=== PATIENT | female | born 1950 | race African-American/Black ===

== ENCOUNTER 2017-04-13 19:37 | Inpatient (IN) | payer MEDICARE, OTHER ==
--- NOTE | 2017-04-13 21:29 | ED Physician Chart ---
ED Chief Complaint/HPI - Patient Information Date Seen:: 03/13/18 Time Seen:: 21:30 Chief Complaint:: INCREASED AGITATION History of Present Illness:: PATIENT SENT FROM CARE FACILITY FOR INCREASED AGITATION. Historian:: EMS (PRIOR PSYCH HISTORY), Medical Records Review:: EMS run form Reviewed ED Review of Systems - Review of Systems General/Constitutional: No fever (unreliable) Skin: No skin lesions, No rash, No bruising Head: No headache, No light-headedness Eyes: No loss of vision, No pain, No diplopia ENT: No earache, No nasal drainage, No sore throat, No tinnitus Neck: No neck pain, No swelling, No thyromegaly, No stiffness, No mass noted Cardio Vascular: No chest pain, No palpitations, No PND, No orthopnea, No edema Pulmonary: No SOB, No cough, No sputum, No wheezing GI: No nausea G/U: No dysuria Musculoskeletal: No bone or joint pain Endocrine: No polyuria Psychiatric: Prior psych history, Depression, Anxiety (Agitation, aggressive behavior, unreliable historian.) Allergic/Immuno: No urticaria Neurological: No syncope Other: UNRELIABLE HISTORIAN ED Past Medical History - Past Medical History Obtainable: No (Unreliable historian, unwilling to cooperate) Psychiatricy History: Depression Family Medical History - Family Member Mother History Unknown: Yes ED Physical Exam - Physical Examination Head: Atraumatic Eyes: Lids, conjuctiva normal Skin: Nl inspection ENMT: External ears, nose nl Neck: Nontender Respiratory: Nl effort/Exclusion Cardio Vascular: RRR GI: No tenderness/rebounding/guarding : No CVA tenderness Extremities: No tenderness or effusion Neuro/Psych: No focal deficits Misc: Normal back ED Assessment - Assessment General Assessment: psychotic break vs other ED Septic Shock - . Is Septic Shock (SBP<90, OR Lactate>4 mmol\L) present?: No ED Discharge Plan - Patient Disposition Admit/Discharge/Transfer: Acute Care w/in this hosp Condition at Disposition: Critical
[2017-04-14 00:12] VITALS: BP 119/89
[2017-04-14] MEDS ORDERED: Non-Formulary Item 1 EA (Albuterol Sulfate [Ventolin Hfa] 2 PUFF) IH PRN (01:25)
[2017-04-14] MEDS ORDERED: Maalox 30 mL Cup PO PRN (01:34)
[2017-04-14] MEDS ORDERED: Magnesium Hydroxide (MOM) 30 mL UDC PO PRN (01:34)
[2017-04-14] MEDS: Multivitamin Tab PO SCH ×2 (08:12→08:34)
[2017-04-14] MEDS: Pantoprazole 40 mg EC Tab PO SCH ×2 (08:13→08:34)
[2017-04-14] MEDS: NIFEdipine 30 mg ER Tab PO SCH (08:34)
[2017-04-14] MEDS ORDERED: METFORMIN HCL 500 MG PO SCH (09:00)
[2017-04-14] MEDS ORDERED: NIFEDIPINE 90 MG PO SCH (09:00)
[2017-04-14] MEDS ORDERED: IRBESARTAN 75 MG PO SCH (09:00)
--- NOTE | 2017-04-14 09:55 | Diagnostic Imaging Report ---
CHEST X-RAY: AP view INDICATION: +PPD COMPARISON: None FINDINGS: Exam is limited due to positioning and body habitus. Suboptimal lung bones are seen with no focal consolidation or effusions. Cardiomegaly is noted with tortuous aorta. Degenerative changes of the spine are noted. IMPRESSION: No focal consolidation or radiographic evidence of active tuberculosis. Please correlate with clinical findings. Cardiomegaly.
--- NOTE | 2017-04-14 22:51 | History & Physical ---
ADMIT DATE: 04/14/2017 PATIENT'S IDENTIFICATION: A 66-year-old female. REQUESTING PHYSICIAN: Dr. Minerva Villafana. PRESENTING COMPLAINT: "I don't know." HISTORY OF PRESENT ILLNESS: A 66-year-old female with history of schizophrenia, bipolar disorder, COPD, diabetes mellitus, hypertension, has significant medical hospitalization at [facility] after the patient was noted to have hypoxic respiratory failure secondary to over sedation. The patient did stay in the long term for 2 days, but sent back to [facility] Unit for evaluation of psychotic illnesses. The patient was refusing to take her medication and very, very paranoid. The patient was initially ____ in the Emergency Room and now been admitted. PAST MEDICAL HISTORY: Remarkable for: 1. Diabetes. 2. Hypertension. 3. Obesity. 4. Chronic obstructive pulmonary disease. 5. Degenerative joint disease. 6. Left above-knee amputation. 7. Psychotic disorder. MEDICATIONS: List has been reviewed and reconciled appropriately. ALLERGIES: The patient is not allergic to medications. SOCIAL HISTORY: The patient resides in a long term. The patient has a history of smoking cigarette. No alcohol or drug use. FAMILY MEDICAL HISTORY: Unremarkable. REVIEW OF SYSTEMS: Very limited due to the patient does not provide meaningful history, but what I can get it out from her is, denies any chest pain, short of breath, palpitation, dizziness, nausea, vomiting, diarrhea. She thinks her left lower extremity is swollen and painful. The patient denies any hematuria, hematochezia or melena. No vaginal bleeding, no genital discharge. PHYSICAL EXAMINATION: GENERAL: The patient is alert, awake, looks very scared, lying in the bed without any acute distress. VITAL SIGNS: Temperature 97.9, pulse is 84, respiratory rate 18, blood pressure 150/90. HEENT: Normocephalic and atraumatic. Extraocular muscles are intact, exophthalmus noted. Tongue was pink and coated. Poor dentition noted. No oral lesion, no exudate, no sinus tenderness. NECK: Supple. No JVD, no hepatojugular reflux. No lymphadenopathy, thyromegaly or carotid bruit. HEART: Both heart sounds are regular. No S3, no S4, no murmur. CHEST: Lungs equal in expansion. No expiratory wheezing. ABDOMEN: Protuberant, soft. No guarding, no rigidity. Liver and spleen are not palpable. No palpable mass. EXTREMITIES: Left above-knee amputation noted. Stump looks intact. Right lower extremity pulses are +1. No calf tenderness noted. NEUROLOGIC: Alert, awake and follows commands. CLINICAL IMPRESSION: 1. Psychotic disorder exacerbation. 2. Diabetes mellitus. 3. Hypertension. 4. Hyperlipidemia. 5. Degenerative joint disease. 6. Obesity. 7. Status post left above-knee amputation. 8. Exophthalmus. PLAN: 1. Psychotic evaluation and management deferred to psychiatrist. 2. Resume her metformin and monitor the blood sugar and cover blood sugar with sliding scale and regular insulin. 3. Continue her antihypertensive medication. 4. Fall precautions. 5. General nursing care. 6. Nutritional support. 7. Admission lab. 8. We will continue to follow this patient during the stay in the hospital. 9. Care plan reviewed and discussed with the patient's signed RN. JOB# [id number]
[2017-04-15] MEDS: Pantoprazole 40 mg EC Tab PO SCH (08:59)
[2017-04-15] MEDS: Multivitamin Tab PO SCH (09:01)
[2017-04-15] MEDS: NIFEdipine 30 mg ER Tab PO SCH (09:11)
--- NOTE | 2017-04-15 14:29 | General Progress Note ---
Subjective - Review of Systems Subjective: patient is seen and examined. No new events. NO new complaints. Objective - Results Recent Labs: Laboratory Last Values POC Glucose 80 MG/DL (70 - 105) 04/15/17 11:42 - Physical Exam Vitals and I&O: Vital Signs Temp 98.7 F 04/14/17 16:05 Pulse 77 04/15/17 09:11 Resp 20 04/15/17 08:00 BP 140/87 04/15/17 09:11 Pulse Ox 95 04/14/17 16:05 Intake & Output 04/14/17 04/15/17 04/15/17 18:59 06:59 18:59 Intake Total 300 360 Balance 300 360 Intake: Oral 300 360 Other: # Voids 2 1 # Bowel Movements 1 Stool Characteristics Soft Soft Soft Brown Brown Brown Active Medications: Current Medications Acetaminophen (Tylenol) 650 mg PO Q4HR PRN PRN Reason: Mild Pain / Temp above 100 Stop: 06/13/17 01:33 Last Admin: 04/14/17 04:38 Dose: 650 mg Al Hydrox/Mg Hydrox/Simethicone (Maalox) 30 ml PO Q4HR PRN PRN Reason: GI DISTRESS Stop: 06/13/17 01:33 Clozapine (Clozaril) 25 mg PO DAILY ZEHRA PRN Reason: Protocol Stop: 06/15/17 08:59 Divalproex Sodium (Depakote Dr) 500 mg PO BID ZEHRA PRN Reason: Protocol Stop: 06/13/17 08:59 Last Admin: 04/15/17 08:59 Dose: 500 mg Hydrochlorothiazide (Hctz) 25 mg PO DAILY [facility]EHRA Stop: 06/13/17 08:59 Last Admin: 04/15/17 09:10 Dose: 25 mg Lorazepam (Ativan) 0.5 mg PO Q4HR PRN; Protocol PRN Reason: Anxiety Stop: 05/14/17 01:33 Last Admin: 04/15/17 09:00 Dose: 0.5 mg Magnesium Hydroxide (Milk Of Magnesia) 30 ml PO HS PRN PRN Reason: Constipation Metformin HCl (Glucophage) 500 mg PO BID ZEHRA Stop: 06/13/17 08:59 Last Admin: 04/15/17 08:59 Dose: 500 mg Miscellaneous (Albuterol Sulfate [Ventolin Hfa]) 2 puff IH Q6HR PRN PRN Reason: Shortness of Breath Multivitamins/Vitamin C (Theragran) 1 tab PO DAILY [facility] Stop: 06/13/17 08:59 Last Admin: 04/15/17 09:01 Dose: 1 tab Nifedipine (Procardia Xl) 90 mg PO DAILY [facility] Stop: 06/13/17 08:59 Last Admin: 04/15/17 09:11 Dose: 90 mg Ondansetron HCl (Zofran Odt) 4 mg PO Q6HR PRN PRN Reason: Nausea Pantoprazole Sodium (Protonix) 40 mg PO DAILY [facility] Stop: 06/13/17 08:59 Last Admin: 04/15/17 08:59 Dose: 40 mg Valsartan (Diovan) 40 mg PO DAILY [facility] Stop: 06/13/17 08:59 Last Admin: 04/15/17 09:10 Dose: 40 mg Zolpidem Tartrate (Ambien) 5 mg PO HS PRN PRN Reason: Insomnia Stop: 06/13/17 01:33 General: Alert, No acute distress HEENT: Atraumatic, PERRLA, EOMI, Other (exopthalmos.) Neck: Supple, JVD Cardiovascular: Regular rate, Normal S1, Normal S2 Lungs: Clear to auscultation Abdomen: Bowel sounds, Soft, Obese Extremities: Pulses (+1), Other (L AKA) Neurological: Normal speech, Sensation intact, Cranial nerves 3-12 NL Psych/Mental Status: Other (labile) Assessment/Plan - Assessment Assessment: Diabetes. HTN. Hyperlipedemia. Obesity COPD DJD L AKA Exopthalmos. Psych disorder - Plan Plan: Monitor glucose and vitals Fall Precautions. General Nursing care Psych meds and follow up. Chronic disease management. Symptoms management. Medication management. continue current care. Discussed with staff.
[2017-04-15] MEDS ORDERED: Albuterol Nebulizer 2.5mg/3mL HHN PRN (14:31)
--- NOTE | 2017-04-15 22:43 | Progress Notes ---
DATE: The patient was seen and evaluation. The patient's chart reviewed. SUBJECTIVE: Overnight nursing staff reported the patient continues to be easily irritable and paranoid. Today, on [id number] evaluation, and although she eats her food, the patient reports that someone may have contaminated food, easily paranoid. EXAMINATION: Paranoid, delusional, poor insight and impulse control. ASSESSMENT AND PLAN: The patient is a 66-year-old female with paranoid, schizophrenia, tolerating the patient's colonoscopy without complications or side effects of the medications. Since the patient had been inconsistent with her were initiated in the past. She has done very well. JOB# [id number]
--- NOTE | 2017-04-16 09:21 | Psychosocial Evaluation ---
DATE OF SERVICE: 04/14/2017 INITIAL PSYCHIATRIC EVALUATION COVERING FOR: Dr. Villafana. IDENTIFYING DATA: A 66-year-old female with history of schizophrenia. The patient was brought in here from [facility] after the patient was initially admitted to [facility] and she had been medically cleared. Most recently, the patient was sent from a jail for increased agitation. She was medically cleared from the [facility] ER. Today on [id number] evaluation, the patient is extremely paranoid, believing that the people were out to kill her and that she is going to if no one does anything because they are after her to kill her. She is easily paranoid, suspicious, looking around . PAST MEDICAL HISTORY: Includes COPD, left above knee amputation, hypertension. PAST PSYCHIATRIC HISTORY: History of schizophrenia, multiple psychiatric treatment, refractory. HOME MEDICATIONS: Reviewed her medication regimen from the jail when she came on, was updated on the 04/12/2017; include pantoprazole, nifedipine, hydrochlorothiazide, metformin, clonidine, Zofran, Depakote 500 mg p.o. b.i.d., Clozaril 200 mg at bedtime and 100 mg in the morning. ALLERGIES TO MEDICATIONS: NKDA. MENTAL STATUS EXAMINATION: easily agitated, paranoid, delusional, believing people are after , easily becomes agitated. Upon further interview, responding to internal stimuli, poor insight, judgment and impulse control. Immediate memory, remote memory and fund of information, the patient refuses. Unable to further assess. Labs from the outside hospital; unremarkable CBC and CMP. ASSESSMENT AND PLAN: The patient is a 66-year-old female with treatment refractory schizophrenia, has become more agitated and paranoid in the unit and also jail; therefore brought in here. We will continue to monitor and evaluate. Will continue with the current medication regimen. The patient is although in the past she had been noncompliant with the Clozaril, was initiated back in her last second in March, the . Therefore, at this point we will continue monitoring CBC with differential and monitor for any side effects of medications. PRIMARY DIAGNOSES: Treatment factors schizophrenia. SECONDARY DIAGNOSES: None. MEDICAL DIAGNOSIS: Noted above. severe. Estimated stay between 5-10 days. No suicidal or homicidal ideation. . We will check also Depakote levels and check levels and continue titrating medications as tolerated. We will obtain more collateral baseline information. [facility]# [id number]
--- NOTE | 2017-04-16 09:28 | General Progress Note ---
Subjective - Review of Systems Subjective: patient is seen and examined. Patient is agitated. Objective - Results Recent Labs: Laboratory Last Values POC Glucose 80 MG/DL (70 - 105) 04/15/17 11:42 - Physical Exam Vitals and I&O: Vital Signs Temp 97.9 F 04/16/17 06:37 Pulse 86 04/16/17 06:37 Resp 20 04/16/17 06:37 BP 124/80 04/16/17 06:37 Pulse Ox 97 04/16/17 06:37 Intake & Output 04/15/17 04/16/17 04/16/17 18:59 06:59 18:59 Intake Total 500 180 Balance 500 180 Intake: Oral 500 180 Other: # Voids 2 2 # Bowel Movements 1 1 Stool Characteristics Soft Brown Active Medications: Current Medications Acetaminophen (Tylenol) 650 mg PO Q4HR PRN PRN Reason: Mild Pain / Temp above 100 Stop: 06/13/17 01:33 Last Admin: 04/15/17 17:30 Dose: 650 mg Al Hydrox/Mg Hydrox/Simethicone (Maalox) 30 ml PO Q4HR PRN PRN Reason: GI DISTRESS Stop: 06/13/17 01:33 Albuterol Sulfate (Albuterol 2.5mg/3ml Neb Ud) 2.5 mg HHN Q6HRT PRN PRN Reason: Shortness of Breath Stop: 06/14/17 14:30 Clozapine (Clozaril) 25 mg PO DAILY ZEHRA PRN Reason: Protocol Stop: 06/15/17 08:59 Divalproex Sodium (Depakote Dr) 500 mg PO BID ZEHRA PRN Reason: Protocol Stop: 06/13/17 08:59 Last Admin: 04/15/17 17:03 Dose: 500 mg Hydrochlorothiazide (Hctz) 25 mg PO DAILY [facility] Stop: 06/13/17 08:59 Last Admin: 04/15/17 09:10 Dose: 25 mg Lorazepam (Ativan) 0.5 mg PO Q4HR PRN; Protocol PRN Reason: Anxiety Stop: 05/14/17 01:33 Last Admin: 04/15/17 19:51 Dose: 0.5 mg Magnesium Hydroxide (Milk Of Magnesia) 30 ml PO HS PRN PRN Reason: Constipation Metformin HCl (Glucophage) 500 mg PO BID [facility] Stop: 06/13/17 08:59 Last Admin: 04/15/17 17:03 Dose: 500 mg Multivitamins/Vitamin C (Theragran) 1 tab PO DAILY [facility] Stop: 06/13/17 08:59 Last Admin: 04/15/17 09:01 Dose: 1 tab Nifedipine (Procardia Xl) 90 mg PO DAILY [facility] Stop: 06/13/17 08:59 Last Admin: 04/15/17 09:11 Dose: 90 mg Ondansetron HCl (Zofran Odt) 4 mg PO Q6HR PRN PRN Reason: Nausea Pantoprazole Sodium (Protonix) 40 mg PO DAILY [facility] Stop: 06/13/17 08:59 Last Admin: 04/15/17 08:59 Dose: 40 mg Valsartan (Diovan) 40 mg PO DAILY [facility] Stop: 06/13/17 08:59 Last Admin: 04/15/17 09:10 Dose: 40 mg Zolpidem Tartrate (Ambien) 5 mg PO HS PRN PRN Reason: Insomnia Stop: 06/13/17 01:33 General: Alert, No acute distress HEENT: Atraumatic, PERRLA, EOMI, Other (exopthalmos.) Neck: Supple, JVD Cardiovascular: Regular rate, Normal S1, Normal S2 Lungs: Clear to auscultation Abdomen: Bowel sounds, Soft, Obese Extremities: Pulses (+1), Other (L AKA) Neurological: Normal speech, Sensation intact, Cranial nerves 3-12 NL Psych/Mental Status: Other (labile) Assessment/Plan - Assessment Assessment: Diabetes. HTN. Hyperlipedemia. Obesity COPD DJD L AKA Exopthalmos. Psych disorder - Plan Plan: Monitor glucose and vitals Fall Precautions. Further recommendations once lab available. General Nursing care Psych meds and follow up. Chronic disease management. Symptoms management. Medication management. continue current care. Discussed with staff.
[2017-04-16] MEDS: NIFEdipine 30 mg ER Tab PO SCH (09:34)
[2017-04-16] MEDS: Multivitamin Tab PO SCH (09:34)
[2017-04-16] MEDS: Pantoprazole 40 mg EC Tab PO SCH (09:35)
[2017-04-16 14:32] LABS: % EOSINOPHILS 0.6 % (0.0-5.0); % LYMPHOCYTES 22.6 % (20.0-50.0); % NEUTROPHILS 70.8 % (40.0-80.0); HEMATOCRIT 41.1 % (41.0-60); HEMOGLOBIN 13.3 gm/dL (12-16); LYMPHOCYTE ABSOLUTE 1.6 Th/cmm (1.5-3.0); MEAN CELL VOLUME 86.4 fl (81-100); MEAN CORPUSCULAR HEMOGLOBIN 28.1 pg (27.0-31.0); MEAN CORPUSCULAR HGB CONC 32.5 pg (28.0-36.0); MEAN PLATELET VOLUME 8.6 fl; MONOCYTE ABSOLUTE 0.4 Th/cmm (0.3-1.0); PLATELET COUNT 208 Th/cmm (150-400); RED BLOOD COUNT 4.75 Mil/cmm (3.80-5.10); RED CELL DISTRIBUTION WIDTH 18.6 % (11.5-20.0)
[2017-04-16 14:47] LABS: ALB/GLOB RATIO 0.9 (1.0-1.8); ALBUMIN 3.8 gm/dL (3.7-5.3); ALKALINE PHOSPHATASE 64 U/L (34-104); BILIRUBIN,TOTAL 0.5 mg/dL (0.3-1.0); BUN - UREA NITROGEN 22 mg/dL (7-25); CALCIUM SERUM 10.2 mg/dL (8.6-10.3); CARBON DIOXIDE 30.8 mEq/L (21.0-31.0); CHLORIDE 90 mEq/L (98-107); CHOLESTEROL 163 mg/dL (<200); CREATININE - SERUM 0.7 mg/dL (0.6-1.2); GFR AFRICAN-AMERICAN > 60.0 ml/min (>90); GFR NON AFRICAN-AMERICAN > 60.0 ml/min; GLUCOSE 88 mg/dL (70-105); HDL -HIGH DENSITY LIPOPROTEIN 73 mg/dL (23-92); POTASSIUM SERUM 3.8 mEq/L (3.5-5.1); SGOT 17 U/L (13-39); SGPT/ALT 9 U/L (7-52); SODIUM SERUM 127 mEq/L (136-145); TOTAL PROTEIN,SERUM 7.9 gm/dL (6.0-8.3); TRIGLYCERIDES 57 mg/dL (<150)
--- NOTE | 2017-04-17 01:19 | Progress Notes ---
DATE: 04/16/2017 SUBJECTIVE: A 66-year-old female with history of schizophrenia, brought in from [facility] and initially admitted there and then cleared as she was originally sent for increased agitation, paranoia, believing that people are trying to hurt her, rambling on exam. When asked her name, she states "I have a lot of names" and then telling me "hello" and that "my name is Abisai". The patient is believing that someone is trying to hurt her and kill her. ASSESSMENT: The patient remains symptomatic, disorganized, bizarre-appearing as a disorganized schizophrenic might paranoid about her food being poisoned. PLAN: We will continue to monitor. Given her ongoing symptoms, she is not safe for discharge. She is currently on Clozaril and we will be initiating this medication and titrating appropriately. Medications were reviewed. JOB# [id number]
[2017-04-17] MEDS: Multivitamin Tab PO SCH (08:33)
[2017-04-17] MEDS: Pantoprazole 40 mg EC Tab PO SCH (08:35)
[2017-04-17] MEDS: NIFEdipine 30 mg ER Tab PO SCH (08:35)
[2017-04-17 09:22] LABS: HEP A AB IGM Negative (Negative); HEP B CORE IGM Negative (Negative); HEP B SURFACE AG QL Negative (Negative); HEP C ANTIBODY <0.1 s/co ratio (0.0-0.9)
--- NOTE | 2017-04-18 08:17 | Progress Notes ---
DATE: 04/17/2017 SUBJECTIVE: History of schizophrenia, brought from [facility], noted to be agitated, paranoid, believing people are trying to hurt her, telling me her name is not Juliana Jurado, that her name is Lauren Mehta, talking about exorcisms, rambling, nonsensical on exam. It seems that she had been on Clozaril, unclear med compliance. The patient is still quite symptomatic, psychotic, seemingly confused, disoriented, unable to be cared for at a lower level of care. Remains impulsive and unpredictable. ASSESSMENT: The patient remains asymptomatic, still disorganized, bizarre, disoriented, remains impulsive, unpredictable, still paranoid. PLAN: We will restart Clozaril. The patient may also tolerate Risperdal given Clozaril side effect profile. We will monitor and follow up. JOB# [id number]
[2017-04-18] MEDS: NIFEdipine 30 mg ER Tab PO SCH (10:19)
[2017-04-18] MEDS: Multivitamin Tab PO SCH (10:19)
[2017-04-18] MEDS: Pantoprazole 40 mg EC Tab PO SCH (10:20)
[2017-04-19] MEDS: Multivitamin Tab PO SCH (08:26)
[2017-04-19] MEDS: NIFEdipine 30 mg ER Tab PO SCH (08:26)
[2017-04-19] MEDS: Pantoprazole 40 mg EC Tab PO SCH (08:27)
--- NOTE | 2017-04-19 09:20 | General Progress Note ---
Subjective - Review of Systems Subjective: patient is seen and examined. No new events. Patient denies any new complaints. Objective - Results Result Diagrams: 04/16/17 14:17 04/16/17 14:17 Recent Labs: Laboratory Last Values WBC 7.0 Th/cmm (4.8-10.8) 04/16/17 14:17 RBC 4.75 Mil/cmm (3.80-5.10) 04/16/17 14:17 Hgb 13.3 gm/dL (12-16) 04/16/17 14:17 Hct 41.1 % (41.0-60) 04/16/17 14:17 MCV 86.4 fl (81-100) 04/16/17 14:17 MCH 28.1 pg (27.0-31.0) 04/16/17 14:17 MCHC Differential 32.5 pg (28.0-36.0) 04/16/17 14:17 RDW 18.6 % (11.5-20.0) 04/16/17 14:17 Plt Count 208 Th/cmm (150-400) 04/16/17 14:17 MPV 8.6 fl 04/16/17 14:17 Neutrophils % 70.8 % (40.0-80.0) 04/16/17 14:17 Lymphocytes % 22.6 % (20.0-50.0) 04/16/17 14:17 Monocytes % 6.0 % (2.0-10.0) 04/16/17 14:17 Eosinophils % 0.6 % (0.0-5.0) 04/16/17 14:17 Basophils % 0.0 % (0.0-2.0) 04/16/17 14:17 Sodium 127 mEq/L (136-145) L 04/16/17 14:17 Potassium 3.8 mEq/L (3.5-5.1) 04/16/17 14:17 Chloride 90 mEq/L (98-107) L 04/16/17 14:17 Carbon Dioxide 30.8 mEq/L (21.0-31.0) 04/16/17 14:17 Anion Gap 10.0 (7.0-16.0) 04/16/17 14:17 BUN 22 mg/dL (7-25) 04/16/17 14:17 Creatinine 0.7 mg/dL (0.6-1.2) 04/16/17 14:17 Est GFR ( Amer) > 60.0 ml/min (>90) 04/16/17 14:17 Est GFR (Non-Af Amer) > 60.0 ml/min 04/16/17 14:17 BUN/Creatinine Ratio 31.4 04/16/17 14:17 Glucose 88 mg/dL (70-105) 04/16/17 14:17 POC Glucose 94 MG/DL (70 - 105) 04/18/17 20:28 Hemoglobin A1c % 6.0 % (4.0-6.0) 04/16/17 14:17 Calcium 10.2 mg/dL (8.6-10.3) 04/16/17 14:17 Total Bilirubin 0.5 mg/dL (0.3-1.0) 04/16/17 14:17 AST 17 U/L (13-39) 04/16/17 14:17 ALT 9 U/L (7-52) 04/16/17 14:17 Alkaline Phosphatase 64 U/L (34-104) 04/16/17 14:17 Total Protein 7.9 gm/dL (6.0-8.3) 04/16/17 14:17 Albumin 3.8 gm/dL (3.7-5.3) 04/16/17 14:17 Globulin 4.1 gm/dL 04/16/17 14:17 Albumin/Globulin Ratio 0.9 (1.0-1.8) L 04/16/17 14:17 Triglycerides 57 mg/dL (<150) 04/16/17 14:17 Cholesterol 163 mg/dL (<200) 04/16/17 14:17 LDL Cholesterol Direct 84 mg/dL (75-193) 04/16/17 14:17 HDL Cholesterol 73 mg/dL (23-92) 04/16/17 14:17 TSH 0.67 uIU/ml (0.34-5.60) 04/16/17 14:17 RPR NONREACTIVE (NONREACTIVE) 04/16/17 14:17 Hepatitis A IgM Ab Negative (Negative) 04/16/17 14:17 Hep Bs Antigen Negative (Negative) 04/16/17 14:17 Hep B Core IgM Ab Negative (Negative) 04/16/17 14:17 Hepatitis C Antibody <0.1 s/co ratio (0.0-0.9) 04/16/17 14:17 - Physical Exam Vitals and I&O: Vital Signs Temp 98.8 F 04/18/17 14:00 Pulse 85 04/19/17 08:27 Resp 20 04/18/17 14:00 BP 128/70 04/19/17 08:33 Pulse Ox 97 04/18/17 14:00 Intake & Output 04/18/17 04/19/17 04/19/17 18:59 06:59 18:59 Intake Total 800 240 Balance 800 240 Intake: Oral 800 240 Other: # Voids 3 3 # Bowel Movements 1 Active Medications: Current Medications Acetaminophen (Tylenol) 650 mg PO Q4HR PRN PRN Reason: Mild Pain / Temp above 100 Stop: 06/13/17 01:33 Last Admin: 04/18/17 02:22 Dose: 650 mg Al Hydrox/Mg Hydrox/Simethicone (Maalox) 30 ml PO Q4HR PRN PRN Reason: GI DISTRESS Stop: 06/13/17 01:33 Albuterol Sulfate (Albuterol 2.5mg/3ml Neb Ud) 2.5 mg HHN Q6HRT PRN PRN Reason: Shortness of Breath Stop: 06/14/17 14:30 Divalproex Sodium (Depakote Dr) 500 mg PO BID ZEHRA PRN Reason: Protocol Stop: 06/13/17 08:59 Last Admin: 04/19/17 08:26 Dose: 500 mg Hydrochlorothiazide (Hctz) 25 mg PO DAILY ZEHRA Stop: 06/13/17 08:59 Last Admin: 04/19/17 08:33 Dose: 25 mg Lorazepam (Ativan) 0.5 mg PO Q4HR PRN; Protocol PRN Reason: Anxiety Stop: 05/14/17 01:33 Last Admin: 04/19/17 08:45 Dose: 0.5 mg Magnesium Hydroxide (Milk Of Magnesia) 30 ml PO HS PRN PRN Reason: Constipation Metformin HCl (Glucophage) 500 mg PO BID ZEHRA Stop: 06/13/17 08:59 Last Admin: 04/19/17 08:27 Dose: 500 mg Multivitamins/Vitamin C (Theragran) 1 tab PO DAILY [facility] Stop: 06/13/17 08:59 Last Admin: 04/19/17 08:26 Dose: 1 tab Nifedipine (Procardia Xl) 90 mg PO DAILY [facility] Stop: 06/13/17 08:59 Last Admin: 04/19/17 08:26 Dose: 90 mg Ondansetron HCl (Zofran Odt) 4 mg PO Q6HR PRN PRN Reason: Nausea Pantoprazole Sodium (Protonix) 40 mg PO DAILY [facility] Stop: 06/13/17 08:59 Last Admin: 04/19/17 08:27 Dose: 40 mg Quetiapine Fumarate (Seroquel) 50 mg PO TID ZEHRA PRN Reason: Protocol Stop: 06/17/17 08:59 Risperidone (Risperdal) 0.5 mg PO BID ZEHRA PRN Reason: Protocol Stop: 06/16/17 16:59 Last Admin: 04/19/17 08:27 Dose: 0.5 mg Valsartan (Diovan) 40 mg PO DAILY [facility] Stop: 06/13/17 08:59 Last Admin: 04/19/17 08:27 Dose: 40 mg Zolpidem Tartrate (Ambien) 5 mg PO HS PRN PRN Reason: Insomnia Stop: 06/13/17 01:33 General: Alert, No acute distress HEENT: Atraumatic, PERRLA, EOMI, Other (exopthalmos.) Neck: Supple, JVD Cardiovascular: Regular rate, Normal S1, Normal S2 Lungs: Clear to auscultation Abdomen: Bowel sounds, Soft, Obese Extremities: Pulses (+1), Other (L AKA) Neurological: Normal speech, Sensation intact, Cranial nerves 3-12 NL Psych/Mental Status: Other (labile) Assessment/Plan - Assessment Assessment: Diabetes. HTN. Hyperlipedemia. Obesity COPD DJD L AKA Exopthalmos. Psych disorder - Plan Plan: Monitor glucose and vitals Fall Precautions. diabetes management. symptoms control. Medication management. General Nursing care Psych meds and follow up. Chronic disease management. Symptoms management. Medication management. continue current care. Discussed with staff. Nutritional Asmnt/Malnutr-PDOC - Dietary Evaluation Malnutrition Findings (Please click <Entered> for more info): Nutritional Asmnt/Malnutrition Start: 04/18/17 18: 58 Text: Status: Complete Freq: Document 04/18/17 18:58 LCHENG (Rec: 04/18/17 19:06 PASCUAL [email or web address]) Nutritional Asmnt/Malnutrition Patient General Information Nutritional Screening Moderate Risk Diagnosis psychosis Pertinent Medical Hx/Surgical Hx DM, HTN, obestiy, COPD, DJD, left AKA, psychotic disorder Subjective Information Pt seen eatin lunch at the time of visit. Pt reported she did not like the food here, she likes fried food. Per ntoes, PO intake 50-100% ( trending up), avg 75%. Current Diet Order/ Nutrition Support HARLEY Pertinent Medications glucophage, theragran, protonix, seroquel Pertinent Labs 04/16 Na 127, Cl 90, glucose 88, A1c 6.0 04/18 POC 83 Nutritional Hx/Data Height 1.52 m Height (Calculated Centimeters) 152.4 Current Weight (lbs) 90.718 kg Weight (Calculated Kilograms) 90.7 Weight (Calculated Grams) 63822.5 [place] Body Weight 100 % [place] Body Weight 200 Body Mass Index (BMI) 39.0 Weight Status Obese GI Symptoms GI Symptoms None Last BM 04/17 Difficult in: None Skin Integrity/Comment: intact Current %PO Good (75-100%) Estimated Nutritional Goals BEE in Kcals: Adj wt of IBW Calories/Kcals/Kg 30-35 Kcals Calculated Protein: Adj wt of IBW Protein g/k.2 Protein Calculated 68 Fluid: ml Nutritional Problem 1. Problem Problem obesity Etiology possible excessive energy intake Signs/Symptoms: BMI 39.1 Malnutrition Alert Protein-Calorie Malnutrition N/A Is there a minimum of two criteria No selected? Query Text:Check all the applicable criteria. A minimum of two criteria are recommended for diagnosis of either severe or non-severe malnutrition. Intervention/Recommendation Comments 1. Continue with current diet as ordered. 2. Monitor PO intake, wt, labs and skin integrity 3. F/U as low risk in 7 days, 04/25 Expected Outcomes/Goals Expected Outcomes/Goals 1. PO intake to meet at least 75% of nutritional needs. 2. Wt stability, skin to remain intact, labs to approach WNL.
--- NOTE | 2017-04-19 15:28 | Progress Notes ---
DATE: 04/18/2017 SUBJECTIVE: Chart reviewed and the patient interviewed. Also discussed the patient's condition with the staff and reviewed records and labs. The patient continued to be psychotic. She thinks that she wants to eat more and that she is hungry most of the time "because I am ." The patient also is paranoid and delusions and thinks that the hospital "giving me dog food." She also has been having severe mood swings and severe anxiety. She also easily agitated and easily irritable because of her delusions and because of her paranoia. ASSESSMENT: The patient is still psychotic and needs close monitoring. ESTIMATED LENGTH OF STAY: 2-4 days. TREATMENT PLAN: We will continue to monitor her behavior and her condition closely. Also, we will continue monitoring the Depakote and get Depakote blood level and continue to adjust psychotropic medications. JOB# [id number]
--- NOTE | 2017-04-20 00:47 | Progress Notes ---
DATE: SUBJECTIVE: Chart reviewed and the patient interviewed. Also discussed the patient's condition with the staff and reviewed records and labs. The patient continued to be delusional, thinking that the staff are feeding her dog food. She also thinks that she is . The patient also is still easily agitated and easily irritable with severe mood swings and anxiety. She also is still restless and have difficulty following directions. Otherwise, the patient started to be more compliant with taking her medications with no side effects of medications. ASSESSMENT: The patient is still psychotic. TREATMENT PLAN: We will increase Seroquel to 50 mg 3 times a day. Also, we will get Depakote blood level and we will continue to follow up closely. [facility]# [id number]
--- NOTE | 2017-04-20 09:37 | General Progress Note ---
Subjective - Review of Systems Subjective: patient is seen and examined. No new events. Objective - Results Result Diagrams: 04/16/17 14:17 04/16/17 14:17 Recent Labs: Laboratory Last Values WBC 7.0 Th/cmm (4.8-10.8) 04/16/17 14:17 RBC 4.75 Mil/cmm (3.80-5.10) 04/16/17 14:17 Hgb 13.3 gm/dL (12-16) 04/16/17 14:17 Hct 41.1 % (41.0-60) 04/16/17 14:17 MCV 86.4 fl (81-100) 04/16/17 14:17 MCH 28.1 pg (27.0-31.0) 04/16/17 14:17 MCHC Differential 32.5 pg (28.0-36.0) 04/16/17 14:17 RDW 18.6 % (11.5-20.0) 04/16/17 14:17 Plt Count 208 Th/cmm (150-400) 04/16/17 14:17 MPV 8.6 fl 04/16/17 14:17 Neutrophils % 70.8 % (40.0-80.0) 04/16/17 14:17 Lymphocytes % 22.6 % (20.0-50.0) 04/16/17 14:17 Monocytes % 6.0 % (2.0-10.0) 04/16/17 14:17 Eosinophils % 0.6 % (0.0-5.0) 04/16/17 14:17 Basophils % 0.0 % (0.0-2.0) 04/16/17 14:17 Sodium 127 mEq/L (136-145) L 04/16/17 14:17 Potassium 3.8 mEq/L (3.5-5.1) 04/16/17 14:17 Chloride 90 mEq/L (98-107) L 04/16/17 14:17 Carbon Dioxide 30.8 mEq/L (21.0-31.0) 04/16/17 14:17 Anion Gap 10.0 (7.0-16.0) 04/16/17 14:17 BUN 22 mg/dL (7-25) 04/16/17 14:17 Creatinine 0.7 mg/dL (0.6-1.2) 04/16/17 14:17 Est GFR ( Amer) > 60.0 ml/min (>90) 04/16/17 14:17 Est GFR (Non-Af Amer) > 60.0 ml/min 04/16/17 14:17 BUN/Creatinine Ratio 31.4 04/16/17 14:17 Glucose 88 mg/dL (70-105) 04/16/17 14:17 POC Glucose 78 MG/DL (70 - 105) 04/19/17 11:35 Hemoglobin A1c % 6.0 % (4.0-6.0) 04/16/17 14:17 Calcium 10.2 mg/dL (8.6-10.3) 04/16/17 14:17 Total Bilirubin 0.5 mg/dL (0.3-1.0) 04/16/17 14:17 AST 17 U/L (13-39) 04/16/17 14:17 ALT 9 U/L (7-52) 04/16/17 14:17 Alkaline Phosphatase 64 U/L (34-104) 04/16/17 14:17 Total Protein 7.9 gm/dL (6.0-8.3) 04/16/17 14:17 Albumin 3.8 gm/dL (3.7-5.3) 04/16/17 14:17 Globulin 4.1 gm/dL 04/16/17 14:17 Albumin/Globulin Ratio 0.9 (1.0-1.8) L 04/16/17 14:17 Triglycerides 57 mg/dL (<150) 04/16/17 14:17 Cholesterol 163 mg/dL (<200) 04/16/17 14:17 LDL Cholesterol Direct 84 mg/dL (75-193) 04/16/17 14:17 HDL Cholesterol 73 mg/dL (23-92) 04/16/17 14:17 TSH 0.67 uIU/ml (0.34-5.60) 04/16/17 14:17 RPR NONREACTIVE (NONREACTIVE) 04/16/17 14:17 Hepatitis A IgM Ab Negative (Negative) 04/16/17 14:17 Hep Bs Antigen Negative (Negative) 04/16/17 14:17 Hep B Core IgM Ab Negative (Negative) 01/08/18 14:17 Hepatitis C Antibody <0.1 s/co ratio (0.0-0.9) 04/16/17 14:17 - Physical Exam Vitals and I&O: Vital Signs Temp 97.2 F 04/19/17 14:00 Pulse 88 04/19/17 20:28 Resp 20 04/19/17 20:28 BP 108/71 04/19/17 14:00 Pulse Ox 94 04/19/17 20:28 Intake & Output 04/19/17 04/20/17 04/20/17 18:59 06:59 18:59 Intake Total 1200 Balance 1200 Intake: Oral 1200 Other: # Voids 3 # Bowel Movements 1 Active Medications: Current Medications Acetaminophen (Tylenol) 650 mg PO Q4HR PRN PRN Reason: Mild Pain / Temp above 100 Stop: 06/13/17 01:33 Last Admin: 04/18/17 02:22 Dose: 650 mg Al Hydrox/Mg Hydrox/Simethicone (Maalox) 30 ml PO Q4HR PRN PRN Reason: GI DISTRESS Stop: 06/13/17 01:33 Albuterol Sulfate (Albuterol 2.5mg/3ml Neb Ud) 2.5 mg HHN Q6HRT PRN PRN Reason: Shortness of Breath Stop: 06/14/17 14:30 Divalproex Sodium (Depakote Dr) 500 mg PO BID ZEHRA PRN Reason: Protocol Stop: 06/13/17 08:59 Last Admin: 04/19/17 16:10 Dose: 500 mg Hydrochlorothiazide (Hctz) 25 mg PO DAILY [facility] Stop: 06/13/17 08:59 Last Admin: 04/19/17 08:33 Dose: 25 mg Lorazepam (Ativan) 0.5 mg PO Q4HR PRN; Protocol PRN Reason: Anxiety Stop: 05/14/17 01:33 Last Admin: 04/19/17 16:10 Dose: 0.5 mg Magnesium Hydroxide (Milk Of Magnesia) 30 ml PO HS PRN PRN Reason: Constipation Metformin HCl (Glucophage) 500 mg PO BID [facility] Stop: 06/13/17 08:59 Last Admin: 04/19/17 16:10 Dose: 500 mg Multivitamins/Vitamin C (Theragran) 1 tab PO DAILY [facility] Stop: 06/13/17 08:59 Last Admin: 04/19/17 08:26 Dose: 1 tab Nifedipine (Procardia Xl) 90 mg PO DAILY [facility] Stop: 06/13/17 08:59 Last Admin: 04/19/17 08:26 Dose: 90 mg Ondansetron HCl (Zofran Odt) 4 mg PO Q6HR PRN PRN Reason: Nausea Pantoprazole Sodium (Protonix) 40 mg PO DAILY [facility] Stop: 06/13/17 08:59 Last Admin: 04/19/17 08:27 Dose: 40 mg Quetiapine Fumarate (Seroquel) 50 mg PO TID ZEHRA PRN Reason: Protocol Stop: 06/17/17 08:59 Last Admin: 04/19/17 21:17 Dose: 50 mg Valsartan (Diovan) 40 mg PO DAILY [facility] Stop: 06/13/17 08:59 Last Admin: 04/19/17 08:27 Dose: 40 mg Zolpidem Tartrate (Ambien) 5 mg PO HS PRN PRN Reason: Insomnia Stop: 06/13/17 01:33 General: Alert, No acute distress HEENT: Atraumatic, PERRLA, EOMI, Other (exopthalmos.) Neck: Supple, JVD Cardiovascular: Regular rate, Normal S1, Normal S2 Lungs: Clear to auscultation Abdomen: Bowel sounds, Soft, Obese Extremities: Pulses (+1), Other (L AKA) Neurological: Normal speech, Sensation intact, Cranial nerves 3-12 NL Psych/Mental Status: Other (labile) Assessment/Plan - Assessment Assessment: Diabetes. HTN. Hyperlipedemia. Obesity COPD DJD L AKA Exopthalmos. Psych disorder - Plan Plan: Monitor glucose and vitals Fall Precautions. diabetes management. symptoms control. Medication management. General Nursing care Psych meds and follow up. Chronic disease management. Medication management. continue current care. Discussed with staff. Nutritional Asmnt/Malnutr-PDOC - Dietary Evaluation Malnutrition Findings (Please click <Entered> for more info): Nutritional Asmnt/Malnutrition Start: 04/18/17 18: 58 Text: Status: Complete Freq: Document 04/18/17 18:58 PASCUAL (Rec: 04/18/17 19:06 PASCUAL [email or web address]) Nutritional Asmnt/Malnutrition Patient General Information Nutritional Screening Moderate Risk Diagnosis psychosis Pertinent Medical Hx/Surgical Hx DM, HTN, obestiy, COPD, DJD, left AKA, psychotic disorder Subjective Information Pt seen eatin lunch at the time of visit. Pt reported she did not like the food here, she likes fried food. Per ntoes, PO intake 50-100% ( trending up), avg 75%. Current Diet Order/ Nutrition Support HARLEY Pertinent Medications glucophage, theragran, protonix, seroquel Pertinent Labs 04/16 Na 127, Cl 90, glucose 88, A1c 6.0 04/18 POC 83 Nutritional Hx/Data Height 1.52 m Height (Calculated Centimeters) 152.4 Current Weight (lbs) 90.718 kg Weight (Calculated Kilograms) 90.7 Weight (Calculated Grams) 00256.5 [place] Body Weight 100 % [place] Body Weight 200 Body Mass Index (BMI) 39.0 Weight Status Obese GI Symptoms GI Symptoms None Last BM 04/17 Difficult in: None Skin Integrity/Comment: intact Current %PO Good (75-100%) Estimated Nutritional Goals BEE in Kcals: Adj wt of IBW Calories/Kcals/Kg 30-35 Kcals Calculated Protein: Adj wt of IBW Protein g/k.2 Protein Calculated 68 Fluid: ml Nutritional Problem 1. Problem Problem obesity Etiology possible excessive energy intake Signs/Symptoms: BMI 39.1 Malnutrition Alert Protein-Calorie Malnutrition N/A Is there a minimum of two criteria No selected? Query Text:Check all the applicable criteria. A minimum of two criteria are recommended for diagnosis of either severe or non-severe malnutrition. Intervention/Recommendation Comments 1. Continue with current diet as ordered. 2. Monitor PO intake, wt, labs and skin integrity 3. F/U as low risk in 7 days, 04/25 Expected Outcomes/Goals Expected Outcomes/Goals 1. PO intake to meet at least 75% of nutritional needs. 2. Wt stability, skin to remain intact, labs to approach WNL.
[2017-04-20] MEDS: NIFEdipine 30 mg ER Tab PO SCH (09:39)
[2017-04-20] MEDS: Multivitamin Tab PO SCH (09:41)
[2017-04-20] MEDS: Pantoprazole 40 mg EC Tab PO SCH (09:41)
--- NOTE | 2017-04-21 00:13 | Progress Notes ---
DATE: 04/20/2017 PSYCHIATRIC PROGRESS NOTE SUBJECTIVE: Chart reviewed and the patient interviewed. Also, discussed the patient's condition with the staff and reviewed records and labs. The patient is still anxious and depressed. The patient also is still suspicious and paranoid and withdrawn. She continued to think that the people in the hospital are giving her dog food and that they want to poison her. She also is still accusing the staff was different things that unrealistic. During interview, the patient is rambling and thought processes are circumstantial with flight of ideas. On the other hand, the patient seemed to be less irritable and less agitated. TREATMENT PLAN: We will continue monitoring her behavior and her condition closely. Also, we will continue to work on her behavior and behavior modification. ADDENDUM I will discontinue Risperdal since the patient started on Zoloft. Also, we will get Depakote blood level and we will continue to follow up. JOB# [id number]
[2017-04-21] MEDS: Multivitamin Tab PO SCH (08:59)
[2017-04-21] MEDS: NIFEdipine 30 mg ER Tab PO SCH (08:59)
[2017-04-21] MEDS: Pantoprazole 40 mg EC Tab PO SCH (08:59)
[2017-04-21] MEDS ORDERED: Haloperidol Lactate 5 mg/mL 1mL Vial IM ONE (12:07)
[2017-04-21] MEDS ORDERED: Haloperidol Lactate 5 mg/mL 1mL Vial ONE (12:09)
--- NOTE | 2017-04-21 21:10 | Progress Notes ---
DATE: 04/21/2017 The patient was seen, chart reviewed, and discussed with staff. The patient continues to be very anxious, depressed, paranoid, withdrawn, continues to feel that people are switching her food, are "putting things in there" or trying to poison her. The patient generally is very tangential, rambling, and thought process with flight of ideas. She has, however, been compliant with her medications denying any undue side effects. PLAN: We will continue patient on current medications. Titrate as needed, monitor on a daily basis, and work closely with rn field case manager regarding her placement on discharge. JOB# [id number]
[2017-04-22] MEDS: NIFEdipine 30 mg ER Tab PO SCH (09:14)
[2017-04-22] MEDS: Multivitamin Tab PO SCH (09:14)
[2017-04-22] MEDS: Pantoprazole 40 mg EC Tab PO SCH (09:15)
--- NOTE | 2017-04-22 18:50 | Progress Notes ---
DATE: ADDENDUM I will discontinue Risperdal since the patient started on Zoloft. Also, we will get Depakote blood level and we will continue to follow up. JOB# [id number]
--- NOTE | 2017-04-23 00:31 | Progress Notes ---
DATE: 04/22/2017 SUBJECTIVE: The patient was seen, chart reviewed, and discussed with staff. The patient continues to be depressed, anxious, paranoid, self isolative. The patient continues to feel that other people are trying to poison her thought process. Continues to be rambling. She has, however, been compliant with medications. PLAN: The patient continues to be actively psychotic, unpredictable, so that she will require inpatient care center treatment. We will monitor patient on a daily basis for her response to treatment and titrate meds as needed. JOB# [id number]
[2017-04-23] MEDS: NIFEdipine 30 mg ER Tab PO SCH (09:04)
[2017-04-23] MEDS: Multivitamin Tab PO SCH (09:04)
[2017-04-23] MEDS: Pantoprazole 40 mg EC Tab PO SCH (09:07)
--- NOTE | 2017-04-23 19:51 | Progress Notes ---
DATE: 04/23/[address] Villafana. This is a 66-year-old female who was admitted on 04/13/2017 with a history of schizophrenia. She came from [facility] after the patient was initially admitted to [facility] and she had been medically cleared. The patient was sent from a nursing facility with increasing agitation. She was medically cleared. The patient was extremely paranoid, believing that people were out to kill her and that she is going to in if no one does anything for her. The patient is reported by the staff to be drinking her urine and eating her poop. She is still unpredictable, impulsive. Her family believes she needs to be on Clozaril and side effects were discussed. The patient continues to be unpredictable, impulsive, at risk. She has no known drug allergies, so I will be initiating Clozaril 25 mg on her and she is also on Depakote 500 mg twice a day. She is also on metformin, nifedipine, and Seroquel 50 mg 3 times a day, valsartan or Diovan 40 mg daily and will initiate Clozaril 25 mg and increase the dose quickly as tolerated. We will continue the patient in group therapy, milieu therapy, and adjust medications as needed. JOB# [id number]
--- NOTE | 2017-04-23 21:34 | General Progress Note ---
Subjective - Review of Systems Service Date: 04/23/17 Subjective: Patient seen and examined chart reviewed patient denied any complaints Objective - Results Result Diagrams: 04/16/17 14:17 04/16/17 14:17 Recent Labs: Laboratory Last Values WBC 7.0 Th/cmm (4.8-10.8) 04/16/17 14:17 RBC 4.75 Mil/cmm (3.80-5.10) 04/16/17 14:17 Hgb 13.3 gm/dL (12-16) 04/16/17 14:17 Hct 41.1 % (41.0-60) 04/16/17 14:17 MCV 86.4 fl (81-100) 04/16/17 14:17 MCH 28.1 pg (27.0-31.0) 04/16/17 14:17 MCHC Differential 32.5 pg (28.0-36.0) 04/16/17 14:17 RDW 18.6 % (11.5-20.0) 04/16/17 14:17 Plt Count 208 Th/cmm (150-400) 04/16/17 14:17 MPV 8.6 fl 04/16/17 14:17 Neutrophils % 70.8 % (40.0-80.0) 04/16/17 14:17 Lymphocytes % 22.6 % (20.0-50.0) 04/16/17 14:17 Monocytes % 6.0 % (2.0-10.0) 04/16/17 14:17 Eosinophils % 0.6 % (0.0-5.0) 04/16/17 14:17 Basophils % 0.0 % (0.0-2.0) 04/16/17 14:17 Sodium 127 mEq/L (136-145) L 04/16/17 14:17 Potassium 3.8 mEq/L (3.5-5.1) 04/16/17 14:17 Chloride 90 mEq/L (98-107) L 04/16/17 14:17 Carbon Dioxide 30.8 mEq/L (21.0-31.0) 04/16/17 14:17 Anion Gap 10.0 (7.0-16.0) 04/16/17 14:17 BUN 22 mg/dL (7-25) 04/16/17 14:17 Creatinine 0.7 mg/dL (0.6-1.2) 04/16/17 14:17 Est GFR ( Amer) > 60.0 ml/min (>90) 04/16/17 14:17 Est GFR (Non-Af Amer) > 60.0 ml/min 04/16/17 14:17 BUN/Creatinine Ratio 31.4 04/16/17 14:17 Glucose 88 mg/dL (70-105) 04/16/17 14:17 POC Glucose 78 MG/DL (70 - 105) 04/19/17 11:35 Hemoglobin A1c % 6.0 % (4.0-6.0) 04/16/17 14:17 Calcium 10.2 mg/dL (8.6-10.3) 04/16/17 14:17 Total Bilirubin 0.5 mg/dL (0.3-1.0) 04/16/17 14:17 AST 17 U/L (13-39) 04/16/17 14:17 ALT 9 U/L (7-52) 04/16/17 14:17 Alkaline Phosphatase 64 U/L (34-104) 04/16/17 14:17 Total Protein 7.9 gm/dL (6.0-8.3) 04/16/17 14:17 Albumin 3.8 gm/dL (3.7-5.3) 04/16/17 14:17 Globulin 4.1 gm/dL 04/16/17 14:17 Albumin/Globulin Ratio 0.9 (1.0-1.8) L 04/16/17 14:17 Triglycerides 57 mg/dL (<150) 04/16/17 14:17 Cholesterol 163 mg/dL (<200) 04/16/17 14:17 LDL Cholesterol Direct 84 mg/dL (75-193) 04/16/17 14:17 HDL Cholesterol 73 mg/dL (23-92) 04/16/17 14:17 TSH 0.67 uIU/ml (0.34-5.60) 04/16/17 14:17 RPR NONREACTIVE (NONREACTIVE) 04/16/17 14:17 Hepatitis A IgM Ab Negative (Negative) 04/16/17 14:17 Hep Bs Antigen Negative (Negative) 04/16/17 14:17 Hep B Core IgM Ab Negative (Negative) 04/16/17 14:17 Hepatitis C Antibody <0.1 s/co ratio (0.0-0.9) 04/16/17 14:17 - Physical Exam Vitals and I&O: Vital Signs Temp 98 F 04/23/17 21:10 Pulse 85 04/23/17 21:10 Resp 19 04/23/17 21:10 BP 133/71 04/23/17 21:10 Pulse Ox 96 04/23/17 21:10 Intake & Output 04/23/17 04/23/17 04/24/17 06:59 18:59 06:59 Intake Total 120 1200 480 Output Total 1 Balance 120 1200 479 Intake: Oral 120 1200 480 Output: Stool 1 Other: # Voids 3 3 1 # Bowel Movements 0 1 Active Medications: Current Medications Acetaminophen (Tylenol) 650 mg PO Q4HR PRN PRN Reason: Mild Pain / Temp above 100 Stop: 06/13/17 01:33 Last Admin: 04/18/17 02:22 Dose: 650 mg Al Hydrox/Mg Hydrox/Simethicone (Maalox) 30 ml PO Q4HR PRN PRN Reason: GI DISTRESS Stop: 06/13/17 01:33 Albuterol Sulfate (Albuterol 2.5mg/3ml Neb Ud) 2.5 mg HHN Q6HRT PRN PRN Reason: Shortness of Breath Stop: 06/14/17 14:30 Clozapine (Clozaril) 25 mg PO DAILY [facility] PRN Reason: Protocol Stop: 06/23/17 08:59 Divalproex Sodium (Depakote Dr) 500 mg PO BID [facility] PRN Reason: Protocol Stop: 06/13/17 08:59 Last Admin: 04/23/17 17:52 Dose: 500 mg Hydrochlorothiazide (Hctz) 25 mg PO DAILY [facility] Stop: 06/13/17 08:59 Last Admin: 04/23/17 09:08 Dose: 25 mg Lorazepam (Ativan) 0.5 mg PO Q4HR PRN; Protocol PRN Reason: Anxiety Stop: 05/14/17 01:33 Last Admin: 04/22/17 20:50 Dose: 0.5 mg Magnesium Hydroxide (Milk Of Magnesia) 30 ml PO HS PRN PRN Reason: Constipation Metformin HCl (Glucophage) 500 mg PO BID [facility] Stop: 06/13/17 08:59 Last Admin: 04/23/17 17:52 Dose: 500 mg Multivitamins/Vitamin C (Theragran) 1 tab PO DAILY [facility] Stop: 06/13/17 08:59 Last Admin: 04/23/17 09:04 Dose: 1 tab Nifedipine (Procardia Xl) 90 mg PO DAILY [facility] Stop: 06/13/17 08:59 Last Admin: 04/23/17 09:04 Dose: 90 mg Ondansetron HCl (Zofran Odt) 4 mg PO Q6HR PRN PRN Reason: Nausea Pantoprazole Sodium (Protonix) 40 mg PO DAILY [facility] Stop: 06/13/17 08:59 Last Admin: 04/23/17 09:07 Dose: 40 mg Quetiapine Fumarate (Seroquel) 50 mg PO TID [facility] Stop: 06/22/17 20:59 Last Admin: 04/23/17 20:50 Dose: 50 mg Valsartan (Diovan) 40 mg PO DAILY [facility] Stop: 06/13/17 08:59 Last Admin: 04/23/17 09:08 Dose: 40 mg Zolpidem Tartrate (Ambien) 5 mg PO HS PRN PRN Reason: Insomnia Stop: 06/13/17 01:33 Cardiovascular: Regular rate Lungs: Clear to auscultation Assessment/Plan - Assessment Assessment: DM II HTN HYPERLIPIEMIA COPD MENTAL HEALTH DISORDER - Plan Plan: Continue current treatment Monitor vitals Monitor blood sugar Plan of care discussed with nursing staff Nutritional Asmnt/Malnutr-PDOC - Dietary Evaluation Malnutrition Findings (Please click <Entered> for more info): Nutritional Asmnt/Malnutrition Start: 04/18/17 18: 58 Text: Status: Complete Freq: Document 04/18/17 18:58 LCHENG (Rec: 04/18/17 19:06 [email or web address]) Nutritional Asmnt/Malnutrition Patient General Information Nutritional Screening Moderate Risk Diagnosis psychosis Pertinent Medical Hx/Surgical Hx DM, HTN, obestiy, COPD, DJD, left AKA, psychotic disorder Subjective Information Pt seen eatin lunch at the time of visit. Pt reported she did not like the food here, she likes fried food. Per ntoes, PO intake 50-100% ( trending up), avg 75%. Current Diet Order/ Nutrition Support HARLEY Pertinent Medications glucophage, theragran, protonix, seroquel Pertinent Labs 04/16 Na 127, Cl 90, glucose 88, A1c 6.0 04/18 POC 83 Nutritional Hx/Data Height 1.52 m Height (Calculated Centimeters) 152.4 Current Weight (lbs) 90.718 kg Weight (Calculated Kilograms) 90.7 Weight (Calculated Grams) 92489.5 [place] Body Weight 100 % [place] Body Weight 200 Body Mass Index (BMI) 39.0 Weight Status Obese GI Symptoms GI Symptoms None Last BM 04/17 Difficult in: None Skin Integrity/Comment: intact Current %PO Good (75-100%) Estimated Nutritional Goals BEE in Kcals: Adj wt of IBW Calories/Kcals/Kg 30-35 Kcals Calculated Protein: Adj wt of IBW Protein g/k.2 Protein Calculated 68 Fluid: ml Nutritional Problem 1. Problem Problem obesity Etiology possible excessive energy intake Signs/Symptoms: BMI 39.1 Malnutrition Alert Protein-Calorie Malnutrition N/A Is there a minimum of two criteria No selected? Query Text:Check all the applicable criteria. A minimum of two criteria are recommended for diagnosis of either severe or non-severe malnutrition. Intervention/Recommendation Comments 1. Continue with current diet as ordered. 2. Monitor PO intake, wt, labs and skin integrity 3. F/U as low risk in 7 days, 04/25 Expected Outcomes/Goals Expected Outcomes/Goals 1. PO intake to meet at least 75% of nutritional needs. 2. Wt stability, skin to remain intact, labs to approach WNL.
[2017-04-24] MEDS: NIFEdipine 30 mg ER Tab PO SCH (10:12)
[2017-04-24] MEDS: Multivitamin Tab PO SCH (10:14)
[2017-04-24] MEDS: Pantoprazole 40 mg EC Tab PO SCH (10:14)
--- NOTE | 2017-04-24 17:26 | Progress Notes ---
DATE: 04/24/2017 Case was discussed with staff of patient, reviewed records. The patient continues to be unpredictable, impulsive, was drinking urine yesterday. Continues to have poor insight. Continues to need redirection, unpredictable, and impulsive. I will be increasing her Clozaril to 50 mg at bedtime and so far no side effects, no sedation, no nausea, no extrapyramidal symptoms. Continues to work with the patient in group therapy, milieu therapy, adjust her medication as needed. JOB# [id number]
[2017-04-25] MEDS: Multivitamin Tab PO SCH (09:00)
[2017-04-25] MEDS: Pantoprazole 40 mg EC Tab PO SCH (09:00)
[2017-04-25] MEDS: NIFEdipine 30 mg ER Tab PO SCH (09:37)
--- NOTE | 2017-04-25 20:02 | General Progress Note ---
Subjective - Review of Systems Service Date: 04/25/17 Subjective: Patient doing ok no medical concern reported Objective - Results Result Diagrams: 04/16/17 14:17 04/16/17 14:17 Recent Labs: Laboratory Last Values WBC 7.0 Th/cmm (4.8-10.8) 04/16/17 14:17 RBC 4.75 Mil/cmm (3.80-5.10) 04/16/17 14:17 Hgb 13.3 gm/dL (12-16) 04/16/17 14:17 Hct 41.1 % (41.0-60) 04/16/17 14:17 MCV 86.4 fl (81-100) 04/16/17 14:17 MCH 28.1 pg (27.0-31.0) 04/16/17 14:17 MCHC Differential 32.5 pg (28.0-36.0) 04/16/17 14:17 RDW 18.6 % (11.5-20.0) 04/16/17 14:17 Plt Count 208 Th/cmm (150-400) 04/16/17 14:17 MPV 8.6 fl 04/16/17 14:17 Neutrophils % 70.8 % (40.0-80.0) 04/16/17 14:17 Lymphocytes % 22.6 % (20.0-50.0) 04/16/17 14:17 Monocytes % 6.0 % (2.0-10.0) 04/16/17 14:17 Eosinophils % 0.6 % (0.0-5.0) 04/16/17 14:17 Basophils % 0.0 % (0.0-2.0) 04/16/17 14:17 Sodium 127 mEq/L (136-145) L 04/16/17 14:17 Potassium 3.8 mEq/L (3.5-5.1) 04/16/17 14:17 Chloride 90 mEq/L (98-107) L 04/16/17 14:17 Carbon Dioxide 30.8 mEq/L (21.0-31.0) 04/16/17 14:17 Anion Gap 10.0 (7.0-16.0) 04/16/17 14:17 BUN 22 mg/dL (7-25) 04/16/17 14:17 Creatinine 0.7 mg/dL (0.6-1.2) 04/16/17 14:17 Est GFR ( Amer) > 60.0 ml/min (>90) 04/16/17 14:17 Est GFR (Non-Af Amer) > 60.0 ml/min 04/16/17 14:17 BUN/Creatinine Ratio 31.4 04/16/17 14:17 Glucose 88 mg/dL (70-105) 04/16/17 14:17 POC Glucose 78 MG/DL (70 - 105) 04/19/17 11:35 Hemoglobin A1c % 6.0 % (4.0-6.0) 04/16/17 14:17 Calcium 10.2 mg/dL (8.6-10.3) 04/16/17 14:17 Total Bilirubin 0.5 mg/dL (0.3-1.0) 04/16/17 14:17 AST 17 U/L (13-39) 04/16/17 14:17 ALT 9 U/L (7-52) 04/16/17 14:17 Alkaline Phosphatase 64 U/L (34-104) 04/16/17 14:17 Total Protein 7.9 gm/dL (6.0-8.3) 04/16/17 14:17 Albumin 3.8 gm/dL (3.7-5.3) 04/16/17 14:17 Globulin 4.1 gm/dL 04/16/17 14:17 Albumin/Globulin Ratio 0.9 (1.0-1.8) L 04/16/17 14:17 Triglycerides 57 mg/dL (<150) 04/16/17 14:17 Cholesterol 163 mg/dL (<200) 04/16/17 14:17 LDL Cholesterol Direct 84 mg/dL (75-193) 04/16/17 14:17 HDL Cholesterol 73 mg/dL (23-92) 04/16/17 14:17 TSH 0.67 uIU/ml (0.34-5.60) 04/16/17 14:17 RPR NONREACTIVE (NONREACTIVE) 04/16/17 14:17 Hepatitis A IgM Ab Negative (Negative) 04/16/17 14:17 Hep Bs Antigen Negative (Negative) 04/16/17 14:17 Hep B Core IgM Ab Negative (Negative) 04/16/17 14:17 Hepatitis C Antibody <0.1 s/co ratio (0.0-0.9) 04/16/17 14:17 - Physical Exam Vitals and I&O: Vital Signs Temp 97.9 F 04/24/17 20:34 Pulse 88 04/25/17 19:31 Resp 18 04/25/17 19:31 BP 136/92 04/25/17 09:43 Pulse Ox 94 04/25/17 19:31 Intake & Output 04/25/17 04/25/17 04/26/17 06:59 18:59 06:59 Intake Total 420 2400 Balance 420 2400 Intake: Oral 420 2400 Other: # Voids 2 4 # Bowel Movements 0 0 Active Medications: Current Medications Acetaminophen (Tylenol) 650 mg PO Q4HR PRN PRN Reason: Mild Pain / Temp above 100 Stop: 06/13/17 01:33 Last Admin: 04/24/17 13:54 Dose: 650 mg Al Hydrox/Mg Hydrox/Simethicone (Maalox) 30 ml PO Q4HR PRN PRN Reason: GI DISTRESS Stop: 06/13/17 01:33 Albuterol Sulfate (Albuterol 2.5mg/3ml Neb Ud) 2.5 mg HHN Q6HRT PRN PRN Reason: Shortness of Breath Stop: 06/14/17 14:30 Clozapine (Clozaril) 50 mg PO DAILY [facility] PRN Reason: Protocol Stop: 06/23/17 11:59 Last Admin: 04/25/17 09:00 Dose: 50 mg Divalproex Sodium (Depakote Dr) 500 mg PO BID [facility] PRN Reason: Protocol Stop: 06/13/17 08:59 Last Admin: 04/25/17 16:18 Dose: 500 mg Hydrochlorothiazide (Hctz) 25 mg PO DAILY [facility] Stop: 06/13/17 08:59 Last Admin: 04/25/17 09:42 Dose: 25 mg Lorazepam (Ativan) 0.5 mg PO Q4HR PRN; Protocol PRN Reason: Anxiety Stop: 05/14/17 01:33 Last Admin: 04/25/17 02:05 Dose: 0.5 mg Magnesium Hydroxide (Milk Of Magnesia) 30 ml PO HS PRN PRN Reason: Constipation Metformin HCl (Glucophage) 500 mg PO BID [facility] Stop: 06/13/17 08:59 Last Admin: 04/25/17 16:18 Dose: 500 mg Multivitamins/Vitamin C (Theragran) 1 tab PO DAILY [facility] Stop: 06/13/17 08:59 Last Admin: 04/25/17 09:00 Dose: 1 tab Nifedipine (Procardia Xl) 90 mg PO DAILY [facility] Stop: 06/13/17 08:59 Last Admin: 04/25/17 09:37 Dose: 90 mg Ondansetron HCl (Zofran Odt) 4 mg PO Q6HR PRN PRN Reason: Nausea Pantoprazole Sodium (Protonix) 40 mg PO DAILY [facility] Stop: 06/13/17 08:59 Last Admin: 04/25/17 09:00 Dose: 40 mg Quetiapine Fumarate (Seroquel) 50 mg PO TID [facility] Stop: 06/22/17 20:59 Last Admin: 04/25/17 16:18 Dose: Not Given Valsartan (Diovan) 40 mg PO DAILY [facility] Stop: 06/13/17 08:59 Last Admin: 04/25/17 09:43 Dose: Not Given Zolpidem Tartrate (Ambien) 5 mg PO HS PRN PRN Reason: Insomnia Stop: 06/13/17 01:33 Cardiovascular: Regular rate Lungs: Clear to auscultation Extremities: Pulses (+1), Other (L AKA) Neurological: Normal speech, Sensation intact, Cranial nerves 3-12 NL Psych/Mental Status: Other (labile) Assessment/Plan - Assessment Assessment: DM II HTN HYPERLIPIEMIA COPD MENTAL HEALTH DISORDER - Plan Plan: Continue current treatment Monitor vitals Monitor blood sugar Plan of care discussed with nursing staff Nutritional Asmnt/Malnutr-PDOC - Dietary Evaluation Malnutrition Findings (Please click <Entered> for more info): Nutritional Asmnt/Malnutrition Start: 04/18/17 18: 58 Text: Status: Complete Freq: Document 04/18/17 18:58 PASCUAL (Rec: 04/18/17 19:06 [email or web address] [email or web address]) Nutritional Asmnt/Malnutrition Patient General Information Nutritional Screening Moderate Risk Diagnosis psychosis Pertinent Medical Hx/Surgical Hx DM, HTN, obestiy, COPD, DJD, left AKA, psychotic disorder Subjective Information Pt seen eatin lunch at the time of visit. Pt reported she did not like the food here, she likes fried food. Per ntoes, PO intake 50-100% ( trending up), avg 75%. Current Diet Order/ Nutrition Support HARLEY Pertinent Medications glucophage, theragran, protonix, seroquel Pertinent Labs 04/16 Na 127, Cl 90, glucose 88, A1c 6.0 04/18 POC 83 Nutritional Hx/Data Height 1.52 m Height (Calculated Centimeters) 152.4 Current Weight (lbs) 90.718 kg Weight (Calculated Kilograms) 90.7 Weight (Calculated Grams) 30863.5 [place] Body Weight 100 % [place] Body Weight 200 Body Mass Index (BMI) 39.0 Weight Status Obese GI Symptoms GI Symptoms None Last BM 04/17 Difficult in: None Skin Integrity/Comment: intact Current %PO Good (75-100%) Estimated Nutritional Goals BEE in Kcals: Adj wt of IBW Calories/Kcals/Kg 30-35 Kcals Calculated Protein: Adj wt of IBW Protein g/k.2 Protein Calculated 68 Fluid: ml Nutritional Problem 1. Problem Problem obesity Etiology possible excessive energy intake Signs/Symptoms: BMI 39.1 Malnutrition Alert Protein-Calorie Malnutrition N/A Is there a minimum of two criteria No selected? Query Text:Check all the applicable criteria. A minimum of two criteria are recommended for diagnosis of either severe or non-severe malnutrition. Intervention/Recommendation Comments 1. Continue with current diet as ordered. 2. Monitor PO intake, wt, labs and skin integrity 3. F/U as low risk in 7 days, 04/25 Expected Outcomes/Goals Expected Outcomes/Goals 1. PO intake to meet at least 75% of nutritional needs. 2. Wt stability, skin to remain intact, labs to approach WNL.
[2017-04-26] MEDS: Pantoprazole 40 mg EC Tab PO SCH (09:27)
[2017-04-26] MEDS: Multivitamin Tab PO SCH (09:28)
[2017-04-26] MEDS: NIFEdipine 30 mg ER Tab PO SCH (09:29)
--- NOTE | 2017-04-26 17:53 | Progress Notes ---
DATE: SUBJECTIVE: Chart reviewed and the patient interviewed. Also discussed the patient's condition with the staff and reviewed records and labs. The patient is still very agitated, and earlier today, she pulled the fire alarm. The patient also still needs lots of redirections and she is still in irritable mood. The patient also is still responding to stimuli and seems to be suspicious and paranoid. The patient also still needs to be monitored closely because of her unpredictable behavior. ASSESSMENT: The patient is still agitated and psychotic. TREATMENT PLAN: The patient needs to continue to monitor her condition and working on behavioral modification. Also continue adjusting psychotropic medications. Also, continue to work on discharge plans and placement issue since previous placement will not take her back. JOB# [id number]
--- NOTE | 2017-04-26 23:45 | Progress Notes ---
DATE: 04/26/2017 SUBJECTIVE: Chart reviewed and the patient interviewed. Also discussed the patient's condition with the staff and reviewed records and labs. The patient is still extremely irritable and is extremely agitated. The patient also is still suspicious and is still paranoid. She also is still actively responding to stimuli and have difficulty following staff directions. The patient also is still easily irritable and easily agitated. Also, she is not cooperative in regard to trying to help with finding placement. During interview, the patient is angry and is easily agitated and is having difficulty with following directions. ASSESSMENT: The patient is still psychotic and is still irritable and agitated. TREATMENT PLAN: We will continue to monitor her behavior and her condition closely. Also, hospice case manager cannot find a place for the patient yet. Continue to work on trying to get placement for the patient and will continue to follow up closely. JOB# [id number]
[2017-04-27] MEDS: Multivitamin Tab PO SCH (09:32)
[2017-04-27] MEDS: Pantoprazole 40 mg EC Tab PO SCH (09:33)
[2017-04-27] MEDS: NIFEdipine 30 mg ER Tab PO SCH (09:33)
--- NOTE | 2017-04-27 21:00 | General Progress Note ---
Subjective - Review of Systems Service Date: 04/27/17 Subjective: Patient doing ok no reported concern Objective - Results Result Diagrams: 04/16/17 14:17 04/16/17 14:17 Recent Labs: Laboratory Last Values WBC 7.0 Th/cmm (4.8-10.8) 04/16/17 14:17 RBC 4.75 Mil/cmm (3.80-5.10) 04/16/17 14:17 Hgb 13.3 gm/dL (12-16) 04/16/17 14:17 Hct 41.1 % (41.0-60) 04/16/17 14:17 MCV 86.4 fl (81-100) 04/16/17 14:17 MCH 28.1 pg (27.0-31.0) 04/16/17 14:17 MCHC Differential 32.5 pg (28.0-36.0) 04/16/17 14:17 RDW 18.6 % (11.5-20.0) 04/16/17 14:17 Plt Count 208 Th/cmm (150-400) 04/16/17 14:17 MPV 8.6 fl 04/16/17 14:17 Neutrophils % 70.8 % (40.0-80.0) 04/16/17 14:17 Lymphocytes % 22.6 % (20.0-50.0) 04/16/17 14:17 Monocytes % 6.0 % (2.0-10.0) 04/16/17 14:17 Eosinophils % 0.6 % (0.0-5.0) 04/16/17 14:17 Basophils % 0.0 % (0.0-2.0) 04/16/17 14:17 Sodium 127 mEq/L (136-145) L 04/16/17 14:17 Potassium 3.8 mEq/L (3.5-5.1) 04/16/17 14:17 Chloride 90 mEq/L (98-107) L 04/16/17 14:17 Carbon Dioxide 30.8 mEq/L (21.0-31.0) 04/16/17 14:17 Anion Gap 10.0 (7.0-16.0) 04/16/17 14:17 BUN 22 mg/dL (7-25) 04/16/17 14:17 Creatinine 0.7 mg/dL (0.6-1.2) 04/16/17 14:17 Est GFR ( Amer) > 60.0 ml/min (>90) 04/16/17 14:17 Est GFR (Non-Af Amer) > 60.0 ml/min 04/16/17 14:17 BUN/Creatinine Ratio 31.4 04/16/17 14:17 Glucose 88 mg/dL (70-105) 04/16/17 14:17 POC Glucose 78 MG/DL (70 - 105) 04/19/17 11:35 Hemoglobin A1c % 6.0 % (4.0-6.0) 04/16/17 14:17 Calcium 10.2 mg/dL (8.6-10.3) 04/16/17 14:17 Total Bilirubin 0.5 mg/dL (0.3-1.0) 04/16/17 14:17 AST 17 U/L (13-39) 04/16/17 14:17 ALT 9 U/L (7-52) 04/16/17 14:17 Alkaline Phosphatase 64 U/L (34-104) 04/16/17 14:17 Total Protein 7.9 gm/dL (6.0-8.3) 04/16/17 14:17 Albumin 3.8 gm/dL (3.7-5.3) 04/16/17 14:17 Globulin 4.1 gm/dL 04/16/17 14:17 Albumin/Globulin Ratio 0.9 (1.0-1.8) L 04/16/17 14:17 Triglycerides 57 mg/dL (<150) 04/16/17 14:17 Cholesterol 163 mg/dL (<200) 04/16/17 14:17 LDL Cholesterol Direct 84 mg/dL (75-193) 04/16/17 14:17 HDL Cholesterol 73 mg/dL (23-92) 04/16/17 14:17 TSH 0.67 uIU/ml (0.34-5.60) 04/16/17 14:17 RPR NONREACTIVE (NONREACTIVE) 04/16/17 14:17 Hepatitis A IgM Ab Negative (Negative) 04/16/17 14:17 Hep Bs Antigen Negative (Negative) 04/16/17 14:17 Hep B Core IgM Ab Negative (Negative) 04/16/17 14:17 Hepatitis C Antibody <0.1 s/co ratio (0.0-0.9) 04/16/17 14:17 - Physical Exam Vitals and I&O: Vital Signs Temp 98.2 F 04/27/17 16:01 Pulse 81 04/27/17 19:25 Resp 20 04/27/17 19:25 BP 136/100 04/27/17 16:01 Pulse Ox 95 04/27/17 19:25 Intake & Output 04/27/17 04/27/17 04/28/17 06:59 18:59 06:59 Intake Total 120 1200 Balance 120 1200 Intake: Oral 120 1200 Other: # Voids 3 3 Active Medications: Current Medications Acetaminophen (Tylenol) 650 mg PO Q4HR PRN PRN Reason: Mild Pain / Temp above 100 Stop: 06/13/17 01:33 Last Admin: 04/24/17 13:54 Dose: 650 mg Al Hydrox/Mg Hydrox/Simethicone (Maalox) 30 ml PO Q4HR PRN PRN Reason: GI DISTRESS Stop: 06/13/17 01:33 Albuterol Sulfate (Albuterol 2.5mg/3ml Neb Ud) 2.5 mg HHN Q6HRT PRN PRN Reason: Shortness of Breath Stop: 06/14/17 14:30 Clozapine (Clozaril) 50 mg PO DAILY [facility] PRN Reason: Protocol Stop: 06/23/17 11:59 Last Admin: 04/27/17 09:32 Dose: 50 mg Divalproex Sodium (Depakote Dr) 500 mg PO BID [facility] PRN Reason: Protocol Stop: 06/13/17 08:59 Last Admin: 04/27/17 16:17 Dose: 500 mg Hydrochlorothiazide (Hctz) 25 mg PO DAILY [facility] Stop: 06/13/17 08:59 Last Admin: 04/27/17 09:32 Dose: Not Given Lorazepam (Ativan) 0.5 mg PO Q4HR PRN; Protocol PRN Reason: Anxiety Stop: 05/14/17 01:33 Last Admin: 04/25/17 02:05 Dose: 0.5 mg Magnesium Hydroxide (Milk Of Magnesia) 30 ml PO HS PRN PRN Reason: Constipation Metformin HCl (Glucophage) 500 mg PO BID [facility] Stop: 06/13/17 08:59 Last Admin: 04/27/17 16:17 Dose: 500 mg Multivitamins/Vitamin C (Theragran) 1 tab PO DAILY [facility] Stop: 06/13/17 08:59 Last Admin: 04/27/17 09:32 Dose: 1 tab Nifedipine (Procardia Xl) 90 mg PO DAILY [facility] Stop: 06/13/17 08:59 Last Admin: 04/27/17 09:33 Dose: Not Given Ondansetron HCl (Zofran Odt) 4 mg PO Q6HR PRN PRN Reason: Nausea Pantoprazole Sodium (Protonix) 40 mg PO DAILY [facility] Stop: 06/13/17 08:59 Last Admin: 04/27/17 09:33 Dose: 40 mg Quetiapine Fumarate (Seroquel) 75 mg PO TID [facility] Stop: 06/22/17 20:59 Last Admin: 04/27/17 13:53 Dose: 75 mg Valsartan (Diovan) 40 mg PO DAILY [facility] Stop: 06/13/17 08:59 Last Admin: 04/27/17 09:37 Dose: Not Given Zolpidem Tartrate (Ambien) 5 mg PO HS PRN PRN Reason: Insomnia Stop: 06/13/17 01:33 General: No acute distress Cardiovascular: Regular rate Lungs: Clear to auscultation Extremities: Pulses (+1), Other (L AKA) Neurological: Normal speech, Sensation intact, Cranial nerves 3-12 NL Psych/Mental Status: Other (labile) Assessment/Plan - Assessment Assessment: DM II HTN HYPERLIPIEMIA COPD MENTAL HEALTH DISORDER - Plan Plan: Continue current treatment Monitor vitals Monitor blood sugar Plan of care discussed with nursing staff Nutritional Asmnt/Malnutr-PDOC - Dietary Evaluation Malnutrition Findings (Please click <Entered> for more info): Nutritional Asmnt/Malnutrition Start: 04/18/17 18: 58 Text: Status: Complete Freq: Document 04/18/17 18:58 PASCUAL (Rec: 04/18/17 19:06 [email or web address] [email or web address]) Nutritional Asmnt/Malnutrition Patient General Information Nutritional Screening Moderate Risk Diagnosis psychosis Pertinent Medical Hx/Surgical Hx DM, HTN, obestiy, COPD, DJD, left AKA, psychotic disorder Subjective Information Pt seen eatin lunch at the time of visit. Pt reported she did not like the food here, she likes fried food. Per ntoes, PO intake 50-100% ( trending up), avg 75%. Current Diet Order/ Nutrition Support HARLEY Pertinent Medications glucophage, theragran, protonix, seroquel Pertinent Labs 04/16 Na 127, Cl 90, glucose 88, A1c 6.0 04/18 POC 83 Nutritional Hx/Data Height 1.52 m Height (Calculated Centimeters) 152.4 Current Weight (lbs) 90.718 kg Weight (Calculated Kilograms) 90.7 Weight (Calculated Grams) 06037.5 [place] Body Weight 100 % [place] Body Weight 200 Body Mass Index (BMI) 39.0 Weight Status Obese GI Symptoms GI Symptoms None Last BM 04/17 Difficult in: None Skin Integrity/Comment: intact Current %PO Good (75-100%) Estimated Nutritional Goals BEE in Kcals: Adj wt of IBW Calories/Kcals/Kg 30-35 Kcals Calculated Protein: Adj wt of IBW Protein g/k.2 Protein Calculated 68 Fluid: ml Nutritional Problem 1. Problem Problem obesity Etiology possible excessive energy intake Signs/Symptoms: BMI 39.1 Malnutrition Alert Protein-Calorie Malnutrition N/A Is there a minimum of two criteria No selected? Query Text:Check all the applicable criteria. A minimum of two criteria are recommended for diagnosis of either severe or non-severe malnutrition. Intervention/Recommendation Comments 1. Continue with current diet as ordered. 2. Monitor PO intake, wt, labs and skin integrity 3. F/U as low risk in 7 days, 04/25 Expected Outcomes/Goals Expected Outcomes/Goals 1. PO intake to meet at least 75% of nutritional needs. 2. Wt stability, skin to remain intact, labs to approach WNL.
--- NOTE | 2017-04-28 01:35 | Progress Notes ---
DATE: SUBJECTIVE: Chart reviewed and the patient interviewed. Also discussed the patient's condition with the staff and reviewed records and labs. The patient is still agitated and she is still in irritable mood. The patient also is slamming door and she is paranoid and unable to follow staff directions because of her agitation and irritability. The patient also is still having severe mood swings. The patient also is restless and she is in angry mood most of the time. Otherwise, the patient is compliant with taking her medications. ASSESSMENT: The patient is still agitated and psychotic and can be dangerous to others. TREATMENT PLAN: We will continue monitoring her behavior and her condition closely. Also, will increase Seroquel to 75 mg 3 times a day and will continue to follow up. JOB# [id number]
[2017-04-28] MEDS: Pantoprazole 40 mg EC Tab PO SCH ×2 (08:51→09:08)
[2017-04-28] MEDS: NIFEdipine 30 mg ER Tab PO SCH ×2 (08:52→09:08)
[2017-04-28] MEDS: Multivitamin Tab PO SCH ×2 (08:53→09:07)
[2017-04-28] MEDS ORDERED: Haloperidol Lactate 5 mg/mL 1mL Vial ONE (09:03)
[2017-04-28] MEDS ORDERED: Haloperidol Lactate 5 mg/mL 1mL Vial IM ONE (09:04)
--- NOTE | 2017-04-28 23:28 | Progress Notes ---
DATE: PSYCHIATRIC PROGRESS NOTE SUBJECTIVE: Chart reviewed and the patient interviewed. Also discussed the patient's condition with the staff and reviewed records and labs. The patient is still severely agitated and is still in angry and in irritable mood. The patient also is rambling and she still has had episodes of yelling and screaming. She also has disorganized thoughts. The patient also did not sleep much last night according to staff. She also needs close monitoring and the instructions. Otherwise, the patient is compliant with taking her medications with no side effects of medications. ASSESSMENT: The patient is still paranoid and psychotic. TREATMENT PLAN: We will continue monitoring her behavior and her condition closely. Also, continue to work on her irritability and agitation and we will continue to follow up. JOB# [id number]
[2017-04-29] MEDS: Pantoprazole 40 mg EC Tab PO SCH (10:01)
[2017-04-29] MEDS: Multivitamin Tab PO SCH (10:01)
[2017-04-29] MEDS: NIFEdipine 30 mg ER Tab PO SCH (10:01)
--- NOTE | 2017-04-29 23:13 | Progress Notes ---
DATE: 04/29/2017 PSYCHIATRIC PROGRESS NOTE SUBJECTIVE: Chart reviewed and the patient interviewed. Also, discussed the patient's condition with the staff and reviewed records and labs. The patient continued to be suspicious and to be guarded and paranoid. The patient also is still hyperverbal and she still has thought processes disorganized. Also, she still has trouble sleeping all night. Otherwise, the patient is compliant with taking medications with no side effects of medications. ASSESSMENT: The patient is still psychotic, but slightly improved. TREATMENT PLAN: Continue to monitor her behavior and her condition closely. Also, continue working on her mood and will continue to follow up. [facility]# [id number]
[2017-04-30] MEDS ORDERED: Haloperidol Lactate 5 mg/mL 1mL Vial IM ONE (08:34)
[2017-04-30] MEDS ORDERED: Haloperidol Lactate 5 mg/mL 1mL Vial ONE (08:35)
[2017-04-30] MEDS: NIFEdipine 30 mg ER Tab PO SCH (09:08)
[2017-04-30] MEDS: Multivitamin Tab PO SCH (09:08)
[2017-04-30] MEDS: Pantoprazole 40 mg EC Tab PO SCH (09:09)
--- NOTE | 2017-05-01 02:16 | Progress Notes ---
DATE: 04/30/2017 SUBJECTIVE: The patient is seen and examined. The patient is extremely agitated, required medications to calm her down, discussed with nursing staff about her overall medical condition. There is no new event reported on today's exam. PHYSICAL EXAMINATION: VITAL SIGNS: Temperature 98, pulse is 100, respiratory rate is 20, and blood pressure 140/90. HEENT: Unremarkable for poor dentition, exophthalmos noted. NECK: Supple. No JVD. HEART: Both heart sounds are regular. CHEST: Lungs equal in expansion with no expiratory wheezing. ABDOMEN: Soft, protuberant. No guarding. No rigidity. EXTREMITIES: Left below-knee amputation noted. NEUROLOGIC: Alert, follows simple commands. CLINICAL IMPRESSION: 1. Psychotic disorder exacerbation. 2. Hypertension. 3. Peripheral vascular disease. 4. Status post left below-knee amputation. 5. Obesity. 6. History of constipation. 7. High risk of fall. PLAN: 1. Psychiatric evaluation and management deferred to psychiatrist. 2. Avoid constipation. 3. Monitor blood pressure and continue antihypertensive medication. 4. Fall precautions. 5. General nursing care. 6. Symptoms management. 7. Care plan reviewed and discussed with staff. JOB# [id number]
--- NOTE | 2017-05-01 02:30 | Progress Notes ---
DATE: SUBJECTIVE: Chart reviewed and the patient interviewed. Also discussed the patient's condition with the staff and reviewed records and labs. The patient remains extremely agitated and in irritable mood. The patient also did not sleep most of last night. She also continued to be intrusive and impulsive and delusional. She also curses the nurses and hoarding things in her room. The patient also is paranoid and saying "I have ." The patient also is still needed emergency medications for her aggressive behavior and irritability. ASSESSMENT: The patient is still agitated and psychotic and can be dangerous to others. TREATMENT PLAN: We will continue to monitor her behavior and her condition closely. Also, will increase Clozaril to 75 mg everyday and we will increase Seroquel to 100 mg 3 times a day. Also, we will get Depakote blood level and we will continue to follow up closely. JOB# [id number]
[2017-05-01] MEDS: Pantoprazole 40 mg EC Tab PO SCH (10:08)
[2017-05-01] MEDS: Multivitamin Tab PO SCH (10:08)
[2017-05-01] MEDS: NIFEdipine 30 mg ER Tab PO SCH (10:08)
--- NOTE | 2017-05-02 06:36 | Progress Notes ---
DATE: 05/01/2017 SUBJECTIVE: Chart reviewed and the patient interviewed. Also discussed the patient's condition with the staff and reviewed records and labs. The patient continued to be extremely irritable and extremely agitated. The patient is argumentative and she is still confused. She also is still threatening others and still using foul language with the staff and with other patients. Otherwise, the patient is compliant with taking her medications. ASSESSMENT: The patient is still agitated and psychotic. TREATMENT PLAN: Continue to monitor her behavior and her condition closely. Also discussed with the patient placement issue and the patient still has poor insight and considered to be gravely disabled, not able to follow up with any safe plan for self-care because of her disorganized thoughts. surgery manager still have difficulty finding a place for the patient. At the same time, we will increase Seroquel to 150 mg 3 times a day and continue Clozaril 75 mg everyday and we will continue to follow up closely. JOB# [id number]
[2017-05-02] MEDS: Multivitamin Tab PO SCH (08:18)
[2017-05-02] MEDS: Pantoprazole 40 mg EC Tab PO SCH (08:19)
[2017-05-02] MEDS: NIFEdipine 30 mg ER Tab PO SCH (08:36)
[2017-05-02] MEDS ORDERED: Haloperidol Lactate 5 mg/mL 1mL Vial ONE (13:08)
[2017-05-02] MEDS ORDERED: Haloperidol Lactate 5 mg/mL 1mL Vial IM ONE (13:10)
--- NOTE | 2017-05-03 06:16 | Progress Notes ---
DATE: 05/02/2017 SUBJECTIVE: Chart reviewed and the patient interviewed. Also discussed the patient's condition with the staff and I reviewed records and labs. The patient continued to be extremely agitated and is still in angry and in irritable mood. The patient also is restless and she is still suspicious and is still paranoid. The patient also still threatening to staff, and she continued to use foul language with the staff. She also is still feeling that people are against her and she is still paranoid. Otherwise, the patient continued to comply with taking her medications with no side effects of medications. ASSESSMENT: ____. TREATMENT PLAN: We will continue to monitor her behavior and her condition closely. Also, continue to work on behavioral modification and also placement issue. The patient still need placement. PS[facility]# [id number]
[2017-05-03] MEDS: Multivitamin Tab PO SCH (08:09)
[2017-05-03] MEDS: Pantoprazole 40 mg EC Tab PO SCH (08:10)
--- NOTE | 2017-05-03 09:53 | General Progress Note ---
Subjective - Review of Systems Subjective: patient is seen and examined. No new events. Objective - Results Result Diagrams: 04/16/17 14:17 04/16/17 14:17 Recent Labs: Laboratory Last Values WBC 7.0 Th/cmm (4.8-10.8) 04/16/17 14:17 RBC 4.75 Mil/cmm (3.80-5.10) 04/16/17 14:17 Hgb 13.3 gm/dL (12-16) 04/16/17 14:17 Hct 41.1 % (41.0-60) 04/16/17 14:17 MCV 86.4 fl (81-100) 04/16/17 14:17 MCH 28.1 pg (27.0-31.0) 04/16/17 14:17 MCHC Differential 32.5 pg (28.0-36.0) 04/16/17 14:17 RDW 18.6 % (11.5-20.0) 04/16/17 14:17 Plt Count 208 Th/cmm (150-400) 04/16/17 14:17 MPV 8.6 fl 04/16/17 14:17 Neutrophils % 70.8 % (40.0-80.0) 04/16/17 14:17 Lymphocytes % 22.6 % (20.0-50.0) 04/16/17 14:17 Monocytes % 6.0 % (2.0-10.0) 04/16/17 14:17 Eosinophils % 0.6 % (0.0-5.0) 04/16/17 14:17 Basophils % 0.0 % (0.0-2.0) 04/16/17 14:17 Sodium 127 mEq/L (136-145) L 04/16/17 14:17 Potassium 3.8 mEq/L (3.5-5.1) 04/16/17 14:17 Chloride 90 mEq/L (98-107) L 04/16/17 14:17 Carbon Dioxide 30.8 mEq/L (21.0-31.0) 04/16/17 14:17 Anion Gap 10.0 (7.0-16.0) 04/16/17 14:17 BUN 22 mg/dL (7-25) 04/16/17 14:17 Creatinine 0.7 mg/dL (0.6-1.2) 04/16/17 14:17 Est GFR ( Amer) > 60.0 ml/min (>90) 04/16/17 14:17 Est GFR (Non-Af Amer) > 60.0 ml/min 04/16/17 14:17 BUN/Creatinine Ratio 31.4 04/16/17 14:17 Glucose 88 mg/dL (70-105) 04/16/17 14:17 POC Glucose 78 MG/DL (70 - 105) 04/19/17 11:35 Hemoglobin A1c % 6.0 % (4.0-6.0) 04/16/17 14:17 Calcium 10.2 mg/dL (8.6-10.3) 04/16/17 14:17 Total Bilirubin 0.5 mg/dL (0.3-1.0) 04/16/17 14:17 AST 17 U/L (13-39) 04/16/17 14:17 ALT 9 U/L (7-52) 04/16/17 14:17 Alkaline Phosphatase 64 U/L (34-104) 04/16/17 14:17 Total Protein 7.9 gm/dL (6.0-8.3) 04/16/17 14:17 Albumin 3.8 gm/dL (3.7-5.3) 04/16/17 14:17 Globulin 4.1 gm/dL 04/16/17 14:17 Albumin/Globulin Ratio 0.9 (1.0-1.8) L 04/16/17 14:17 Triglycerides 57 mg/dL (<150) 04/16/17 14:17 Cholesterol 163 mg/dL (<200) 04/16/17 14:17 LDL Cholesterol Direct 84 mg/dL (75-193) 04/16/17 14:17 HDL Cholesterol 73 mg/dL (23-92) 04/16/17 14:17 TSH 0.67 uIU/ml (0.34-5.60) 04/16/17 14:17 RPR NONREACTIVE (NONREACTIVE) 04/16/17 14:17 Hepatitis A IgM Ab Negative (Negative) 04/16/17 14:17 Hep Bs Antigen Negative (Negative) 04/16/17 14:17 Hep B Core IgM Ab Negative (Negative) 01/08/18 14:17 Hepatitis C Antibody <0.1 s/co ratio (0.0-0.9) 04/16/17 14:17 - Physical Exam Vitals and I&O: Vital Signs Temp 97.2 F 05/02/17 14:00 Pulse 89 05/03/17 07:55 Resp 16 05/03/17 07:55 BP 150/88 05/02/17 14:00 Pulse Ox 97 05/03/17 07:55 Intake & Output 05/02/17 05/03/17 05/03/17 18:59 06:59 18:59 Intake Total 800 Balance 800 Intake: Oral 800 Other: # Voids 4 # Bowel Movements 0 Active Medications: Current Medications Acetaminophen (Tylenol) 650 mg PO Q4HR PRN PRN Reason: Mild Pain / Temp above 100 Stop: 06/13/17 01:33 Last Admin: 04/29/17 23:27 Dose: 650 mg Al Hydrox/Mg Hydrox/Simethicone (Maalox) 30 ml PO Q4HR PRN PRN Reason: GI DISTRESS Stop: 06/13/17 01:33 Albuterol Sulfate (Albuterol 2.5mg/3ml Neb Ud) 2.5 mg HHN Q6HRT PRN PRN Reason: Shortness of Breath Stop: 06/14/17 14:30 Clozapine (Clozaril) 100 mg PO DAILY ZEHRA PRN Reason: Protocol Stop: 06/23/17 08:59 Last Admin: 05/03/17 08:10 Dose: 100 mg Divalproex Sodium (Depakote Dr) 500 mg PO BID ZEHRA PRN Reason: Protocol Stop: 06/13/17 08:59 Last Admin: 05/03/17 08:10 Dose: 500 mg Hydrochlorothiazide (Hctz) 25 mg PO DAILY ZEHRA Stop: 06/13/17 08:59 Last Admin: 05/02/17 08:37 Dose: 25 mg Lorazepam (Ativan) 0.5 mg PO Q4HR PRN; Protocol PRN Reason: Anxiety Stop: 05/14/17 01:33 Last Admin: 04/29/17 20:47 Dose: 0.5 mg Magnesium Hydroxide (Milk Of Magnesia) 30 ml PO HS PRN PRN Reason: Constipation Metformin HCl (Glucophage) 500 mg PO BID [facility] Stop: 06/13/17 08:59 Last Admin: 05/03/17 08:10 Dose: 500 mg Multivitamins/Vitamin C (Theragran) 1 tab PO DAILY [facility] Stop: 06/13/17 08:59 Last Admin: 05/03/17 08:09 Dose: 1 tab Nifedipine (Procardia Xl) 90 mg PO DAILY [facility] Stop: 06/13/17 08:59 Last Admin: 05/02/17 08:36 Dose: 90 mg Ondansetron HCl (Zofran Odt) 4 mg PO Q6HR PRN PRN Reason: Nausea Pantoprazole Sodium (Protonix) 40 mg PO DAILY [facility] Stop: 06/13/17 08:59 Last Admin: 05/03/17 08:10 Dose: 40 mg Quetiapine Fumarate (Seroquel) 200 mg PO TID [facility] Stop: 06/30/17 08:59 Last Admin: 05/03/17 08:09 Dose: 200 mg Valsartan (Diovan) 40 mg PO DAILY [facility] Stop: 06/13/17 08:59 Last Admin: 05/02/17 08:37 Dose: 40 mg Zolpidem Tartrate (Ambien) 5 mg PO HS PRN PRN Reason: Insomnia Stop: 06/13/17 01:33 Last Admin: 05/01/17 20:56 Dose: 5 mg General: No acute distress HEENT: Atraumatic, PERRLA, EOMI, Other (exopthalmos.) Neck: Supple, JVD Cardiovascular: Regular rate Lungs: Clear to auscultation Abdomen: Bowel sounds, Soft, Obese Extremities: Pulses (+1), Other (L AKA) Neurological: Normal speech, Sensation intact, Cranial nerves 3-12 NL Psych/Mental Status: Other (labile) Assessment/Plan - Assessment Assessment: Diabetes. HTN. Hyperlipedemia. Obesity COPD DJD L AKA Exopthalmos. Psych disorder - Plan Plan: Monitor glucose and vitals Fall Precautions. symptoms control. Medication management. General Nursing care Psych meds and follow up. Medication management. continue current care. Discussed with staff. Nutritional Asmnt/Malnutr-PDOC - Dietary Evaluation Malnutrition Findings (Please click <Entered> for more info): Nutritional Asmnt/Malnutrition Start: 04/18/17 18: 58 Text: Status: Complete Freq: Document 04/18/17 18:58 LCLALAG (Rec: 04/18/17 19:06 PASCUAL [email or web address]) Nutritional Asmnt/Malnutrition Patient General Information Nutritional Screening Moderate Risk Diagnosis psychosis Pertinent Medical Hx/Surgical Hx DM, HTN, obestiy, COPD, DJD, left AKA, psychotic disorder Subjective Information Pt seen eatin lunch at the time of visit. Pt reported she did not like the food here, she likes fried food. Per ntoes, PO intake 50-100% ( trending up), avg 75%. Current Diet Order/ Nutrition Support HARLEY Pertinent Medications glucophage, theragran, protonix, seroquel Pertinent Labs 04/16 Na 127, Cl 90, glucose 88, A1c 6.0 04/18 POC 83 Nutritional Hx/Data Height 1.52 m Height (Calculated Centimeters) 152.4 Current Weight (lbs) 90.718 kg Weight (Calculated Kilograms) 90.7 Weight (Calculated Grams) 21241.5 Pound Body Weight 100 % Pound Body Weight 200 Body Mass Index (BMI) 39.0 Weight Status Obese GI Symptoms GI Symptoms None Last BM 04/17 Difficult in: None Skin Integrity/Comment: intact Current %PO Good (75-100%) Estimated Nutritional Goals BEE in Kcals: Adj wt of IBW Calories/Kcals/Kg 30-35 Kcals Calculated Protein: Adj wt of IBW Protein g/k.2 Protein Calculated 68 Fluid: ml Nutritional Problem 1. Problem Problem obesity Etiology possible excessive energy intake Signs/Symptoms: BMI 39.1 Malnutrition Alert Protein-Calorie Malnutrition N/A Is there a minimum of two criteria No selected? Query Text:Check all the applicable criteria. A minimum of two criteria are recommended for diagnosis of either severe or non-severe malnutrition. Intervention/Recommendation Comments 1. Continue with current diet as ordered. 2. Monitor PO intake, wt, labs and skin integrity 3. F/U as low risk in 7 days, 04/25 Expected Outcomes/Goals Expected Outcomes/Goals 1. PO intake to meet at least 75% of nutritional needs. 2. Wt stability, skin to remain intact, labs to approach WNL.
[2017-05-03 10:43] LABS: % BASOPHILS 0.3 % (0.0-2.0); % EOSINOPHILS 1.1 % (0.0-5.0); % LYMPHOCYTES 26.7 % (20.0-50.0); % MONOCYTES 6.4 % (2.0-10.0); % NEUTROPHILS 65.5 % (40.0-80.0); EOSINOPHILE ABSOLUTE 0.1 Th/cmm (0.1-0.4); HEMATOCRIT 45.1 % (41.0-60); HEMOGLOBIN 14.4 gm/dL (12-16); LYMPHOCYTE ABSOLUTE 1.6 Th/cmm (1.5-3.0); MEAN CELL VOLUME 87.4 fl (81-100); MEAN PLATELET VOLUME 8.6 fl; MONOCYTE ABSOLUTE 0.4 Th/cmm (0.3-1.0); NEUTROPHILE ABSOLUTE 3.9 Th/cmm (1.8-8.0); PLATELET COUNT 222 Th/cmm (150-400); RED BLOOD COUNT 5.15 Mil/cmm (3.80-5.10); RED CELL DISTRIBUTION WIDTH 18.7 % (11.5-20.0)
[2017-05-03] MEDS: NIFEdipine 30 mg ER Tab PO SCH (10:59)
--- NOTE | 2017-05-04 05:10 | Progress Notes ---
DATE: SUBJECTIVE: Chart reviewed and the patient interviewed. Also discussed the patient's condition with the staff and reviewed records and labs. The patient is still easily agitated and she is still in angry and in irritable mood. The patient also is still cursing staff and she is still loud and needs lots of redirections. She also is still unable to carry a coherent conversation and still delusional and paranoid about other people and using foul language with the nurses. Otherwise, the patient is slightly easier to redirect her. ASSESSMENT: The patient is still easily agitated and she is still in irritable mood. TREATMENT PLAN: We will continue monitoring her behavior and her condition closely. Also, continue to work on her irritability and agitation. Also, we will increase Clozaril to ____ mg every day and we will increase Seroquel to 200 mg 3 times a day. Also, working with [employer] in regard to discharge plans and placement issue. JOB# [id number]
[2017-05-04] MEDS: Multivitamin Tab PO SCH (08:24)
[2017-05-04] MEDS: Pantoprazole 40 mg EC Tab PO SCH (08:24)
[2017-05-04] MEDS: NIFEdipine 30 mg ER Tab PO SCH (15:26)
--- NOTE | 2017-05-05 06:45 | Progress Notes ---
DATE: SUBJECTIVE: Chart reviewed and the patient interviewed. I also discussed the patient's condition with the staff and reviewed records and labs. The patient's affect is slightly brighter and she did not use foul language yesterday like she usually does. The patient also is interacting more with others. She denies any thoughts of suicide or homicide. She denies also any side effects of medications. She is still withdrawn and not sleeping much. She also is compliant with taking her medications. ASSESSMENT: The patient is slightly less psychotic and still need placement. TREATMENT PLAN: Continue monitoring her problems and her condition closely. Also, continue to work on discharge plans and placement issue. JOB# [id number]
[2017-05-05] MEDS: Multivitamin Tab PO SCH ×2 (08:47→09:00)
[2017-05-05] MEDS: Pantoprazole 40 mg EC Tab PO SCH ×2 (08:48→09:00)
[2017-05-05] MEDS: NIFEdipine 30 mg ER Tab PO SCH (09:00)
[2017-05-06] MEDS: Pantoprazole 40 mg EC Tab PO SCH ×2 (08:12→08:28)
[2017-05-06] MEDS: Multivitamin Tab PO SCH (08:26)
[2017-05-06] MEDS: NIFEdipine 30 mg ER Tab PO SCH (08:26)
--- NOTE | 2017-05-07 02:37 | Progress Notes ---
DATE: SUBJECTIVE: The patient was seen and evaluated. The patient's chart reviewed. Overnight, the patient continued to be more paranoid and much more aggressive, agitated and attempting to pull the alarm. Today on [id number] evaluation continues to be persevering, responding, very paranoid and almost in a tearful manner to the medical doctor. MENTAL STATUS EXAMINATION: Disorganized, psychotic, delusional, poor insight, judgment and impulse control. ASSESSMENT AND PLAN: The patient is a 66-year-old female continues to present very psychotic and disorganized. After assessing and evaluating the patient, the patient in the past medical record shows that she is to be up to 200 mg of clozapine. She is also currently on Seroquel 400 mg a day. We will continue titrating the clozapine as she has better efficacy in the past with clozapine and wants to start slowly take her off the Seroquel to achieve monotherapy in regards to her refractory psychotic symptoms. [facility]# [id number]
[2017-05-07] MEDS: Pantoprazole 40 mg EC Tab PO SCH (09:23)
[2017-05-07] MEDS: NIFEdipine 30 mg ER Tab PO SCH (09:24)
[2017-05-07] MEDS: Multivitamin Tab PO SCH (09:25)
--- NOTE | 2017-05-07 13:28 | Progress Notes ---
DATE: The patient was seen and evaluated. The patient's chart reviewed. This is Dr. Red covering for Dr. Villafana. Overnight, the nursing staff reported the patient continues to be hyperverbal, refusing some of the medications and also at times seeking medication. Today on [id number] evaluation, she is extremely suspicious and extremely paranoid, reports "who are you" and then with intense stare refuses interview. MENTAL STATUS EXAMINATION: Suspicious, paranoid. ASSESSMENT AND PLAN: The patient with history of chronic paranoid schizophrenia, continues to be easily distraught with the voices. We will continue with primary psychiatrist's treatment plan and goals, which include clozapine at 100 mg a day and also Seroquel 200 mg p.o. t.i.d. She denies any side effects of medications. Continue with the current medication and titrating. JOB# [id number]
--- NOTE | 2017-05-07 22:48 | Progress Notes ---
DATE: 05/07/[address] Villafana. Case was discussed with staff, reviewed records. The patient continues to be paranoid, continues to be aggressive. She is well known to me. I saw her last week covering for Dr. Villafana. The patient continues to have poor insight, unable to make safe plan for self-care, paranoid, disorganized, psychotic, and delusional. Dr. Red saw her yesterday and increased her medication to ____125 mg a day with no side effects, no sedation, no nausea, no extrapyramidal symptoms. We will continue to work with the patient in group therapy, milieu therapy, and adjust medications as needed. JOB# [id number]
[2017-05-08] MEDS: Pantoprazole 40 mg EC Tab PO SCH ×4 (09:00→10:58)
[2017-05-08] MEDS: Multivitamin Tab PO SCH ×4 (09:00→10:58)
[2017-05-08] MEDS: NIFEdipine 30 mg ER Tab PO SCH ×4 (09:00→10:58)
--- NOTE | 2017-05-08 15:39 | Progress Notes ---
DATE: 05/08/[address] Villafana. Case discussed with staff of the patient, reviewed records. The patient when talked to her, she was yelling and screaming, very loud, hyperverbal, very hard to redirect. She is still psychotic, unpredictable, impulsive, needing redirection responding to internal stimuli. I will be increasing her Clozaril to 25 mg twice a day and she is already on 100 mg at bedtime and so far no side effects, no sedation, no nausea, no extrapyramidal symptoms and we will continue to work with the patient group therapy, milieu therapy, adjust medications as needed. JOB# [id number]
[2017-05-09] MEDS: Multivitamin Tab PO SCH (08:13)
[2017-05-09] MEDS: Pantoprazole 40 mg EC Tab PO SCH (08:14)
[2017-05-09] MEDS: NIFEdipine 30 mg ER Tab PO SCH (08:22)
--- NOTE | 2017-05-10 06:20 | Progress Notes ---
DATE: 05/09/2017 SUBJECTIVE: Chart reviewed and the patient interviewed. Also discussed the patient's condition with the staff and reviewed records and labs. The patient continued to be extremely irritable and extremely agitated. The patient also is still suspicious and paranoid and hyper-talkative. The patient also is asking for "Valium twice a day." Her insight is still poor and judgment is still poor. The patient also is still argumentative with the staff and still has difficulty following staff directions. Otherwise, the patient is compliant with taking her medications with no side effects of medications. ASSESSMENT: The patient is still psychotic and still needs close monitoring. TREATMENT PLAN: Continue to monitor the patient's behavior and condition closely. Also discussed with rehabilitation caseworkertest manager issue and she is still having difficult time finding placement for the patient. At the same time, we will continue monitoring her medications and will increase Seroquel to 200 mg twice a day and 300 mg at bedtime and we will continue to work on her aggression and agitation and continue to follow up. JOB# [id number]
[2017-05-10 08:51] LABS: % EOSINOPHILS 1.5 % (0.0-5.0); % LYMPHOCYTES 18.7 % (20.0-50.0); % MONOCYTES 8.3 % (2.0-10.0); % NEUTROPHILS 71.5 % (40.0-80.0); EOSINOPHILE ABSOLUTE 0.1 Th/cmm (0.1-0.4); HEMOGLOBIN 13.4 gm/dL (12-16); LYMPHOCYTE ABSOLUTE 1.1 Th/cmm (1.5-3.0); MEAN CELL VOLUME 87.2 fl (81-100); MEAN CORPUSCULAR HEMOGLOBIN 27.8 pg (27.0-31.0); MEAN CORPUSCULAR HGB CONC 31.8 pg (28.0-36.0); MEAN PLATELET VOLUME 9.5 fl; MONOCYTE ABSOLUTE 0.5 Th/cmm (0.3-1.0); PLATELET COUNT 206 Th/cmm (150-400); RED BLOOD COUNT 4.81 Mil/cmm (3.80-5.10); RED CELL DISTRIBUTION WIDTH 19.3 % (11.5-20.0); WHITE BLOOD COUNT 5.7 Th/cmm (4.8-10.8)
[2017-05-10] MEDS: NIFEdipine 30 mg ER Tab PO SCH (09:32)
[2017-05-10] MEDS: Pantoprazole 40 mg EC Tab PO SCH (09:35)
[2017-05-10] MEDS: Multivitamin Tab PO SCH (09:36)
[2017-05-10] MEDS ORDERED: Haloperidol Lactate 5 mg/mL 1mL Vial ONE (16:01)
[2017-05-10] MEDS ORDERED: Haloperidol Lactate 5 mg/mL 1mL Vial IM ONE (16:01)
--- NOTE | 2017-05-12 01:50 | Discharge Summary ---
DATE OF DISCHARGE: PATIENT'S AGE: 66. SEX: Female. PHYSICIAN: Minerva Villafana M.D., M.P.H. FINAL DIAGNOSES: Schizoaffective disorder, bipolar type, severe, with psychotic features. REASON FOR HOSPITALIZATION: The patient was admitted to the hospital because of increased agitation and irritability [facility] [place] [facility]. HOSPITAL COURSE: The patient continued to be agitated and in irritable mood. The patient also was angry and she was cursing staff and other patients. The patient was not able to follow directions. Oxygen and blood level dropped and Dr. Berger transferred the patient to ICU where she was intubated. Physical exam of the patient showed that the patient had to be intubated and transferred to ICU. EXPECTED OUTCOME AFTER DISCHARGE: Depends on the patient's condition in ICU and will follow up there. JOB# [id number]
== END 2017-05-10 23:25 | DRG 885 ==
LOC: ER 19:37 → GERO 22:30
PROVIDERS: ADMIT Psychiatry & Neurology Psychiatry; ATTEND Psychiatry & Neurology Psychiatry
DX: F25.0 Schizoaffective disorder, bipolar type (principal); E11.51 Type 2 diabetes mellitus with diabetic peripheral angiopathy without gangrene; Z89.612 Acquired absence of left leg above knee; H05.20 Unspecified exophthalmos; I10 Essential (primary) hypertension; E78.5 Hyperlipidemia, unspecified; M19.90 Unspecified osteoarthritis, unspecified site; E66.9 Obesity, unspecified; Z68.39 Body mass index [BMI] 39.0-39.9, adult; J44.9 Chronic obstructive pulmonary disease, unspecified; F29 Unspecified psychosis not due to a substance or known physiological condition; Z87.891 Personal history of nicotine dependence; Z91.81 History of falling
CPT/HCPCS: 36415-UA; 71045-TC; 80053-TC; 80061-TC; 80074-90; 80164-TC; 82948-90; 83036-90; 84443-TC; 85025-TC; 86592-TC; 90899; 94760; G0410; J1200; J1630; J2060; J7613; Z7610

== ENCOUNTER 2017-05-10 23:33 | Inpatient (IN) | payer MEDICARE, OTHER ==
[2017-05-11] MEDS ORDERED: D5-0.9%NS 1,000 ML IV SCH (00:07)
[2017-05-11] MEDS ORDERED: D5 IV SCH (00:08)
[2017-05-11] MEDS ORDERED: NS IV SCH (00:08)
[2017-05-11 00:20] LABS: ALLEN TEST POSITIVE; pH 7.19 (7.35-7.45)
[2017-05-11] MEDS ORDERED: Albuterol/Ipratropium Neb 3 ML AERS HHN PRN (00:20)
[2017-05-11] MEDS ORDERED: Norepinephrine 4 mg/4mL Vial IV ONE (00:33)
[2017-05-11] MEDS ORDERED: Albuterol/Ipratropium Neb 3 ML AERS HHN SCH (01:00)
[2017-05-11 01:22] LABS: % BASOPHILS 0.1 % (0.0-2.0); % EOSINOPHILS 0.7 % (0.0-5.0); % LYMPHOCYTES 25.3 % (20.0-50.0); % MONOCYTES 9.6 % (2.0-10.0); % NEUTROPHILS 64.3 % (40.0-80.0); HEMATOCRIT 39.3 % (41.0-60); HEMOGLOBIN 12.4 gm/dL (12-16); LYMPHOCYTE ABSOLUTE 1.5 Th/cmm (1.5-3.0); MEAN CELL VOLUME 86.6 fl (81-100); MEAN CORPUSCULAR HEMOGLOBIN 27.4 pg (27.0-31.0); MEAN CORPUSCULAR HGB CONC 31.6 pg (28.0-36.0); MEAN PLATELET VOLUME 9.2 fl; MONOCYTE ABSOLUTE 0.6 Th/cmm (0.3-1.0); NEUTROPHILE ABSOLUTE 3.8 Th/cmm (1.8-8.0); PLATELET COUNT 231 Th/cmm (150-400); RED BLOOD COUNT 4.53 Mil/cmm (3.80-5.10); RED CELL DISTRIBUTION WIDTH 19.3 % (11.5-20.0); WHITE BLOOD COUNT 5.9 Th/cmm (4.8-10.8)
[2017-05-11] MEDS: Albuterol/Ipratropium Neb 3 ML AERS HHN SCH ×8 (01:29→21:51)
[2017-05-11] MEDS ORDERED: Piperacillin Sodium/Tazobact 3.375 gm Vial IV ONE (04:08)
[2017-05-11] MEDS: INSULIN ASPART SLIDING SCALE 100 UNITS/ML UNIT SUBQ SCH ×3 (05:23→17:18)
[2017-05-11] MEDS ORDERED: INSULIN ASPART SLIDING SCALE 100 UNITS/ML UNIT SUBQ SCH (06:00)
[2017-05-11] MEDS: Budesonide 0.5 Mg/2 mL Ud HHN SCH ×2 (07:16→18:39)
[2017-05-11] MEDS ORDERED: Enoxaparin 80 mg/0.8 mL 0.8mL Syr SUBQ ONE (07:30)
[2017-05-11 07:31] VITALS: BP 66/33
--- NOTE | 2017-05-11 08:10 | Diagnostic Imaging Report ---
Exam: Chest x-ray HISTORY: Intubation. Findings: Frontal examination of chest was reviewed compared prior study of 04/14/2017 demonstrates interval placement of endotracheal tube 2 cm above the mindy. There is evidence of cardiomegaly and congestion, superimposed pneumonia and effusions bilaterally. The bony thorax intact. IMPRESSION: 1. Congestive heart failure, cardiomegaly. 2. Endotracheal tube 2 cm above the mindy 3. Bilateral pneumonia superimposed effusions. Follow-up examination is recommended
--- NOTE | 2017-05-11 08:18 | Diagnostic Imaging Report ---
Exam: CT examination of the brain. HISTORY: ALOC. Total DLP equals 692 CTDI equals at 8.7. Findings: Multiple contiguous thin section of the brain were obtained from the base of skull to the vertex without the administration of contrast material, no prior studies available comparison. The study demonstrates prominence of cerebral sulci and ventricles consistent with atrophy. There is no evidence for hemorrhage midline shift or edema. The cerebellum is intact. Vascular calcifications are noted. There is evidence of significant amount of soft tissue swelling throughout the ethmoid sinuses, oropharynx and nasopharynx. This might represent changes secondary to recent intubation. IMPRESSION: Atrophy, periventricular ischemic white matter changes the sclerotic vascular calcifications Opacification and the fluid collection in the nasopharynx oropharynx ethmoid sinuses might be sequela of previous intubation clinical correlation recommended.
[2017-05-11] MEDS: Chlorhexidine Gluconate 0.12% 15mL Mouthwash MM SCH ×2 (08:39→19:48)
[2017-05-11] MEDS: Aspirin 81mg Chewable Tab NG SCH (08:57)
[2017-05-11] MEDS: NITROGLYCERIN OINT 2% 1 INCH PACKET TP SCH ×3 (09:00→18:48)
[2017-05-11] MEDS ORDERED: Enoxaparin 40 mg/0.4 mL 0.4mL Syr SUBQ SCH (09:00)
[2017-05-11 09:25] LABS: % BASOPHILS 0.1 % (0.0-2.0); % EOSINOPHILS 0.6 % (0.0-5.0); % LYMPHOCYTES 27.3 % (20.0-50.0); % MONOCYTES 11.1 % (2.0-10.0); % NEUTROPHILS 60.9 % (40.0-80.0); HEMATOCRIT 40.7 % (41.0-60); LYMPHOCYTE ABSOLUTE 1.3 Th/cmm (1.5-3.0); MEAN CELL VOLUME 87.2 fl (81-100); MEAN CORPUSCULAR HEMOGLOBIN 27.8 pg (27.0-31.0); MEAN CORPUSCULAR HGB CONC 31.9 pg (28.0-36.0); MEAN PLATELET VOLUME 9.4 fl; MONOCYTE ABSOLUTE 0.5 Th/cmm (0.3-1.0); NEUTROPHILE ABSOLUTE 2.9 Th/cmm (1.8-8.0); PLATELET COUNT 217 Th/cmm (150-400); RED BLOOD COUNT 4.67 Mil/cmm (3.80-5.10); RED CELL DISTRIBUTION WIDTH 19.7 % (11.5-20.0)
[2017-05-11 09:26] LABS: WHITE BLOOD COUNT 4.7 Th/cmm (4.8-10.8)
[2017-05-11 09:34] LABS: URINE MICROSCOPIC INDICATED? YES; URINE SOURCE FOLEY PORT
[2017-05-11 09:34] LABS: pH 7.28 (7.35-7.45)
[2017-05-11 09:40] LABS: ALB/GLOB RATIO 0.8 (1.0-1.8); ALBUMIN 3.2 gm/dL (3.7-5.3); ALKALINE PHOSPHATASE 65 U/L (34-104); BILIRUBIN,TOTAL 0.3 mg/dL (0.3-1.0); BUN - UREA NITROGEN 23 mg/dL (7-25); CALCIUM SERUM 9.3 mg/dL (8.6-10.3); CARBON DIOXIDE 30.3 mEq/L (21.0-31.0); CHLORIDE 104 mEq/L (98-107); GFR AFRICAN-AMERICAN > 60.0 ml/min (>90); GFR NON AFRICAN-AMERICAN 59.3 ml/min; GLUCOSE 142 mg/dL (70-105); POTASSIUM SERUM 4.3 mEq/L (3.5-5.1); SGOT 18 U/L (13-39); SGPT/ALT 18 U/L (7-52)
[2017-05-11 09:55] LABS: SODIUM SERUM 140 mEq/L (136-145)
[2017-05-11] MEDS: D5-0.9%NS 1,000 ML IV SCH ×2 (10:00→17:39)
[2017-05-11 10:14] LABS: URINE BILIRUBIN NEGATIVE (NEGATIVE); URINE BLOOD LARGE (NEGATIVE); URINE GLUCOSE (UA) NEGATIVE (NEGATIVE); URINE KETONE NEGATIVE (NEGATIVE); URINE LEUKOCYTE ESTERASE NEGATIVE (NEGATIVE); URINE NITRATE NEGATIVE (NEGATIVE); URINE PROTEIN 30 mg/dL (NEGATIVE); URINE UROBILINOGEN 0.2 E.U./dL (0.2 - 1.0)
[2017-05-11 10:17] LABS: URINE CLARITY CLEAR (CLEAR); URINE COLOR YELLOW
[2017-05-11 10:19] LABS: URINE EPITHELIAL CELLS FEW /lpf (FEW)
[2017-05-11 10:20] LABS: URINE BACTERIA FEW /hpf (NONE SEEN)
--- NOTE | 2017-05-11 10:47 | Diagnostic Imaging Report ---
Exam: Portable chest x-ray. HISTORY: NG tube placement. Findings: Portable exam of of the chest at 0 954 hours reviewed and compatible prior study same day earlier demonstrates interval placement of the NG tube with the tip in stomach Again noted cardiomegaly bilateral pneumonia superimposed effusions. The endotracheal tube unchanged position. IMPRESSION: interval placement of NG tube with the tip in the stomach.
[2017-05-11] MEDS ORDERED: Diltiazem 5 mg/mL 5mL Vial IVP STA (14:20)
[2017-05-11] MEDS ORDERED: VTE Chemical Prophylaxis Screen/Admission MC PRN (16:50)
[2017-05-11] MEDS: Morphine Sulfate 2 mg/mL 1mL Syr IVP PRN ×2 (17:10→21:10)
[2017-05-11] MEDS: Enoxaparin 80 mg/0.8 mL 0.8mL Syr SUBQ SCH (17:19)
--- NOTE | 2017-05-11 17:33 | Discharge Summary ---
DATE OF DISCHARGE: 05/10/2017 DATE OF DISCHARGE: 05/10/2017. FINAL DIAGNOSES/PRIMARY DIAGNOSIS: Schizoaffective disorder, bipolar type, severe, with psychotic features. REASON FOR HOSPITALIZATION: The patient was admitted to the hospital because of increased agitation and irritability and threatening and aggressive behavior towards the staff. HOSPITAL COURSE: The patient continued to be extremely agitated and in irritable mood. She was also continued to be delusional and paranoid. The patient required relatively high dose of psychotropics in order to control her behavior. She was still using foul language and the patient was started on Clozaril. On the day of discharge, oxygen saturation was low and the patient was having some difficulty with her breathing and the patient was transferred to Intensive Care Unit. The patient was having no major medical problems, still patient had dropped her blood oxygen level. We will transfer her to ICU. AFTER DISCHARGE PLANS: The patient discharged from the hospital, went to Intensive Care Unit in the hospital and plan to follow her up there. [facility]# [id number]
[2017-05-12] MEDS: INSULIN ASPART SLIDING SCALE 100 UNITS/ML UNIT SUBQ SCH ×4 (00:17→18:32)
[2017-05-12] MEDS: NITROGLYCERIN OINT 2% 1 INCH PACKET TP SCH ×4 (00:18→18:38)
[2017-05-12] MEDS: Albuterol/Ipratropium Neb 3 ML AERS HHN SCH ×7 (00:37→21:45)
--- NOTE | 2017-05-12 01:29 | Progress Notes ---
DATE: 05/10/2017 PSYCHIATRIC PROGRESS NOTE SUBJECTIVE: Chart reviewed and we tried to interview. The patient was in [facility], but she was transferred to medical floor because of low oxygen saturation. The patient after went to ICU, was intubated. The patient was agitated after intubation and according to staff tried to pull her tubes. Currently, the patient is sleepy and seems to be sedated and calm. She also kept her eyes closed during my trial to talk to her. ASSESSMENT: The patient still can have episodes of agitation, but calm at this time. We will continue monitoring her behavior and we will hold psychotropics for now until further evaluation. JOB# [id number]
--- NOTE | 2017-05-12 01:57 | Progress Notes ---
DATE: 05/10/2017 PSYCHIATRIC PROGRESS NOTE SUBJECTIVE: Chart reviewed and the patient interviewed. Also discussed the patient's condition with the staff and reviewed records and labs. The patient seems to be slightly calmer than before, but she is still agitated and in irritable mood. The patient also is still suspicious and paranoid. She is still at times hyperverbal, but seems to be less today. Also, at times she is still cursing the staff and using foul language. Otherwise, the patient is slightly easier to follow directions. ASSESSMENT: The patient is still psychotic. TREATMENT PLAN: Continue monitoring psychotropic medications. Also, working on placement issue and discharge plans. JOB# [id number]
--- NOTE | 2017-05-12 03:20 | Consultation ---
DATE OF CONSULTATION: 05/11/2017 PULMONARY AND CRITICAL CARE CONSULTATION NOTE REASON FOR CONSULTATION: Help the patient with respiratory failure. CONSULT NOTE: This is a 66-year-old black female who has multiple psychiatric illness and was admitted to [facility] where there was significant behavioral issues. Subsequently, I had to give her high sedation. Then, the patient subsequently had respiratory failure as well as hypotension and necessary to intubate the patient and subsequently I was asked to see this patient for further care and necessary treatment. The patient is currently quite obtunded. Meaningful detailed history is not available to me at this particular time except for left leg above knee amputation, but other behavioral issue, other medical history is very difficult to available at this time. PHYSICAL EXAMINATION: GENERAL: This is a heavy set, middle-aged looking female, not responding, not in distress and the patient is currently on assist control ventilator and has had Levophed drip. VITAL SIGNS: Temperature is 99.1, blood pressure 123/72, saturation on 50% is 98%. HEENT: Examination of the head is essentially unremarkable. Pupils appear to be equal and reacting to light. Conjunctivae is slightly pallor. Oral cavity and nasal cavity, right side shows a nasotracheal tube and orotracheal shows orotracheal tube. NECK: Short. No nodes in the neck could be palpated. CHEST: Shows scattered rhonchi with marked diminished air entry. HEART: Distant, muffled first sound. ABDOMEN: Slightly protuberant, otherwise unremarkable. EXTREMITIES: Left leg is above knee amputation. Right leg, poor pulsations. LABORATORY DATA: The patient's pertinent laboratory studies: White count is 4.7, hemoglobin 13 and ABG initially shows severe respiratory acidemia and that was a pre-intubation post-intubation pH of 7.28, pCO2 of 75, pO2 of 102 and electrolytes are okay with BUN is 23 and sugar is slightly on the higher side and the patient's troponin is 0.20. IMPRESSION: 1. The patient has acute respiratory failure, multifactorial, suspect this patient has chronic obstructive pulmonary disease that has to be confirmed. 2. Severe obstructive sleep apnea syndrome clinically. Other contributory factor may be congestive heart failure with her huge heart also be a contributory factor. 3. Psychotropics/pain medication contributory factor. PLANS AND SUGGESTIONS: We will continue supportive care. We will slowly decrease FiO2. Consideration for cardiac input is advised, related 2D echo and repeat followup chest x-ray, blood gases and see how it is and go from there. JOB# [id number]
--- NOTE | 2017-05-12 06:06 | History & Physical ---
ADMIT DATE: 05/11/2017 PATIENT IDENTIFICATION: The patient is a 66-year-old female. CHIEF COMPLAINT: Intubated in ICU. HISTORY SOURCE: Talking to the nurse at [facility] and the [facility]. HISTORY OF PRESENT ILLNESS: A 66-year-old -Monegas[place] female with history of schizophrenia, bipolar disorder along with COPD, diabetes, and hypertension, admitted at [facility] at [facility] where the patient was getting her psych treatment. Noted by nursing staff that the patient was hypotensive and altered. The patient did have [employer] and the patient was brought into ICU, but the patient was seen by Emergency Room. The patient was worked up and noted to have respiratory acidosis, severe hypotension. Aggressive resuscitation was done. The patient was intubated and now the patient has been given aggressive IV fluid and placed on pressor agent. The patient is alert and agitated at this time. PAST MEDICAL HISTORY: 1. Remarkable for diabetes. 2. Hypertension. 3. Obesity. 4. Chronic obstructive pulmonary disease. 5. Degenerative joint disease. 6. Psychotic disorder. 7. Left above knee amputation. MEDICATIONS: List has been reviewed and reconciled appropriately. ALLERGIES: None. SOCIAL HISTORY: The patient [place] residing [place] prior to coming to the hospital. The patient is still smoking cigarette. No alcohol use. FAMILY HISTORY: Unremarkable. REVIEW OF SYSTEMS: Unable to obtain due to the patient's current mental status. PHYSICAL EXAMINATION: GENERAL: A 66-year-old female, lying in the bed, currently intubated with oral endotracheal tube. The patient gets agitated on exam. VITAL SIGNS: Temperature 98, pulse is 112, respiratory rate is 18, blood pressure is 112/70. HEENT: Normocephalic, atraumatic. Pupils are reactive to light. Sclerae without any icterus. Oral endotracheal tube noted. NECK: Supple, no JVD, no lymphadenopathy, thyromegaly. HEART: Both heart sounds are regular. CHEST: Lung equal in expansion, expiratory wheezing throughout. ABDOMEN: Protuberant, soft. No guarding, rigidity. EXTREMITIES: Left above-knee amputation noted. Peripheral pulses are +1. NEUROLOGIC: The patient is agitated, not following any commands. AVAILABLE DIAGNOSTIC DATA: White count of 5.9, hemoglobin 12.4, platelet count of 231. D-dimer is 1930. ABG: pH of 7.19, pCO2 of 95, pO2 of 89. Troponin is 0.25. Chemistry panel is not available for my review at this time. Chest x-ray, unable to localize infiltrate. CLINICAL IMPRESSION: 1. Altered mental status, etiology probably related to encephalopathy, hypoxic, CO2 narcosis versus medication related. 2. Severe hypotension, etiology needs to determine. Differential diagnosis, consider septic shock versus medication related versus cardiac in origin since troponin is slightly elevated. 3. Acute respiratory failure, required endotracheal intubation and mechanical ventilation secondary to central pathology versus a combination of both central as well as the lung itself causing chronic obstructive pulmonary disease and restrictive airway pattern. 4. Elevated troponin, ruled out cardiac etiology, considering the patient has diabetes and hypertension. 5. Diabetes mellitus. 6. Septic shock. 7. Psychotic disorder. PLAN: 1. The patient is admitted at this time to ICU. 2. The patient will have a sputum Gram stain, C and S, urinalysis, urine culture along with broad-spectrum antibiotic with Zosyn and vancomycin. 3. IV fluid, pressor agent. 4. Cardiology consultation and pulmonary consultation requested. 5. Cardiac enzymes will be requested. 6. The patient will be given aspirin, low molecular weight heparin along with nitrates as well. 7. Once blood pressure is acceptable, we will put the patient on a beta-ike as well. 8. We will add the statin as well. 9. Wean off the ventilator as well. 10. We will give further recommendation when other diagnostic data is available. 11. Lower extremity venous Doppler studies will be done as well to rule out for pulmonary embolism as well. 12. Psychiatrist is to follow as well. Care plan has been reviewed and discussed with assigned nurse as well. JOB# [id number]
[2017-05-12] MEDS: Budesonide 0.5 Mg/2 mL Ud HHN SCH ×2 (07:00→18:45)
[2017-05-12] MEDS: Chlorhexidine Gluconate 0.12% 15mL Mouthwash MM SCH (08:02)
--- NOTE | 2017-05-12 08:46 | Diagnostic Imaging Report ---
Exam: Portable chest x-ray. HISTORY: Shortness of breath. Findings: Portable examination of chest at 0820 hours reviewed the study compared to the prior exam of the earlier demonstrates decrease in the right basilar infiltrate and effusion. Persistent left lower lobe infiltrate and effusion appreciated. The endotracheal tube terminates 3 cm above the mindy. Bony thorax intact. The heart is enlarged. IMPRESSION: 1. Unchanged appearance of left basilar infiltrate and effusion Resolution right lower lobe infiltrate. Follow-up examination is recommended.
[2017-05-12 09:08] LABS: ALLEN TEST YES
[2017-05-12] MEDS: Aspirin 81mg Chewable Tab NG SCH (09:13)
[2017-05-12] MEDS: Enoxaparin 80 mg/0.8 mL 0.8mL Syr SUBQ SCH ×2 (09:13→18:40)
[2017-05-12 10:37] LABS: % BASOPHILS 0.9 % (0.0-2.0); % EOSINOPHILS 0.7 % (0.0-5.0); % LYMPHOCYTES 27.9 % (20.0-50.0); % MONOCYTES 8.2 % (2.0-10.0); % NEUTROPHILS 62.3 % (40.0-80.0); BASOPHILE ABSOLUTE 0.1 Th/cumm (0-0.2); HEMATOCRIT 37.8 % (41.0-60); LYMPHOCYTE ABSOLUTE 1.8 Th/cmm (1.5-3.0); MEAN CELL VOLUME 87.3 fl (81-100); MEAN CORPUSCULAR HEMOGLOBIN 27.7 pg (27.0-31.0); MEAN CORPUSCULAR HGB CONC 31.7 pg (28.0-36.0); MEAN PLATELET VOLUME 8.7 fl; MONOCYTE ABSOLUTE 0.5 Th/cmm (0.3-1.0); NEUTROPHILE ABSOLUTE 4.1 Th/cmm (1.8-8.0); PLATELET COUNT 204 Th/cmm (150-400); RED BLOOD COUNT 4.33 Mil/cmm (3.80-5.10); RED CELL DISTRIBUTION WIDTH 19.5 % (11.5-20.0)
[2017-05-12 10:40] LABS: WHITE BLOOD COUNT 6.5 Th/cmm (4.8-10.8)
[2017-05-12 11:00] LABS: ALB/GLOB RATIO 0.8 (1.0-1.8); ALBUMIN 2.9 gm/dL (3.7-5.3); ALKALINE PHOSPHATASE 60 U/L (34-104); ANION GAP 8.7 (7.0-16.0); BILIRUBIN,TOTAL 0.4 mg/dL (0.3-1.0); BUN - UREA NITROGEN 11 mg/dL (7-25); CALCIUM SERUM 9.3 mg/dL (8.6-10.3); CARBON DIOXIDE 29.6 mEq/L (21.0-31.0); CHLORIDE 105 mEq/L (98-107); CREATININE - SERUM 0.7 mg/dL (0.6-1.2); GFR AFRICAN-AMERICAN > 60.0 ml/min (>90); GFR NON AFRICAN-AMERICAN > 60.0 ml/min; GLUCOSE 112 mg/dL (70-105); MAGNESIUM 1.9 mg/dL (1.9-2.7); POTASSIUM SERUM 4.3 mEq/L (3.5-5.1); SGOT 15 U/L (13-39); SGPT/ALT 14 U/L (7-52); SODIUM SERUM 139 mEq/L (136-145); TOTAL PROTEIN,SERUM 6.5 gm/dL (6.0-8.3)
[2017-05-12 11:02] LABS: ALB/GLOB RATIO 0.9 (1.0-1.8); ALBUMIN 2.8 gm/dL (3.7-5.3); BILIRUBIN,DIRECT 0.17 mg/dL (0.0-0.2); BILIRUBIN,TOTAL 0.5 mg/dL (0.3-1.0)
--- NOTE | 2017-05-12 13:23 | General Progress Note ---
Subjective - Review of Systems Subjective: Patient is seen and examined. Intubated and sedated. Discussed with RN re: treatment plan. Objective - Results Result Diagrams: 05/12/17 10:27 05/12/17 10:27 Recent Labs: Laboratory Last Values WBC 6.5 Th/cmm (4.8-10.8) D 05/12/17 10:27 RBC 4.33 Mil/cmm (3.80-5.10) 05/12/17 10:27 Hgb 12.0 gm/dL (12-16) 05/12/17 10:27 Hct 37.8 % (41.0-60) L 05/12/17 10:27 MCV 87.3 fl (81-100) 05/12/17 10:27 MCH 27.7 pg (27.0-31.0) 05/12/17 10: MCHC Differential 31.7 pg (28.0-36.0) 05/12/17 10:27 RDW 19.5 % (11.5-20.0) 05/12/17 10:27 Plt Count 204 Th/cmm (150-400) 05/12/17 10:27 MPV 8.7 fl 05/12/17 10:27 Neutrophils % 62.3 % (40.0-80.0) 05/12/17 10:27 Lymphocytes % 27.9 % (20.0-50.0) 05/12/17 10:27 Monocytes % 8.2 % (2.0-10.0) 05/12/17 10:27 Eosinophils % 0.7 % (0.0-5.0) 05/12/17 10:27 Basophils % 0.9 % (0.0-2.0) 05/12/17 10:27 D-Dimer 1930 ng/mL (100-400) H 05/11/17 01:00 Specimen Source Arterial 05/12/17 09:00 Sample Site Left Radial 05/12/17 09:00 pH 7.40 (7.35-7.45) 05/12/17 09:00 pCO2 54.0 mmHg (35.0-45.0) H 05/12/17 09:00 pO2 66.0 mmHg (80.0-100.0) L 05/12/17 09:00 HCO3 30.4 mEq/L (20.0-26.0) H 05/12/17 09:00 Base Excess 7.1 mEq/L (-3.0-3.0) H 05/12/17 09:00 O2 Saturation 93.0 % (92.0-100.0) 05/12/17 09:00 Jermaine Test YES 05/12/17 09:00 Vent Rate 12 05/12/17 09:00 Inspired O2 50 05/12/17 09:00 Tidal Volume 400 05/12/17 09:00 PEEP 5 05/12/17 09:00 Pressure (ins/psv/peep) NA 05/12/17 09:00 Critical Value SH 05/12/17 09:00 Sodium 139 mEq/L (136-145) 05/12/17 10:27 Potassium 4.3 mEq/L (3.5-5.1) 05/12/17 10:27 Chloride 105 mEq/L (98-107) 05/12/17 10:27 Carbon Dioxide 29.6 mEq/L (21.0-31.0) 05/12/17 10:27 Anion Gap 8.7 (7.0-16.0) 05/12/17 10:27 BUN 11 mg/dL (7-25) 05/12/17 10:27 Creatinine 0.7 mg/dL (0.6-1.2) 05/12/17 10:27 Est GFR ( Amer) > 60.0 ml/min (>90) 05/12/17 10:27 Est GFR (Non-Af Amer) > 60.0 ml/min 05/12/17 10:27 BUN/Creatinine Ratio 15.7 05/12/17 10:27 Glucose 112 mg/dL (70-105) H 05/12/17 10:27 POC Glucose 109 MG/DL (70 - 105) H 05/12/17 05:47 Calcium 9.3 mg/dL (8.6-10.3) 05/12/17 10:27 Magnesium 1.9 mg/dL (1.9-2.7) 05/12/17 10:27 Total Bilirubin 0.5 mg/dL (0.3-1.0) 05/12/17 10:27 Direct Bilirubin 0.17 mg/dL (0.0-0.2) 05/12/17 10:27 AST 15 U/L (13-39) 05/12/17 10:27 ALT 15 U/L (7-52) 05/12/17 10:27 Alkaline Phosphatase 61 U/L (34-104) 05/12/17 10:27 Ammonia 89 umol/L (16-53) H 05/12/17 10:27 Creatine Kinase 43 U/L (30-223) 05/11/17 17:46 Troponin I 0.16 ng/mL (0.01-0.05) H* D 05/12/17 10:27 B-Natriuretic Peptide 333.0 pg/mL (5.0-100.0) H 05/12/17 10:27 Total Protein 6.0 gm/dL (6.0-8.3) 05/12/17 10:27 Albumin 2.8 gm/dL (3.7-5.3) L 05/12/17 10:27 Globulin 3.2 gm/dL 05/12/17 10:27 Albumin/Globulin Ratio 0.9 (1.0-1.8) L 05/12/17 10:27 TSH 0.65 uIU/ml (0.34-5.60) 05/12/17 10:27 Urine Source [place] 05/11/17 08:30 Urine Color YELLOW 05/11/17 08:30 Urine Clarity CLEAR (CLEAR) 05/11/17 08:30 Urine pH 6.0 (4.6 - 8.0) 05/11/17 08:30 Ur Specific [place] 1.025 (1.005-1.030) 05/11/17 08:30 Urine Protein 30 mg/dL (NEGATIVE) H 05/11/17 08:30 Urine Glucose (UA) NEGATIVE mg/dL (NEGATIVE) 05/11/17 08:30 Urine Ketones NEGATIVE mg/dL (NEGATIVE) 05/11/17 08:30 Urine Blood LARGE (NEGATIVE) H 05/11/17 08:30 Urine Nitrate NEGATIVE (NEGATIVE) 05/11/17 08:30 Urine Bilirubin NEGATIVE (NEGATIVE) 05/11/17 08:30 Urine Urobilinogen 0.2 E.U./dL (0.2 - 1.0) 05/11/17 08:30 Ur Leukocyte Esterase NEGATIVE (NEGATIVE) 05/11/17 08:30 Urine RBC 10-25 /hpf (0-5) H 05/11/17 08:30 Urine WBC 2-5 /hpf (0-5) 05/11/17 08:30 Ur Epithelial Cells FEW /lpf (FEW) 05/11/17 08:30 Urine Bacteria FEW /hpf (NONE SEEN) 05/11/17 08:30 Coarse Granular Casts 2-5 /lpf (NONE SEEN) H 05/11/17 08:30 - Physical Exam Vitals and I&O: Vital Signs Temp 97.2 F 05/12/17 10:00 Pulse 106 05/12/17 13:01 Resp 15 05/12/17 10:00 BP 90/58 05/12/17 12:42 Pulse Ox 97 05/12/17 13:01 Intake & Output 05/11/17 05/12/17 05/12/17 18:59 06:59 18:59 Intake Total 3232.778 8442.753 382.5 Output Total 400 450 Balance 1233.212 749.753 382.5 Weight (lbs) 100.329 kg 101.179 kg Intake: Intake, IV Amount 1633.212 509.753 382.5 D5-0.9%Ns 1,000 ml @ 125 956.25 mls/hr IV .Q8H [facility] Rx#: [id number] Diltiazem 125 mg In 82.5 Dextrose 5% 100 ml @ Per Protocol IV TITR [facility] Rx#: [id number] Norepinephrine 8 mg In 76.962 93.086 Dextrose 5% 250 ml @ Per Protocol IV TITR PRN Rx#: [id number] Piperacillin Sodium/ 100 50 50 Tazobact 3.375 gm In Sodium Chloride 0.9% 50 ml @ 100 mls/hr IV Q6HR [facility] Rx#:[id number] Vancomycin HCl 1 gm In 250 250 Sodium Chloride 0.9% 250 ml @ 165 mls/hr IV Q12H [facility] Rx#:[id number] Tube Feeding 400 Other 290 Output: Urine 400 450 Urine/Stool Mix 0 Other: # Bowel Movements 0 Active Medications: Current Medications Acetaminophen (Tylenol) 650 mg PO Q4HR PRN PRN Reason: Mild Pain / Temp above 100 Stop: 07/10/17 09:31 Albuterol/Ipratropium (Duoneb Neb) 3 ml HHN Q3H [facility] Stop: 07/10/17 01:14 Last Admin: 05/12/17 13:00 Dose: 3 ml Aspirin (Aspirin Chewable) 81 mg NG DAILY [facility] Stop: 07/10/17 08:59 Last Admin: 05/12/17 09:13 Dose: 81 mg Budesonide (Pulmicort) 0.5 mg HHN Q12HRT [facility] Stop: 07/10/17 06:59 Last Admin: 05/12/17 07:00 Dose: 0.5 mg Chlorhexidine Gluconate (Peridex) 15 ml MM 0800,1999 [facility] Stop: 07/10/17 07:59 Last Admin: 05/12/17 08:02 Dose: 15 ml Enoxaparin Sodium (Lovenox) 70 mg SUBQ BID [facility] Stop: 07/10/17 08:59 Last Admin: 05/12/17 09:13 Dose: 70 mg Piperacillin Sod/Tazobactam (Sod 3.375 gm/ Sodium Chloride) 50 mls @ 100 mls/ hr IV Q6HR [facility] Stop: 07/10/17 05:59 Last Admin: 05/12/17 12:43 Dose: 100 mls/hr Norepinephrine Bitartrate 8 mg (/ Dextrose) 254 mls @ 0 mls/hr IV TITR PRN; Protocol; Per Protocol PRN Reason: BP MAINTENANCE (PER PROTOCOL) Stop: 07/10/17 00:29 Last Titration: 05/12/17 05:30 Dose: 0 mcg/min, 0 mls/hr Diltiazem HCl 125 mg/ Dextrose 125 mls @ 0 mls/hr IV TITR [facility]; Per Protocol PRN Reason: Protocol Stop: 07/10/17 14:29 Last Admin: 05/12/17 12:39 Dose: 5 mg/hr, 5 mls/hr Vancomycin HCl 1 gm/ Sodium (Chloride) 250 mls @ 165 mls/hr IV Q12H [facility] Stop: 07/10/17 22:59 Last Infusion: 05/12/17 12:43 Dose: Infused Insulin Aspart (Novolog Insulin Sliding Scale) 0 units SUBQ Q6HR [facility] PRN Reason: Protocol Stop: 07/10/17 05:59 Last Admin: 05/12/17 11:49 Dose: Not Given Lactulose (Cephulac) 30 gm PO BID [facility] Stop: 07/11/17 16:59 Lorazepam (Ativan) 1 mg IVP Q4HR PRN; Protocol PRN Reason: AGITATION Stop: 07/10/17 00:50 Last Admin: 05/12/17 08:02 Dose: 1 mg Miscellaneous (Vancomycin Iv Per Pharmacy) 1 ea PRN PRN PRN Reason: PROTOCOL Stop: 07/10/17 06:27 Miscellaneous (Vte Chemical Prophylaxis Screen/ Admission) 1 ea PRN PRN PRN Reason: PROTOCOL Stop: 07/10/17 16:49 Morphine Sulfate (Morphine) 2 mg IVP Q4HR PRN PRN Reason: Pain (Moderate) Stop: 07/10/17 14:20 Last Admin: 05/11/17 21:10 Dose: 2 mg Nitroglycerin (Nitro-Bid) 1 inch TP Q6HR [facility] Stop: 07/10/17 07:59 Last Admin: 05/12/17 12:42 Dose: Not Given Pantoprazole Sodium (Protonix) 40 mg IVP QDAC [facility] Stop: 07/10/17 08:59 Last Admin: 05/12/17 09:12 Dose: 40 mg Valproate Sodium (Depakene) 500 mg PO BID [facility] PRN Reason: Protocol Stop: 07/10/17 16:59 Last Admin: 05/12/17 09:25 Dose: 500 mg General: Other (Sedated and intubated.) HEENT: PERRLA, Other (Oral ET tube+) Neck: Supple, JVD Cardiovascular: Regular rate, Normal S1, Normal S2 Lungs: Other (Rhonchi+) Abdomen: Bowel sounds, Soft, Obese Extremities: Other (L AKA) Neurological: Other (Sedated and intubated.) Assessment/Plan - Assessment Assessment: Acute Resp failure. Encephalopathy. Hypotension. BRANDEE Diabetes. Hx of HTN. A flutter Elevated troponin Possible aspiration pneumonia. S/P L AKA Psych disorder. ICU care. - Plan Plan: Vent support HHn Pulmo toilet IV antibiotics Rate control Anticoagulation Cardiac monitoring General nursing care Follow lab Venous doppler Follow consultants recommendations. Lactulose Continue current care Diabetes management Symptoms control. Discussed with staff.
--- NOTE | 2017-05-12 16:30 | Cardiology ---
05/12/2017 PROCEDURE: Echocardiogram. The patient of Dr. Washington. M-MODE ECHOCARDIOGRAM: Mitral valve, anterior leaflet of mitral valve shows normal excursion, EF velocity. Posterior leaflet of the mitral valve shows normal excursion. Left ventricle posterior wall shows increased thickness, normal excursion. Interventricular septum shows increased thickness, normal excursion, hypertrophy of the left ventricle, ejection fraction 50%. Left atrium enlarged 4.5 cm. Aortic root shows normal dimension, normal excursion of aortic leaflets. CONCLUSION: Hypertrophy of the left ventricle, ejection fraction 50%. Left atrial enlargement. 2D ECHO: Long axis view showed normal sized left ventricle with hypertrophy of the left ventricle. Left atrium enlarged. Aortic root shows normal dimension, normal excursion of aortic leaflets. Short axis view of mitral valve normal. Short axis view of aortic valve normal. Apical four chamber view shows hypertrophy of the left ventricle. Left atrial enlarged, right cavity enlarged. Right atrium normal. CONCLUSION: Hypertrophy of the left ventricle. Left atrial enlargement, right ventricle enlarged, ejection fraction 50%. Doppler study shows prominent A wave consistent with poor compliance of left ventricle, mild mitral regurgitation, mild tricuspid regurgitation, mild aortic regurgitation. JOB# [id number]
[2017-05-12] MEDS: Lactulose 10 Gm/15 mL 30mL UDC PO SCH (18:39)
--- NOTE | 2017-05-12 20:48 | Consultation ---
DATE OF CONSULTATION: 05/11/[address] Washington. HISTORY OF PRESENT ILLNESS: This is a 66-year-old female patient who was admitted to [facility]. The patient was very aggressive. The patient was sedated. Following this, the patient developed hypotension and respiratory arrest. The patient was put on ventilator and transferred to ICU. At the present time, the patient is hypotensive on Levophed, supraventricular tachycardia on Cardizem drip, and Cardiology consult requested. PAST MEDICAL HISTORY: Schizoaffective disorder, bipolar, left AKA, obesity, pleural effusion. FAMILY HISTORY: Unremarkable. SOCIAL HISTORY: No history of smoking, alcohol abuse at the present time. ALLERGIES: None. PHYSICAL EXAMINATION: VITAL SIGNS: Blood pressure 90 systolic, on Levophed; pulse 150 with Cardizem drip; respirations on ventilator. HEAD: Normocephalic. No lumps or bumps. EYES: Pupils equal, reactive to light. Fundi show AV nicking. Sclerae white, conjunctivae pink. NECK: Carotid 2+. Normal upstroke. JVD flat. Thyroid not palpable. Lymph nodes not palpable. CHEST: Shows increased AP diameter. No kyphosis, scoliosis. LUNGS: Bilateral bronchovesicular breath sounds. Bilateral wheezing and rhonchi. Decreased breath sounds both the bases. HEART: PMI sixth intercostal space with lateral to midclavicular line. S1, S2, S3, S4, soft systolic murmur. ABDOMEN: Soft. Liver and spleen not palpable. No organomegaly. Bowel sounds active. NEUROLOGIC: Difficult to evaluate. EXTREMITIES: The patient has a left above knee amputation. CLINICAL IMPRESSION: Septic shock, hypotension, supraventricular tachycardia, respiratory arrest on ventilator, obesity, obstructive sleep apnea, non-ST myocardial infarction, schizoaffective disorder, bipolar, aspiration pneumonia, and left lower lobe pleural effusion. PLAN: At the present time, we will continue Levophed, Cardizem drip, vent management, IV antibiotics. Also, the patient's BNP level is 333, mild congestive heart failure. We will echocardiogram for left ventricular function. JOB# [id number]
[2017-05-12] MEDS: Morphine Sulfate 2 mg/mL 1mL Syr IVP PRN (20:51)
[2017-05-13] MEDS: INSULIN ASPART SLIDING SCALE 100 UNITS/ML UNIT SUBQ SCH ×4 (00:15→17:04)
[2017-05-13] MEDS: NITROGLYCERIN OINT 2% 1 INCH PACKET TP SCH ×4 (00:15→17:04)
--- NOTE | 2017-05-13 00:52 | Progress Notes ---
DATE: 05/12/2017 PROBLEM LIST: 1. Acute respiratory failure. 2. Possibly congestive heart failure, narcotic contributory factor. 3. Associated suspect obstructive sleep apnea syndrome. 4. Left leg above knee amputation. SYMPTOMS: Nil, feeling okay. No specific new symptoms. PHYSICAL EXAMINATION: VITAL SIGNS: The patient about an hour ago self extubated and no respiratory distress, currently saturating 90% on 4 liters per minute. NECK: Veins not visualized. CHEST: Shows diminished air entry with occasional rhonchi. HEART: Regular. EXTREMITIES: Right leg is BK amputation and the patient's left leg shows poor pulsations. LABORATORY DATA: The patient's chest x-ray shows not too much change with some haziness at the bases with a significant amount of cardiomegaly. ASSESSMENT: The patient is clinically stable post-extubation self with multiple contributory factors being respiratory failure, but currently stable. PLANS AND SUGGESTIONS: We will continue current treatment. Care and plan discussed with nursing staff and follow through blood gasses, chest x-ray, etc. tomorrow. We will avoid sedation if it is possible. JOB# [id number]
[2017-05-13] MEDS: Albuterol/Ipratropium Neb 3 ML AERS HHN SCH ×8 (01:24→22:11)
[2017-05-13 06:33] LABS: % BASOPHILS 0.2 % (0.0-2.0); % EOSINOPHILS 1.7 % (0.0-5.0); % MONOCYTES 10.1 % (2.0-10.0); EOSINOPHILE ABSOLUTE 0.1 Th/cmm (0.1-0.4); HEMATOCRIT 36.6 % (41.0-60); HEMOGLOBIN 11.8 gm/dL (12-16); LYMPHOCYTE ABSOLUTE 1.3 Th/cmm (1.5-3.0); MEAN CELL VOLUME 88.9 fl (81-100); MEAN CORPUSCULAR HEMOGLOBIN 28.6 pg (27.0-31.0); MEAN CORPUSCULAR HGB CONC 32.1 pg (28.0-36.0); MEAN PLATELET VOLUME 8.7 fl; MONOCYTE ABSOLUTE 0.6 Th/cmm (0.3-1.0); NEUTROPHILE ABSOLUTE 4.1 Th/cmm (1.8-8.0); PLATELET COUNT 193 Th/cmm (150-400); RED BLOOD COUNT 4.12 Mil/cmm (3.80-5.10); RED CELL DISTRIBUTION WIDTH 20.2 % (11.5-20.0); WHITE BLOOD COUNT 6.1 Th/cmm (4.8-10.8)
[2017-05-13] MEDS: Budesonide 0.5 Mg/2 mL Ud HHN SCH ×2 (06:39→18:58)
[2017-05-13 07:31] LABS: ALB/GLOB RATIO 0.8 (1.0-1.8); ALBUMIN 2.8 gm/dL (3.7-5.3); ALKALINE PHOSPHATASE 56 U/L (34-104); BILIRUBIN,TOTAL 0.3 mg/dL (0.3-1.0); BUN - UREA NITROGEN 11 mg/dL (7-25); CALCIUM SERUM 9.2 mg/dL (8.6-10.3); CHLORIDE 102 mEq/L (98-107); CREATININE - SERUM 0.7 mg/dL (0.6-1.2); GFR AFRICAN-AMERICAN > 60.0 ml/min (>90); GFR NON AFRICAN-AMERICAN > 60.0 ml/min; GLUCOSE 104 mg/dL (70-105); POTASSIUM SERUM 4.7 mEq/L (3.5-5.1); SGOT 14 U/L (13-39); SGPT/ALT 10 U/L (7-52); SODIUM SERUM 137 mEq/L (136-145); TOTAL PROTEIN,SERUM 6.3 gm/dL (6.0-8.3)
[2017-05-13 07:37] LABS: INR 1.14 (0.5-1.4)
[2017-05-13 07:38] LABS: BILIRUBIN,DIRECT 0.08 mg/dL (0.0-0.2)
[2017-05-13] MEDS: Morphine Sulfate 2 mg/mL 1mL Syr IVP PRN (07:50)
[2017-05-13 08:10] LABS: ANION GAP 10.9 (7.0-16.0); CARBON DIOXIDE 28.8 mEq/L (21.0-31.0)
[2017-05-13] MEDS: Aspirin 81mg Chewable Tab NG SCH (08:54)
[2017-05-13] MEDS: Lactulose 10 Gm/15 mL 30mL UDC PO SCH ×2 (08:54→16:50)
[2017-05-13] MEDS: Enoxaparin 80 mg/0.8 mL 0.8mL Syr SUBQ SCH ×2 (08:55→16:49)
[2017-05-13 08:58] LABS: ALLEN TEST YES
--- NOTE | 2017-05-13 10:17 | Diagnostic Imaging Report ---
Exam: Portable chest x-ray. HISTORY: Shortness of breath. Findings: Portable examination of the chest at 0840 hours reviewed compatible prior study of the earlier demonstrates increased congestive heart failure pneumonia and bilateral pleural effusions. NG tube passes stomach. The endotracheal tube is no identified. Bony thorax intact. IMPRESSION increase in bilateral pneumonic infiltrate superimposed congestive heart failure. Bilateral pleural effusions. Follow-up summation recommended.
--- NOTE | 2017-05-13 10:46 | Diagnostic Imaging Report ---
Ultrasound examination deep venous circulation lower extremities bilaterally HISTORY: DVT Findings: Real-time ultrasound examination of the lower extremities performed multiple planes utilizing color Doppler technique. The study demonstrates normal compressibility and augmentation deep venous system throughout the deep venous system of the right lower extremity Left lower extremity demonstrates above the knee amputation. The visualized left common femoral vein and superficial femoral veins are patent. IMPRESSION: no evidence for deep venous thrombosis lower extremities bilaterally, study somewhat limited the patient is enlarged aerated and not cooperative
--- NOTE | 2017-05-13 11:38 | Diagnostic Imaging Report ---
Exam: Chest x-ray portable HISTORY: Status post intubation. Findings Portable examination of chest at 1122 hours reviewed and compared prior study earlier same day demonstrates endotracheal tube 1 cm above the mindy. Mediastinal structures midline extensive bilateral infiltrates are noted. There is evidence of congestion. Bony thorax intact IMPRESSION: satisfactory position endotracheal tube 1 cm above the mindy.
[2017-05-13 13:18] LABS: ALLEN TEST YES; pH 7.37 (7.35-7.45)
[2017-05-13 14:16] LABS: INR 1.02 (0.5-1.4); PROTHROMBIN TIME (TEST) 10.6 SECONDS (9.5-11.5)
--- NOTE | 2017-05-13 23:41 | ED Physician Chart ---
ED Chief Complaint/HPI - Patient Information Date Seen:: 05/13/17 Time Seen:: 11:05 Chief Complaint:: Intubation History of Present Illness:: 66 yo female self-extubated and a new ET tube was needed. Allergies:: Allergies Allergy/AdvReac Type Severity Reaction Status Date / Time No Known Allergies Allergy Verified 04/13/17 23:01 Vitals:: Vital Signs - 8 hr 05/13/17 05/13/17 05/13/17 15:45 16:00 16:06 Temp 98.6 F HR 135 133 135 RR 16 BP 104/47 100/55 O2 Sat % 93 94 05/13/17 05/13/17 05/13/17 16:15 16:30 16:45 Temp HR 126 137 125 RR BP 100/51 109/45 94/49 O2 Sat % 05/13/17 05/13/17 05/13/17 17:00 17:04 17:15 Temp 97.8 F HR 129 129 130 RR 15 BP 87/45 94/49 96/53 O2 Sat % 93 94 05/13/17 05/13/17 05/13/17 17:30 17:45 18:00 Temp 98 F HR 119 121 127 RR 14 BP 97/57 110/62 104/54 O2 Sat % 95 05/13/17 05/13/17 05/13/17 18:15 18:30 18:45 Temp HR 127 123 124 RR BP 100/53 108/54 109/67 O2 Sat % 05/13/17 05/13/17 05/13/17 18:56 19:00 19:15 Temp 97.5 F HR 121 118 120 RR 12 BP 100/63 99/56 O2 Sat % 95 96 05/13/17 05/13/17 05/13/17 19:19 19:30 19:43 Temp HR 108 111 RR BP 108/68 113/71 O2 Sat % 95 05/13/17 05/13/17 05/13/17 19:52 20:00 20:14 Temp 99.7 F 98 F HR 117 126 RR 13 14 BP 122/80 122/80 116/72 O2 Sat % 96 96 05/13/17 05/13/17 05/13/17 20:15 20:30 20:45 Temp HR 129 127 130 RR BP 118/66 116/75 117/76 O2 Sat % 02/04/18 02/04/18 02/04/18 21:00 21:15 21:30 Temp HR 125 130 130 RR 15 BP 117/76 114/73 113/69 O2 Sat % 94 05/13/17 05/13/17 05/13/17 21:45 21:48 22:00 Temp 98 F HR 127 110 113 RR 22 BP 115/59 115/59 105/54 O2 Sat % 95 05/13/17 05/13/17 05/13/17 22:14 22:41 22:48 Temp HR 119 130 113 RR BP 100/50 O2 Sat % 95 Family Medical History - Family Member Mother History Unknown: Yes ED Labs/Radiology/EKG Results - Lab Results Results: Laboratory Tests 05/11/17 05/11/17 05/11/17 00:10 01:00 01:00 WBC 5.9 RBC 4.53 Hgb 12.4 Hct 39.3 L MCV 86.6 MCH 27.4 MCHC Differential 31.6 RDW 19.3 Plt Count 231 MPV 9.2 Neutrophils % 64.3 Lymphocytes % 25.3 Monocytes % 9.6 Eosinophils % 0.7 Basophils % 0.1 PT INR PTT (Actin FS) D-Dimer Specimen Source ARTERIAL Sample Site RIGHT BRACHIAL pH 7.19 L* pCO2 95.0 H* pO2 89.0 HCO3 28.8 H Base Excess 5.1 H O2 Saturation 94.0 Jermaine Test POSITIVE Vent Rate NA Inspired O2 100 Tidal Volume NA PEEP NA Pressure (ins/psv/peep) NA Critical Value SC Sodium Potassium Chloride Carbon Dioxide Anion Gap BUN Creatinine Est GFR ( Amer) Est GFR (Non-Af Amer) BUN/Creatinine Ratio Glucose POC Glucose Calcium Magnesium Total Bilirubin Direct Bilirubin AST ALT Alkaline Phosphatase Ammonia Creatine Kinase Troponin I 0.25 H* B-Natriuretic Peptide Total Protein Albumin Globulin Albumin/Globulin Ratio TSH Urine Source Urine Color Urine Clarity Urine pH Ur Specific [place] Urine Protein Urine Glucose (UA) Urine Ketones Urine Blood Urine Nitrate Urine Bilirubin Urine Urobilinogen Ur Leukocyte Esterase Urine RBC Urine WBC Ur Epithelial Cells Urine Bacteria Coarse Granular Casts Vancomycin Trough 05/11/17 05/11/17 05/11/17 01:00 01:00 05:11 WBC RBC Hgb Hct MCV MCH MCHC Differential RDW Plt Count MPV Neutrophils % Lymphocytes % Monocytes % Eosinophils % Basophils % PT INR PTT (Actin FS) D-Dimer 1930 H Specimen Source Sample Site pH pCO2 pO2 HCO3 Base Excess O2 Saturation Jermaine Test Vent Rate Inspired O2 Tidal Volume PEEP Pressure (ins/psv/peep) Critical Value Sodium Potassium Chloride Carbon Dioxide Anion Gap BUN Creatinine Est GFR ( Amer) Est GFR (Non-Af Amer) BUN/Creatinine Ratio Glucose POC Glucose 154 H Calcium Magnesium Total Bilirubin Direct Bilirubin AST ALT Alkaline Phosphatase Ammonia Creatine Kinase 61 Troponin I B-Natriuretic Peptide Total Protein Albumin Globulin Albumin/Globulin Ratio TSH Urine Source Urine Color Urine Clarity Urine pH Ur Specific [place] Urine Protein Urine Glucose (UA) Urine Ketones Urine Blood Urine Nitrate Urine Bilirubin Urine Urobilinogen Ur Leukocyte Esterase Urine RBC Urine WBC Ur Epithelial Cells Urine Bacteria Coarse Granular Casts Vancomycin Trough 05/11/17 05/11/17 05/11/17 08:30 09:00 09:00 WBC 4.7 L D RBC 4.67 Hgb 13.0 Hct 40.7 L MCV 87.2 MCH 27.8 MCHC Differential 31.9 RDW 19.7 Plt Count 217 MPV 9.4 Neutrophils % 60.9 Lymphocytes % 27.3 Monocytes % 11.1 H Eosinophils % 0.6 Basophils % 0.1 PT INR PTT (Actin FS) D-Dimer Specimen Source Sample Site pH pCO2 pO2 HCO3 Base Excess O2 Saturation Jermaine Test Vent Rate Inspired O2 Tidal Volume PEEP Pressure (ins/psv/peep) Critical Value Sodium Potassium Chloride Carbon Dioxide Anion Gap BUN Creatinine Est GFR ( Amer) Est GFR (Non-Af Amer) BUN/Creatinine Ratio Glucose POC Glucose Calcium Magnesium Total Bilirubin Direct Bilirubin AST ALT Alkaline Phosphatase Ammonia Creatine Kinase 56 Troponin I B-Natriuretic Peptide Total Protein Albumin Globulin Albumin/Globulin Ratio TSH Urine Source [place] Urine Color YELLOW Urine Clarity CLEAR Urine pH 6.0 Ur Specific [place] 1.025 Urine Protein 30 H Urine Glucose (UA) NEGATIVE Urine Ketones NEGATIVE Urine Blood LARGE H Urine Nitrate NEGATIVE Urine Bilirubin NEGATIVE Urine Urobilinogen 0.2 Ur Leukocyte Esterase NEGATIVE Urine RBC 10-25 H Urine WBC 2-5 Ur Epithelial Cells FEW Urine Bacteria FEW Coarse Granular Casts 2-5 H Vancomycin Trough 05/11/17 05/11/17 05/11/17 09:00 09:00 09:25 WBC RBC Hgb Hct MCV MCH MCHC Differential RDW Plt Count MPV Neutrophils % Lymphocytes % Monocytes % Eosinophils % Basophils % PT INR PTT (Actin FS) D-Dimer Specimen Source Arterial Sample Site RB pH 7.28 L pCO2 75.0 H* pO2 102.0 H HCO3 29.7 H Base Excess 6.1 H O2 Saturation 97.0 Jermaine Test NA Vent Rate 12 Inspired O2 60 Tidal Volume 400 PEEP 5 Pressure (ins/psv/peep) NA Critical Value E.OCONNELL Sodium 140 D Potassium 4.3 Chloride 104 Carbon Dioxide 30.3 Anion Gap 10.0 BUN 23 Creatinine 1.0 Est GFR ( Amer) > 60.0 Est GFR (Non-Af Amer) 59.3 BUN/Creatinine Ratio 23.0 Glucose 142 H POC Glucose Calcium 9.3 Magnesium Total Bilirubin 0.3 Direct Bilirubin AST 18 ALT 18 Alkaline Phosphatase 65 Ammonia Creatine Kinase Troponin I 0.20 H* D B-Natriuretic Peptide Total Protein 7.0 Albumin 3.2 L Globulin 3.8 Albumin/Globulin Ratio 0.8 L TSH Urine Source Urine Color Urine Clarity Urine pH Ur Specific [place] Urine Protein Urine Glucose (UA) Urine Ketones Urine Blood Urine Nitrate Urine Bilirubin Urine Urobilinogen Ur Leukocyte Esterase Urine RBC Urine WBC Ur Epithelial Cells Urine Bacteria Coarse Granular Casts Vancomycin Trough 05/11/17 05/11/17 05/11/17 11:52 17:18 17:46 WBC RBC Hgb Hct MCV MCH MCHC Differential RDW Plt Count MPV Neutrophils % Lymphocytes % Monocytes % Eosinophils % Basophils % PT INR PTT (Actin FS) D-Dimer Specimen Source Sample Site pH pCO2 pO2 HCO3 Base Excess O2 Saturation Jermaine Test Vent Rate Inspired O2 Tidal Volume PEEP Pressure (ins/psv/peep) Critical Value Sodium Potassium Chloride Carbon Dioxide Anion Gap BUN Creatinine Est GFR ( Amer) Est GFR (Non-Af Amer) BUN/Creatinine Ratio Glucose POC Glucose 127 H 131 H Calcium Magnesium Total Bilirubin Direct Bilirubin AST ALT Alkaline Phosphatase Ammonia Creatine Kinase 43 Troponin I B-Natriuretic Peptide Total Protein Albumin Globulin Albumin/Globulin Ratio TSH Urine Source Urine Color Urine Clarity Urine pH Ur Specific [place] Urine Protein Urine Glucose (UA) Urine Ketones Urine Blood Urine Nitrate Urine Bilirubin Urine Urobilinogen Ur Leukocyte Esterase Urine RBC Urine WBC Ur Epithelial Cells Urine Bacteria Coarse Granular Casts Vancomycin Trough 05/11/17 05/11/17 05/12/17 17:46 23:22 05:47 WBC RBC Hgb Hct MCV MCH MCHC Differential RDW Plt Count MPV Neutrophils % Lymphocytes % Monocytes % Eosinophils % Basophils % PT INR PTT (Actin FS) D-Dimer Specimen Source Sample Site pH pCO2 pO2 HCO3 Base Excess O2 Saturation Jermaine Test Vent Rate Inspired O2 Tidal Volume PEEP Pressure (ins/psv/peep) Critical Value Sodium Potassium Chloride Carbon Dioxide Anion Gap BUN Creatinine Est GFR ( Amer) Est GFR (Non-Af Amer) BUN/Creatinine Ratio Glucose POC Glucose 114 H 109 H Calcium Magnesium Total Bilirubin Direct Bilirubin AST ALT Alkaline Phosphatase Ammonia Creatine Kinase Troponin I 0.21 H* B-Natriuretic Peptide Total Protein Albumin Globulin Albumin/Globulin Ratio TSH Urine Source Urine Color Urine Clarity Urine pH Ur Specific [place] Urine Protein Urine Glucose (UA) Urine Ketones Urine Blood Urine Nitrate Urine Bilirubin Urine Urobilinogen Ur Leukocyte Esterase Urine RBC Urine WBC Ur Epithelial Cells Urine Bacteria Coarse Granular Casts Vancomycin Trough 05/12/17 05/12/17 05/12/17 09:00 10:27 10:27 WBC 6.5 D RBC 4.33 Hgb 12.0 Hct 37.8 L MCV 87.3 MCH 27.7 MCHC Differential 31.7 RDW 19.5 Plt Count 204 MPV 8.7 Neutrophils % 62.3 Lymphocytes % 27.9 Monocytes % 8.2 Eosinophils % 0.7 Basophils % 0.9 PT INR PTT (Actin FS) D-Dimer Specimen Source Arterial Sample Site Left Radial pH 7.40 pCO2 54.0 H pO2 66.0 L HCO3 30.4 H Base Excess 7.1 H O2 Saturation 93.0 Jermaine Test YES Vent Rate 12 Inspired O2 50 Tidal Volume 400 PEEP 5 Pressure (ins/psv/peep) NA Critical Value SH Sodium 139 Potassium 4.3 Chloride 105 Carbon Dioxide 29.6 Anion Gap 8.7 BUN 11 Creatinine 0.7 Est GFR ( Amer) > 60.0 Est GFR (Non-Af Amer) > 60.0 BUN/Creatinine Ratio 15.7 Glucose 112 H POC Glucose Calcium 9.3 Magnesium 1.9 Total Bilirubin 0.4 Direct Bilirubin AST 15 ALT 14 Alkaline Phosphatase 60 Ammonia Creatine Kinase Troponin I B-Natriuretic Peptide Total Protein 6.5 Albumin 2.9 L Globulin 3.6 Albumin/Globulin Ratio 0.8 L TSH Urine Source Urine Color Urine Clarity Urine pH Ur Specific [place] Urine Protein Urine Glucose (UA) Urine Ketones Urine Blood Urine Nitrate Urine Bilirubin Urine Urobilinogen Ur Leukocyte Esterase Urine RBC Urine WBC Ur Epithelial Cells Urine Bacteria Coarse Granular Casts Vancomycin Trough 05/12/17 05/12/17 05/12/17 10:27 10:27 10:27 WBC RBC Hgb Hct MCV MCH MCHC Differential RDW Plt Count MPV Neutrophils % Lymphocytes % Monocytes % Eosinophils % Basophils % PT INR PTT (Actin FS) D-Dimer Specimen Source Sample Site pH pCO2 pO2 HCO3 Base Excess O2 Saturation Jermaine Test Vent Rate Inspired O2 Tidal Volume PEEP Pressure (ins/psv/peep) Critical Value Sodium Potassium Chloride Carbon Dioxide Anion Gap BUN Creatinine Est GFR ( Amer) Est GFR (Non-Af Amer) BUN/Creatinine Ratio Glucose POC Glucose Calcium Magnesium Total Bilirubin 0.5 Direct Bilirubin 0.17 AST 15 ALT 15 Alkaline Phosphatase 61 Ammonia Creatine Kinase Troponin I 0.16 H* D B-Natriuretic Peptide 333.0 H Total Protein 6.0 Albumin 2.8 L Globulin 3.2 Albumin/Globulin Ratio 0.9 L TSH Urine Source Urine Color Urine Clarity Urine pH Ur Specific [place] Urine Protein Urine Glucose (UA) Urine Ketones Urine Blood Urine Nitrate Urine Bilirubin Urine Urobilinogen Ur Leukocyte Esterase Urine RBC Urine WBC Ur Epithelial Cells Urine Bacteria Coarse Granular Casts Vancomycin Trough 05/12/17 05/12/17 05/12/17 10:27 11:36 17:14 WBC RBC Hgb Hct MCV MCH MCHC Differential RDW Plt Count MPV Neutrophils % Lymphocytes % Monocytes % Eosinophils % Basophils % PT INR PTT (Actin FS) D-Dimer Specimen Source Sample Site pH pCO2 pO2 HCO3 Base Excess O2 Saturation Jermaine Test Vent Rate Inspired O2 Tidal Volume PEEP Pressure (ins/psv/peep) Critical Value Sodium Potassium Chloride Carbon Dioxide Anion Gap BUN Creatinine Est GFR ( Amer) Est GFR (Non-Af Amer) BUN/Creatinine Ratio Glucose POC Glucose 112 H 98 Calcium Magnesium Total Bilirubin Direct Bilirubin AST ALT Alkaline Phosphatase Ammonia 89 H Creatine Kinase Troponin I B-Natriuretic Peptide Total Protein Albumin Globulin Albumin/Globulin Ratio TSH 0.65 Urine Source Urine Color Urine Clarity Urine pH Ur Specific [place] Urine Protein Urine Glucose (UA) Urine Ketones Urine Blood Urine Nitrate Urine Bilirubin Urine Urobilinogen Ur Leukocyte Esterase Urine RBC Urine WBC Ur Epithelial Cells Urine Bacteria Coarse Granular Casts Vancomycin Trough 05/12/17 05/12/17 05/13/17 21:45 23:09 05:11 WBC 6.1 RBC 4.12 Hgb 11.8 L Hct 36.6 L MCV 88.9 MCH 28.6 MCHC Differential 32.1 RDW 20.2 H Plt Count 193 MPV 8.7 Neutrophils % 66.0 Lymphocytes % 22.0 Monocytes % 10.1 H Eosinophils % 1.7 Basophils % 0.2 PT INR PTT (Actin FS) D-Dimer Specimen Source Sample Site pH pCO2 pO2 HCO3 Base Excess O2 Saturation Jermaine Test Vent Rate Inspired O2 Tidal Volume PEEP Pressure (ins/psv/peep) Critical Value Sodium Potassium Chloride Carbon Dioxide Anion Gap BUN Creatinine Est GFR ( Amer) Est GFR (Non-Af Amer) BUN/Creatinine Ratio Glucose POC Glucose 102 Calcium Magnesium Total Bilirubin Direct Bilirubin AST ALT Alkaline Phosphatase Ammonia Creatine Kinase Troponin I B-Natriuretic Peptide Total Protein Albumin Globulin Albumin/Globulin Ratio TSH Urine Source Urine Color Urine Clarity Urine pH Ur Specific [place] Urine Protein Urine Glucose (UA) Urine Ketones Urine Blood Urine Nitrate Urine Bilirubin Urine Urobilinogen Ur Leukocyte Esterase Urine RBC Urine WBC Ur Epithelial Cells Urine Bacteria Coarse Granular Casts Vancomycin Trough 9.8 L 05/13/17 05/13/17 05/13/17 05:11 05:11 05:11 WBC RBC Hgb Hct MCV MCH MCHC Differential RDW Plt Count MPV Neutrophils % Lymphocytes % Monocytes % Eosinophils % Basophils % PT INR PTT (Actin FS) D-Dimer Specimen Source Sample Site pH pCO2 pO2 HCO3 Base Excess O2 Saturation Jermaine Test Vent Rate Inspired O2 Tidal Volume PEEP Pressure (ins/psv/peep) Critical Value Sodium 137 Potassium 4.7 Chloride 102 Carbon Dioxide 28.8 Anion Gap 10.9 BUN 11 Creatinine 0.7 Est GFR ( Amer) > 60.0 Est GFR (Non-Af Amer) > 60.0 BUN/Creatinine Ratio 15.7 Glucose 104 POC Glucose Calcium 9.2 Magnesium Total Bilirubin 0.3 Direct Bilirubin 0.08 AST 14 ALT 10 Alkaline Phosphatase 56 Ammonia 149 H Creatine Kinase Troponin I 0.09 H* D B-Natriuretic Peptide Total Protein 6.3 Albumin 2.8 L Globulin 3.5 Albumin/Globulin Ratio 0.8 L TSH Urine Source Urine Color Urine Clarity Urine pH Ur Specific [place] Urine Protein Urine Glucose (UA) Urine Ketones Urine Blood Urine Nitrate Urine Bilirubin Urine Urobilinogen Ur Leukocyte Esterase Urine RBC Urine WBC Ur Epithelial Cells Urine Bacteria Coarse Granular Casts Vancomycin Trough 05/13/17 05/13/17 05/13/17 05:11 05:11 05:12 WBC RBC Hgb Hct MCV MCH MCHC Differential RDW Plt Count MPV Neutrophils % Lymphocytes % Monocytes % Eosinophils % Basophils % PT 12.0 H INR 1.14 PTT (Actin FS) 30.3 D-Dimer Specimen Source Sample Site pH pCO2 pO2 HCO3 Base Excess O2 Saturation Jermaine Test Vent Rate Inspired O2 Tidal Volume PEEP Pressure (ins/psv/peep) Critical Value Sodium Potassium Chloride Carbon Dioxide Anion Gap BUN Creatinine Est GFR ( Amer) Est GFR (Non-Af Amer) BUN/Creatinine Ratio Glucose POC Glucose 131 H Calcium Magnesium 2.0 Total Bilirubin Direct Bilirubin AST ALT Alkaline Phosphatase Ammonia Creatine Kinase Troponin I B-Natriuretic Peptide Total Protein Albumin Globulin Albumin/Globulin Ratio TSH Urine Source Urine Color Urine Clarity Urine pH Ur Specific [place] Urine Protein Urine Glucose (UA) Urine Ketones Urine Blood Urine Nitrate Urine Bilirubin Urine Urobilinogen Ur Leukocyte Esterase Urine RBC Urine WBC Ur Epithelial Cells Urine Bacteria Coarse Granular Casts Vancomycin Trough 05/13/17 05/13/17 05/13/17 08:45 11:24 12:00 WBC RBC Hgb Hct MCV MCH MCHC Differential RDW Plt Count MPV Neutrophils % Lymphocytes % Monocytes % Eosinophils % Basophils % PT 10.6 INR 1.02 PTT (Actin FS) 25.9 L D-Dimer Specimen Source Arterial Sample Site Right Radial pH 7.20 L* pCO2 102.0 H* pO2 63.0 L HCO3 31.1 H Base Excess 8.3 H O2 Saturation 86.0 L Jermaine Test YES Vent Rate NA Inspired O2 50 Tidal Volume NA PEEP NA Pressure (ins/psv/peep) NA Critical Value SH Sodium Potassium Chloride Carbon Dioxide Anion Gap BUN Creatinine Est GFR ( Amer) Est GFR (Non-Af Amer) BUN/Creatinine Ratio Glucose POC Glucose 128 H Calcium Magnesium Total Bilirubin Direct Bilirubin AST ALT Alkaline Phosphatase Ammonia Creatine Kinase Troponin I B-Natriuretic Peptide Total Protein Albumin Globulin Albumin/Globulin Ratio TSH Urine Source Urine Color Urine Clarity Urine pH Ur Specific [place] Urine Protein Urine Glucose (UA) Urine Ketones Urine Blood Urine Nitrate Urine Bilirubin Urine Urobilinogen Ur Leukocyte Esterase Urine RBC Urine WBC Ur Epithelial Cells Urine Bacteria Coarse Granular Casts Vancomycin Trough 05/13/17 05/13/17 05/13/17 12:20 17:02 23:22 WBC RBC Hgb Hct MCV MCH MCHC Differential RDW Plt Count MPV Neutrophils % Lymphocytes % Monocytes % Eosinophils % Basophils % PT INR PTT (Actin FS) D-Dimer Specimen Source Arterial Sample Site Right Radial pH 7.37 pCO2 39.0 pO2 69.0 L HCO3 22.9 Base Excess -2.5 O2 Saturation 93.0 Jermaine Test YES Vent Rate 12 Inspired O2 100 Tidal Volume 400 PEEP 5 Pressure (ins/psv/peep) NA Critical Value SH Sodium Potassium Chloride Carbon Dioxide Anion Gap BUN Creatinine Est GFR ( Amer) Est GFR (Non-Af Amer) BUN/Creatinine Ratio Glucose POC Glucose 132 H 144 H Calcium Magnesium Total Bilirubin Direct Bilirubin AST ALT Alkaline Phosphatase Ammonia Creatine Kinase Troponin I B-Natriuretic Peptide Total Protein Albumin Globulin Albumin/Globulin Ratio TSH Urine Source Urine Color Urine Clarity Urine pH Ur Specific [place] Urine Protein Urine Glucose (UA) Urine Ketones Urine Blood Urine Nitrate Urine Bilirubin Urine Urobilinogen Ur Leukocyte Esterase Urine RBC Urine WBC Ur Epithelial Cells Urine Bacteria Coarse Granular Casts Vancomycin Trough ED Assessment - Procedures Procedures:: Endotracheal intubation. After proper sedation and suction, 8 fr ET tube was inserted into trachea without complication. CXR was ordered to confirm the location of ET tube. ED Septic Shock - . Is Septic Shock (SBP<90, OR Lactate>4 mmol\L) present?: No - <6hrs of presentation: Vital Signs: Vital Signs - 8 hr 05/13/17 05/13/17 05/13/17 15:45 16:00 16:06 Temp 98.6 F HR 135 133 135 RR 16 BP 104/47 100/55 O2 Sat % 93 94 05/13/17 05/13/17 05/13/17 16:15 16:30 16:45 Temp HR 126 137 125 RR BP 100/51 109/45 94/49 O2 Sat % 05/13/17 05/13/17 05/13/17 17:00 17:04 17:15 Temp 97.8 F HR 129 129 130 RR 15 BP 87/45 94/49 96/53 O2 Sat % 93 94 05/13/17 05/13/17 05/13/17 17:30 17:45 18:00 Temp 98 F HR 119 121 127 RR 14 BP 97/57 110/62 104/54 O2 Sat % 95 05/13/17 05/13/17 05/13/17 18:15 18:30 18:45 Temp HR 127 123 124 RR BP 100/53 108/54 109/67 O2 Sat % 05/13/17 05/13/17 05/13/17 18:56 19:00 19:15 Temp 97.5 F HR 121 118 120 RR 12 BP 100/63 99/56 O2 Sat % 95 96 05/13/17 05/13/17 05/13/17 19:19 19:30 19:43 Temp HR 108 111 RR BP 108/68 113/71 O2 Sat % 95 05/13/17 05/13/17 05/13/17 19:52 20:00 20:14 Temp 99.7 F 98 F HR 117 126 RR 13 14 BP 122/80 122/80 116/72 O2 Sat % 96 96 05/13/17 05/13/17 05/13/17 20:15 20:30 20:45 Temp HR 129 127 130 RR BP 118/66 116/75 117/76 O2 Sat % 05/13/17 05/13/17 05/13/17 21:00 21:15 21:30 Temp HR 125 130 130 RR 15 BP 117/76 114/73 113/69 O2 Sat % 94 05/13/17 05/13/17 05/13/17 21:45 21:48 22:00 Temp 98 F HR 127 110 113 RR 22 BP 115/59 115/59 105/54 O2 Sat % 95 05/13/17 05/13/17 05/13/17 22:14 22:41 22:48 Temp HR 119 130 113 RR BP 100/50 O2 Sat % 95 ED Discharge Plan - Patient Disposition Condition at Disposition: Critical
--- NOTE | 2017-05-13 23:50 | Progress Notes ---
DATE: 05/13/2017 PULMONARY PROGRESS NOTE REASON FOR CONSULTATION: To help the patient with shortness of breath. Follow up consultation for shortness of breath. CONSULT NOTE: This is a 66-year-old, who was basically being self extubated yesterday. This morning started getting more shortness of breath, etc. with 100% desaturating needed to have intubated. The patient is currently reintubated since yesterday. The patient is currently sedated. No respiratory distress. PHYSICAL EXAMINATION: VITAL SIGNS: Temperature is 97.5, blood pressure is 100/63, and saturation is 95 on 100% of oxygen. NECK: Veins not visualized. CHEST: Shows diminished air entry with occasional rhonchi. HEART: Regular. ABDOMEN: Soft, nontender. LABORATORY DATA: The patient's earlier ABG before intubation, pCO2 of 102, pH of 7.2, which after the event has been significantly improved. Chest x-ray shows possibly fluid overload type pattern with huge cardiomegaly. ASSESSMENT: The patient has again began to have respiratory failure with significant hypercarbia complicated by possibly congestive heart failure, COPD, obstructive sleep apnea syndrome, and possibly sedation. PLANS AND SUGGESTIONS: We will continue current treatment, slowly titrate FIO2. Repeat a sputum culture. Follow up another chest x-rays etc., and go from there. JOB# [id number]
[2017-05-14] MEDS: NITROGLYCERIN OINT 2% 1 INCH PACKET TP SCH ×4 (00:01→17:59)
[2017-05-14] MEDS: Albuterol/Ipratropium Neb 3 ML AERS HHN SCH ×8 (01:38→22:36)
--- NOTE | 2017-05-14 01:45 | Progress Notes ---
DATE: SUBJECTIVE: The patient is a 66-year-old female. The patient seen and examined. The patient self extubated, but the patient's ABG did not support her respiratory status based on her BiPAP therapy. The patient is now reintubated. The patient is currently on propofol drip. The patient has a poor IV access, needs long-term IV access. PHYSICAL EXAMINATION: VITAL SIGNS: Temperature is 100, pulse is 120, respiratory rate 16, blood pressure is 109/63. HEENT: Oral endotracheal tube noted. NECK: Supple, no JVD. HEART: Regular. LUNGS: Expiratory wheezing. ABDOMEN: Soft. No guarding, no rigidity. Bowel sounds are present. No palpable mass. EXTREMITIES: Left above-knee amputation noted. AVAILABLE DIAGNOSTIC DATA: White count of 6.1, hemoglobin 11.8, platelet count of 193. ABG: pH of 7.20, pCO2 of 102, pO2 of 63. BUN and creatinine 11 and 0.7. Troponin is 0.09. Ammonia of 149. Vancomycin drop is 9.8. Blood cultures are negative for any growth. Urine culture: No growth as well. Sputum Gram stain and C and S was also done, which revealed normal respiratory teetee. CLINICAL IMPRESSION: 1. Hepatic encephalopathy. 2. Acute respiratory failure, required endotracheal intubation and mechanical ventilation. 3. Diabetes mellitus. 4. Hypertension by history. 5. Left ventricular hypertrophy by 2D echocardiogram. 6. Psychotic disorder. 7. Degenerative joint disease. 8. Status post left above knee amputation. 9. ICU care. PLAN: 1. ICU status. 2. Nebulizer treatment. 3. Vent support. 4. Probable drip. 5. PICC line. 6. Increase lactulose. 7. Liver function test. 8. Abdominal ultrasound. 9. IV antibiotic. 10. Follow lab. 11. Follow consult recommendation. 12. Care plan reviewed and discussed with staff. JOB# [id number]
[2017-05-14 04:44] LABS: HEMATOCRIT 33.9 % (41.0-60); HEMOGLOBIN 10.8 gm/dL (12-16); MEAN CELL VOLUME 87.1 fl (81-100); MEAN CORPUSCULAR HEMOGLOBIN 27.7 pg (27.0-31.0); MEAN CORPUSCULAR HGB CONC 31.9 pg (28.0-36.0); PLATELET COUNT 161 Th/cmm (150-400); RED BLOOD COUNT 3.89 Mil/cmm (3.80-5.10); RED CELL DISTRIBUTION WIDTH 20.1 % (11.5-20.0)
[2017-05-14 04:55] LABS: WHITE BLOOD COUNT 8.1 Th/cmm (4.8-10.8)
[2017-05-14 05:07] LABS: ALB/GLOB RATIO 0.7 (1.0-1.8); ALBUMIN 2.5 gm/dL (3.7-5.3); ANION GAP 9.6 (7.0-16.0); BILIRUBIN,TOTAL 0.4 mg/dL (0.3-1.0); CALCIUM SERUM 8.7 mg/dL (8.6-10.3); CARBON DIOXIDE 31.2 mEq/L (21.0-31.0); CREATININE - SERUM 1.9 mg/dL (0.6-1.2); GFR AFRICAN-AMERICAN 34.2 ml/min (>90); GFR NON AFRICAN-AMERICAN 28.3 ml/min; POTASSIUM SERUM 4.8 mEq/L (3.5-5.1)
[2017-05-14 05:21] LABS: BAND NEUTROPHILE 1 % (0-10); EOSINOPHIL 1 % (0-5); LYMPHOCYTE 27 % (20-50); NEUTROPHILS 71 % (40-80); PLATELET ESTIMATE ADEQUATE (NORMAL); TOTAL CELLS COUNTED 100
[2017-05-14] MEDS: INSULIN ASPART SLIDING SCALE 100 UNITS/ML UNIT SUBQ SCH ×4 (05:37→17:21)
[2017-05-14] MEDS: Budesonide 0.5 Mg/2 mL Ud HHN SCH ×2 (06:53→18:56)
[2017-05-14] MEDS: Chlorhexidine Gluconate 0.12% 15mL Mouthwash MM SCH ×2 (08:30→21:10)
[2017-05-14 08:39] LABS: pH 7.33 (7.35-7.45)
[2017-05-14] MEDS ORDERED: Probiotic Screen MC PRN (08:45)
[2017-05-14] MEDS: Lactulose 10 Gm/15 mL 30mL UDC PO SCH ×2 (09:24→17:29)
[2017-05-14] MEDS: Enoxaparin 80 mg/0.8 mL 0.8mL Syr SUBQ SCH ×3 (09:25→17:30)
[2017-05-14] MEDS: Aspirin 81mg Chewable Tab NG SCH (09:25)
[2017-05-14] MEDS: Lactobacillus Rhamnosus GG 15 Billion CFU CAP.SPRINK NG SCH (09:25)
--- NOTE | 2017-05-14 09:26 | General Progress Note ---
Subjective - Review of Systems Subjective: Patient is seen and examined. Re intubated and sedated. Discussed with RN re: treatment plan. Objective - Results Result Diagrams: 05/14/17 04:10 05/14/17 04:10 Recent Labs: Laboratory Last Values WBC 8.1 Th/cmm (4.8-10.8) D 05/14/17 04:10 RBC 3.89 Mil/cmm (3.80-5.10) 05/14/17 04:10 Hgb 10.8 gm/dL (12-16) L 05/14/17 04:10 Hct 33.9 % (41.0-60) L 05/14/17 04:10 MCV 87.1 fl (81-100) 05/14/17 04:10 MCH 27.7 pg (27.0-31.0) 05/14/17 04:10 MCHC Differential 31.9 pg (28.0-36.0) 05/14/17 04:10 RDW 20.1 % (11.5-20.0) H 05/14/17 04:10 Plt Count 161 Th/cmm (150-400) 05/14/17 04:10 MPV 9.0 fl 05/14/17 04:10 Neutrophils % 66.0 % (40.0-80.0) 05/13/17 05:11 Band Neutrophils % 1 % (0-10) 05/14/17 04:10 Lymphocytes % 22.0 % (20.0-50.0) 05/13/17 05:11 Monocytes % 10.1 % (2.0-10.0) H 05/13/17 05:11 Eosinophils % 1.7 % (0.0-5.0) 05/13/17 05:11 Basophils % 0.2 % (0.0-2.0) 05/13/17 05:11 Neutrophils (Manual) 71 % (40-80) 05/14/17 04:10 Lymphocytes 27 % (20-50) 05/14/17 04:10 Eosinophils 1 % (0-5) 05/14/17 04:10 Platelet Estimate ADEQUATE (NORMAL) 05/14/17 04:10 PT 10.6 SECONDS (9.5-11.5) 05/13/17 11:24 INR 1.02 (0.5-1.4) 05/13/17 11:24 PTT (Actin FS) 25.9 SECONDS (26.0-38.0) L 05/13/17 11:24 D-Dimer 1930 ng/mL (100-400) H 05/11/17 01:00 Specimen Source Arterial 05/14/17 08:30 Sample Site RB 05/14/17 08:30 pH 7.33 (7.35-7.45) L 05/14/17 08:30 pCO2 68.0 mmHg (35.0-45.0) H* 05/14/17 08:30 pO2 67.0 mmHg (80.0-100.0) L 05/14/17 08:30 HCO3 30.8 mEq/L (20.0-26.0) H 05/14/17 08:30 Base Excess 7.7 mEq/L (-3.0-3.0) H 05/14/17 08:30 O2 Saturation 92.0 % (92.0-100.0) 05/14/17 08:30 Jermaine Test NA 05/14/17 08:30 Vent Rate 12 05/14/17 08:30 Inspired O2 100 05/14/17 08:30 Tidal Volume 400 05/14/17 08:30 PEEP 5 05/14/17 08:30 Pressure (ins/psv/peep) NA 05/14/17 08:30 Critical Value SH 05/14/17 08:30 Sodium 140 mEq/L (136-145) 05/14/17 04:10 Potassium 4.8 mEq/L (3.5-5.1) 05/14/17 04:10 Chloride 104 mEq/L (98-107) 05/14/17 04:10 Carbon Dioxide 31.2 mEq/L (21.0-31.0) H 05/14/17 04:10 Anion Gap 9.6 (7.0-16.0) 05/14/17 04:10 BUN 24 mg/dL (7-25) 05/14/17 04:10 Creatinine 1.9 mg/dL (0.6-1.2) H 05/14/17 04:10 Est GFR ( Amer) 34.2 ml/min (>90) 05/14/17 04:10 Est GFR (Non-Af Amer) 28.3 ml/min 05/14/17 04:10 BUN/Creatinine Ratio 12.6 05/14/17 04:10 Glucose 138 mg/dL (70-105) H 05/14/17 04:10 POC Glucose 144 MG/DL (70 - 105) H 05/13/17 23:22 Calcium 8.7 mg/dL (8.6-10.3) 05/14/17 04:10 Magnesium 2.0 mg/dL (1.9-2.7) 05/13/17 05:11 Total Bilirubin 0.4 mg/dL (0.3-1.0) 05/14/17 04:10 Direct Bilirubin 0.08 mg/dL (0.0-0.2) 05/13/17 05:11 AST 14 U/L (13-39) 05/14/17 04:10 ALT 10 U/L (7-52) 05/14/17 04:10 Alkaline Phosphatase 49 U/L (34-104) 05/14/17 04:10 Ammonia 76 umol/L (16-53) H 05/14/17 04:10 Creatine Kinase 43 U/L (30-223) 05/11/17 17:46 Troponin I 0.09 ng/mL (0.01-0.05) H* D 05/13/17 05:11 B-Natriuretic Peptide 333.0 pg/mL (5.0-100.0) H 05/12/17 10:27 Total Protein 6.0 gm/dL (6.0-8.3) 05/14/17 04:10 Albumin 2.5 gm/dL (3.7-5.3) L 05/14/17 04:10 Globulin 3.5 gm/dL 05/14/17 04:10 Albumin/Globulin Ratio 0.7 (1.0-1.8) L 05/14/17 04:10 TSH 0.65 uIU/ml (0.34-5.60) 05/12/17 10:27 Urine Source [place] 05/11/17 08:30 Urine Color YELLOW 05/11/17 08:30 Urine Clarity CLEAR (CLEAR) 05/11/17 08:30 Urine pH 6.0 (4.6 - 8.0) 05/11/17 08:30 Ur Specific [place] 1.025 (1.005-1.030) 05/11/17 08:30 Urine Protein 30 mg/dL (NEGATIVE) H 05/11/17 08:30 Urine Glucose (UA) NEGATIVE mg/dL (NEGATIVE) 05/11/17 08:30 Urine Ketones NEGATIVE mg/dL (NEGATIVE) 05/11/17 08:30 Urine Blood LARGE (NEGATIVE) H 05/11/17 08:30 Urine Nitrate NEGATIVE (NEGATIVE) 05/11/17 08:30 Urine Bilirubin NEGATIVE (NEGATIVE) 05/11/17 08:30 Urine Urobilinogen 0.2 E.U./dL (0.2 - 1.0) 05/11/17 08:30 Ur Leukocyte Esterase NEGATIVE (NEGATIVE) 05/11/17 08:30 Urine RBC 10-25 /hpf (0-5) H 05/11/17 08:30 Urine WBC 2-5 /hpf (0-5) 05/11/17 08:30 Ur Epithelial Cells FEW /lpf (FEW) 05/11/17 08:30 Urine Bacteria FEW /hpf (NONE SEEN) 05/11/17 08:30 Coarse Granular Casts 2-5 /lpf (NONE SEEN) H 05/11/17 08:30 Vancomycin Trough 9.8 ug/mL (10-20) L 05/12/17 21:45 - Physical Exam Vitals and I&O: Vital Signs Temp 99.2 F 05/14/17 06:00 Pulse 132 05/14/17 09:00 Resp 20 05/14/17 06:00 BP 102/60 05/14/17 06:25 Pulse Ox 92 05/14/17 09:00 Intake & Output 05/13/17 05/14/17 05/14/17 18:59 06:59 18:59 Intake Total 9969.940 0402.081 31.724 Output Total 350 500 Balance 3631.962 2260.081 31.724 Weight (lbs) 104.865 kg 104.411 kg Intake: Intake, IV Amount 663.938 945.081 31.724 Diltiazem 125 mg In 50.417 155.541 Dextrose 5% 100 ml @ Per Protocol IV TITR [facility] Rx#: [id number] Norepinephrine 8 mg In 174.307 195.263 Dextrose 5% 250 ml @ Per Protocol IV TITR PRN Rx#: [id number] Piperacillin Sodium/ 100 100 Tazobact 3.375 gm In Sodium Chloride 0.9% 50 ml @ 100 mls/hr IV Q6HR [facility] Rx#:[id number] Propofol 1,000 mg In 100 89.214 244.277 31.724 ml @ 30 MCG/KG/MIN 18.207 mls/hr IV TITR [facility] Rx#: [id number] Vancomycin HCl 1.25 gm In 250 250 Sodium Chloride 0.9% 250 ml @ 165 mls/hr IV Q12H [facility] Rx#:[id number] Tube Feeding 600 600 Other 450 150 Output: Urine 350 500 Stool 0 Other: # Bowel Movements 0 Active Medications: Current Medications Acetaminophen (Tylenol) 650 mg PO Q4HR PRN PRN Reason: Mild Pain / Temp above 100 Stop: 07/10/17 09:31 Last Admin: 05/14/17 00:00 Dose: 650 mg Albuterol/Ipratropium (Duoneb Neb) 3 ml HHN Q3H [facility] Stop: 07/10/17 01:14 Last Admin: 05/14/17 06:53 Dose: 3 ml Aspirin (Aspirin Chewable) 81 mg NG DAILY [facility] Stop: 07/10/17 08:59 Last Admin: 05/13/17 08:54 Dose: 81 mg Budesonide (Pulmicort) 0.5 mg HHN Q12HRT [facility] Stop: 07/10/17 06:59 Last Admin: 05/14/17 06:53 Dose: 0.5 mg Chlorhexidine Gluconate (Peridex) 15 ml MM 0800,2000 [facility] Stop: 07/13/17 07:59 Enoxaparin Sodium (Lovenox) 70 mg SUBQ BID [facility] Stop: 07/10/17 08:59 Last Admin: 05/13/17 16:49 Dose: 70 mg Piperacillin Sod/Tazobactam (Sod 3.375 gm/ Sodium Chloride) 50 mls @ 100 mls/ hr IV Q6HR [facility] Stop: 07/10/17 05:59 Last Infusion: 05/14/17 06:05 Dose: Infused Norepinephrine Bitartrate 8 mg (/ Dextrose) 254 mls @ 0 mls/hr IV TITR PRN; Protocol; Per Protocol PRN Reason: BP MAINTENANCE (PER PROTOCOL) Stop: 07/10/17 00:29 Last Titration: 05/14/17 06:00 Dose: 10 mcg/min, 19.05 mls/hr Diltiazem HCl 125 mg/ Dextrose 125 mls @ 0 mls/hr IV TITR [facility]; Per Protocol PRN Reason: Protocol Stop: 07/10/17 14:29 Last Titration: 05/14/17 06:00 Dose: 7.5 mg/hr, 7.5 mls/hr Vancomycin HCl 1.25 gm/ Sodium (Chloride) 250 mls @ 165 mls/hr IV Q12H [facility] Stop: 07/12/17 10:59 Last Infusion: 05/14/17 00:31 Dose: Infused Propofol (Diprivan) 1,000 mg in 100 mls @ 18.207 mls/hr IV TITR [facility]; 30 MCG/KG/ MIN PRN Reason: Protocol Stop: 07/12/17 11:13 Last Admin: 05/14/17 07:45 Dose: 25 mcg/kg/min, 15.173 mls/hr Insulin Aspart (Novolog Insulin Sliding Scale) 0 units SUBQ Q6HR [facility] PRN Reason: Protocol Stop: 07/10/17 05:59 Last Admin: 05/14/17 05:37 Dose: Not Given Lactobacillus Rhamnosus (Culturelle 15b) 1 each NG DAILY [facility] Stop: 07/13/17 08:59 Lactulose (Cephulac) 30 gm PO BID [facility] Stop: 07/11/17 16:59 Last Admin: 05/13/17 16:50 Dose: 30 gm Lorazepam (Ativan) 1 mg IVP Q4HR PRN; Protocol PRN Reason: AGITATION Stop: 07/10/17 00:50 Last Admin: 05/13/17 03:52 Dose: 1 mg Miscellaneous (Vancomycin Iv Per Pharmacy) 1 ea PRN PRN PRN Reason: PROTOCOL Stop: 07/10/17 06:27 Miscellaneous (Vte Chemical Prophylaxis Screen/ Admission) 1 ea PRN PRN PRN Reason: PROTOCOL Stop: 07/10/17 16:49 Miscellaneous (Probiotic Screen) 1 ea PRN PRN PRN Reason: PROTOCOL Stop: 07/13/17 08:44 Morphine Sulfate (Morphine) 2 mg IVP Q4HR PRN PRN Reason: Pain (Moderate) Stop: 07/10/17 14:20 Last Admin: 05/13/17 07:50 Dose: 2 mg Nitroglycerin (Nitro-Bid) 1 inch TP Q6HR [facility] Stop: 07/10/17 07:59 Last Admin: 05/14/17 05:34 Dose: Not Given Pantoprazole Sodium (Protonix) 40 mg IVP QDAC [facility] Stop: 07/10/17 08:59 Last Admin: 05/13/17 07:53 Dose: 40 mg Valproate Sodium (Depakene) 500 mg PO BID [facility] PRN Reason: Protocol Stop: 07/10/17 16:59 Last Admin: 05/13/17 16:50 Dose: 500 mg General: Other (sedated and intubated) HEENT: PERRLA, Other (Oral ET tube+) Neck: Supple, JVD Cardiovascular: Regular rate, Normal S1, Normal S2 Lungs: Other (Rhonchi+) Abdomen: Bowel sounds, Soft, Obese Extremities: Other (L AKA) Neurological: Other (Sedated and intubated.) - Procedures Procedures: Procedures Procedure Code Date INSERT EMERGENCY AIRWAY 99556 05/10/17 INSERTION OF ENDOTRACHEAL AIRWAY INTO TRACHEA, VIA OPENING [id number] 05/10/17 RESPIRATORY VENTILATION, 24-96 CONSECUTIVE HOURS [id number] 05/10/17 VENT MGMT INPAT INIT DAY 36304 05/10/17 VENT MGMT INPAT SUBQ DAY 02828 05/10/17 Assessment/Plan - Assessment Assessment: Acute Resp failure. Bilateral extensive infiltrate most likely ARDS Hypotension. BRANDEE Diabetes. Hx of HTN. A flutter. Possible aspiration pneumonia. S/P L AKA Psych disorder. ICU care. - Plan Plan: Vent support HHN Pulmo toilet IV antibiotics. ID consult. Rate control Anticoagulation Cardiac monitoring General nursing care Follow lab Propofol drip. Follow consultants recommendations. Lactulose to keep ammonia level normal. Continue current care. Guarded prognosis. Diabetes management Symptoms control. Discussed with staff.
--- NOTE | 2017-05-14 09:26 | Diagnostic Imaging Report ---
Portable chest x-ray HISTORY: Shortness of breath Compared to prior exam of May 13, 2017, there is persistent marked cardiomegaly. Persistent density is seen in the left lower hemithorax consistent with pleural fluid. Underlying consolidation and/or atelectasis cannot be excluded. Evidence for small right pleural effusion. Pulmonary vascular redistribution is noted consistent with changes of congestive heart failure. IMPRESSION: 1. Persistent cardiomegaly with evidence of bilateral pleural effusions and changes consistent with congestive heart failure. Underlying consolidation and/or atelectasis within the left lower lobe cannot be excluded.
[2017-05-15] MEDS: INSULIN ASPART SLIDING SCALE 100 UNITS/ML UNIT SUBQ SCH ×4 (00:09→17:41)
[2017-05-15] MEDS: Albuterol/Ipratropium Neb 3 ML AERS HHN SCH ×8 (01:28→23:21)
--- NOTE | 2017-05-15 03:37 | Progress Notes ---
DATE: 05/14/2017 PULMONARY AND CRITICAL CARE PROGRESS NOTE PROBLEM LIST: 1. Acute respiratory failure, reintubated yesterday. 2. Congestive heart failure with cardiomegaly. 3. Suspect obstructive sleep apnea syndrome with underlying psychosis. 4. Possibly COPD. SYMPTOMS: The patient is sedated with propofol on Diprivan drip 8.9 mcg/kg/minute, not in acute respiratory distress, etc., still on 100% of oxygen. PHYSICAL EXAMINATION: VITAL SIGNS: The patient's recorded vitals: Temperature is 98.9, heart rate 110-124, blood pressure is in low 90s, and the patient's saturation is 98% on currently 100% of oxygen. ENT: Shows no new changes. CHEST: Shows diminished air entry with occasional rhonchi. HEART: Irregular. Abdomen: Soft. Nontender. LABORATORY DATA: The patient's pertinent laboratory studies: White count is 8.1 and hemoglobin 8.1. Blood gases shows pCO2 of 68, pO2 67, and pH of 7.3, this is on 100% with tidal volume 400 with PEEP of 5. Electrolytes are okay. ASSESSMENT: 1. The patient still has persistent respiratory failure, require high flow oxygenation. 2. Primary problem, looks like more of a cardiac plus congestive heart failure and other issue currently appear to have secondary contributory to her being in a respiratory failure. PLANS AND SUGGESTIONS: We will increase PEEP, increase backup rate, and also continue rest of other treatment and we will repeat chest x-ray tomorrow to see how it is and go from there. JOB# [id number]
[2017-05-15] MEDS: Morphine Sulfate 2 mg/mL 1mL Syr IVP PRN ×2 (05:15→17:50)
[2017-05-15] MEDS: NITROGLYCERIN OINT 2% 1 INCH PACKET TP SCH ×4 (06:00→17:45)
[2017-05-15 06:51] LABS: % EOSINOPHILS 0.8 % (0.0-5.0); % LYMPHOCYTES 14.6 % (20.0-50.0); % MONOCYTES 5.4 % (2.0-10.0); % NEUTROPHILS 79.2 % (40.0-80.0); EOSINOPHILE ABSOLUTE 0.1 Th/cmm (0.1-0.4); HEMATOCRIT 34.9 % (41.0-60); HEMOGLOBIN 10.8 gm/dL (12-16); LYMPHOCYTE ABSOLUTE 1.6 Th/cmm (1.5-3.0); MEAN CELL VOLUME 87.9 fl (81-100); MEAN CORPUSCULAR HEMOGLOBIN 27.3 pg (27.0-31.0); MEAN CORPUSCULAR HGB CONC 31.1 pg (28.0-36.0); MEAN PLATELET VOLUME 8.7 fl; MONOCYTE ABSOLUTE 0.6 Th/cmm (0.3-1.0); NEUTROPHILE ABSOLUTE 8.6 Th/cmm (1.8-8.0); RED BLOOD COUNT 3.97 Mil/cmm (3.80-5.10); RED CELL DISTRIBUTION WIDTH 20.1 % (11.5-20.0)
[2017-05-15 07:08] LABS: PLATELET COUNT 205 Th/cmm (150-400); WHITE BLOOD COUNT 10.9 Th/cmm (4.8-10.8)
[2017-05-15 07:19] LABS: ALB/GLOB RATIO 0.7 (1.0-1.8); ALBUMIN 2.7 gm/dL (3.7-5.3); ANION GAP 10.8 (7.0-16.0); BILIRUBIN,TOTAL 0.4 mg/dL (0.3-1.0); CALCIUM SERUM 8.9 mg/dL (8.6-10.3); CARBON DIOXIDE 31.5 mEq/L (21.0-31.0); CREATININE - SERUM 2.4 mg/dL (0.6-1.2); GFR AFRICAN-AMERICAN 26.1 ml/min (>90); GFR NON AFRICAN-AMERICAN 21.6 ml/min; POTASSIUM SERUM 4.3 mEq/L (3.5-5.1); TOTAL PROTEIN,SERUM 6.5 gm/dL (6.0-8.3)
[2017-05-15] MEDS: Budesonide 0.5 Mg/2 mL Ud HHN SCH ×2 (07:58→19:13)
--- NOTE | 2017-05-15 08:39 | Diagnostic Imaging Report ---
Exam: Portable chest x-ray. HISTORY: PICC line placement Findings: Portable exam of chest at 1203 reviewed the study compared to the prior exam of 05/14/2017 demonstrates the interval placement left-sided PICC line with the tip is indicated. The endotracheal tube and NG tube unchanged position. There is evidence for cardiomegaly congestion bilateral infiltrates and effusions. The patient severely rotated. IMPRESSION: Satisfactory placement left-sided PICC line terminating in superior vena cava Congestive heart failure Bilateral pneumonia superimposed effusions. Follow-up examination is recommended
[2017-05-15] MEDS: Chlorhexidine Gluconate 0.12% 15mL Mouthwash MM SCH ×2 (08:45→19:50)
--- NOTE | 2017-05-15 08:50 | Diagnostic Imaging Report ---
Exam: Portable chest x-ray. HISTORY: Acute respiratory failure. Findings: Portable examination of the chest at 0751 hours reviewed and compared to prior study of the earlier essentially unchanged in appearance. The study demonstrates cardiomegaly superimposed congestive failure changes bilaterally. Bilateral basilar infiltrates and effusions are noted. Tubes and lines unchanged appearance. Visualized bony thorax is intact. IMPRESSION: Cardiomegaly, congestive heart failure. Bilateral pneumonia superimposed effusions.
[2017-05-15 09:42] LABS: ALLEN TEST Positive; pH 7.42 (7.35-7.45)
[2017-05-15] MEDS: Lactobacillus Rhamnosus GG 15 Billion CFU CAP.SPRINK NG SCH (09:57)
[2017-05-15] MEDS: Aspirin 81mg Chewable Tab NG SCH (09:57)
[2017-05-15] MEDS: Lactulose 10 Gm/15 mL 30mL UDC PO SCH ×2 (09:58→17:43)
[2017-05-15] MEDS: Enoxaparin 80 mg/0.8 mL 0.8mL Syr SUBQ SCH ×2 (09:59→17:41)
[2017-05-15 10:51] LABS: EOSINOPHIL SMEAR SOURCE URINE; EOSINOPHILS SMEAR COUNT NONE SEEN (NONE SEEN)
--- NOTE | 2017-05-15 15:11 | Diagnostic Imaging Report ---
Renal ultrasound HISTORY: Renal failure. COMPARISON: None Technique: Sonography of the kidneys and urinary bladder was performed in multiple planes. FINDINGS: Exam is limited due to body habitus. The right kidney measures 13.2 x 5.3 cm and demonstrates increased echogenicity. No evidence of focal lesions or hydronephrosis. The left kidney measures 12.2 x 6.4 cm. The left renal margin is not well-defined limiting assessment for focal lesions, however, no obvious focal lesions or hydronephrosis. There is increased echogenicity of the left kidney. Colón catheter is seen within the urinary bladder. No evidence of elevated postvoid residual bladder volumes. IMPRESSION: Increased echogenicity of the bilateral kidneys which may be due to underlying medical renal disease. No evidence of hydronephrosis. Mild increased renal sizes. Colón catheter within the urinary bladder.
--- NOTE | 2017-05-15 16:56 | General Progress Note ---
Subjective - Review of Systems Subjective: Patient is seen and examined. Re intubated and sedated. On levophed drip and amiodarone drip. Discussed with RN re: treatment plan. Objective - Results Result Diagrams: 05/15/17 06:30 05/15/17 06:30 Recent Labs: Laboratory Last Values WBC 10.9 Th/cmm (4.8-10.8) H D 05/15/17 06:30 RBC 3.97 Mil/cmm (3.80-5.10) 05/15/17 06:30 Hgb 10.8 gm/dL (12-16) L 05/15/17 06:30 Hct 34.9 % (41.0-60) L 05/15/17 06:30 MCV 87.9 fl (81-100) 05/15/17 06:30 MCH 27.3 pg (27.0-31.0) 05/15/17 06:30 MCHC Differential 31.1 pg (28.0-36.0) 05/15/17 06:30 RDW 20.1 % (11.5-20.0) H 05/15/17 06:30 Plt Count 205 Th/cmm (150-400) D 05/15/17 06:30 MPV 8.7 fl 05/15/17 06:30 Neutrophils % 79.2 % (40.0-80.0) 05/15/17 06:30 Band Neutrophils % 1 % (0-10) 05/14/17 04:10 Lymphocytes % 14.6 % (20.0-50.0) L 05/15/17 06:30 Monocytes % 5.4 % (2.0-10.0) 05/15/17 06:30 Eosinophils % 0.8 % (0.0-5.0) 05/15/17 06:30 Basophils % 0.0 % (0.0-2.0) 05/15/17 06:30 Neutrophils (Manual) 71 % (40-80) 05/14/17 04:10 Lymphocytes 27 % (20-50) 05/14/17 04:10 Eosinophils 1 % (0-5) 05/14/17 04:10 Platelet Estimate ADEQUATE (NORMAL) 05/14/17 04:10 Eos Smear Source URINE 05/15/17 09:30 Eos Smear Total Cells NONE SEEN (NONE SEEN) 05/15/17 09:30 PT 10.6 SECONDS (9.5-11.5) 05/13/17 11:24 INR 1.02 (0.5-1.4) 05/13/17 11:24 PTT (Actin FS) 25.9 SECONDS (26.0-38.0) L 05/13/17 11:24 D-Dimer 1930 ng/mL (100-400) H 05/11/17 01:00 Specimen Source Arterial 05/15/17 09:28 Sample Site Right Radial 05/15/17 09:28 pH 7.42 (7.35-7.45) 05/15/17 09:28 pCO2 53.0 mmHg (35.0-45.0) H 05/15/17 09:28 pO2 65.0 mmHg (80.0-100.0) L 05/15/17 09:28 HCO3 31.4 mEq/L (20.0-26.0) H 05/15/17 09:28 Base Excess 8.4 mEq/L (-3.0-3.0) H 05/15/17 09:28 O2 Saturation 93.0 % (92.0-100.0) 05/15/17 09:28 Jermaine Test Positive 05/15/17 09:28 Vent Rate 18 05/15/17 09:28 Inspired O2 80 05/15/17 09:28 Tidal Volume 400 05/15/17 09:28 PEEP 10 05/15/17 09:28 Pressure (ins/psv/peep) N/A 05/15/17 09:28 Critical Value SH 05/14/17 08:30 Sodium 140 mEq/L (136-145) 05/15/17 06:30 Potassium 4.3 mEq/L (3.5-5.1) 05/15/17 06:30 Chloride 102 mEq/L (98-107) 05/15/17 06:30 Carbon Dioxide 31.5 mEq/L (21.0-31.0) H 05/15/17 06:30 Anion Gap 10.8 (7.0-16.0) 05/15/17 06:30 BUN 34 mg/dL (7-25) H 05/15/17 06:30 Creatinine 2.4 mg/dL (0.6-1.2) H 02/06/18 06:30 Est GFR ( Amer) 26.1 ml/min (>90) 05/15/17 06:30 Est GFR (Non-Af Amer) 21.6 ml/min 05/15/17 06:30 BUN/Creatinine Ratio 14.2 05/15/17 06:30 Glucose 137 mg/dL (70-105) H 05/15/17 06:30 POC Glucose 146 MG/DL (70 - 105) H 05/15/17 11:43 Whole Bld Lactic Acid 2.17 mmol/L (0.60-1.99) H* 05/15/17 11:45 Calcium 8.9 mg/dL (8.6-10.3) 05/15/17 06:30 Magnesium 2.0 mg/dL (1.9-2.7) 05/13/17 05:11 Total Bilirubin 0.4 mg/dL (0.3-1.0) 05/15/17 06:30 Direct Bilirubin 0.08 mg/dL (0.0-0.2) 05/13/17 05:11 AST 27 U/L (13-39) 05/15/17 06:30 ALT 18 U/L (7-52) 05/15/17 06:30 Alkaline Phosphatase 50 U/L (34-104) 05/15/17 06:30 Ammonia 91 umol/L (16-53) H 05/15/17 06:30 Creatine Kinase 43 U/L (30-223) 05/11/17 17:46 Troponin I 0.09 ng/mL (0.01-0.05) H* D 05/13/17 05:11 B-Natriuretic Peptide 131.0 pg/mL (5.0-100.0) H 05/15/17 06:30 Total Protein 6.5 gm/dL (6.0-8.3) 05/15/17 06:30 Albumin 2.7 gm/dL (3.7-5.3) L 05/15/17 06:30 Globulin 3.8 gm/dL 05/15/17 06:30 Albumin/Globulin Ratio 0.7 (1.0-1.8) L 05/15/17 06:30 TSH 0.65 uIU/ml (0.34-5.60) 05/12/17 10:27 Urine Source [place] 05/11/17 08:30 Urine Color YELLOW 05/11/17 08:30 Urine Clarity CLEAR (CLEAR) 05/11/17 08:30 Urine pH 6.0 (4.6 - 8.0) 05/11/17 08:30 Ur Specific [place] 1.025 (1.005-1.030) 05/11/17 08:30 Urine Protein 30 mg/dL (NEGATIVE) H 05/11/17 08:30 Urine Glucose (UA) NEGATIVE mg/dL (NEGATIVE) 05/11/17 08:30 Urine Ketones NEGATIVE mg/dL (NEGATIVE) 05/11/17 08:30 Urine Blood LARGE (NEGATIVE) H 05/11/17 08:30 Urine Nitrate NEGATIVE (NEGATIVE) 05/11/17 08:30 Urine Bilirubin NEGATIVE (NEGATIVE) 05/11/17 08:30 Urine Urobilinogen 0.2 E.U./dL (0.2 - 1.0) 05/11/17 08:30 Ur Leukocyte Esterase NEGATIVE (NEGATIVE) 05/11/17 08:30 Urine RBC 10-25 /hpf (0-5) H 05/11/17 08:30 Urine WBC 2-5 /hpf (0-5) 05/11/17 08:30 Ur Epithelial Cells FEW /lpf (FEW) 05/11/17 08:30 Urine Bacteria FEW /hpf (NONE SEEN) 05/11/17 08:30 Coarse Granular Casts 2-5 /lpf (NONE SEEN) H 05/11/17 08:30 Vancomycin Trough 39.4 ug/mL (10-20) H 05/14/17 10:10 - Physical Exam Vitals and I&O: Vital Signs Temp 99.3 F 05/15/17 16:00 Pulse 128 05/15/17 16:00 Resp 28 05/15/17 16:00 BP 110/75 05/15/17 16:00 Pulse Ox 98 05/15/17 16:00 Intake & Output 05/14/17 05/15/17 05/15/17 18:59 06:59 18:59 Intake Total 1656.870 536.070 904.538 Output Total 1350 750 Balance 306.870 536.070 154.538 Weight (lbs) 106.226 kg 60.101 kg Intake: Intake, IV Amount 560.870 536.070 304.538 Amiodarone 450 mg In 3.42 Dextrose 5% 250 ml @ Titrate IV TITR [facility] Rx#: [id number] Diltiazem 125 mg In 104.625 117 Dextrose 5% 100 ml @ Per Protocol IV TITR [facility] Rx#: [id number] Norepinephrine 8 mg In 160.147 221.963 151.118 Dextrose 5% 250 ml @ Per Protocol IV TITR PRN Rx#: [id number] Piperacillin Sodium/ 100 100 50 Tazobact 3.375 gm In Sodium Chloride 0.9% 50 ml @ 100 mls/hr IV Q6HR [facility] Rx#:[id number] Propofol 1,000 mg In 100 196.098 97.107 100 ml @ 30 MCG/KG/MIN 18.207 mls/hr IV TITR [facility] Rx#: [id number] Oral 0 Tube Feeding 600 Other 1096 Output: Urine 1350 750 Other: # Bowel Movements 0 1 Stool Characteristics Liquid Liquid Brown Brown Active Medications: Current Medications Acetaminophen (Tylenol) 650 mg PO Q4HR PRN PRN Reason: Mild Pain / Temp above 100 Stop: 07/10/17 09:31 Last Admin: 05/14/17 12:21 Dose: 650 mg Albuterol/Ipratropium (Duoneb Neb) 3 ml HHN Q3H [facility] Stop: 07/10/17 01:14 Last Admin: 05/15/17 15:55 Dose: 3 ml Amiodarone HCl (Cordarone) 200 mg PO DAILY [facility] Stop: 07/14/17 08:59 Last Admin: 05/15/17 09:58 Dose: 200 mg Aspirin (Aspirin Chewable) 81 mg NG DAILY [facility] Stop: 07/10/17 08:59 Last Admin: 05/15/17 09:57 Dose: 81 mg Budesonide (Pulmicort) 0.5 mg HHN Q12HRT [facility] Stop: 07/10/17 06:59 Last Admin: 05/15/17 07:58 Dose: 0.5 mg Chlorhexidine Gluconate (Peridex) 15 ml MM 0800,1999 [facility] Stop: 07/13/17 07:59 Last Admin: 05/15/17 08:45 Dose: 15 ml Enoxaparin Sodium (Lovenox) 70 mg SUBQ BID [facility] Stop: 07/10/17 08:59 Last Admin: 05/15/17 09:59 Dose: 70 mg Piperacillin Sod/Tazobactam (Sod 3.375 gm/ Sodium Chloride) 50 mls @ 100 mls/ hr IV Q6HR [facility] Stop: 07/10/17 05:59 Last Infusion: 05/15/17 12:40 Dose: Infused Norepinephrine Bitartrate 8 mg (/ Dextrose) 254 mls @ 0 mls/hr IV TITR PRN; Protocol; Per Protocol PRN Reason: BP MAINTENANCE (PER PROTOCOL) Stop: 07/10/17 00:29 Last Admin: 05/15/17 15:08 Dose: 15 mcg/min, 28.57 mls/hr Propofol (Diprivan) 1,000 mg in 100 mls @ 18.207 mls/hr IV TITR [facility]; 30 MCG/KG/ MIN PRN Reason: Protocol Stop: 07/12/17 11:13 Last Admin: 05/15/17 09:00 Dose: 25 mcg/kg/min, 15.173 mls/hr Amiodarone HCl 450 mg/ (Dextrose) 259 mls @ 0 mls/hr IV TITR [facility]; Titrate PRN Reason: Protocol Stop: 07/14/17 07:05 Last Titration: 05/15/17 14:00 Dose: 0.5 mg/hr, 0.28 mls/hr Insulin Aspart (Novolog Insulin Sliding Scale) 0 units SUBQ Q6HR [facility] PRN Reason: Protocol Stop: 07/10/17 05:59 Last Admin: 05/15/17 11:49 Dose: Not Given Lactobacillus Rhamnosus (Culturelle 15b) 1 each NG DAILY [facility] Stop: 07/13/17 08:59 Last Admin: 05/15/17 09:57 Dose: 1 each Lactulose (Cephulac) 30 gm PO BID [facility] Stop: 07/11/17 16:59 Last Admin: 05/15/17 09:58 Dose: 30 gm Lorazepam (Ativan) 1 mg IVP Q4HR PRN; Protocol PRN Reason: AGITATION Stop: 07/10/17 00:50 Last Admin: 05/13/17 03:52 Dose: 1 mg Miscellaneous (Vte Chemical Prophylaxis Screen/ Admission) 1 ea PRN PRN PRN Reason: PROTOCOL Stop: 07/10/17 16:49 Miscellaneous (Probiotic Screen) 1 ea MC PRN PRN PRN Reason: PROTOCOL Stop: 07/13/17 08:44 Morphine Sulfate (Morphine) 2 mg IVP Q4HR PRN PRN Reason: Pain (Moderate) Stop: 07/10/17 14:20 Last Admin: 05/15/17 05:15 Dose: 2 mg Mupirocin (Bactroban Oint) 1 appl NS BID [facility] Stop: 05/19/17 17:01 Last Admin: 05/15/17 09:15 Dose: 1 appl Nitroglycerin (Nitro-Bid) 1 inch TP Q6HR [facility] Stop: 07/10/17 07:59 Last Admin: 05/15/17 11:55 Dose: Not Given Pantoprazole Sodium (Protonix) 40 mg IVP QDAC [facility] Stop: 07/10/17 08:59 Last Admin: 05/15/17 06:48 Dose: 40 mg Valproate Sodium (Depakene) 500 mg PO BID [facility] PRN Reason: Protocol Stop: 07/10/17 16:59 Last Admin: 05/15/17 09:57 Dose: 500 mg General: Other (sedated and intubated) HEENT: PERRLA, Other (Oral ET tube+) Neck: Supple, JVD Cardiovascular: Regular rate, Normal S1, Normal S2 Lungs: Other (Rhonchi+) Abdomen: Bowel sounds, Soft, Obese Extremities: Other (L AKA) Neurological: Other (Sedated and intubated.) - Procedures Procedures: Procedures Procedure Code Date INSERT EMERGENCY AIRWAY 70166 05/10/17 INSERTION OF ENDOTRACHEAL AIRWAY INTO TRACHEA, VIA OPENING [id number] 05/10/17 RESPIRATORY VENTILATION, 24-96 CONSECUTIVE HOURS [id number] 05/10/17 VENT MGMT INPAT INIT DAY 05/10/17 VENT MGMT INPAT SUBQ DAY 05/10/17 Assessment/Plan - Assessment Assessment: Acute Resp failure. Bilateral extensive infiltrate most likely ARDS Hypotension. BRANDEE Cardiac arrythmia. Septick shock. Diabetes. Hx of HTN. A flutter. Possible aspiration pneumonia. S/P L AKA Psych disorder. ICU care. - Plan Plan: Vent support HHN Pulmo toilet IV antibiotics. Pressor agents. Rate control. GI and DVT prophylaxisis. Anticoagulation. Cardiac monitoring. General nursing care. Follow lab. Propofol drip. Follow consultants recommendations. Lactulose to keep ammonia level normal. Continue current care. Hold CT chest. Guarded prognosis. Diabetes management Symptoms control. Discussed with staff. Nutritional Asmnt/Malnutr-PDOC - Dietary Evaluation Malnutrition Findings (Please click <Entered> for more info): Nutritional Asmnt/Malnutrition Start: 05/15/17 16: 35 Text: Status: Complete Freq: Document 05/15/17 16:35 LCLALAG (Rec: 05/15/17 16:49 LCLALAG [email or web address]) Nutritional Asmnt/Malnutrition Patient General Information Nutritional Screening High Risk Diagnosis acute respiratory failure HTN Pertinent Medical Hx/Surgical Hx Dm, HTN, obesity, COPD, DJD, psychosis, left AKA Subjective Information Pt seen resting in bed. Current Diet Order/ Nutrition Support diabetisource AC 200ml/hr bolus q 4hr Pertinent Medications novolog, culturelle, protonix, piperacillin Pertinent Labs 2/6 BUN 34, Cr 2.4, Glucose 137 POC 125-146 Nutritional Hx/Data Height 1.52 m Height (Calculated Centimeters) 152.4 Current Weight (lbs) 60.101 kg Weight (Calculated Kilograms) 60.1 Weight (Calculated Grams) 43537.0 [place] Body Weight 100 % [place] Body Weight 133 Body Mass Index (BMI) 25.9 Weight Status Overweight GI Symptoms GI Symptoms None Last BM 2/6 Difficult in: None Skin Integrity/Comment: open wound to buttocks Estimated Nutritional Goals BEE in Kcals: Adj wt of IBW Calories/Kcals/Kg 25-30 Kcals Calculated 6820-5251 Protein: Adj wt of IBW Protein g/k.2-1.4 Protein Calculated 68-80 Fluid: ml 1425-1710ml (1ml/kcal) Nutritional Problem 1. Problem Problem increased nutrition needs ( calorie and protein) Etiology increased metabolic demands for wound healing Signs/Symptoms: open wound to buttocks Malnutrition Alert Protein-Calorie Malnutrition N/A Is there a minimum of two criteria No selected? Query Text:Check all the applicable criteria. A minimum of two criteria are recommended for diagnosis of either severe or non-severe malnutrition. Intervention/Recommendation Comments 1. Continue with current TF regimen. It provides 1440kcal, 72g protein, meeting 100% of nutritional needs. Recommend vitamin C to help with wound healing. 2. Monitor TF rate, tolerance, wt weekly, skin integrity and labs 3. F/U as moderate risk in 3-5 days, 05/18-05/20 Expected Outcomes/Goals Expected Outcomes/Goals 1. Pt to meet at least 75% of nutritional needs via nutrition support with tolerance 2. Wt stability, skin to remain intact, labs to approach WNL.
[2017-05-15] MEDS ORDERED: Diltiazem 5 mg/mL 5mL Vial IVP PRN (18:17)
[2017-05-15] MEDS: Diltiazem 5 mg/mL 5mL Vial IVP PRN ×2 (18:30→22:30)
--- NOTE | 2017-05-15 21:29 | Consultation ---
DATE OF CONSULTATION: 05/15/2017 INFECTIOUS DISEASE CONSULTATION REFERRING PHYSICIAN: Dr. Ryan Washington. REASON FOR CONSULTATION: Sepsis, pneumonia, MRSA positive. HISTORY OF PRESENT ILLNESS: The patient is a 66-year-old female with a past medical history of schizophrenia, bipolar disorder, COPD, diabetes mellitus type 2, and hypertension, admitted to Gerops[facility] Unit at [facility] on 05/10/2017 for a psych treatment. She was found to have hypotension and her mentation was altered. Rapid response was called and the patient was intubated orally and put on ventilator support. She was admitted to the ICU. Sepsis workup was performed and a chest x-ray showed CHF and bilateral pneumonia. Her MRSA screen came positive, so ID consult was called for antibiotic management. Meanwhile, the patient was receiving vancomycin and Zosyn. The patient is unresponsive at this time. PAST MEDICAL AND SURGICAL HISTORY: Includes diabetes mellitus type 2, hypertension, obesity, COPD, DJD, psych disorder, left above-knee amputation, schizophrenia, and bipolar disorder. MEDICATIONS: As per medication reconciliation sheet. Antibiotic jennings, the patient is on vancomycin and Zosyn. ALLERGIES: NKDA. SOCIAL HISTORY: The patient lives at nursing facility. The patient is active smoker, but there is no history of alcohol or drug use. FAMILY HISTORY: Not available. REVIEW OF SYSTEMS: Unable to obtain, but the patient has no fever, no chills. The patient had a fever of 101 degrees yesterday. The patient is intubated orally on the ventilator support. PHYSICAL EXAMINATION: VITAL SIGNS: Current vital signs show temperature is 98.6, T-max is 101 degrees Fahrenheit, pulse 128, respirations 18, blood pressure 106/50. GENERAL: The patient is intubated orally on the ventilator support. Obese. Unresponsive at this. HEENT: Head is normocephalic, atraumatic. Oral cavity moist, pink tongue. Eyes: Pallor is present. Exophthalmos noted. NECK: Trachea midline. No lymphadenopathy, no thyromegaly. CHEST: Bilateral breath sounds. Occasional crackles. No wheezing. HEART: S1, S2 within normal limits. Regular rhythm. No murmur, no gallop. ABDOMEN: Soft, nontender, nondistended. Bowel sounds present. EXTREMITIES: No cyanosis, no clubbing, no edema. Left above-knee amputation. NEUROLOGIC: Currently, she is sedated. LABORATORY DATA AND IMAGING STUDIES: Current lab shows WBC count is 10,900, hemoglobin is 10.8, hematocrit 34.8, platelets are 205,000, neutrophils 79%. Sodium 140, potassium 4.3, chloride 102, bicarbonate is 31.5, BUN is 34, creatinine 2.4, and glucose is 137. Vancomycin trough level is 39.4. Ammonia is 91. Blood culture 2 sets are negative so far. MRSA screen is positive. Sputum culture, normal respiratory teetee. Urinalysis showed WBCs 2-5, RBCs 10-25. Chest x-ray showed cardiomegaly, CHF, bilateral pneumonia, superimposed effusions. IMPRESSION: 1. Hypotension secondary to shock, which includes cardiogenic shock as well as septic shock. 2. Pneumonia. 3. Congestive heart failure. 4. Acute renal failure. 5. Diabetes mellitus, type 2. 6. Hematuria. 7. History of hypertension. 8. Obesity. 9. Chronic obstructive pulmonary disease. 10. Degenerative joint disease. 11. Left above-knee amputation. 12. Bipolar disorder. 13. Schizophrenia. 14. Acute respiratory failure, on ventilator. 15. Altered mental status secondary to toxic hypoxic encephalopathy as well as she had CO2 narcosis or hypercapnic respiratory failure. 16. There is a possibility of sleep apnea. RECOMMENDATIONS AND PLAN: We will hold vancomycin at this time as the patient had acute renal failure. The patient is on propofol, Levophed, and amiodarone drip. Renal ultrasound. Lactic acid now. Check renal ultrasound. Check urine for eosinophils. Thank you, Dr. Ryan Washington for involving me in taking care of this patient. CONDITION: Critical. PROGNOSIS: Guarded. JOB# [id number]
[2017-05-16] MEDS: NITROGLYCERIN OINT 2% 1 INCH PACKET TP SCH ×5 (00:18→23:56)
[2017-05-16] MEDS: INSULIN ASPART SLIDING SCALE 100 UNITS/ML UNIT SUBQ SCH ×5 (00:22→23:52)
[2017-05-16] MEDS: Albuterol/Ipratropium Neb 3 ML AERS HHN SCH ×8 (01:16→22:30)
[2017-05-16] MEDS: Diltiazem 5 mg/mL 5mL Vial IVP PRN ×6 (01:19→21:50)
--- NOTE | 2017-05-16 02:24 | Progress Notes ---
DATE: 05/15/2017 PROBLEM LIST: 1. Acute respiratory failure. 2. Suspect congestive heart failure. 3. Question chronic obstructive pulmonary disease. 4. Suspect obstructive sleep apnea syndrome with a history of psychosis in the left leg above knee amputation. SYMPTOMS: The patient is sedated. No respiratory distress, etc. Currently on 60% of oxygen and 10 cm of PEEP with back of 18. PHYSICAL EXAMINATION: VITAL SIGNS: Temperature is 98.7, blood pressure 94/79, saturation 96 on 60%. NECK: Veins not visualized. CHEST: Shows diminished air entry with occasional secretory noise. HEART: Tachycardic, otherwise unremarkable. ABDOMEN: Slightly distended, unremarkable. EXTREMITIES: Right side shows no peripheral edema, cyanosis or clubbing. LABORATORY DATA: The patient's chest x-ray shows still bilateral effusion with huge cardiomegaly. No significant change. The patient's other chemistry, white count is 10.9, hemoglobin 10.8. ABG shows pCO2 of 53, pO2 of 65 on 80% earlier. Electrolytes are okay with creatinine of 2.4. IMPRESSION: The patient's oxygen is doing slightly better, persistent respiratory failure, suspect cardiac a primary problem with underlying possibly chronic obstructive pulmonary disease and sleep apnea syndrome. PLANS AND SUGGESTIONS: We will decrease FIO2 slowly. We will continue rest of other treatment. We will see how she does in next 24-48 hours. JOB# [id number]
[2017-05-16] MEDS: Morphine Sulfate 2 mg/mL 1mL Syr IVP PRN (04:19)
[2017-05-16] MEDS: Budesonide 0.5 Mg/2 mL Ud HHN SCH ×2 (07:19→19:02)
[2017-05-16 08:19] LABS: ALB/GLOB RATIO 0.7 (1.0-1.8); ALBUMIN 2.5 gm/dL (3.7-5.3); ANION GAP 8.8 (7.0-16.0); BILIRUBIN,TOTAL 0.4 mg/dL (0.3-1.0); CARBON DIOXIDE 33.6 mEq/L (21.0-31.0); GFR AFRICAN-AMERICAN 32.3 ml/min (>90); GFR NON AFRICAN-AMERICAN 26.7 ml/min; POTASSIUM SERUM 4.4 mEq/L (3.5-5.1); TOTAL PROTEIN,SERUM 6.3 gm/dL (6.0-8.3)
[2017-05-16 08:20] LABS: EOSINOPHILE ABSOLUTE 0.1 Th/cmm (0.1-0.4); HEMOGLOBIN 10.6 gm/dL (12-16); LYMPHOCYTE ABSOLUTE 1.9 Th/cmm (1.5-3.0); MONOCYTE ABSOLUTE 1.1 Th/cmm (0.3-1.0)
[2017-05-16 08:25] LABS: % BASOPHILS 0.1 % (0.0-2.0); % EOSINOPHILS 0.5 % (0.0-5.0); % LYMPHOCYTES 14.4 % (20.0-50.0); % MONOCYTES 8.6 % (2.0-10.0); % NEUTROPHILS 76.4 % (40.0-80.0); HEMATOCRIT 32.5 % (41.0-60); MEAN CELL VOLUME 86.5 fl (81-100); MEAN CORPUSCULAR HEMOGLOBIN 28.1 pg (27.0-31.0); MEAN CORPUSCULAR HGB CONC 32.5 pg (28.0-36.0); MEAN PLATELET VOLUME 9.5 fl; NEUTROPHILE ABSOLUTE 10.2 Th/cmm (1.8-8.0); PLATELET COUNT 228 Th/cmm (150-400); RED BLOOD COUNT 3.75 Mil/cmm (3.80-5.10); RED CELL DISTRIBUTION WIDTH 19.4 % (11.5-20.0)
[2017-05-16 08:29] LABS: WHITE BLOOD COUNT 13.3 Th/cmm (4.8-10.8)
[2017-05-16] MEDS: Chlorhexidine Gluconate 0.12% 15mL Mouthwash MM SCH ×2 (08:30→20:25)
--- NOTE | 2017-05-16 08:47 | Diagnostic Imaging Report ---
Exam: Portable chest x-ray. HISTORY: Pneumonia. Findings: Portable examination of the chest at 0755 hours reviewed compared to prior study of the earlier essentially unchanged appearance The endotracheal tube NG tube and left-sided PICC line unchanged position. There is evidence of congestion superimposed bilateral infiltrates and effusions. The heart is enlarged. The visualized bony thorax intact. The aortic arch calcified. IMPRESSION: Unchanged appearance of the chest x-ray, compared to prior study day earlier.
[2017-05-16] MEDS: Enoxaparin 80 mg/0.8 mL 0.8mL Syr SUBQ SCH ×2 (09:02→16:57)
[2017-05-16] MEDS: Aspirin 81mg Chewable Tab NG SCH (09:06)
[2017-05-16] MEDS: Lactulose 10 Gm/15 mL 30mL UDC PO SCH ×2 (09:07→16:57)
[2017-05-16] MEDS: Lactobacillus Rhamnosus GG 15 Billion CFU CAP.SPRINK NG SCH (09:07)
[2017-05-16 09:42] LABS: pH 7.42 (7.35-7.45)
[2017-05-16] MEDS ORDERED: DOPamine 400 MG/250 ML BAG IV PRN (09:54)
[2017-05-16 10:03] LABS: CALCIUM SERUM 9.1 mg/dL (8.6-10.3)
[2017-05-16] MEDS ORDERED: Albumin 25% 25gm/100mL 25 GM/100 ML BTL IV ONE (11:53)
[2017-05-16 12:09] LABS: EOSINOPHIL SMEAR SOURCE URINE; EOSINOPHILS SMEAR COUNT NONE SEEN (NONE SEEN)
[2017-05-16 13:19] LABS: URINE MICROSCOPIC INDICATED? YES; URINE SOURCE FOLEY PORT
[2017-05-16 13:21] LABS: URINE BILIRUBIN NEGATIVE (NEGATIVE); URINE BLOOD LARGE (NEGATIVE); URINE GLUCOSE (UA) NEGATIVE (NEGATIVE); URINE KETONE NEGATIVE (NEGATIVE); URINE LEUKOCYTE ESTERASE NEGATIVE (NEGATIVE); URINE NITRATE NEGATIVE (NEGATIVE); URINE PROTEIN 100 mg/dL (NEGATIVE); URINE UROBILINOGEN 0.2 E.U./dL (0.2 - 1.0)
[2017-05-16 13:23] LABS: URINE CLARITY HAZY (CLEAR); URINE COLOR YELLOW
[2017-05-16 13:31] LABS: URINE BACTERIA MODERATE /hpf (NONE SEEN); URINE COARSE GRANULAR CAST 0-2 /lpf (NONE SEEN); URINE EPITHELIAL CELLS FEW /lpf (FEW)
--- NOTE | 2017-05-16 14:16 | Diagnostic Imaging Report ---
Ultrasound-liver HISTORY: Abnormal liver function test The liver appears enlarged. There is an increase in hepatic parenchymal echogenicity. The finding may be associated with fatty infiltration and should be correlated with liver function tests. No focal lesions. The gallbladder is somewhat dilated. No intraluminal abnormalities are seen. No biliary dilatation. IMPRESSION: 1. Hepatomegaly 2. Hepatic parenchymal changes that may be associated with fatty infiltration and should be correlated with liver function tests.
--- NOTE | 2017-05-16 15:11 | Infectious Disease Prog Note ---
Infectious Disease Subjective - Review of Systems Service Date: 05/16/17 Subjective: Doing better, no fever. Lactic acid has improved. on ventilator. no fever. Infectious Disease Objective - Results Result Diagrams: 05/16/17 07:40 05/16/17 07:40 Recent Labs: Laboratory Last Values WBC 13.3 Th/cmm (4.8-10.8) H D 05/16/17 07:40 RBC 3.75 Mil/cmm (3.80-5.10) L 05/16/17 07:40 Hgb 10.6 gm/dL (12-16) L 05/16/17 07:40 Hct 32.5 % (41.0-60) L 05/16/17 07:40 MCV 86.5 fl (81-100) 05/16/17 07:40 MCH 28.1 pg (27.0-31.0) 05/16/17 07:40 MCHC Differential 32.5 pg (28.0-36.0) 05/16/17 07:40 RDW 19.4 % (11.5-20.0) 05/16/17 07:40 Plt Count 228 Th/cmm (150-400) 05/16/17 07:40 MPV 9.5 fl 05/16/17 07:40 Neutrophils % 76.4 % (40.0-80.0) 05/16/17 07:40 Band Neutrophils % 1 % (0-10) 05/14/17 04:10 Lymphocytes % 14.4 % (20.0-50.0) L 05/16/17 07:40 Monocytes % 8.6 % (2.0-10.0) 05/16/17 07:40 Eosinophils % 0.5 % (0.0-5.0) 05/16/17 07:40 Basophils % 0.1 % (0.0-2.0) 05/16/17 07:40 Neutrophils (Manual) 71 % (40-80) 05/14/17 04:10 Lymphocytes 27 % (20-50) 05/14/17 04:10 Eosinophils 1 % (0-5) 05/14/17 04:10 Platelet Estimate ADEQUATE (NORMAL) 05/14/17 04:10 Eos Smear Source URINE 05/16/17 10:00 Eos Smear Total Cells NONE SEEN (NONE SEEN) 05/16/17 10:00 PT 10.6 SECONDS (9.5-11.5) 05/13/17 11:24 INR 1.02 (0.5-1.4) 05/13/17 11:24 PTT (Actin FS) 25.9 SECONDS (26.0-38.0) L 05/13/17 11:24 D-Dimer 1930 ng/mL (100-400) H 05/11/17 01:00 Specimen Source Arterial 05/16/17 09:34 Sample Site RB 05/16/17 09:34 pH 7.42 (7.35-7.45) 05/16/17 09:34 pCO2 55.0 mmHg (35.0-45.0) H 05/16/17 09:34 pO2 57.0 mmHg (80.0-100.0) L 05/16/17 09:34 HCO3 32.1 mEq/L (20.0-26.0) H 05/16/17 09:34 Base Excess 9.4 mEq/L (-3.0-3.0) H 05/16/17 09:34 O2 Saturation 90.0 % (92.0-100.0) L 05/16/17 09:34 Jermaine Test NA 05/16/17 09:34 Vent Rate 18 05/16/17 09:34 Inspired O2 50 05/16/17 09:34 Tidal Volume 400 05/16/17 09:34 PEEP 10 05/16/17 09:34 Pressure (ins/psv/peep) NA 05/16/17 09:34 Critical Value E.OCONNELL 05/16/17 09:34 Sodium 139 mEq/L (136-145) 05/16/17 07:40 Potassium 4.4 mEq/L (3.5-5.1) 05/16/17 07:40 Chloride 101 mEq/L (98-107) 05/16/17 07:40 Carbon Dioxide 33.6 mEq/L (21.0-31.0) H 05/16/17 07:40 Anion Gap 8.8 (7.0-16.0) 05/16/17 07:40 BUN 32 mg/dL (7-25) H 05/16/17 07:40 Creatinine 2.0 mg/dL (0.6-1.2) H 05/16/17 07:40 Est GFR ( Amer) 32.3 ml/min (>90) 05/16/17 07:40 Est GFR (Non-Af Amer) 26.7 ml/min 05/16/17 07:40 BUN/Creatinine Ratio 16.0 05/16/17 07:40 Glucose 114 mg/dL (70-105) H 05/16/17 07:40 POC Glucose 118 MG/DL (70 - 105) H 05/16/17 06:13 Whole Bld Lactic Acid 1.61 mmol/L (0.60-1.99) 05/16/17 07:40 Calcium 9.1 mg/dL (8.6-10.3) 05/16/17 07:40 Magnesium 2.0 mg/dL (1.9-2.7) 05/13/17 05:11 Total Bilirubin 0.4 mg/dL (0.3-1.0) 05/16/17 07:40 Direct Bilirubin 0.08 mg/dL (0.0-0.2) 05/13/17 05:11 AST 120 U/L (13-39) H 05/16/17 07:40 ALT 89 U/L (7-52) H 05/16/17 07:40 Alkaline Phosphatase 41 U/L (34-104) 05/16/17 07:40 Ammonia 91 umol/L (16-53) H 05/15/17 06:30 Creatine Kinase 43 U/L (30-223) 05/11/17 17:46 Troponin I 0.09 ng/mL (0.01-0.05) H* D 05/13/17 05:11 B-Natriuretic Peptide 131.0 pg/mL (5.0-100.0) H 05/15/17 06:30 Total Protein 6.3 gm/dL (6.0-8.3) 05/16/17 07:40 Albumin 2.5 gm/dL (3.7-5.3) L 05/16/17 07:40 Globulin 3.8 gm/dL 05/16/17 07:40 Albumin/Globulin Ratio 0.7 (1.0-1.8) L 05/16/17 07:40 TSH 0.65 uIU/ml (0.34-5.60) 05/12/17 10:27 Urine Source [place] 05/16/17 10:00 Urine Color YELLOW 05/16/17 10:00 Urine Clarity HAZY (CLEAR) 05/16/17 10:00 Urine pH 6.0 (4.6 - 8.0) 05/16/17 10:00 Ur Specific [place] 1.020 (1.005-1.030) 05/16/17 10:00 Urine Protein 100 mg/dL (NEGATIVE) H 05/16/17 10:00 Urine Glucose (UA) NEGATIVE mg/dL (NEGATIVE) 05/16/17 10:00 Urine Ketones NEGATIVE mg/dL (NEGATIVE) 05/16/17 10:00 Urine Blood LARGE (NEGATIVE) H 05/16/17 10:00 Urine Nitrate NEGATIVE (NEGATIVE) 05/16/17 10:00 Urine Bilirubin NEGATIVE (NEGATIVE) 05/16/17 10:00 Urine Urobilinogen 0.2 E.U./dL (0.2 - 1.0) 05/16/17 10:00 Ur Leukocyte Esterase NEGATIVE (NEGATIVE) 05/16/17 10:00 Urine RBC 10-25 /hpf (0-5) H 05/16/17 10:00 Urine WBC 2-5 /hpf (0-5) 05/16/17 10:00 Ur Epithelial Cells FEW /lpf (FEW) 05/16/17 10:00 Urine Bacteria MODERATE /hpf (NONE SEEN) H 05/16/17 10:00 Coarse Granular Casts 0-2 /lpf (NONE SEEN) H 05/16/17 10:00 Urine Creatinine 80.4 mg/dl (28.0-217.0) 05/16/17 10:00 Vancomycin Trough 39.4 ug/mL (10-20) H 05/14/17 10:10 - Physical Exam Vitals and I&O: Vital Signs Temp 98.6 F 05/16/17 13:00 Pulse 141 05/16/17 13:35 Resp 19 05/16/17 13:00 BP 107/51 05/16/17 13:00 Pulse Ox 99 05/16/17 13:11 Intake & Output 05/15/17 05/16/17 05/16/17 18:59 06:59 18:59 Intake Total 2954.538 1378.255 205.612 Output Total 1650 700 Balance 1304.538 678.255 205.612 Weight (lbs) 109.968 kg 109.486 kg Intake: Intake, IV Amount 454.538 628.255 205.612 Amiodarone 450 mg In 3.42 4.480 0.56 Dextrose 5% 250 ml @ Titrate IV TITR [facility] Rx#: [id number] Norepinephrine 8 mg In 151.118 412.092 85.71 Dextrose 5% 250 ml @ Per Protocol IV TITR PRN Rx#: [id number] Piperacillin Sodium/ 100 100 50 Tazobact 3.375 gm In Sodium Chloride 0.9% 50 ml @ 100 mls/hr IV Q6HR [facility] Rx#:[id number] Propofol 1,000 mg In 100 200 111.683 69.342 ml @ 30 MCG/KG/MIN 18.207 mls/hr IV TITR [facility] Rx#: [id number] Oral 0 Tube Feeding 1200 600 Other 1300 150 Output: Urine 1650 700 Other: # Bowel Movements 1 1 Stool Characteristics Liquid Liquid Brown Brown Active Medications: Current Medications Acetaminophen (Tylenol) 650 mg PO Q4HR PRN PRN Reason: Mild Pain / Temp above 100 Stop: 07/10/17 09:31 Last Admin: 05/16/17 09:06 Dose: 650 mg Albuterol/Ipratropium (Duoneb Neb) 3 ml HHN Q3H [facility] Stop: 07/10/17 01:14 Last Admin: 05/16/17 13:10 Dose: Not Given Amiodarone HCl (Cordarone) 200 mg PO DAILY [facility] Stop: 07/14/17 08:59 Last Admin: 05/16/17 09:06 Dose: 200 mg Aspirin (Aspirin Chewable) 81 mg NG DAILY [facility] Stop: 07/10/17 08:59 Last Admin: 05/16/17 09:06 Dose: 81 mg Budesonide (Pulmicort) 0.5 mg HHN Q12HRT [facility] Stop: 07/10/17 06:59 Last Admin: 05/16/17 07:19 Dose: 0.5 mg Chlorhexidine Gluconate (Peridex) 15 ml MM 0800,1999 [facility] Stop: 07/13/17 07:59 Last Admin: 05/16/17 08:30 Dose: 15 ml Diltiazem HCl (Cardizem) 20 mg IVP Q4HR PRN PRN Reason: Tachycardia Stop: 07/14/17 18:16 Last Admin: 05/16/17 13:35 Dose: 20 mg Enoxaparin Sodium (Lovenox) 70 mg SUBQ BID [facility] Stop: 07/10/17 08:59 Last Admin: 05/16/17 09:02 Dose: 70 mg Piperacillin Sod/Tazobactam (Sod 3.375 gm/ Sodium Chloride) 50 mls @ 100 mls/ hr IV Q6HR [facility] Stop: 07/10/17 05:59 Last Infusion: 05/16/17 12:35 Dose: Infused Norepinephrine Bitartrate 8 mg (/ Dextrose) 254 mls @ 0 mls/hr IV TITR PRN; Protocol; Per Protocol PRN Reason: BP MAINTENANCE (PER PROTOCOL) Stop: 07/10/17 00:29 Last Admin: 05/16/17 09:00 Dose: 15 mcg/min, 28.57 mls/hr Propofol (Diprivan) 1,000 mg in 100 mls @ 18.207 mls/hr IV TITR [facility]; 30 MCG/KG/ MIN PRN Reason: Protocol Stop: 07/12/17 11:13 Last Admin: 05/16/17 13:37 Dose: 15 mcg/kg/min, 9.104 mls/hr Amiodarone HCl 450 mg/ (Dextrose) 259 mls @ 0 mls/hr IV TITR [facility]; Titrate PRN Reason: Protocol Stop: 07/14/17 07:05 Last Titration: 05/16/17 08:00 Dose: 0 mg/hr, 0 mls/hr Dopamine HCl/Dextrose (Dopamine) 400 mg in 250 mls @ 0 mls/hr IV TITR PRN; Protocol; Per Protocol PRN Reason: RENAL PERFUSION Stop: 07/15/17 09:53 Albumin Human (Albutein 5%) 12.5 gm in 250 mls @ 62.5 mls/hr IV Q8HR [facility] Stop: 05/18/17 00:59 Insulin Aspart (Novolog Insulin Sliding Scale) 0 units SUBQ Q6HR [facility] PRN Reason: Protocol Stop: 07/10/17 05:59 Last Admin: 05/16/17 13:35 Dose: Not Given Lactobacillus Rhamnosus (Culturelle 15b) 1 each NG DAILY [facility] Stop: 07/13/17 08:59 Last Admin: 05/16/17 09:07 Dose: 1 each Lactulose (Cephulac) 30 gm PO BID [facility] Stop: 07/11/17 16:59 Last Admin: 05/16/17 09:07 Dose: 30 gm Lorazepam (Ativan) 1 mg IVP Q4HR PRN; Protocol PRN Reason: AGITATION Stop: 07/10/17 00:50 Last Admin: 05/13/17 03:52 Dose: 1 mg Miscellaneous (Vte Chemical Prophylaxis Screen/ Admission) 1 ea PRN PRN PRN Reason: PROTOCOL Stop: 07/10/17 16:49 Miscellaneous (Probiotic Screen) 1 ea PRN PRN PRN Reason: PROTOCOL Stop: 07/13/17 08:44 Morphine Sulfate (Morphine) 2 mg IVP Q4HR PRN PRN Reason: Pain (Moderate) Stop: 07/10/17 14:20 Last Admin: 05/16/17 04:19 Dose: 2 mg Mupirocin (Bactroban Oint) 1 appl NS BID [facility] Stop: 05/19/17 17:01 Last Admin: 05/16/17 09:07 Dose: 1 appl Nitroglycerin (Nitro-Bid) 1 inch TP Q6HR [facility] Stop: 07/10/17 07:59 Last Admin: 05/16/17 12:20 Dose: Not Given Pantoprazole Sodium (Protonix) 40 mg IVP QDAC [facility] Stop: 07/10/17 08:59 Last Admin: 05/16/17 06:43 Dose: 40 mg Valproate Sodium (Depakene) 500 mg PO BID [facility] PRN Reason: Protocol Stop: 07/10/17 16:59 Last Admin: 05/16/17 09:05 Dose: 500 mg General: no acute distress, well developed, well nourished HEENT: atraumatic, normocephalic, PERRLA, EOMI Neck: supple, tracheostomy, no thyromegaly, no lymphadenopathy Cardiovascular: S1S2, regular Lungs: clear to percussion, crackles, rhonchi Abdomen: soft, no tender, no distended, no mass, no hepatomegaly, no splenomegaly Extremities: other (Left AKA.), no cyanosis, no clubbing, no edema Neurological: other (sedated.) - Procedures Procedures: Procedures Procedure Code Date INSERT EMERGENCY AIRWAY 01540 05/10/17 INSERTION OF ENDOTRACHEAL AIRWAY INTO TRACHEA, VIA OPENING [id number] 05/10/17 RESPIRATORY VENTILATION, 24-96 CONSECUTIVE HOURS [id number] 05/10/17 VENT MGMT INPAT INIT DAY 05/10/17 VENT MGMT INPAT SUBQ DAY 05/10/17 Infectious Disease Assmt/Plan - Assessment Assessment: 1. Sepsis. 2. Pneumonia. 3. VDRF. 4, DM2 5. COPD. 6. HTN. 7. Obesity. 8. TIMA - Plan Plan: Hold vanco IV. Conitue zosyn. Nutritional Asmnt/Malnutr-PDOC - Dietary Evaluation Malnutrition Findings (Please click <Entered> for more info): Nutritional Asmnt/Malnutrition Start: 05/15/17 16: 35 Text: Status: Complete Freq: Document 05/15/17 16:35 PASCUAL (Rec: 05/15/17 16:49 [email or web address] [email or web address]) Nutritional Asmnt/Malnutrition Patient General Information Nutritional Screening High Risk Diagnosis acute respiratory failure HTN Pertinent Medical Hx/Surgical Hx Dm, HTN, obesity, COPD, DJD, psychosis, left AKA Subjective Information Consult received for wounds. Pt seen resting in bed. Current Diet Order/ Nutrition Support diabetisource AC 200ml/hr bolus q 4hr Pertinent Medications novolog, culturelle, protonix, piperacillin Pertinent Labs 2/6 BUN 34, Cr 2.4, Glucose 137 POC 125-146 Nutritional Hx/Data Height 1.52 m Height (Calculated Centimeters) 152.4 Current Weight (lbs) 60.101 kg Weight (Calculated Kilograms) 60.1 Weight (Calculated Grams) 94625.0 [place] Body Weight 100 % [place] Body Weight 133 Body Mass Index (BMI) 25.9 Weight Status Overweight GI Symptoms GI Symptoms None Last BM 2/6 Difficult in: None Skin Integrity/Comment: open wound to buttocks Estimated Nutritional Goals BEE in Kcals: Adj wt of IBW Calories/Kcals/Kg 25-30 Kcals Calculated 5057-1411 Protein: Adj wt of IBW Protein g/k.2-1.4 Protein Calculated 68-80 Fluid: ml 1425-1710ml (1ml/kcal) Nutritional Problem 1. Problem Problem increased nutrition needs ( calorie and protein) Etiology increased metabolic demands for wound healing Signs/Symptoms: open wound to buttocks Malnutrition Alert Protein-Calorie Malnutrition N/A Is there a minimum of two criteria No selected? Query Text:Check all the applicable criteria. A minimum of two criteria are recommended for diagnosis of either severe or non-severe malnutrition. Intervention/Recommendation Comments 1. Continue with current TF regimen. It provides 1440kcal, 72g protein, meeting 100% of nutritional needs. Recommend vitamin C to help with wound healing. 2. Monitor TF rate, tolerance, wt weekly, skin integrity and labs 3. F/U as moderate risk in 3-5 days, 05/18-05/20 Expected Outcomes/Goals Expected Outcomes/Goals 1. Pt to meet at least 75% of nutritional needs via nutrition support with tolerance 2. Wt stability, skin to remain intact, labs to approach WNL.
--- NOTE | 2017-05-16 18:24 | Consultation ---
DATE OF CONSULTATION: 05/16/2017 RENAL AND CRITICAL CARE CONSULT LOCATION: [facility], ICU bed #8. ATTENDING PHYSICIAN: Dr. Washington. I thank you very much Dr. Washington for allowing me to participate in the management of this patient of yours. IDENTIFICATION: A 66-year-old female patient not able to give any history. The patient is on a respirator. History has been taken from discussing with the nursing staff and reviewing the old chart. HISTORY OF PRESENT ILLNESS: This is a 66-year-old -[place] female patient who is a known case of psychiatric disorder with schizophrenia and bipolar disorder. The patient also has other medical conditions, dry cough, diabetes mellitus, hypertension, COPD, obesity. The patient was in the Psychiatric Geropsych Unit. The patient was found to have hypotension, change in the mental status. A rapid response was called. The patient was brought to the ICU. The patient required intubation. The patient was severely hypotensive. The patient was supported with IV fluids, respiratory care. The patient self-extubate herself and so required reintubation. The patient is receiving tube feeding. The patient's hypotension was treated with antibiotic, IV fluid and now the patient has been started on Levophed more than 20 mcg. The patient's Colón catheter is showing oliguria, dark urine. At the same time, the patient has worsening of BUN and creatinine and hence renal consultation has been requested. According to nursing staff, the patient does not have vomiting or diarrhea. The patient is tolerating tube feeding well. The patient is lethargic, too sedated. No history of seizures. There is no history of any skin rash. No history of lymphadenopathy. There is no history of high spiking fever. PAST MEDICAL, SURGICAL HISTORY: Hypertension, obesity, COPD, diabetes mellitus, DJD, bipolar disorder, left above knee amputation for unknown reason. SOCIAL HISTORY: The patient has a positive history of smoking. No history of alcohol use. The patient was in Geropsych Unit before transferring to ICU. CURRENT MEDICATIONS: Tylenol p.r.n., albuterol breathing treatment, amiodarone IV drip for cardiac arrhythmias, aspirin 200 mg a day, diltiazem 20 mg IV every 4 hours p.r.n., dopamine for hypotension and oliguria. Insulin coverage. Lactobacillus daily, norepinephrine IV, pantoprazole 40 mg IV once a day, IV Zosyn and valproic acid, Depakote in NG tube. The patient is also receiving tube feeding about 1400 mL a day without much residual. PHYSICAL EXAMINATION: GENERAL: A 66-year-old female patient not responding. Pulse 130, saturation 98, blood pressure 97/66, respiration rate 24. Intake 3409, output decreased to 850 yesterday, day before yesterday output was 1300 with intake of 2700 and day before i.e. 05/12/2017, output was 850 and intake was 2832. HEENT: Head, normocephalic, atraumatic. Eyes, sclerae is nonicteric. Conjunctivae is pale. EAR, NOSE, THROAT: No bleeding or discharge. NECK: No neck stiffness. Jugular venous pressure not distended. Trachea is midline. LUNGS: Good air entry both sides, right basilar rales. HEART: Regular, tachycardia. ABDOMEN: Soft, not distended. Bowel sounds are present. No abdominal bruit. No suprapubic fullness. EXTREMITIES: Left BKA stump looks without any bleeding or discharge. Right lower extremity, dorsalis pedis diminished, but present. No leg edema. SIGNIFICANT LABORATORY DATA: WBC 13.3, hemoglobin 10.6, pH 7.42, pCO2 of 55, pO2 57, bicarbonate 32.1. Sodium 139, potassium 4.4, chloride 101, CO2 33, BUN 32, creatinine 2.0, blood sugar 114, calcium 9.1, bilirubin 0.4, AST, ALT elevated. Albumin 2.5. Kidney ultrasound, no obstruction, no hydronephrosis, chronic kidney disease appearance. Urinalysis done on 05/11/2017, nitrite negative, large blood. No cast. ASSESSMENT: 1. Acute kidney injury. 2. Oliguria. 3. Septic shock. 4. Hypotension. 5. Respiratory failure. 6. History of chronic obstructive pulmonary disease. 7. History of hypertension. 8. History of bipolar disorder. 9. History of diabetes mellitus. 10. Obesity. 11. History of left above-knee amputation. PLAN: I will obtain renal indices and urine culture again today. I will increase patient's IV fluid and I will start patient on IV albumin. I do not see any clinical evidence of CHF on this patient at this time. I will repeat chest x-ray and BNP in the morning. Obtain phosphorus, magnesium, TSH in the morning. I will discuss the case with Dr. Washington. The patient may benefit with IV steroids temporarily. Case has been discussed with nursing staff at length. I will follow this patient with you. JOB# [id number]
[2017-05-16] MEDS: Albumin 5% 12.5gm/250mL 12.5 GM/250 ML BTL IV SCH (20:42)
--- NOTE | 2017-05-16 21:40 | Progress Notes ---
DATE: PATIENT IDENTIFICATION: A 66-year-old female. SUBJECTIVE: The patient seen and examined in ICU bed 8. The patient is currently intubated and sedated. Overnight nurses notes reviewed. OBJECTIVE: VITAL SIGNS: Temperature is 98, pulse is 100, respiratory rate is 18, blood pressure is 100/66. HEENT: Oral endotracheal tube noted. NECK: Supple, no JVD. HEART: Regular. CHEST: Lung equal and expiratory wheezing throughout. ABDOMEN: Distended, soft. No guarding, rigidity. Bowel sounds are present. EXTREMITIES: Left above-knee amputation noted. AVAILABLE DIAGNOSTIC DATA: BUN and creatinine is 32 and 2.0. Sodium 139, potassium 4.4, chloride 101, CO2 33.6, glucose of 114. White count of 13.3, hemoglobin 10.6, platelet count of 228. AST, ALT is 120 and 89. Albumin of 2.5. A chest x-ray done this morning, which did reveal evidence of extensive bilateral infiltrate, no change compared to yesterday's x-ray. CLINICAL IMPRESSION: 1. Acute kidney injury, possibly acute tubular necrosis. 2. Abnormal liver function tests. 3. Hepatic encephalopathy. 4. Leukocytosis. 5. Acute respiratory failure, required endotracheal intubation and mechanical ventilation. 6. Bilateral extensive infiltrates, most likely from acute respiratory distress syndrome. 7. Normocytic normochromic anemia secondary anemia of inflammation. 8. Diabetes mellitus. 9. Psychotic disorder. 10. Status post left above knee amputation. PLAN: In the view of her acute kidney injury, proceed with Nephrology consultations. The patient is to have acute kidney injury workup. Diabetes management as ordered. Continue to provide lactulose for hepatic encephalopathy. Abdominal ultrasound will be done as well. Continue to follow oxygen nebulizer treatment, pulmonary toilet. Vent support, IV antibiotic. Infectious Disease as well as Pulmonary and Cardiology followup. General nursing care with ICU care. GI and DVT prophylaxis will be continued. The patient's overall prognosis at this time is guarded. Care plan has been reviewed and discussed. JOB# [id number]
[2017-05-17] MEDS: Albuterol/Ipratropium Neb 3 ML AERS HHN SCH ×8 (01:34→23:11)
[2017-05-17] MEDS: Diltiazem 5 mg/mL 5mL Vial IVP PRN ×4 (02:54→22:33)
--- NOTE | 2017-05-17 03:13 | Progress Notes ---
DATE: 05/16/2017 PROBLEM LIST: 1. Acute respiratory failure. 2. Congestive heart failure. 3. Presumably possibly chronic obstructive pulmonary disease. 4. Obstructive sleep apnea syndrome. 5. Psychosis. 6. Left leg above-knee amputation. SUBJECTIVE:: The patient is sedated, still periodically fidgety, agitated, not in any respiratory distress, etc. Currently on the vent with 60% of oxygen, saturating only 90s. PHYSICAL EXAMINATION: VITAL SIGNS: Temperature is 98.8, heart rate has been anywhere from 100-110 with AFib. NECK: Veins not visualized. CHEST: Shows diminished air entry with occasional rhonchi. HEART: Regular. ABDOMEN: Soft, nontender. LABORATORY DATA AND DIAGNOSTIC STUDIES: The patient's CBC, white count is 13.3, hemoglobin 10.6. ABG shows pO2 of 57, pCO2 of 55, pH of 7.7 on 50% of oxygen. Electrolytes are okay with CO2 content 33. The patient's chest x-ray is seemingly slightly better, with mild elevation of the SGOT and PT. ASSESSMENT: The patient clinically radiographically slightly better, still requires high flow oxygenation with increasing hypercarbia with high backup rate with underlying history of psychosis, history of possibly COPD as well as sleep apnea syndrome. PLANS AND SUGGESTIONS: We will continue current cardiac treatment, inhalation treatment. We will repeat and check. Follow up with another x-ray and blood gases and see how it is and go from there. JOB# [id number]
[2017-05-17] MEDS: Albumin 5% 12.5gm/250mL 12.5 GM/250 ML BTL IV SCH ×3 (05:29→21:00)
[2017-05-17] MEDS: INSULIN ASPART SLIDING SCALE 100 UNITS/ML UNIT SUBQ SCH ×3 (06:00→19:52)
[2017-05-17] MEDS: NITROGLYCERIN OINT 2% 1 INCH PACKET TP SCH ×3 (06:00→19:55)
[2017-05-17] MEDS: Budesonide 0.5 Mg/2 mL Ud HHN SCH ×2 (07:53→21:03)
[2017-05-17] MEDS: Lactulose 10 Gm/15 mL 30mL UDC PO SCH ×2 (08:31→18:16)
[2017-05-17] MEDS: Aspirin 81mg Chewable Tab NG SCH (08:31)
[2017-05-17] MEDS: Lactobacillus Rhamnosus GG 15 Billion CFU CAP.SPRINK NG SCH (08:31)
[2017-05-17] MEDS: Chlorhexidine Gluconate 0.12% 15mL Mouthwash MM SCH ×2 (08:33→21:03)
[2017-05-17 08:36] LABS: HEMATOCRIT 31.4 % (41.0-60); HEMOGLOBIN 10.2 gm/dL (12-16); MEAN CELL VOLUME 85.8 fl (81-100); MEAN CORPUSCULAR HGB CONC 32.6 pg (28.0-36.0); MEAN PLATELET VOLUME 9.5 fl; PLATELET COUNT 213 Th/cmm (150-400); RED BLOOD COUNT 3.65 Mil/cmm (3.80-5.10); RED CELL DISTRIBUTION WIDTH 19.1 % (11.5-20.0)
[2017-05-17 08:46] LABS: ALB/GLOB RATIO 0.8 (1.0-1.8); ALBUMIN 3.1 gm/dL (3.7-5.3); ANION GAP 11.7 (7.0-16.0); BILIRUBIN,TOTAL 0.8 mg/dL (0.3-1.0); CALCIUM SERUM 9.1 mg/dL (8.6-10.3); CARBON DIOXIDE 30.2 mEq/L (21.0-31.0); CREATININE - SERUM 2.4 mg/dL (0.6-1.2); GFR AFRICAN-AMERICAN 26.1 ml/min (>90); GFR NON AFRICAN-AMERICAN 21.6 ml/min; MAGNESIUM 2.1 mg/dL (1.9-2.7); PHOSPHOROUS 3.2 mg/dL (2.5-5.0); POTASSIUM SERUM 3.9 mEq/L (3.5-5.1); TOTAL PROTEIN,SERUM 6.9 gm/dL (6.0-8.3); URIC ACID 7.4 mg/dL (2.3-6.6)
[2017-05-17 08:52] LABS: WHITE BLOOD COUNT 16.2 Th/cmm (4.8-10.8)
[2017-05-17] MEDS: Enoxaparin 80 mg/0.8 mL 0.8mL Syr SUBQ SCH ×2 (09:01→18:18)
--- NOTE | 2017-05-17 09:14 | General Progress Note ---
Subjective - Review of Systems Subjective: Patient is seen and examined. Re intubated and sedated. On levophed drip. Discussed with RN re: patient's condition and treatment plan. Objective - Results Result Diagrams: 05/17/17 08:15 05/17/17 08:15 Recent Labs: Laboratory Last Values WBC 16.2 Th/cmm (4.8-10.8) H D 05/17/17 08:15 RBC 3.65 Mil/cmm (3.80-5.10) L 05/17/17 08:15 Hgb 10.2 gm/dL (12-16) L 05/17/17 08:15 Hct 31.4 % (41.0-60) L 05/17/17 08:15 MCV 85.8 fl (81-100) 05/17/17 08:15 MCH 28.0 pg (27.0-31.0) 05/17/17 08:15 MCHC Differential 32.6 pg (28.0-36.0) 05/17/17 08:15 RDW 19.1 % (11.5-20.0) 05/17/17 08:15 Plt Count 213 Th/cmm (150-400) 05/17/17 08:15 MPV 9.5 fl 05/17/17 08:15 Neutrophils % 76.4 % (40.0-80.0) 05/16/17 07:40 Band Neutrophils % 1 % (0-10) 05/14/17 04:10 Lymphocytes % 14.4 % (20.0-50.0) L 05/16/17 07:40 Monocytes % 8.6 % (2.0-10.0) 05/16/17 07:40 Eosinophils % 0.5 % (0.0-5.0) 05/16/17 07:40 Basophils % 0.1 % (0.0-2.0) 05/16/17 07:40 Neutrophils (Manual) 71 % (40-80) 05/14/17 04:10 Lymphocytes 27 % (20-50) 05/14/17 04:10 Eosinophils 1 % (0-5) 05/14/17 04:10 Platelet Estimate ADEQUATE (NORMAL) 05/14/17 04:10 Eos Smear Source URINE 05/16/17 10:00 Eos Smear Total Cells NONE SEEN (NONE SEEN) 05/16/17 10:00 PT 10.6 SECONDS (9.5-11.5) 05/13/17 11:24 INR 1.02 (0.5-1.4) 05/13/17 11:24 PTT (Actin FS) 25.9 SECONDS (26.0-38.0) L 05/13/17 11:24 D-Dimer 1930 ng/mL (100-400) H 05/11/17 01:00 Specimen Source Arterial 05/16/17 09:34 Sample Site RB 05/16/17 09:34 pH 7.42 (7.35-7.45) 05/16/17 09:34 pCO2 55.0 mmHg (35.0-45.0) H 05/16/17 09:34 pO2 57.0 mmHg (80.0-100.0) L 05/16/17 09:34 HCO3 32.1 mEq/L (20.0-26.0) H 05/16/17 09:34 Base Excess 9.4 mEq/L (-3.0-3.0) H 05/16/17 09:34 O2 Saturation 90.0 % (92.0-100.0) L 05/16/17 09:34 Jermaine Test NA 05/16/17 09:34 Vent Rate 18 05/16/17 09:34 Inspired O2 50 05/16/17 09:34 Tidal Volume 400 05/16/17 09:34 PEEP 10 05/16/17 09:34 Pressure (ins/psv/peep) NA 05/16/17 09:34 Critical Value E.OCONNELL 05/16/17 09:34 Sodium 135 mEq/L (136-145) L 05/17/17 08:15 Potassium 3.9 mEq/L (3.5-5.1) 05/17/17 08:15 Chloride 97 mEq/L (98-107) L 05/17/17 08:15 Carbon Dioxide 30.2 mEq/L (21.0-31.0) 05/17/17 08:15 Anion Gap 11.7 (7.0-16.0) 05/17/17 08:15 BUN 41 mg/dL (7-25) H 05/17/17 08:15 Creatinine 2.4 mg/dL (0.6-1.2) H 05/17/17 08:15 Est GFR ( Amer) 26.1 ml/min (>90) 05/17/17 08:15 Est GFR (Non-Af Amer) 21.6 ml/min 05/17/17 08:15 BUN/Creatinine Ratio 17.1 05/17/17 08:15 Glucose 134 mg/dL (70-105) H 05/17/17 08:15 POC Glucose 133 MG/DL (70 - 105) H 05/16/17 23:47 Whole Bld Lactic Acid 1.61 mmol/L (0.60-1.99) 05/16/17 07:40 Uric Acid 7.4 mg/dL (2.3-6.6) H 05/17/17 08:15 Calcium 9.1 mg/dL (8.6-10.3) 05/17/17 08:15 Phosphorus 3.2 mg/dL (2.5-5.0) 05/17/17 08:15 Magnesium 2.1 mg/dL (1.9-2.7) 05/17/17 08:15 Total Bilirubin 0.8 mg/dL (0.3-1.0) 05/17/17 08:15 Direct Bilirubin 0.08 mg/dL (0.0-0.2) 05/13/17 05:11 AST 171 U/L (13-39) H 05/17/17 08:15 ALT 151 U/L (7-52) H 05/17/17 08:15 Alkaline Phosphatase 36 U/L (34-104) 05/17/17 08:15 Ammonia 91 umol/L (16-53) H 05/15/17 06:30 Creatine Kinase 43 U/L (30-223) 05/11/17 17:46 Troponin I 0.09 ng/mL (0.01-0.05) H* D 05/13/17 05:11 B-Natriuretic Peptide 131.0 pg/mL (5.0-100.0) H 05/15/17 06:30 Total Protein 6.9 gm/dL (6.0-8.3) 05/17/17 08:15 Albumin 3.1 gm/dL (3.7-5.3) L 05/17/17 08:15 Globulin 3.8 gm/dL 05/17/17 08:15 Albumin/Globulin Ratio 0.8 (1.0-1.8) L 05/17/17 08:15 TSH 0.65 uIU/ml (0.34-5.60) 05/12/17 10:27 Urine Source ESTRELLA PORT 05/16/17 10:00 Urine Color YELLOW 05/16/17 10:00 Urine Clarity HAZY (CLEAR) 05/16/17 10:00 Urine pH 6.0 (4.6 - 8.0) 05/16/17 10:00 Ur Specific [place] 1.020 (1.005-1.030) 05/16/17 10:00 Urine Protein 100 mg/dL (NEGATIVE) H 05/16/17 10:00 Urine Glucose (UA) NEGATIVE mg/dL (NEGATIVE) 05/16/17 10:00 Urine Ketones NEGATIVE mg/dL (NEGATIVE) 05/16/17 10:00 Urine Blood LARGE (NEGATIVE) H 05/16/17 10:00 Urine Nitrate NEGATIVE (NEGATIVE) 05/16/17 10:00 Urine Bilirubin NEGATIVE (NEGATIVE) 05/16/17 10:00 Urine Urobilinogen 0.2 E.U./dL (0.2 - 1.0) 05/16/17 10:00 Ur Leukocyte Esterase NEGATIVE (NEGATIVE) 05/16/17 10:00 Urine RBC 10-25 /hpf (0-5) H 05/16/17 10:00 Urine WBC 2-5 /hpf (0-5) 05/16/17 10:00 Ur Epithelial Cells FEW /lpf (FEW) 05/16/17 10:00 Urine Bacteria MODERATE /hpf (NONE SEEN) H 05/16/17 10:00 Coarse Granular Casts 0-2 /lpf (NONE SEEN) H 05/16/17 10:00 Urine Creatinine 80.4 mg/dl (28.0-217.0) 05/16/17 10:00 Vancomycin Trough 39.4 ug/mL (10-20) H 05/14/17 10:10 Random Vancomycin 13.9 ug/mL (5.0-40.0) 05/16/17 07:40 - Physical Exam Vitals and I&O: Vital Signs Temp 99.5 F 05/17/17 01:00 Pulse 123 05/17/17 08:31 Resp 29 05/17/17 07:00 BP 114/76 05/17/17 07:00 Pulse Ox 97 05/17/17 07:59 Intake & Output 05/16/17 05/17/17 05/17/17 18:59 06:59 18:59 Intake Total 9000.281 5062.316 180.208 Output Total 600 350 Balance 2260.060 8447.316 180.208 Weight (lbs) 110.024 kg 110.903 kg Intake: Intake, IV Amount 609.612 721.316 180.208 Albumin 5% 12.5gm/250mL 250 180.208 12.5 gm In 250 ml @ 62.5 mls/hr IV Q8HR [facility] Rx#: [id number] Amiodarone 450 mg In 0.56 Dextrose 5% 250 ml @ Titrate IV TITR [facility] Rx#: [id number] Norepinephrine 8 mg In 339.71 254 Dextrose 5% 250 ml @ Per Protocol IV TITR PRN Rx#: [id number] Piperacillin Sodium/ 100 100 Tazobact 3.375 gm In Sodium Chloride 0.9% 50 ml @ 100 mls/hr IV Q6HR [facility] Rx#:[id number] Propofol 1,000 mg In 100 69.342 117.316 ml @ 30 MCG/KG/MIN 18.207 mls/hr IV TITR [facility] Rx#: [id number] Oral 0 Tube Feeding 600 600 Albumin 500 Other 730 Output: Urine 600 350 Other: # Bowel Movements 1 1 Stool Characteristics Liquid Brown Active Medications: Current Medications Acetaminophen (Tylenol) 650 mg PO Q4HR PRN PRN Reason: Mild Pain / Temp above 100 Stop: 07/10/17 09:31 Last Admin: 05/16/17 21:51 Dose: 650 mg Albuterol/Ipratropium (Duoneb Neb) 3 ml HHN Q3H [facility] Stop: 07/10/17 01:14 Last Admin: 05/17/17 07:53 Dose: 3 ml Amiodarone HCl (Cordarone) 200 mg PO BID [facility] Stop: 07/15/17 16:59 Last Admin: 05/17/17 08:31 Dose: 200 mg Aspirin (Aspirin Chewable) 81 mg NG DAILY [facility] Stop: 07/10/17 08:59 Last Admin: 05/17/17 08:31 Dose: 81 mg Budesonide (Pulmicort) 0.5 mg HHN Q12HRT [facility] Stop: 07/10/17 06:59 Last Admin: 05/17/17 07:53 Dose: 0.5 mg Chlorhexidine Gluconate (Peridex) 15 ml MM 08,1999 [facility] Stop: 07/13/17 07:59 Last Admin: 05/17/17 08:33 Dose: 15 ml Diltiazem HCl (Cardizem) 20 mg IVP Q4HR PRN PRN Reason: Tachycardia Stop: 07/14/17 18:16 Last Admin: 05/17/17 02:54 Dose: 20 mg Enoxaparin Sodium (Lovenox) 70 mg SUBQ BID [facility] Stop: 07/10/17 08:59 Last Admin: 05/16/17 16:57 Dose: 70 mg Piperacillin Sod/Tazobactam (Sod 3.375 gm/ Sodium Chloride) 50 mls @ 100 mls/ hr IV Q6HR [facility] Stop: 07/10/17 05:59 Last Infusion: 05/17/17 06:05 Dose: Infused Norepinephrine Bitartrate 8 mg (/ Dextrose) 254 mls @ 0 mls/hr IV TITR PRN; Protocol; Per Protocol PRN Reason: BP MAINTENANCE (PER PROTOCOL) Stop: 07/10/17 00:29 Last Admin: 05/17/17 02:55 Dose: 16 mcg/min, 30.48 mls/hr Propofol (Diprivan) 1,000 mg in 100 mls @ 18.207 mls/hr IV TITR [facility]; 30 MCG/KG/ MIN PRN Reason: Protocol Stop: 07/12/17 11:13 Last Titration: 05/17/17 06:42 Dose: 6 mcg/kg/min, 3.641 mls/hr Amiodarone HCl 450 mg/ (Dextrose) 259 mls @ 0 mls/hr IV TITR [facility]; Titrate PRN Reason: Protocol Stop: 07/14/17 07:05 Last Titration: 05/16/17 08:00 Dose: 0 mg/hr, 0 mls/hr Dopamine HCl/Dextrose (Dopamine) 400 mg in 250 mls @ 0 mls/hr IV TITR PRN; Protocol; Per Protocol PRN Reason: RENAL PERFUSION Stop: 07/15/17 09:53 Albumin Human (Albutein 5%) 12.5 gm in 250 mls @ 62.5 mls/hr IV Q8HR [facility] Stop: 05/18/17 00:59 Last Infusion: 05/17/17 08:22 Dose: 62.5 mls/hr Dopamine HCl/Dextrose (Dopamine) 400 mg in 250 mls @ 0 mls/hr IV TITR PRN; Protocol; Titrate PRN Reason: RENAL PERFUSION Stop: 07/16/17 08:59 Insulin Aspart (Novolog Insulin Sliding Scale) 0 units SUBQ Q6HR [facility] PRN Reason: Protocol Stop: 07/10/17 05:59 Last Admin: 05/17/17 06:00 Dose: Not Given Lactobacillus Rhamnosus (Culturelle 15b) 1 each NG DAILY [facility] Stop: 07/13/17 08:59 Last Admin: 05/17/17 08:31 Dose: 1 each Lactulose (Cephulac) 30 gm PO BID [facility] Stop: 07/11/17 16:59 Last Admin: 05/17/17 08:31 Dose: 30 gm Lorazepam (Ativan) 1 mg IVP Q4HR PRN; Protocol PRN Reason: AGITATION Stop: 07/10/17 00:50 Last Admin: 05/13/17 03:52 Dose: 1 mg Miscellaneous (Vte Chemical Prophylaxis Screen/ Admission) 1 ea MC PRN PRN PRN Reason: PROTOCOL Stop: 07/10/17 16:49 Miscellaneous (Probiotic Screen) 1 ea PRN PRN PRN Reason: PROTOCOL Stop: 07/13/17 08:44 Morphine Sulfate (Morphine) 2 mg IVP Q4HR PRN PRN Reason: Pain (Moderate) Stop: 07/10/17 14:20 Last Admin: 05/16/17 04:19 Dose: 2 mg Mupirocin (Bactroban Oint) 1 appl NS BID [facility] Stop: 05/19/17 17:01 Last Admin: 05/17/17 08:32 Dose: 1 appl Nitroglycerin (Nitro-Bid) 1 inch TP Q6HR [facility] Stop: 07/10/17 07:59 Last Admin: 05/17/17 06:00 Dose: Not Given Pantoprazole Sodium (Protonix) 40 mg IVP QDAC [facility] Stop: 07/10/17 08:59 Last Admin: 05/17/17 06:41 Dose: 40 mg Valproate Sodium (Depakene) 500 mg PO BID [facility] PRN Reason: Protocol Stop: 07/10/17 16:59 Last Admin: 05/17/17 08:31 Dose: 500 mg General: Other (sedated and intubated) HEENT: PERRLA, Other (Oral ET tube+) Neck: Supple, JVD Cardiovascular: Regular rate, Normal S1, Normal S2 Lungs: Other (Rhonchi+) Abdomen: Bowel sounds, Soft, Obese Extremities: Other (L AKA) Neurological: Other (Sedated and intubated.) - Procedures Procedures: Procedures Procedure Code Date INSERT EMERGENCY AIRWAY 35952 05/10/17 INSERTION OF ENDOTRACHEAL AIRWAY INTO TRACHEA, VIA OPENING [id number] 05/10/17 RESPIRATORY VENTILATION, 24-96 CONSECUTIVE HOURS [id number] 05/10/17 VENT MGMT INPAT INIT DAY 05/10/17 VENT MGMT INPAT SUBQ DAY 05/10/17 Assessment/Plan - Assessment Assessment: Acute Resp failure on vent. Bilateral extensive infiltrate most likely ARDS Hypotension on levophed drip. BRANDEE. TIMA due to ATN. Cardiac arrythmia. Septick shock. Diabetes. Hx of HTN. A flutter. Possible aspiration pneumonia. S/P L AKA Psych disorder. ICU care. - Plan Plan: Vent support HHN. Renal dose dopamine drip. Pulmo toilet IV antibiotics as per ID. Pressor agents and wean off. Rate control. GI and DVT prophylaxisis. Anticoagulation. Cardiac monitoring. General nursing care. Follow lab. Propofol drip. Follow consultants recommendations. Lactulose. Continue current care. Guarded prognosis. Diabetes management Symptoms control. Discussed with staff. Nutritional Asmnt/Malnutr-PDOC - Dietary Evaluation Malnutrition Findings (Please click <Entered> for more info): Nutritional Asmnt/Malnutrition Start: 05/15/17 16: 35 Text: Status: Complete Freq: Document 05/15/17 16:35 LCLALAG (Rec: 05/15/17 16:49 LCLALAG [email or web address]) Nutritional Asmnt/Malnutrition Patient General Information Nutritional Screening High Risk Diagnosis acute respiratory failure HTN Pertinent Medical Hx/Surgical Hx Dm, HTN, obesity, COPD, DJD, psychosis, left AKA Subjective Information Consult received for wounds. Pt seen resting in bed. Current Diet Order/ Nutrition Support diabetisource AC 200ml/hr bolus q 4hr Pertinent Medications novolog, culturelle, protonix, piperacillin Pertinent Labs 05/15 BUN 34, Cr 2.4, Glucose 137 POC 125-146 Nutritional Hx/Data Height 1.52 m Height (Calculated Centimeters) 152.4 Current Weight (lbs) 60.101 kg Weight (Calculated Kilograms) 60.1 Weight (Calculated Grams) 74831.0 Otho Body Weight 100 % Otho Body Weight 133 Body Mass Index (BMI) 25.9 Weight Status Overweight GI Symptoms GI Symptoms None Last BM 2/6 Difficult in: None Skin Integrity/Comment: open wound to buttocks Estimated Nutritional Goals BEE in Kcals: Adj wt of IBW Calories/Kcals/Kg 25-30 Kcals Calculated 5207-0305 Protein: Adj wt of IBW Protein g/k.2-1.4 Protein Calculated 68-80 Fluid: ml 1425-1710ml (1ml/kcal) Nutritional Problem 1. Problem Problem increased nutrition needs ( calorie and protein) Etiology increased metabolic demands for wound healing Signs/Symptoms: open wound to buttocks Malnutrition Alert Protein-Calorie Malnutrition N/A Is there a minimum of two criteria No selected? Query Text:Check all the applicable criteria. A minimum of two criteria are recommended for diagnosis of either severe or non-severe malnutrition. Intervention/Recommendation Comments 1. Continue with current TF regimen. It provides 1440kcal, 72g protein, meeting 100% of nutritional needs. Recommend vitamin C to help with wound healing. 2. Monitor TF rate, tolerance, wt weekly, skin integrity and labs 3. F/U as moderate risk in 3-5 days, 05/18-05/20 Expected Outcomes/Goals Expected Outcomes/Goals 1. Pt to meet at least 75% of nutritional needs via nutrition support with tolerance 2. Wt stability, skin to remain intact, labs to approach WNL.
[2017-05-17 09:44] LABS: BAND NEUTROPHILE 12 % (0-10); LYMPHOCYTE 9 % (20-50); MONOCYTE 5 % (2-10); NEUTROPHILS 74 % (40-80); PLATELET ESTIMATE ADEQUATE (NORMAL); TOTAL CELLS COUNTED 100
[2017-05-17] MEDS: DOPamine 400 MG/250 ML BAG IV PRN (10:08)
[2017-05-17] MEDS: Morphine Sulfate 2 mg/mL 1mL Syr IVP PRN (10:19)
[2017-05-18] MEDS: NITROGLYCERIN OINT 2% 1 INCH PACKET TP SCH ×4 (00:38→18:26)
[2017-05-18] MEDS: INSULIN ASPART SLIDING SCALE 100 UNITS/ML UNIT SUBQ SCH ×5 (00:53→23:43)
[2017-05-18] MEDS: Albuterol/Ipratropium Neb 3 ML AERS HHN SCH ×9 (01:19→23:58)
--- NOTE | 2017-05-18 02:08 | Progress Notes ---
DATE: 05/17/2017 PROBLEM LIST: 1. Acute respiratory failure. 2. Congestive heart failure, presumably. 3. Chronic obstructive pulmonary disease. 4. Obstructive sleep apnea. 5. History of psychosis, currently sedated with history of previous requiring multiple antipsychotic medications. SUBJECTIVE: The patient is sedated. No respiratory distress, etc. PHYSICAL EXAMINATION: VITAL SIGNS: The patient's recorded vitals, afebrile, heart rate 130-140, blood pressure 136/84 and saturation 96 on 60%. NECK: Veins not visualized. CHEST: Shows diminished air entry with better air entry. HEART: Regular. ABDOMEN: Soft, nontender. LABORATORY DATA: White count is 16,000, hemoglobin 10 grams. Electrolytes are okay. Creatinine slightly inching up to 2.4. ASSESSMENT: The patient continued to have respiratory issues, etc. and related to cardiac primarily. PLANS AND SUGGESTIONS: We will go ahead and decrease FiO2 and then also discussed with district supervisor and see how she does in next 24-48 hours and then depending on her clinical situation may attempt weaning and go from there. PSYCHIATRIC# [id number]
[2017-05-18] MEDS: Diltiazem 5 mg/mL 5mL Vial IVP PRN ×4 (02:30→18:41)
[2017-05-18 05:11] LABS: ALB/GLOB RATIO 0.8 (1.0-1.8); ALBUMIN 2.9 gm/dL (3.7-5.3); ANION GAP 10.4 (7.0-16.0); BILIRUBIN,TOTAL 0.6 mg/dL (0.3-1.0); CARBON DIOXIDE 31.2 mEq/L (21.0-31.0); GFR AFRICAN-AMERICAN 32.3 ml/min (>90); GFR NON AFRICAN-AMERICAN 26.7 ml/min; POTASSIUM SERUM 3.6 mEq/L (3.5-5.1); TOTAL PROTEIN,SERUM 6.4 gm/dL (6.0-8.3)
[2017-05-18 05:16] LABS: HEMOGLOBIN 9.6 gm/dL (12-16)
[2017-05-18 05:31] LABS: MEAN CELL VOLUME 85.2 fl (81-100); MEAN CORPUSCULAR HEMOGLOBIN 28.2 pg (27.0-31.0); MEAN CORPUSCULAR HGB CONC 33.1 pg (28.0-36.0); MEAN PLATELET VOLUME 10.8 fl; PLATELET COUNT 197 Th/cmm (150-400); RED CELL DISTRIBUTION WIDTH 19.2 % (11.5-20.0)
[2017-05-18 05:35] LABS: WHITE BLOOD COUNT 13.3 Th/cmm (4.8-10.8)
[2017-05-18 07:21] LABS: BAND NEUTROPHILE 12 % (0-10); LYMPHOCYTE 6 % (20-50); MONOCYTE 5 % (2-10); NEUTROPHILS 77 % (40-80); PLATELET ESTIMATE ADEQUATE (NORMAL)
--- NOTE | 2017-05-18 07:24 | Progress Notes ---
DATE: RENAL FOLLOWUP LOCATION: [facility] ICU bed #8. SUBJECTIVE: The patient is essentially same. The patient has a good urine output through Colón catheter. The patient received IV albumin yesterday. Currently, the patient is on IV fluids 100 mL per hour. PHYSICAL EXAMINATION: VITAL SIGNS: Heart rate 120 and blood pressure 126/88. Yesterday's intake 4332. Urine output 2350. HEART: Regular, tachycardia. LUNGS: Good air entry. ABDOMEN: Soft. EXTREMITIES: BKA and edema. LABORATORY DATA: WBC 16.2, hemoglobin 10.2, and platelet 213,000. Sodium 135, potassium 3.9, chloride 97, CO2 30, BUN 41, creatinine 2.4, and blood sugar 134. LFTs elevated. ASSESSMENT: 1. Acute kidney injury, worsening. 2. Septic shock. 3. Hypotension. 4. Respiratory failure. 5. History of chronic obstructive pulmonary disease. 6. History of hypertension. 7. History of bipolar disorder. 8. History of diabetes mellitus. 9. Obesity. PLAN: Continue IV hydration. Continue IV albumin. If the patient becomes oliguric, we will start the patient on renal dose dopamine. Obtain CMP and CBC in the morning. JOB# [id number]
--- NOTE | 2017-05-18 08:34 | Diagnostic Imaging Report ---
Portable chest x-ray HISTORY: Shortness of breath Compared with the prior exam of 2017, the heart remains enlarged. Persistent density is noted within the left lower hemithorax consistent with a pleural effusion. Underlying pneumonia and/or atelectasis cannot be excluded. White haziness along the right hemidiaphragm. An endotracheal tube tip is approximately 3.0 cm above the mindy. IMPRESSION: 1. No significant change in the cardiopulmonary status as noted above.
[2017-05-18] MEDS: Lactulose 10 Gm/15 mL 30mL UDC PO SCH ×2 (08:54→16:41)
[2017-05-18] MEDS: Aspirin 81mg Chewable Tab NG SCH (08:55)
[2017-05-18] MEDS: Enoxaparin 80 mg/0.8 mL 0.8mL Syr SUBQ SCH ×2 (08:55→16:56)
[2017-05-18] MEDS: Lactobacillus Rhamnosus GG 15 Billion CFU CAP.SPRINK NG SCH (08:55)
[2017-05-18] MEDS: Chlorhexidine Gluconate 0.12% 15mL Mouthwash MM SCH ×2 (08:57→20:48)
--- NOTE | 2017-05-18 09:14 | General Progress Note ---
Subjective - Review of Systems Subjective: Patient is seen and examined. Re intubated and sedated. On levophed and dopamine drip. Patietn is still tachycardic Discussed with RN re: patient's condition and treatment plan. Objective - Results Result Diagrams: 05/18/17 04:30 05/18/17 04:30 Recent Labs: Laboratory Last Values WBC 13.3 Th/cmm (4.8-10.8) H 05/18/17 04:30 RBC 3.40 Mil/cmm (3.80-5.10) L 05/18/17 04:30 Hgb 9.6 gm/dL (12-16) L 05/18/17 04:30 Hct 29.0 % (41.0-60) L 05/18/17 04:30 MCV 85.2 fl (81-100) 05/18/17 04:30 MCH 28.2 pg (27.0-31.0) 05/18/17 04:30 MCHC Differential 33.1 pg (28.0-36.0) 05/18/17 04:30 RDW 19.2 % (11.5-20.0) 05/18/17 04:30 Plt Count 197 Th/cmm (150-400) 05/18/17 04:30 MPV 10.8 fl 05/18/17 04:30 Neutrophils % 76.4 % (40.0-80.0) 05/16/17 07:40 Band Neutrophils % 12 % (0-10) H 05/18/17 04:30 Lymphocytes % 14.4 % (20.0-50.0) L 05/16/17 07:40 Monocytes % 8.6 % (2.0-10.0) 05/16/17 07:40 Eosinophils % 0.5 % (0.0-5.0) 05/16/17 07:40 Basophils % 0.1 % (0.0-2.0) 05/16/17 07:40 Neutrophils (Manual) 77 % (40-80) 05/18/17 04:30 Lymphocytes 6 % (20-50) L 05/18/17 04:30 Monocytes 5 % (2-10) 05/18/17 04:30 Eosinophils 1 % (0-5) 05/14/17 04:10 Platelet Estimate ADEQUATE (NORMAL) 05/18/17 04:30 Eos Smear Source URINE 05/16/17 10:00 Eos Smear Total Cells NONE SEEN (NONE SEEN) 05/16/17 10:00 PT 10.6 SECONDS (9.5-11.5) 05/13/17 11:24 INR 1.02 (0.5-1.4) 05/13/17 11:24 PTT (Actin FS) 25.9 SECONDS (26.0-38.0) L 05/13/17 11:24 D-Dimer 1930 ng/mL (100-400) H 05/11/17 01:00 Specimen Source Arterial 05/16/17 09:34 Sample Site RB 05/16/17 09:34 pH 7.42 (7.35-7.45) 05/16/17 09:34 pCO2 55.0 mmHg (35.0-45.0) H 05/16/17 09:34 pO2 57.0 mmHg (80.0-100.0) L 05/16/17 09:34 HCO3 32.1 mEq/L (20.0-26.0) H 05/16/17 09:34 Base Excess 9.4 mEq/L (-3.0-3.0) H 05/16/17 09:34 O2 Saturation 90.0 % (92.0-100.0) L 05/16/17 09:34 Jermaine Test NA 05/16/17 09:34 Vent Rate 18 05/16/17 09:34 Inspired O2 50 05/16/17 09:34 Tidal Volume 400 05/16/17 09:34 PEEP 10 05/16/17 09:34 Pressure (ins/psv/peep) NA 05/16/17 09:34 Critical Value E.OCONNELL 05/16/17 09:34 Sodium 138 mEq/L (136-145) 05/18/17 04:30 Potassium 3.6 mEq/L (3.5-5.1) 05/18/17 04:30 Chloride 100 mEq/L (98-107) 05/18/17 04:30 Carbon Dioxide 31.2 mEq/L (21.0-31.0) H 05/18/17 04:30 Anion Gap 10.4 (7.0-16.0) 05/18/17 04:30 BUN 41 mg/dL (7-25) H 05/18/17 04:30 Creatinine 2.0 mg/dL (0.6-1.2) H 05/18/17 04:30 Est GFR ( Amer) 32.3 ml/min (>90) 05/18/17 04:30 Est GFR (Non-Af Amer) 26.7 ml/min 05/18/17 04:30 BUN/Creatinine Ratio 20.5 05/18/17 04:30 Glucose 128 mg/dL (70-105) H 05/18/17 04:30 POC Glucose 138 MG/DL (70 - 105) H 05/18/17 06:27 Whole Bld Lactic Acid 1.61 mmol/L (0.60-1.99) 05/16/17 07:40 Uric Acid 7.4 mg/dL (2.3-6.6) H 05/17/17 08:15 Calcium 9.0 mg/dL (8.6-10.3) 05/18/17 04:30 Phosphorus 3.2 mg/dL (2.5-5.0) 05/17/17 08:15 Magnesium 2.1 mg/dL (1.9-2.7) 05/17/17 08:15 Total Bilirubin 0.6 mg/dL (0.3-1.0) 05/18/17 04:30 Direct Bilirubin 0.08 mg/dL (0.0-0.2) 05/13/17 05:11 AST 128 U/L (13-39) H 05/18/17 04:30 ALT 131 U/L (7-52) H 05/18/17 04:30 Alkaline Phosphatase 38 U/L (34-104) 05/18/17 04:30 Ammonia 91 umol/L (16-53) H 05/15/17 06:30 Creatine Kinase 43 U/L (30-223) 05/11/17 17:46 Troponin I 0.09 ng/mL (0.01-0.05) H* D 05/13/17 05:11 B-Natriuretic Peptide 131.0 pg/mL (5.0-100.0) H 05/15/17 06:30 Total Protein 6.4 gm/dL (6.0-8.3) 05/18/17 04:30 Albumin 2.9 gm/dL (3.7-5.3) L 05/18/17 04:30 Globulin 3.5 gm/dL 05/18/17 04:30 Albumin/Globulin Ratio 0.8 (1.0-1.8) L 05/18/17 04:30 TSH 0.65 uIU/ml (0.34-5.60) 05/12/17 10:27 Urine Source [place] 05/16/17 10:00 Urine Color YELLOW 05/16/17 10:00 Urine Clarity HAZY (CLEAR) 05/16/17 10:00 Urine pH 6.0 (4.6 - 8.0) 05/16/17 10:00 Ur Specific [place] 1.020 (1.005-1.030) 05/16/17 10:00 Urine Protein 100 mg/dL (NEGATIVE) H 05/16/17 10:00 Urine Glucose (UA) NEGATIVE mg/dL (NEGATIVE) 05/16/17 10:00 Urine Ketones NEGATIVE mg/dL (NEGATIVE) 05/16/17 10:00 Urine Blood LARGE (NEGATIVE) H 05/16/17 10:00 Urine Nitrate NEGATIVE (NEGATIVE) 05/16/17 10:00 Urine Bilirubin NEGATIVE (NEGATIVE) 05/16/17 10:00 Urine Urobilinogen 0.2 E.U./dL (0.2 - 1.0) 05/16/17 10:00 Ur Leukocyte Esterase NEGATIVE (NEGATIVE) 05/16/17 10:00 Urine RBC 10-25 /hpf (0-5) H 05/16/17 10:00 Urine WBC 2-5 /hpf (0-5) 05/16/17 10:00 Ur Epithelial Cells FEW /lpf (FEW) 05/16/17 10:00 Urine Bacteria MODERATE /hpf (NONE SEEN) H 05/16/17 10:00 Coarse Granular Casts 0-2 /lpf (NONE SEEN) H 05/16/17 10:00 Urine Creatinine 80.4 mg/dl (28.0-217.0) 05/16/17 10:00 Vancomycin Trough 39.4 ug/mL (10-20) H 05/14/17 10:10 Random Vancomycin 13.9 ug/mL (5.0-40.0) 05/16/17 07:40 - Physical Exam Vitals and I&O: Vital Signs Temp 98.8 F 05/18/17 08:00 Pulse 127 05/18/17 08:55 Resp 24 05/18/17 08:00 BP 116/73 05/18/17 08:00 Pulse Ox 94 05/18/17 08:00 Intake & Output 05/17/17 05/18/17 05/18/17 18:59 06:59 18:59 Intake Total 1002.336 251.608 700 Output Total 550 Balance 1002.336 251.608 150 Weight (lbs) 110.903 kg Intake: Intake, IV Amount 1002.336 251.608 Albumin 5% 12.5gm/250mL 500.000 12.5 gm In 250 ml @ 62.5 mls/hr IV Q8HR [facility] Rx#: [id number] Norepinephrine 8 mg In 402.336 105.664 Dextrose 5% 250 ml @ Per Protocol IV TITR PRN Rx#: [id number] Piperacillin Sodium/ 100 50 Tazobact 3.375 gm In Sodium Chloride 0.9% 50 ml @ 100 mls/hr IV Q6HR [facility] Rx#:[id number] Propofol 1,000 mg In 100 95.944 ml @ 30 MCG/KG/MIN 18.207 mls/hr IV TITR [facility] Rx#: [id number] Tube Feeding 600 Other 100 Output: Urine 550 Other: # Bowel Movements 2 Stool Characteristics Soft Soft Soft Formed Active Medications: Current Medications Acetaminophen (Tylenol) 650 mg PO Q4HR PRN PRN Reason: Mild Pain / Temp above 100 Stop: 07/10/17 09:31 Last Admin: 05/16/17 21:51 Dose: 650 mg Albuterol/Ipratropium (Duoneb Neb) 3 ml HHN Q3H [facility] Stop: 07/10/17 01:14 Last Admin: 05/18/17 08:00 Dose: 3 ml Amiodarone HCl (Cordarone) 200 mg PO BID [facility] Stop: 07/15/17 16:59 Last Admin: 05/18/17 08:55 Dose: 200 mg Aspirin (Aspirin Chewable) 81 mg NG DAILY [facility] Stop: 07/10/17 08:59 Last Admin: 05/18/17 08:55 Dose: 81 mg Budesonide (Pulmicort) 0.5 mg HHN Q12HRT [facility] Stop: 07/10/17 06:59 Last Admin: 05/17/17 21:03 Dose: 0.5 mg Chlorhexidine Gluconate (Peridex) 15 ml MM 08,1999 [facility] Stop: 07/13/17 07:59 Last Admin: 05/18/17 08:57 Dose: 15 ml Diltiazem HCl (Cardizem) 20 mg IVP Q4HR PRN PRN Reason: Tachycardia Stop: 07/14/17 18:16 Last Admin: 05/18/17 06:44 Dose: 20 mg Enoxaparin Sodium (Lovenox) 70 mg SUBQ BID [facility] Stop: 07/10/17 08:59 Last Admin: 05/18/17 08:55 Dose: 70 mg Piperacillin Sod/Tazobactam (Sod 3.375 gm/ Sodium Chloride) 50 mls @ 100 mls/ hr IV Q6HR [facility] Stop: 07/10/17 05:59 Last Admin: 05/18/17 06:45 Dose: 100 mls/hr Norepinephrine Bitartrate 8 mg (/ Dextrose) 254 mls @ 0 mls/hr IV TITR PRN; Protocol; Per Protocol PRN Reason: BP MAINTENANCE (PER PROTOCOL) Stop: 07/10/17 00:29 Last Admin: 05/18/17 00:39 Dose: 8 mcg/min, 15.24 mls/hr Propofol (Diprivan) 1,000 mg in 100 mls @ 18.207 mls/hr IV TITR [facility]; 30 MCG/KG/ MIN PRN Reason: Protocol Stop: 07/12/17 11:13 Last Titration: 05/18/17 04:30 Dose: 6 mcg/kg/min, 3.641 mls/hr Amiodarone HCl 450 mg/ (Dextrose) 259 mls @ 0 mls/hr IV TITR [facility]; Titrate PRN Reason: Protocol Stop: 07/14/17 07:05 Last Titration: 05/16/17 08:00 Dose: 0 mg/hr, 0 mls/hr Dopamine HCl/Dextrose (Dopamine) 400 mg in 250 mls @ 0 mls/hr IV TITR PRN; Protocol; Per Protocol PRN Reason: RENAL PERFUSION Stop: 07/15/17 09:53 Dopamine HCl/Dextrose (Dopamine) 400 mg in 250 mls @ 0 mls/hr IV TITR PRN; Protocol; Titrate PRN Reason: RENAL PERFUSION Stop: 07/16/17 08:59 Last Admin: 05/17/17 10:08 Dose: 2.09 mcg/kg/min, 8.7 mls/hr Insulin Aspart (Novolog Insulin Sliding Scale) 0 units SUBQ Q6HR [facility] PRN Reason: Protocol Stop: 07/10/17 05:59 Last Admin: 05/18/17 06:44 Dose: Not Given Lactobacillus Rhamnosus (Culturelle 15b) 1 each NG DAILY [facility] Stop: 07/13/17 08:59 Last Admin: 05/18/17 08:55 Dose: 1 each Lactulose (Cephulac) 30 gm PO BID [facility] Stop: 07/11/17 16:59 Last Admin: 05/18/17 08:54 Dose: 30 gm Lorazepam (Ativan) 1 mg IVP Q4HR PRN; Protocol PRN Reason: AGITATION Stop: 07/10/17 00:50 Last Admin: 05/13/17 03:52 Dose: 1 mg Miscellaneous (Vte Chemical Prophylaxis Screen/ Admission) 1 ea PRN PRN PRN Reason: PROTOCOL Stop: 07/10/17 16:49 Miscellaneous (Probiotic Screen) 1 ea PRN PRN PRN Reason: PROTOCOL Stop: 07/13/17 08:44 Morphine Sulfate (Morphine) 2 mg IVP Q4HR PRN PRN Reason: Pain (Moderate) Stop: 07/10/17 14:20 Last Admin: 05/17/17 10:19 Dose: 2 mg Mupirocin (Bactroban Oint) 1 appl NS BID [facility] Stop: 05/19/17 17:01 Last Admin: 05/18/17 08:56 Dose: 1 appl Nitroglycerin (Nitro-Bid) 1 inch TP Q6HR [facility] Stop: 07/10/17 07:59 Last Admin: 05/18/17 06:46 Dose: Not Given Pantoprazole Sodium (Protonix) 40 mg IVP QDAC [facility] Stop: 07/10/17 08:59 Last Admin: 05/18/17 08:56 Dose: 40 mg Valproate Sodium (Depakene) 500 mg PO BID [facility] PRN Reason: Protocol Stop: 07/10/17 16:59 Last Admin: 05/18/17 08:55 Dose: 500 mg General: Other (sedated and intubated) HEENT: PERRLA, Other (Oral ET tube+) Neck: Supple, JVD Cardiovascular: Regular rate, Normal S1, Normal S2 Lungs: Other (Rhonchi+) Abdomen: Bowel sounds, Soft, Obese Extremities: Other (L AKA) Neurological: Other (Sedated and intubated.) - Procedures Procedures: Procedures Procedure Code Date INSERT EMERGENCY AIRWAY 48335 05/10/17 INSERTION OF ENDOTRACHEAL AIRWAY INTO [place]ACHEA, VIA OPENING [id number] 05/10/17 RESPIRATORY VENTILATION, GREATER THAN 96 CONSECUTIVE HOURS [id number] 05/10/17 VENT MGMT INPAT INIT DAY 05/10/17 VENT MGMT INPAT SUBQ DAY 05/10/17 Assessment/Plan - Assessment Assessment: Acute Resp failure on vent. Bilateral extensive infiltrate most likely ARDS Hypotension on levophed drip. BRANDEE. TIMA due to ATN. Cardiac arrythmia. Septick shock. Diabetes. Hx of HTN. SVT. Possible aspiration pneumonia. S/P L AKA Psych disorder. ICU care. - Plan Plan: Vent support HHN. Renal dose dopamine drip for 48 hours. Pulmo toilet IV antibiotics as per ID. Pressor agents and wean off. Rate control add digoxin. GI and DVT prophylaxisis. Anticoagulation. Cardiac monitoring. General nursing care. Follow lab. Propofol drip. Follow consultants recommendations. Lactulose. Continue current care. Guarded prognosis. Diabetes management Symptoms control. Discussed with staff. Nutritional Asmnt/Malnutr-PDOC - Dietary Evaluation Malnutrition Findings (Please click <Entered> for more info): Nutritional Asmnt/Malnutrition Start: 05/15/17 16: 35 Text: Status: Complete Freq: Document 05/15/17 16:35 LCLALAG (Rec: 05/15/17 16:49 [facility]) Nutritional Asmnt/Malnutrition Patient General Information Nutritional Screening High Risk Diagnosis acute respiratory failure HTN Pertinent Medical Hx/Surgical Hx Dm, HTN, obesity, COPD, DJD, psychosis, left AKA Subjective Information Consult received for wounds. Pt seen resting in bed. Current Diet Order/ Nutrition Support diabetisource AC 200ml/hr bolus q 4hr Pertinent Medications novolog, culturelle, protonix, piperacillin Pertinent Labs 2/6 BUN 34, Cr 2.4, Glucose 137 POC 125-146 Nutritional Hx/Data Height 1.52 m Height (Calculated Centimeters) 152.4 Current Weight (lbs) 60.101 kg Weight (Calculated Kilograms) 60.1 Weight (Calculated Grams) 60587.0 [place] Body Weight 100 % [place] Body Weight 133 Body Mass Index (BMI) 25.9 Weight Status Overweight GI Symptoms GI Symptoms None Last BM 2/6 Difficult in: None Skin Integrity/Comment: open wound to buttocks Estimated Nutritional Goals BEE in Kcals: Adj wt of IBW Calories/Kcals/Kg 25-30 Kcals Calculated [id number] Protein: Adj wt of IBW Protein g/k.2-1.4 Protein Calculated 68-80 Fluid: ml 1425-1710ml (1ml/kcal) Nutritional Problem 1. Problem Problem increased nutrition needs ( calorie and protein) Etiology increased metabolic demands for wound healing Signs/Symptoms: open wound to buttocks Malnutrition Alert Protein-Calorie Malnutrition N/A Is there a minimum of two criteria No selected? Query Text:Check all the applicable criteria. A minimum of two criteria are recommended for diagnosis of either severe or non-severe malnutrition. Intervention/Recommendation Comments 1. Continue with current TF regimen. It provides 1440kcal, 72g protein, meeting 100% of nutritional needs. Recommend vitamin C to help with wound healing. 2. Monitor TF rate, tolerance, wt weekly, skin integrity and labs 3. F/U as moderate risk in 3-5 days, 05/18-05/20 Expected Outcomes/Goals Expected Outcomes/Goals 1. Pt to meet at least 75% of nutritional needs via nutrition support with tolerance 2. Wt stability, skin to remain intact, labs to approach WNL.
[2017-05-18 10:01] LABS: pH 7.46 (7.35-7.45)
--- NOTE | 2017-05-18 14:04 | Infectious Disease Prog Note ---
Infectious Disease Subjective - Review of Systems Service Date: 05/18/17 Subjective: Remains on Levophed. Intubated orally on the ventilator support. There is no fever. Infectious Disease Objective - Results Result Diagrams: 05/18/17 04:30 05/18/17 04:30 Recent Labs: Laboratory Last Values WBC 13.3 Th/cmm (4.8-10.8) H 05/18/17 04:30 RBC 3.40 Mil/cmm (3.80-5.10) L 05/18/17 04:30 Hgb 9.6 gm/dL (12-16) L 05/18/17 04:30 Hct 29.0 % (41.0-60) L 05/18/17 04:30 MCV 85.2 fl (81-100) 05/18/17 04:30 MCH 28.2 pg (27.0-31.0) 05/18/17 04:30 MCHC Differential 33.1 pg (28.0-36.0) 05/18/17 04:30 RDW 19.2 % (11.5-20.0) 05/18/17 04:30 Plt Count 197 Th/cmm (150-400) 05/18/17 04:30 MPV 10.8 fl 05/18/17 04:30 Neutrophils % 76.4 % (40.0-80.0) 05/16/17 07:40 Band Neutrophils % 12 % (0-10) H 05/18/17 04:30 Lymphocytes % 14.4 % (20.0-50.0) L 05/16/17 07:40 Monocytes % 8.6 % (2.0-10.0) 05/16/17 07:40 Eosinophils % 0.5 % (0.0-5.0) 05/16/17 07:40 Basophils % 0.1 % (0.0-2.0) 05/16/17 07:40 Neutrophils (Manual) 77 % (40-80) 05/18/17 04:30 Lymphocytes 6 % (20-50) L 05/18/17 04:30 Monocytes 5 % (2-10) 05/18/17 04:30 Eosinophils 1 % (0-5) 05/14/17 04:10 Platelet Estimate ADEQUATE (NORMAL) 05/18/17 04:30 Eos Smear Source URINE 05/16/17 10:00 Eos Smear Total Cells NONE SEEN (NONE SEEN) 05/16/17 10:00 PT 10.6 SECONDS (9.5-11.5) 05/13/17 11:24 INR 1.02 (0.5-1.4) 05/13/17 11:24 PTT (Actin FS) 25.9 SECONDS (26.0-38.0) L 05/13/17 11:24 D-Dimer 1930 ng/mL (100-400) H 05/11/17 01:00 Specimen Source Arterial 05/18/17 09:50 Sample Site RB 05/18/17 09:50 pH 7.46 (7.35-7.45) H 05/18/17 09:50 pCO2 53.0 mmHg (35.0-45.0) H 05/18/17 09:50 pO2 58.0 mmHg (80.0-100.0) L 05/18/17 09:50 HCO3 34.1 mEq/L (20.0-26.0) H 05/18/17 09:50 Base Excess 11.9 mEq/L (-3.0-3.0) H 05/18/17 09:50 O2 Saturation 91.0 % (92.0-100.0) L 05/18/17 09:50 Jermaine Test NA 05/18/17 09:50 Vent Rate 18 05/18/17 09:50 Inspired O2 45 05/18/17 09:50 Tidal Volume 400 05/18/17 09:50 PEEP 10 05/18/17 09:50 Pressure (ins/psv/peep) NA 05/18/17 09:50 Critical Value E.OCONNELL 05/18/17 09:50 Sodium 138 mEq/L (136-145) 05/18/17 04:30 Potassium 3.6 mEq/L (3.5-5.1) 05/18/17 04:30 Chloride 100 mEq/L (98-107) 05/18/17 04:30 Carbon Dioxide 31.2 mEq/L (21.0-31.0) H 05/18/17 04:30 Anion Gap 10.4 (7.0-16.0) 05/18/17 04:30 BUN 41 mg/dL (7-25) H 05/18/17 04:30 Creatinine 2.0 mg/dL (0.6-1.2) H 05/18/17 04:30 Est GFR ( Amer) 32.3 ml/min (>90) 05/18/17 04:30 Est GFR (Non-Af Amer) 26.7 ml/min 05/18/17 04:30 BUN/Creatinine Ratio 20.5 05/18/17 04:30 Glucose 128 mg/dL (70-105) H 05/18/17 04:30 POC Glucose 139 MG/DL (70 - 105) H 05/18/17 12:02 Whole Bld Lactic Acid 1.61 mmol/L (0.60-1.99) 05/16/17 07:40 Uric Acid 7.4 mg/dL (2.3-6.6) H 05/17/17 08:15 Calcium 9.0 mg/dL (8.6-10.3) 05/18/17 04:30 Phosphorus 3.2 mg/dL (2.5-5.0) 05/17/17 08:15 Magnesium 2.1 mg/dL (1.9-2.7) 05/17/17 08:15 Total Bilirubin 0.6 mg/dL (0.3-1.0) 05/18/17 04:30 Direct Bilirubin 0.08 mg/dL (0.0-0.2) 05/13/17 05:11 AST 128 U/L (13-39) H 05/18/17 04:30 ALT 131 U/L (7-52) H 05/18/17 04:30 Alkaline Phosphatase 38 U/L (34-104) 05/18/17 04:30 Ammonia 91 umol/L (16-53) H 05/15/17 06:30 Creatine Kinase 43 U/L (30-223) 05/11/17 17:46 Troponin I 0.09 ng/mL (0.01-0.05) H* D 05/13/17 05:11 B-Natriuretic Peptide 131.0 pg/mL (5.0-100.0) H 05/15/17 06:30 Total Protein 6.4 gm/dL (6.0-8.3) 05/18/17 04:30 Albumin 2.9 gm/dL (3.7-5.3) L 05/18/17 04:30 Globulin 3.5 gm/dL 05/18/17 04:30 Albumin/Globulin Ratio 0.8 (1.0-1.8) L 05/18/17 04:30 TSH 0.65 uIU/ml (0.34-5.60) 05/12/17 10:27 Urine Source ESTRELLA PORT 05/16/17 10:00 Urine Color YELLOW 05/16/17 10:00 Urine Clarity HAZY (CLEAR) 05/16/17 10:00 Urine pH 6.0 (4.6 - 8.0) 05/16/17 10:00 Ur Specific Rowe 1.020 (1.005-1.030) 05/16/17 10:00 Urine Protein 100 mg/dL (NEGATIVE) H 05/16/17 10:00 Urine Glucose (UA) NEGATIVE mg/dL (NEGATIVE) 05/16/17 10:00 Urine Ketones NEGATIVE mg/dL (NEGATIVE) 05/16/17 10:00 Urine Blood LARGE (NEGATIVE) H 05/16/17 10:00 Urine Nitrate NEGATIVE (NEGATIVE) 05/16/17 10:00 Urine Bilirubin NEGATIVE (NEGATIVE) 05/16/17 10:00 Urine Urobilinogen 0.2 E.U./dL (0.2 - 1.0) 05/16/17 10:00 Ur Leukocyte Esterase NEGATIVE (NEGATIVE) 05/16/17 10:00 Urine RBC 10-25 /hpf (0-5) H 05/16/17 10:00 Urine WBC 2-5 /hpf (0-5) 05/16/17 10:00 Ur Epithelial Cells FEW /lpf (FEW) 05/16/17 10:00 Urine Bacteria MODERATE /hpf (NONE SEEN) H 05/16/17 10:00 Coarse Granular Casts 0-2 /lpf (NONE SEEN) H 05/16/17 10:00 Urine Creatinine 80.4 mg/dl (28.0-217.0) 05/16/17 10:00 Vancomycin Trough 39.4 ug/mL (10-20) H 05/14/17 10:10 Random Vancomycin 13.9 ug/mL (5.0-40.0) 05/16/17 07:40 - Physical Exam Vitals and I&O: Vital Signs Temp 98.4 F 05/18/17 12:00 Pulse 120 05/18/17 13:30 Resp 27 05/18/17 13:00 BP 95/60 05/18/17 13:30 Pulse Ox 97 05/18/17 13:18 Intake & Output 05/17/17 05/18/17 05/18/17 18:59 06:59 18:59 Intake Total 1002.336 873.844 9352.643 Output Total 550 Balance 1002.336 251.608 467.643 Weight (lbs) 110.903 kg Intake: Intake, IV Amount 1002.336 251.608 317.643 Albumin 5% 12.5gm/250mL 500.000 12.5 gm In 250 ml @ 62.5 mls/hr IV Q8HR [facility] Rx#: [id number] Norepinephrine 8 mg In 402.336 105.664 185.420 Dextrose 5% 250 ml @ Per Protocol IV TITR PRN Rx#: [id number] Piperacillin Sodium/ 100 50 100 Tazobact 3.375 gm In Sodium Chloride 0.9% 50 ml @ 100 mls/hr IV Q6HR [facility] Rx#:[id number] Propofol 1,000 mg In 100 95.944 32.223 ml @ 30 MCG/KG/MIN 18.207 mls/hr IV TITR [facility] Rx#: [id number] Tube Feeding 600 Other 100 Output: Urine 550 Other: # Bowel Movements 2 Stool Characteristics Soft Soft Soft Formed Liquid Brown Active Medications: Current Medications Acetaminophen (Tylenol) 650 mg PO Q4HR PRN PRN Reason: Mild Pain / Temp above 100 Stop: 07/10/17 09:31 Last Admin: 05/16/17 21:51 Dose: 650 mg Albuterol/Ipratropium (Duoneb Neb) 3 ml HHN Q3H [facility] Stop: 07/10/17 01:14 Last Admin: 05/18/17 13:17 Dose: Not Given Amiodarone HCl (Cordarone) 200 mg PO BID [facility] Stop: 07/15/17 16:59 Last Admin: 05/18/17 08:55 Dose: 200 mg Aspirin (Aspirin Chewable) 81 mg NG DAILY [facility] Stop: 07/10/17 08:59 Last Admin: 05/18/17 08:55 Dose: 81 mg Budesonide (Pulmicort) 0.5 mg HHN Q12HRT [facility] Stop: 07/10/17 06:59 Last Admin: 05/17/17 21:03 Dose: 0.5 mg Chlorhexidine Gluconate (Peridex) 15 ml MM 08,1999 [facility] Stop: 07/13/17 07:59 Last Admin: 05/18/17 08:57 Dose: 15 ml Digoxin (Lanoxin) 0.25 mg IVP DAILY [facility] Stop: 07/18/17 08:59 Diltiazem HCl (Cardizem) 20 mg IVP Q4HR PRN PRN Reason: Tachycardia Stop: 07/14/17 18:16 Last Admin: 05/18/17 11:46 Dose: 20 mg Enoxaparin Sodium (Lovenox) 70 mg SUBQ BID [facility] Stop: 07/10/17 08:59 Last Admin: 05/18/17 08:55 Dose: 70 mg Piperacillin Sod/Tazobactam (Sod 3.375 gm/ Sodium Chloride) 50 mls @ 100 mls/ hr IV Q6HR [facility] Stop: 07/10/17 05:59 Last Infusion: 05/18/17 11:45 Dose: Infused Norepinephrine Bitartrate 8 mg (/ Dextrose) 254 mls @ 0 mls/hr IV TITR PRN; Protocol; Per Protocol PRN Reason: BP MAINTENANCE (PER PROTOCOL) Stop: 07/10/17 00:29 Last Admin: 05/18/17 13:21 Dose: 6 mcg/min, 11.43 mls/hr Propofol (Diprivan) 1,000 mg in 100 mls @ 18.207 mls/hr IV TITR [facility]; 30 MCG/KG/ MIN PRN Reason: Protocol Stop: 07/12/17 11:13 Last Admin: 05/18/17 13:21 Dose: 8 mcg/kg/min, 4.855 mls/hr Dopamine HCl/Dextrose (Dopamine) 400 mg in 250 mls @ 0 mls/hr IV TITR PRN; Protocol; Titrate PRN Reason: RENAL PERFUSION Stop: 07/16/17 08:59 Last Admin: 05/17/17 10:08 Dose: 2.09 mcg/kg/min, 8.7 mls/hr Insulin Aspart (Novolog Insulin Sliding Scale) 0 units SUBQ Q6HR [facility] PRN Reason: Protocol Stop: 07/10/17 05:59 Last Admin: 05/18/17 12:38 Dose: Not Given Lactobacillus Rhamnosus (Culturelle 15b) 1 each NG DAILY [facility] Stop: 07/13/17 08:59 Last Admin: 05/18/17 08:55 Dose: 1 each Lactulose (Cephulac) 30 gm PO BID [facility] Stop: 07/11/17 16:59 Last Admin: 05/18/17 08:54 Dose: 30 gm Miscellaneous (Vte Chemical Prophylaxis Screen/ Admission) 1 ea PRN PRN PRN Reason: PROTOCOL Stop: 07/10/17 16:49 Miscellaneous (Probiotic Screen) 1 ea PRN PRN PRN Reason: PROTOCOL Stop: 07/13/17 08:44 Morphine Sulfate (Morphine) 2 mg IVP Q4HR PRN PRN Reason: Pain (Moderate) Stop: 07/10/17 14:20 Last Admin: 05/17/17 10:19 Dose: 2 mg Mupirocin (Bactroban Oint) 1 appl NS BID [facility] Stop: 05/19/17 17:01 Last Admin: 05/18/17 08:56 Dose: 1 appl Nitroglycerin (Nitro-Bid) 1 inch TP Q6HR [facility] Stop: 07/10/17 07:59 Last Admin: 05/18/17 12:38 Dose: Not Given Pantoprazole Sodium (Protonix) 40 mg IVP QDAC [facility] Stop: 07/10/17 08:59 Last Admin: 05/18/17 08:56 Dose: 40 mg Valproate Sodium (Depakene) 500 mg PO BID [facility] PRN Reason: Protocol Stop: 07/10/17 16:59 Last Admin: 05/18/17 08:55 Dose: 500 mg General: no acute distress, well developed, well nourished HEENT: atraumatic, normocephalic, PERRLA, EOMI Neck: supple, no thyromegaly, no lymphadenopathy Cardiovascular: S1S2, regular Lungs: clear to auscultation bilaterally, clear to percussion Abdomen: soft, no tender, no distended, no mass Extremities: no cyanosis, no clubbing, no edema Neurological: awake, other (sedated) - Procedures Procedures: Procedures Procedure Code Date INSERT EMERGENCY AIRWAY 45649 05/10/17 INSERTION OF ENDOTRACHEAL AIRWAY INTO [place]HEA, VIA OPENING [id number] 05/10/17 RESPIRATORY VENTILATION, GREATER THAN 96 CONSECUTIVE HOURS [id number] 05/10/17 VENT MGMT INPAT INIT DAY 05/10/17 VENT MGMT INPAT SUBQ DAY 05/10/17 Infectious Disease Assmt/Plan - Assessment Assessment: 1. Sepsis. 2. Pneumonia. 3. VDRF. 4, DM2 5. COPD. 6. HTN. 7. Obesity. 8. TIMA - Plan Plan: Conitue zosyn. Start Zyvox. Avoid vancomycin at this time as patient has developed acute renal failure. Nutritional Asmnt/Malnutr-PDOC - Dietary Evaluation Malnutrition Findings (Please click <Entered> for more info): Nutritional Asmnt/Malnutrition Start: 05/15/17 16: 35 Text: Status: Complete Freq: Document 05/15/17 16:35 PASCUAL (Rec: 05/15/17 16:49 PASCUAL [email or web address]) Nutritional Asmnt/Malnutrition Patient General Information Nutritional Screening High Risk Diagnosis acute respiratory failure HTN Pertinent Medical Hx/Surgical Hx Dm, HTN, obesity, COPD, DJD, psychosis, left AKA Subjective Information Consult received for wounds. Pt seen resting in bed. Current Diet Order/ Nutrition Support diabetisource AC 200ml/hr bolus q 4hr Pertinent Medications novolog, culturelle, protonix, piperacillin Pertinent Labs 2 BUN 34, Cr 2.4, Glucose 137 POC 125-146 Nutritional Hx/Data Height 1.52 m Height (Calculated Centimeters) 152.4 Current Weight (lbs) 60.101 kg Weight (Calculated Kilograms) 60.1 Weight (Calculated Grams) 49640.0 [place] Body Weight 100 % [place] Body Weight 133 Body Mass Index (BMI) 25.9 Weight Status Overweight GI Symptoms GI Symptoms None Last BM 2/6 Difficult in: None Skin Integrity/Comment: open wound to buttocks Estimated Nutritional Goals BEE in Kcals: Adj wt of IBW Calories/Kcals/Kg 25-30 Kcals Calculated 3248-4238 Protein: Adj wt of IBW Protein g/k.2-1.4 Protein Calculated 68-80 Fluid: ml 1425-1710ml (1ml/kcal) Nutritional Problem 1. Problem Problem increased nutrition needs ( calorie and protein) Etiology increased metabolic demands for wound healing Signs/Symptoms: open wound to buttocks Malnutrition Alert Protein-Calorie Malnutrition N/A Is there a minimum of two criteria No selected? Query Text:Check all the applicable criteria. A minimum of two criteria are recommended for diagnosis of either severe or non-severe malnutrition. Intervention/Recommendation Comments 1. Continue with current TF regimen. It provides 1440kcal, 72g protein, meeting 100% of nutritional needs. Recommend vitamin C to help with wound healing. 2. Monitor TF rate, tolerance, wt weekly, skin integrity and labs 3. F/U as moderate risk in 3-5 days, 05/18-05/20 Expected Outcomes/Goals Expected Outcomes/Goals 1. Pt to meet at least 75% of nutritional needs via nutrition support with tolerance 2. Wt stability, skin to remain intact, labs to approach WNL.
[2017-05-18] MEDS: Linezolid 600mg/300mL 600 MG/300 ML BAG IV SCH (17:55)
[2017-05-18] MEDS: Budesonide 0.5 Mg/2 mL Ud HHN SCH (19:15)
[2017-05-18] MEDS: DOPamine 400 MG/250 ML BAG IV PRN (23:24)
--- NOTE | 2017-05-18 23:40 | Progress Notes ---
DATE: 05/18/2017 PULMONARY PROGRESS NOTE. PROBLEM LIST: 1. Acute respiratory failure. 2. Underlying cardiac arrhythmia, possibly congestive heart failure. 3. Psychosis. 4. Left leg above knee amputation. 5. History of possibly chronic obstructive pulmonary disease. SYMPTOMS: The patient is still obtunded, not sleepy, sedated. No respiratory distress. PHYSICAL EXAMINATION: VITAL SIGNS: Temperature is 98, blood pressure 120/78, respiration 15, heart rate is 98. NECK: Veins not visualized. CHEST: Shows diminished air entry with occasional rhonchi. HEART: Regular. ABDOMEN: Soft, nontender. EXTREMITIES: Shows no peripheral edema. LABORATORY DATA: The patient's electrolytes are okay. White count is 13.3 and hemoglobin is 9.6. ABG shows compensated respiratory acidemia. Electrolytes are okay with BUN is 32 and mild elevation of SGOT and PT. The patient is clinically stable, not much changed. Continued with respiratory failure. PLANS AND SUGGESTIONS: We will go ahead and continue current treatment. We will discuss with RT about raising FIO2. We will follow through another chest x-ray including blood gases tomorrow and go from there. JOB# [id number]
[2017-05-19] MEDS: NITROGLYCERIN OINT 2% 1 INCH PACKET TP SCH ×4 (00:20→18:00)
--- NOTE | 2017-05-19 00:29 | Progress Notes ---
DATE: 05/18/2017 SUBJECTIVE: The patient is sedated on propofol drip. OBJECTIVE: VITAL SIGNS: Blood pressure is 126/88, temperature 98.2, pulse 110, respirations 18. HEENT: Normocephalic, atraumatic. Pupils equal, round, reacting to light. CARDIOVASCULAR: S1, S2 heard, regular rate and rhythm, tachycardic. LUNGS: Clear to auscultation bilaterally. ABDOMEN: Soft. No hepatosplenomegaly. EXTREMITIES: Left BKA. Right lower extremity normal edema. LABS: Serum creatinine is down to 2.0, sodium 138, potassium 3.6, chloride 100, bicarbonate 31, glucose 128, BUN 41, creatinine 2.0. WBC 13.3, hemoglobin is 9.6, hematocrit 29.0, platelet count 197,000. ASSESSMENT AND PLAN: 1. Acute renal failure, improving with renal dose dopamine at 2 mcg/kg/minute. We will continue this. Urine output is good. 2. Septic shock has improved. The patient is on intravenous antibiotics. 3. Respiratory failure, better; on breathing treatment for chronic obstructive pulmonary disease. 4. Hypertension, currently normotensive. Restart medications when blood pressure goes up. 5. History of diabetes mellitus. Cover with sliding scale insulin. JOB# [id number]
[2017-05-19] MEDS: INSULIN ASPART SLIDING SCALE 100 UNITS/ML UNIT SUBQ SCH ×3 (00:30→18:00)
[2017-05-19] MEDS: Albuterol/Ipratropium Neb 3 ML AERS HHN SCH ×8 (03:21→21:37)
[2017-05-19] MEDS: Linezolid 600mg/300mL 600 MG/300 ML BAG IV SCH ×2 (03:48→15:08)
[2017-05-19 04:51] LABS: % BASOPHILS 1.7 % (0.0-2.0); % EOSINOPHILS 1.3 % (0.0-5.0); % LYMPHOCYTES 8.7 % (20.0-50.0); % NEUTROPHILS 82.3 % (40.0-80.0); BASOPHILE ABSOLUTE 0.2 Th/cumm (0-0.2); EOSINOPHILE ABSOLUTE 0.1 Th/cmm (0.1-0.4); HEMATOCRIT 27.1 % (41.0-60); HEMOGLOBIN 8.9 gm/dL (12-16); MEAN CELL VOLUME 85.8 fl (81-100); MEAN CORPUSCULAR HEMOGLOBIN 28.4 pg (27.0-31.0); MEAN CORPUSCULAR HGB CONC 33.1 pg (28.0-36.0); MEAN PLATELET VOLUME 11.2 fl; MONOCYTE ABSOLUTE 0.7 Th/cmm (0.3-1.0); NEUTROPHILE ABSOLUTE 9.5 Th/cmm (1.8-8.0); PLATELET COUNT 208 Th/cmm (150-400); RED BLOOD COUNT 3.15 Mil/cmm (3.80-5.10); RED CELL DISTRIBUTION WIDTH 19.3 % (11.5-20.0); WHITE BLOOD COUNT 11.5 Th/cmm (4.8-10.8)
[2017-05-19 05:50] LABS: ALB/GLOB RATIO 0.7 (1.0-1.8); ALBUMIN 2.8 gm/dL (3.7-5.3); ANION GAP 10.5 (7.0-16.0); BILIRUBIN,TOTAL 0.6 mg/dL (0.3-1.0); CALCIUM SERUM 9.2 mg/dL (8.6-10.3); CARBON DIOXIDE 33.9 mEq/L (21.0-31.0); GFR AFRICAN-AMERICAN 32.3 ml/min (>90); GFR NON AFRICAN-AMERICAN 26.7 ml/min; POTASSIUM SERUM 3.4 mEq/L (3.5-5.1); TOTAL PROTEIN,SERUM 6.8 gm/dL (6.0-8.3)
[2017-05-19] MEDS: Budesonide 0.5 Mg/2 mL Ud HHN SCH ×2 (07:32→18:36)
[2017-05-19] MEDS: Diltiazem 5 mg/mL 5mL Vial IVP PRN ×2 (07:41→19:54)
[2017-05-19] MEDS: Chlorhexidine Gluconate 0.12% 15mL Mouthwash MM SCH ×2 (08:00→19:32)
[2017-05-19] MEDS: Aspirin 81mg Chewable Tab NG SCH (08:35)
[2017-05-19] MEDS: Enoxaparin 80 mg/0.8 mL 0.8mL Syr SUBQ SCH ×2 (08:36→16:54)
--- NOTE | 2017-05-19 08:41 | Diagnostic Imaging Report ---
Portable chest x-ray HISTORY: Shortness of breath Compared with the prior exam of May 18, 2017, there is persistent marked cardiomegaly. There remains opacification of the left lower hemithorax consistent with a pleural effusion. An endotracheal tube tip is approximately 4.0 cm above the mindy. IMPRESSION: 1. No significant change in the cardiopulmonary status.
[2017-05-19] MEDS: Lactulose 10 Gm/15 mL 30mL UDC PO SCH ×2 (09:00→16:53)
[2017-05-19] MEDS: Lactobacillus Rhamnosus GG 15 Billion CFU CAP.SPRINK NG SCH (09:17)
[2017-05-19] MEDS ORDERED: Potassium Chloride Elixir 20 mEq /15 mL UDC GT ONE (09:25)
[2017-05-19 09:27] LABS: pH 7.48 (7.35-7.45)
--- NOTE | 2017-05-19 22:12 | Progress Notes ---
DATE: 05/19/2017 SUBJECTIVE: The patient is intubated on the vent and sedated. OBJECTIVE: VITAL SIGNS: Blood pressure is 108/66, temperature is 98.2, pulse is 117, and respirations 24. CARDIOVASCULAR: S1, S2 heard, tachycardic. LUNGS: Clear to auscultation bilaterally. ABDOMEN: Soft. No hepatosplenomegaly. EXTREMITIES: There is no cyanosis, clubbing, or edema. LABORATORY DATA: WBC 11.5, hemoglobin 8.9, hematocrit 27.1, and platelet count 208,000. Sodium is 140, potassium 3.4, chloride 99, bicarbonate 33.9, BUN 42, creatinine 2.0, glucose 114, calcium 9.2, total bilirubin 0.6, AST 118, ALT 123, alkaline phosphatase 37, ammonia 74, total protein 6.8, albumin 2.8, and globulin 4.0. ASSESSMENT AND PLAN: 1. Acute renal failure. If there is no further improvement with dopamine, urine output remained steady, we will use Lasix to maintain urine output if necessary while waiting for renal failure to improve. 2. Septic shock, improved. The patient is on intravenous antibiotics. 3. Respiratory failure, was better, intubated on vent and on breathing treatment for chronic obstructive pulmonary disease. 4. Hypertension, currently normotensive. Restart medications if blood pressure goes up. 5. History of diabetes mellitus, cover with sliding scale insulin. JOB# [id number]
[2017-05-19] MEDS ORDERED: Diltiazem 5 mg/mL 5mL Vial IVP STA (22:31)
[2017-05-19] MEDS ORDERED: Diltiazem 5 mg/mL 25mL Vial IV ONE (22:37)
[2017-05-19] MEDS ORDERED: Diltiazem 5 mg/mL 5mL Vial IVP ONE (22:39)
--- NOTE | 2017-05-19 23:36 | Infectious Disease Prog Note ---
Infectious Disease Subjective - Review of Systems Service Date: 05/19/17 Subjective: Remains on Levophed. Intubated orally on the ventilator support. There is no fever. Infectious Disease Objective - Results Result Diagrams: 05/20/17 13:35 05/20/17 13:35 Recent Labs: Laboratory Last Values WBC 11.5 Th/cmm (4.8-10.8) H 05/19/17 04:25 RBC 3.15 Mil/cmm (3.80-5.10) L 05/19/17 04:25 Hgb 8.9 gm/dL (12-16) L 05/19/17 04:25 Hct 27.1 % (41.0-60) L 05/19/17 04:25 MCV 85.8 fl (81-100) 05/19/17 04:25 MCH 28.4 pg (27.0-31.0) 05/19/17 04:25 MCHC Differential 33.1 pg (28.0-36.0) 05/19/17 04:25 RDW 19.3 % (11.5-20.0) 05/19/17 04:25 Plt Count 208 Th/cmm (150-400) 05/19/17 04:25 MPV 11.2 fl 05/19/17 04:25 Neutrophils % 82.3 % (40.0-80.0) H 05/19/17 04:25 Band Neutrophils % 12 % (0-10) H 05/18/17 04:30 Lymphocytes % 8.7 % (20.0-50.0) L 05/19/17 04:25 Monocytes % 6.0 % (2.0-10.0) 05/19/17 04:25 Eosinophils % 1.3 % (0.0-5.0) 05/19/17 04:25 Basophils % 1.7 % (0.0-2.0) 05/19/17 04:25 Neutrophils (Manual) 77 % (40-80) 05/18/17 04:30 Lymphocytes 6 % (20-50) L 05/18/17 04:30 Monocytes 5 % (2-10) 05/18/17 04:30 Eosinophils 1 % (0-5) 05/14/17 04:10 Platelet Estimate ADEQUATE (NORMAL) 05/18/17 04:30 Eos Smear Source URINE 05/16/17 10:00 Eos Smear Total Cells NONE SEEN (NONE SEEN) 05/16/17 10:00 PT 10.6 SECONDS (9.5-11.5) 05/13/17 11:24 INR 1.02 (0.5-1.4) 05/13/17 11:24 PTT (Actin FS) 25.9 SECONDS (26.0-38.0) L 05/13/17 11:24 D-Dimer 1930 ng/mL (100-400) H 05/11/17 01:00 Specimen Source Arterial 05/19/17 09:00 Sample Site RB 05/19/17 09:00 pH 7.48 (7.35-7.45) H 05/19/17 09:00 pCO2 51.0 mmHg (35.0-45.0) H 05/19/17 09:00 pO2 88.0 mmHg (80.0-100.0) 05/19/17 09:00 HCO3 34.8 mEq/L (20.0-26.0) H 05/19/17 09:00 Base Excess 12.6 mEq/L (-3.0-3.0) H 05/19/17 09:00 O2 Saturation 97.0 % (92.0-100.0) 05/19/17 09:00 Jermaine Test NA 05/19/17 09:00 Vent Rate 18 05/19/17 09:00 Inspired O2 60 05/19/17 09:00 Tidal Volume 400 05/19/17 09:00 PEEP 10 05/19/17 09:00 Pressure (ins/psv/peep) NA 05/19/17 09:00 Critical Value SH 05/19/17 09:00 Sodium 140 mEq/L (136-145) 05/19/17 04:25 Potassium 3.4 mEq/L (3.5-5.1) L 05/19/17 04:25 Chloride 99 mEq/L (98-107) 05/19/17 04:25 Carbon Dioxide 33.9 mEq/L (21.0-31.0) H 05/19/17 04:25 Anion Gap 10.5 (7.0-16.0) 05/19/17 04:25 BUN 42 mg/dL (7-25) H 05/19/17 04:25 Creatinine 2.0 mg/dL (0.6-1.2) H 05/19/17 04:25 Est GFR ( Amer) 32.3 ml/min (>90) 05/19/17 04:25 Est GFR (Non-Af Amer) 26.7 ml/min 05/19/17 04:25 BUN/Creatinine Ratio 21.0 05/19/17 04:25 Glucose 114 mg/dL (70-105) H 05/19/17 04:25 POC Glucose 125 MG/DL (70 - 105) H 05/19/17 17:59 Whole Bld Lactic Acid 1.61 mmol/L (0.60-1.99) 05/16/17 07:40 Uric Acid 7.4 mg/dL (2.3-6.6) H 05/17/17 08:15 Calcium 9.2 mg/dL (8.6-10.3) 05/19/17 04:25 Phosphorus 3.2 mg/dL (2.5-5.0) 05/17/17 08:15 Magnesium 2.1 mg/dL (1.9-2.7) 05/17/17 08:15 Total Bilirubin 0.6 mg/dL (0.3-1.0) 05/19/17 04:25 Direct Bilirubin 0.08 mg/dL (0.0-0.2) 05/13/17 05:11 AST 118 U/L (13-39) H 05/19/17 04:25 ALT 123 U/L (7-52) H 05/19/17 04:25 Alkaline Phosphatase 37 U/L (34-104) 05/19/17 04:25 Ammonia 74 umol/L (16-53) H 05/19/17 04:25 Creatine Kinase 43 U/L (30-223) 05/11/17 17:46 Troponin I 0.09 ng/mL (0.01-0.05) H* D 05/13/17 05:11 B-Natriuretic Peptide 131.0 pg/mL (5.0-100.0) H 05/15/17 06:30 Total Protein 6.8 gm/dL (6.0-8.3) 05/19/17 04:25 Albumin 2.8 gm/dL (3.7-5.3) L 05/19/17 04:25 Globulin 4.0 gm/dL 05/19/17 04:25 Albumin/Globulin Ratio 0.7 (1.0-1.8) L 05/19/17 04:25 TSH 0.65 uIU/ml (0.34-5.60) 05/12/17 10:27 Urine Source [place]A [place] 05/16/17 10:00 Urine Color YELLOW 05/16/17 10:00 Urine Clarity HAZY (CLEAR) 05/16/17 10:00 Urine pH 6.0 (4.6 - 8.0) 05/16/17 10:00 Ur Specific [place] 1.020 (1.005-1.030) 05/16/17 10:00 Urine Protein 100 mg/dL (NEGATIVE) H 05/16/17 10:00 Urine Glucose (UA) NEGATIVE mg/dL (NEGATIVE) 05/16/17 10:00 Urine Ketones NEGATIVE mg/dL (NEGATIVE) 05/16/17 10:00 Urine Blood LARGE (NEGATIVE) H 05/16/17 10:00 Urine Nitrate NEGATIVE (NEGATIVE) 05/16/17 10:00 Urine Bilirubin NEGATIVE (NEGATIVE) 05/16/17 10:00 Urine Urobilinogen 0.2 E.U./dL (0.2 - 1.0) 05/16/17 10:00 Ur Leukocyte Esterase NEGATIVE (NEGATIVE) 05/16/17 10:00 Urine RBC 10-25 /hpf (0-5) H 05/16/17 10:00 Urine WBC 2-5 /hpf (0-5) 05/16/17 10:00 Ur Epithelial Cells FEW /lpf (FEW) 05/16/17 10:00 Urine Bacteria MODERATE /hpf (NONE SEEN) H 05/16/17 10:00 Coarse Granular Casts 0-2 /lpf (NONE SEEN) H 05/16/17 10:00 Urine Creatinine 80.4 mg/dl (28.0-217.0) 05/16/17 10:00 Vancomycin Trough 39.4 ug/mL (10-20) H 05/14/17 10:10 Random Vancomycin 13.9 ug/mL (5.0-40.0) 05/16/17 07:40 - Physical Exam Vitals and I&O: Vital Signs Temp 99.9 F 05/19/17 22:00 Pulse 128 05/19/17 23:22 Resp 26 02//18 22:00 BP 101/58 05/19/17 23:22 Pulse Ox 100 05/19/17 22:00 Intake & Output 05/19/17 05/19/17 05/20/17 06:59 18:59 06:59 Intake Total 700 1492.330 300.414 Output Total 1100 Balance 700 392.330 300.414 Weight (lbs) 110.677 kg Intake: Intake, IV Amount 700 642.330 300.414 Linezolid 600mg/300mL 600 600 300 mg In 300 ml @ 300 mls/ hr IV Q12H [facility] Rx#: [id number] Norepinephrine 8 mg In 154.293 216.358 Dextrose 5% 250 ml @ Per Protocol IV TITR PRN Rx#: [id number] Piperacillin Sodium/ 100 100 Tazobact 3.375 gm In Sodium Chloride 0.9% 50 ml @ 100 mls/hr IV Q6HR [facility] Rx#:[id number] Propofol 1,000 mg In 100 88.037 84.056 ml @ 30 MCG/KG/MIN 18.207 mls/hr IV TITR [facility] Rx#: [id number] Tube Feeding 600 Other 250 Output: Urine 1100 Stool 0 Other: # Bowel Movements 0 Stool Characteristics Liquid Brown Active Medications: Current Medications Acetaminophen (Tylenol) 650 mg PO Q4HR PRN PRN Reason: Mild Pain / Temp above 100 Stop: 07/10/17 09:31 Last Admin: 05/19/17 01:36 Dose: 650 mg Albuterol/Ipratropium (Duoneb Neb) 3 ml HHN Q3H [facility] Stop: 07/10/17 01:14 Last Admin: 05/19/17 21:37 Dose: 3 ml Amiodarone HCl (Cordarone) 200 mg PO BID [facility] Stop: 07/15/17 16:59 Last Admin: 05/19/17 16:53 Dose: 200 mg Aspirin (Aspirin Chewable) 81 mg NG DAILY [facility] Stop: 07/10/17 08:59 Last Admin: 05/19/17 08:35 Dose: 81 mg Budesonide (Pulmicort) 0.5 mg HHN Q12HRT [facility] Stop: 07/10/17 06:59 Last Admin: 05/19/17 18:36 Dose: 0.5 mg Chlorhexidine Gluconate (Peridex) 15 ml MM 0800,2000 [facility] Stop: 07/13/17 07:59 Last Admin: 05/19/17 19:32 Dose: 15 ml Digoxin (Lanoxin) 0.25 mg IVP 2310 [facility] Stop: 05/20/17 05:00 Last Admin: 05/19/17 23:12 Dose: 0.25 mg Diltiazem HCl (Cardizem) 20 mg IVP Q4HR PRN PRN Reason: Tachycardia Stop: 07/14/17 18:16 Last Admin: 05/19/17 19:54 Dose: 20 mg Enoxaparin Sodium (Lovenox) 70 mg SUBQ BID [facility] Stop: 07/10/17 08:59 Last Admin: 05/19/17 16:54 Dose: 70 mg Piperacillin Sod/Tazobactam (Sod 3.375 gm/ Sodium Chloride) 50 mls @ 100 mls/ hr IV Q6HR [facility] Stop: 07/10/17 05:59 Last Infusion: 05/19/17 18:16 Dose: Infused Norepinephrine Bitartrate 8 mg (/ Dextrose) 254 mls @ 0 mls/hr IV TITR PRN; Protocol; Per Protocol PRN Reason: BP MAINTENANCE (PER PROTOCOL) Stop: 07/10/17 00:29 Last Admin: 05/19/17 23:25 Dose: 15 mcg/min, 28.57 mls/hr Propofol (Diprivan) 1,000 mg in 100 mls @ 18.207 mls/hr IV TITR [facility]; 30 MCG/KG/ MIN PRN Reason: Protocol Stop: 07/12/17 11:13 Last Admin: 05/19/17 21:20 Dose: 10 mcg/kg/min, 6.069 mls/hr Linezolid (Zyvox) 600 mg in 300 mls @ 300 mls/hr IV Q12H [facility] Stop: 07/17/17 14:59 Last Infusion: 05/19/17 16:08 Dose: Infused Diltiazem HCl 125 mg/ Dextrose 125 mls @ 5 mls/hr IV TITR [facility]; 5 MG/HR PRN Reason: Protocol Stop: 07/18/17 22:44 Last Admin: 05/19/17 23:22 Dose: 5 mg/hr, 5 mls/hr Insulin Aspart (Novolog Insulin Sliding Scale) 0 units SUBQ Q6HR [facility] PRN Reason: Protocol Stop: 07/10/17 05:59 Last Admin: 05/19/17 18:00 Dose: Not Given Lactobacillus Rhamnosus (Culturelle 15b) 1 each NG DAILY [facility] Stop: 07/13/17 08:59 Last Admin: 05/19/17 09:17 Dose: 1 each Lactulose (Cephulac) 30 gm PO BID [facility] Stop: 07/11/17 16:59 Last Admin: 05/19/17 16:53 Dose: 30 gm Miscellaneous (Vte Chemical Prophylaxis Screen/ Admission) 1 ea PRN PRN PRN Reason: PROTOCOL Stop: 07/10/17 16:49 Miscellaneous (Probiotic Screen) 1 ea PRN PRN PRN Reason: PROTOCOL Stop: 07/13/17 08:44 Nitroglycerin (Nitro-Bid) 1 inch TP Q6HR [facility] Stop: 07/10/17 07:59 Last Admin: 05/19/17 18:00 Dose: Not Given Pantoprazole Sodium (Protonix) 40 mg IVP QDAC [facility] Stop: 07/10/17 08:59 Last Admin: 05/19/17 08:20 Dose: 40 mg General: no acute distress, well developed, well nourished HEENT: atraumatic, normocephalic, PERRLA Neck: supple, no thyromegaly Cardiovascular: S1S2, regular Lungs: clear to percussion, crackles Abdomen: soft, no tender, no distended, no rebound Extremities: no cyanosis, no clubbing, no edema Neurological: awake, alert, other (sedated) - Procedures Procedures: Procedures Procedure Code Date INSERT EMERGENCY AIRWAY 24825 05/10/17 INSERTION OF ENDOTRACHEAL AIRWAY INTO TRACHEA, VIA OPENING [id number] 05/10/17 RESPIRATORY VENTILATION, GREATER THAN 96 CONSECUTIVE HOURS [id number] 05/10/17 VENT MGMT INPAT INIT DAY 05/10/17 VENT MGMT INPAT SUBQ DAY 05/10/17 Infectious Disease Assmt/Plan - Assessment Assessment: 1. Sepsis. 2. Pneumonia. 3. VDRF. 4, DM2 5. COPD. 6. HTN. 7. Obesity. 8. TIMA - Plan Plan: Conitue zosyn and Zyvox. Avoid vancomycin at this time as patient has developed acute renal failure. Nutritional Asmnt/Malnutr-PDOC - Dietary Evaluation Malnutrition Findings (Please click <Entered> for more info): Nutritional Asmnt/Malnutrition Start: 05/15/17 16: 35 Text: Status: Complete Freq: Document 05/15/17 16:35 KEYLAKATHERINE (Rec: 05/15/17 16:49 [email or web address] [email or web address]) Nutritional Asmnt/Malnutrition Patient General Information Nutritional Screening High Risk Diagnosis acute respiratory failure HTN Pertinent Medical Hx/Surgical Hx Dm, HTN, obesity, COPD, DJD, psychosis, left AKA Subjective Information Consult received for wounds. Pt seen resting in bed. Current Diet Order/ Nutrition Support diabetisource AC 200ml/hr bolus q 4hr Pertinent Medications novolog, culturelle, protonix, piperacillin Pertinent Labs 05/15 BUN 34, Cr 2.4, Glucose 137 POC 125-146 Nutritional Hx/Data Height 1.52 m Height (Calculated Centimeters) 152.4 Current Weight (lbs) 60.101 kg Weight (Calculated Kilograms) 60.1 Weight (Calculated Grams) 15574.0 Badger Body Weight 100 % Badger Body Weight 133 Body Mass Index (BMI) 25.9 Weight Status Overweight GI Symptoms GI Symptoms None Last BM 2/6 Difficult in: None Skin Integrity/Comment: open wound to buttocks Estimated Nutritional Goals BEE in Kcals: Adj wt of IBW Calories/Kcals/Kg 25-30 Kcals Calculated 4046-6075 Protein: Adj wt of IBW Protein g/k.2-1.4 Protein Calculated 68-80 Fluid: ml 1425-1710ml (1ml/kcal) Nutritional Problem 1. Problem Problem increased nutrition needs ( calorie and protein) Etiology increased metabolic demands for wound healing Signs/Symptoms: open wound to buttocks Malnutrition Alert Protein-Calorie Malnutrition N/A Is there a minimum of two criteria No selected? Query Text:Check all the applicable criteria. A minimum of two criteria are recommended for diagnosis of either severe or non-severe malnutrition. Intervention/Recommendation Comments 1. Continue with current TF regimen. It provides 1440kcal, 72g protein, meeting 100% of nutritional needs. Recommend vitamin C to help with wound healing. 2. Monitor TF rate, tolerance, wt weekly, skin integrity and labs 3. F/U as moderate risk in 3-5 days, 05/18-05/20 Expected Outcomes/Goals Expected Outcomes/Goals 1. Pt to meet at least 75% of nutritional needs via nutrition support with tolerance 2. Wt stability, skin to remain intact, labs to approach WNL.
--- NOTE | 2017-05-19 23:47 | Progress Notes ---
DATE: 05/19/2017 PULMONARY PROGRESS NOTE PROBLEM LIST: 1. Acute respiratory failure, mostly cardiac. 2. Question of chronic obstructive pulmonary disease. 3. Underlying multiple psychiatric illness. SYMPTOMS: The patient is sedated. No respiratory distress, etc. PHYSICAL EXAMINATION: VITAL SIGNS: The patient's recorded vitals: Temperature 99, heart rate 110-133, blood pressure 94/65, saturation 100% on 60%. NECK: Veins not visualized. CHEST: Shows diminished air entry with occasional rhonchi. HEART: Regular. ABDOMEN: Soft, nontender. LABORATORY DATA: White count is 11,500 and the patient's pO2 is 88 on 60% of oxygen. ASSESSMENT: The patient is clinically stable, not much change. PLANS AND SUGGESTIONS: We will repeat another chest x-ray, decrease FiO2 and go from there. JOB# [id number]
[2017-05-20] MEDS: Albuterol/Ipratropium Neb 3 ML AERS HHN SCH ×8 (00:37→19:36)
[2017-05-20] MEDS: INSULIN ASPART SLIDING SCALE 100 UNITS/ML UNIT SUBQ SCH ×4 (00:38→18:25)
[2017-05-20] MEDS: Linezolid 600mg/300mL 600 MG/300 ML BAG IV SCH ×2 (02:44→16:05)
--- NOTE | 2017-05-20 03:01 | Progress Notes ---
DATE: 05/19/2017 SUBJECTIVE: A 66-year-old female patient seen and examined in ICU bed 8. The patient is currently intubated and sedated. Discussed with nursing staff about the treatment plan. The patient continued to remain tachycardic. The patient's heart rate is ranging from 130-140. The patient is sedated, currently on Levophed drip along with dopamine as well as a propofol drip. OBJECTIVE: VITAL SIGNS: Blood pressure is 101/65, mean blood pressure around 90. HEENT: Oral endotracheal tube noted. NECK: Supple. No JVD. HEART: Both heart sounds are regular. CHEST AND LUNGS: Equal in expansion with expiratory wheezing. ABDOMEN: Soft. No guarding, rigidity. Bowel sounds are present. EXTREMITIES: Left above-knee amputation noted. AVAILABLE DIAGNOSTIC DATA: White count of 11.5, hemoglobin of 8.9, platelet count of 208. PH of 7.48, pCO2 of 51, pO2 of 88, O2 sat 97%. Potassium was 3.4, BUN and creatinine is 42 and 2.0. AST, ALT is 118 and 123. Chest x-ray done on this morning May 19, no significant change is noted. CLINICAL IMPRESSION: 1. ARDS. 2. Respiratory failure, required endotracheal intubation and mechanical ventilation. 3. SVT. 4. Diabetes. 5. Acute kidney injury. 6. Abnormal liver function tests. 7. Hepatic encephalopathy. 8. Obesity. 9. Underlying obstructive sleep apnea. 10. Psychiatric disorder history. 11. Septic shock. 12. Aspiration pneumonia. 13. Status post left above-knee amputation. PLAN: 1. Vent support. 2. Nebulizer treatment. 3. Rate control. 4. ____ dopamine drip. 5. Nebulizer treatment. 6. Pulmonary consult and follow up. 7. Cardia consult and follow up. 8. Renal consult and follow up. 9. Tube feeding. 10. Symptoms management. 11. Medication management. 12. Anticoagulation therapy. 13. Follow lab. 14. Lactulose. 15. Guarded prognosis. 16. Symptoms controlled. 17. Medication management. 18. Care plan reviewed and discussed with staff. JOB# [id number]
[2017-05-20] MEDS: NITROGLYCERIN OINT 2% 1 INCH PACKET TP SCH ×4 (05:33→17:32)
[2017-05-20 06:58] LABS: ALB/GLOB RATIO 0.7 (1.0-1.8); ALBUMIN 2.8 gm/dL (3.7-5.3); ANION GAP 10.5 (7.0-16.0); BILIRUBIN,TOTAL 0.6 mg/dL (0.3-1.0); CARBON DIOXIDE 32.5 mEq/L (21.0-31.0); CREATININE - SERUM 2.7 mg/dL (0.6-1.2); GFR AFRICAN-AMERICAN 22.8 ml/min (>90); GFR NON AFRICAN-AMERICAN 18.9 ml/min; MAGNESIUM 2.7 mg/dL (1.9-2.7)
[2017-05-20] MEDS: Budesonide 0.5 Mg/2 mL Ud HHN SCH ×2 (07:11→19:35)
[2017-05-20 07:22] LABS: % EOSINOPHILS 0.3 % (0.0-5.0); % LYMPHOCYTES 11.5 % (20.0-50.0); % MONOCYTES 9.5 % (2.0-10.0); % NEUTROPHILS 78.7 % (40.0-80.0); HEMATOCRIT 25.3 % (41.0-60); HEMOGLOBIN 8.6 gm/dL (12-16); LYMPHOCYTE ABSOLUTE 1.3 Th/cmm (1.5-3.0); MEAN CORPUSCULAR HEMOGLOBIN 28.8 pg (27.0-31.0); MEAN CORPUSCULAR HGB CONC 33.9 pg (28.0-36.0); MEAN PLATELET VOLUME 10.4 fl; MONOCYTE ABSOLUTE 1.1 Th/cmm (0.3-1.0); NEUTROPHILE ABSOLUTE 8.8 Th/cmm (1.8-8.0); PLATELET COUNT 199 Th/cmm (150-400); RED BLOOD COUNT 2.98 Mil/cmm (3.80-5.10); RED CELL DISTRIBUTION WIDTH 18.2 % (11.5-20.0); WHITE BLOOD COUNT 11.2 Th/cmm (4.8-10.8)
[2017-05-20] MEDS: Chlorhexidine Gluconate 0.12% 15mL Mouthwash MM SCH ×2 (08:51→21:25)
[2017-05-20] MEDS: Aspirin 81mg Chewable Tab NG SCH (08:51)
[2017-05-20] MEDS: Lactobacillus Rhamnosus GG 15 Billion CFU CAP.SPRINK NG SCH (08:51)
[2017-05-20] MEDS: Enoxaparin 80 mg/0.8 mL 0.8mL Syr SUBQ SCH ×2 (08:52→17:30)
[2017-05-20] MEDS: Lactulose 10 Gm/15 mL 30mL UDC PO SCH ×2 (08:53→17:30)
[2017-05-20 09:03] LABS: ALLEN TEST Positive; pH 7.58 (7.35-7.45)
--- NOTE | 2017-05-20 09:25 | Diagnostic Imaging Report ---
Portable chest x-ray HISTORY: Shortness of breath Compared with prior exam of May 19, 2017, persistent marked cardiomegaly. There remains opacification of the left lower hemithorax consistent with a pleural effusion. Underlying consolidation and/or atelectasis cannot be excluded. An endotracheal tube tip is approximately 3.0 cm above the mindy. IMPRESSION: 1. No significant change in the cardiopulmonary status.
[2017-05-20] MEDS ORDERED: Sodium Chloride 0.9% 1,000 ML IV ONE (13:08)
[2017-05-20] MEDS ORDERED: Albumin 25% 25gm/100mL 25 GM/100 ML BTL IV ONE (13:10)
[2017-05-20 13:47] LABS: % BASOPHILS 3.6 % (0.0-2.0); % EOSINOPHILS 0.1 % (0.0-5.0); % LYMPHOCYTES 10.4 % (20.0-50.0); % MONOCYTES 6.8 % (2.0-10.0); % NEUTROPHILS 79.1 % (40.0-80.0); BASOPHILE ABSOLUTE 0.4 Th/cumm (0-0.2); HEMATOCRIT 26.7 % (41.0-60); HEMOGLOBIN 8.8 gm/dL (12-16); LYMPHOCYTE ABSOLUTE 1.1 Th/cmm (1.5-3.0); MEAN CELL VOLUME 85.3 fl (81-100); MEAN CORPUSCULAR HEMOGLOBIN 28.1 pg (27.0-31.0); MEAN CORPUSCULAR HGB CONC 32.9 pg (28.0-36.0); MEAN PLATELET VOLUME 10.9 fl; MONOCYTE ABSOLUTE 0.7 Th/cmm (0.3-1.0); NEUTROPHILE ABSOLUTE 8.8 Th/cmm (1.8-8.0); PLATELET COUNT 196 Th/cmm (150-400); RED BLOOD COUNT 3.13 Mil/cmm (3.80-5.10); RED CELL DISTRIBUTION WIDTH 18.2 % (11.5-20.0)
[2017-05-20 14:00] LABS: ALB/GLOB RATIO 0.7 (1.0-1.8); ALBUMIN 2.9 gm/dL (3.7-5.3); BILIRUBIN,TOTAL 0.6 mg/dL (0.3-1.0); CALCIUM SERUM 8.9 mg/dL (8.6-10.3); CARBON DIOXIDE 27.3 mEq/L (21.0-31.0); CREATININE - SERUM 2.9 mg/dL (0.6-1.2); GFR NON AFRICAN-AMERICAN 17.4 ml/min; POTASSIUM SERUM 4.3 mEq/L (3.5-5.1); TOTAL PROTEIN,SERUM 7.1 gm/dL (6.0-8.3)
--- NOTE | 2017-05-20 15:21 | General Progress Note ---
Subjective - Review of Systems Subjective: Patient is seen and examined. Intubated and sedated. Spiked temp of 106. On levophed and neosynephrine drip. Patient is still tachycardic Discussed with RN re: patient's condition and treatment plan. Objective - Results Result Diagrams: 05/20/17 13:35 05/20/17 13:35 Recent Labs: Laboratory Last Values WBC 11.0 Th/cmm (4.8-10.8) H 05/20/17 13:35 RBC 3.13 Mil/cmm (3.80-5.10) L 05/20/17 13:35 Hgb 8.8 gm/dL (12-16) L 05/20/17 13:35 Hct 26.7 % (41.0-60) L 05/20/17 13:35 MCV 85.3 fl (81-100) 05/20/17 13:35 MCH 28.1 pg (27.0-31.0) 05/20/17 13:35 MCHC Differential 32.9 pg (28.0-36.0) 05/20/17 13:35 RDW 18.2 % (11.5-20.0) 05/20/17 13:35 Plt Count 196 Th/cmm (150-400) 05/20/17 13:35 MPV 10.9 fl 05/20/17 13:35 Neutrophils % 79.1 % (40.0-80.0) 05/20/17 13:35 Band Neutrophils % 12 % (0-10) H 05/18/17 04:30 Lymphocytes % 10.4 % (20.0-50.0) L 05/20/17 13:35 Monocytes % 6.8 % (2.0-10.0) 05/20/17 13:35 Eosinophils % 0.1 % (0.0-5.0) 05/20/17 13:35 Basophils % 3.6 % (0.0-2.0) H 05/20/17 13:35 Neutrophils (Manual) 77 % (40-80) 05/18/17 04:30 Lymphocytes 6 % (20-50) L 05/18/17 04:30 Monocytes 5 % (2-10) 05/18/17 04:30 Eosinophils 1 % (0-5) 05/14/17 04:10 Platelet Estimate ADEQUATE (NORMAL) 05/18/17 04:30 Eos Smear Source URINE 05/16/17 10:00 Eos Smear Total Cells NONE SEEN (NONE SEEN) 05/16/17 10:00 PT 10.6 SECONDS (9.5-11.5) 05/13/17 11:24 INR 1.02 (0.5-1.4) 05/13/17 11:24 PTT (Actin FS) 25.9 SECONDS (26.0-38.0) L 05/13/17 11:24 D-Dimer 1930 ng/mL (100-400) H 05/11/17 01:00 Specimen Source Arterial 05/20/17 09:00 Sample Site Right Radial 05/20/17 09:00 pH 7.58 (7.35-7.45) H* 05/20/17 09:00 pCO2 37.0 mmHg (35.0-45.0) 05/20/17 09:00 pO2 58.0 mmHg (80.0-100.0) L 05/20/17 09:00 HCO3 34.2 mEq/L (20.0-26.0) H 05/20/17 09:00 Base Excess 12.0 mEq/L (-3.0-3.0) H 05/20/17 09:00 O2 Saturation 94.0 % (92.0-100.0) 05/20/17 09:00 Jermaine Test Positive 05/20/17 09:00 Vent Rate 18 05/20/17 09:00 Inspired O2 50 05/20/17 09:00 Tidal Volume 400 05/20/17 09:00 PEEP 10 05/20/17 09:00 Pressure (ins/psv/peep) NA 05/20/17 09:00 Critical Value SH 05/20/17 09:00 Sodium 134 mEq/L (136-145) L 05/20/17 13:35 Potassium 4.3 mEq/L (3.5-5.1) 05/20/17 13:35 Chloride 96 mEq/L (98-107) L 05/20/17 13:35 Carbon Dioxide 27.3 mEq/L (21.0-31.0) 05/20/17 13:35 Anion Gap 15.0 (7.0-16.0) 05/20/17 13:35 BUN 56 mg/dL (7-25) H 05/20/17 13:35 Creatinine 2.9 mg/dL (0.6-1.2) H 05/20/17 13:35 Est GFR ( Amer) 21.0 ml/min (>90) 05/20/17 13:35 Est GFR (Non-Af Amer) 17.4 ml/min 05/20/17 13:35 BUN/Creatinine Ratio 19.3 05/20/17 13:35 Glucose 147 mg/dL (70-105) H 05/20/17 13:35 POC Glucose 145 MG/DL (70 - 105) H 05/20/17 11:15 Whole Bld Lactic Acid 2.53 mmol/L (0.60-1.99) H* 05/20/17 13:35 Uric Acid 7.4 mg/dL (2.3-6.6) H 05/17/17 08:15 Calcium 8.9 mg/dL (8.6-10.3) 05/20/17 13:35 Phosphorus 3.2 mg/dL (2.5-5.0) 05/17/17 08:15 Magnesium 2.7 mg/dL (1.9-2.7) 05/20/17 06:25 Total Bilirubin 0.6 mg/dL (0.3-1.0) 05/20/17 13:35 Direct Bilirubin 0.08 mg/dL (0.0-0.2) 05/13/17 05:11 AST 1040 U/L (13-39) H 05/20/17 13:35 ALT 459 U/L (7-52) H 05/20/17 13:35 Alkaline Phosphatase 33 U/L (34-104) L 05/20/17 13:35 Ammonia 86 umol/L (16-53) H 05/20/17 06:25 Creatine Kinase 43 U/L (30-223) 05/11/17 17:46 Troponin I 0.09 ng/mL (0.01-0.05) H* D 05/13/17 05:11 B-Natriuretic Peptide 131.0 pg/mL (5.0-100.0) H 05/15/17 06:30 Total Protein 7.1 gm/dL (6.0-8.3) 05/20/17 13:35 Albumin 2.9 gm/dL (3.7-5.3) L 05/20/17 13:35 Globulin 4.2 gm/dL 05/20/17 13:35 Albumin/Globulin Ratio 0.7 (1.0-1.8) L 05/20/17 13:35 TSH 0.65 uIU/ml (0.34-5.60) 05/12/17 10:27 Urine Source [place]RELLA PORT 05/16/17 10:00 Urine Color YELLOW 05/16/17 10:00 Urine Clarity HAZY (CLEAR) 05/16/17 10:00 Urine pH 6.0 (4.6 - 8.0) 05/16/17 10:00 Ur Specific [place] 1.020 (1.005-1.030) 05/16/17 10:00 Urine Protein 100 mg/dL (NEGATIVE) H 05/16/17 10:00 Urine Glucose (UA) NEGATIVE mg/dL (NEGATIVE) 05/16/17 10:00 Urine Ketones NEGATIVE mg/dL (NEGATIVE) 05/16/17 10:00 Urine Blood LARGE (NEGATIVE) H 05/16/17 10:00 Urine Nitrate NEGATIVE (NEGATIVE) 05/16/17 10:00 Urine Bilirubin NEGATIVE (NEGATIVE) 05/16/17 10:00 Urine Urobilinogen 0.2 E.U./dL (0.2 - 1.0) 05/16/17 10:00 Ur Leukocyte Esterase NEGATIVE (NEGATIVE) 05/16/17 10:00 Urine RBC 10-25 /hpf (0-5) H 05/16/17 10:00 Urine WBC 2-5 /hpf (0-5) 05/16/17 10:00 Ur Epithelial Cells FEW /lpf (FEW) 05/16/17 10:00 Urine Bacteria MODERATE /hpf (NONE SEEN) H 05/16/17 10:00 Coarse Granular Casts 0-2 /lpf (NONE SEEN) H 05/16/17 10:00 Urine Creatinine 80.4 mg/dl (28.0-217.0) 05/16/17 10:00 Vancomycin Trough 39.4 ug/mL (10-20) H 05/14/17 10:10 Random Vancomycin 13.9 ug/mL (5.0-40.0) 05/16/17 07:40 - Physical Exam Vitals and I&O: Vital Signs Temp 106.3 F 05/20/17 14:00 Pulse 151 05/20/17 15:08 Resp 19 05/20/17 14:00 BP 102/72 05/20/17 15:08 Pulse Ox 97 05/20/17 14:00 Intake & Output 05/19/17 05/20/17 05/20/17 18:59 06:59 18:59 Intake Total 7540.785 0487.849 331.479 Output Total 1100 300 Balance 165.741 3169.849 331.479 Weight (lbs) 110.677 kg 110.478 kg Intake: Intake, IV Amount 564.625 0065.849 331.479 Diltiazem 125 mg In 92.750 82.666 Dextrose 5% 100 ml @ 5 MG /HR 5 mls/hr IV TITR [facility] Rx#:[id number] Linezolid 600mg/300mL 600 300 300 mg In 300 ml @ 300 mls/ hr IV Q12H [facility] Rx#: [id number] Norepinephrine 8 mg In 154.293 434.445 239.507 Dextrose 5% 250 ml @ Per Protocol IV TITR PRN Rx#: [id number] Piperacillin Sodium/ 100 100 Tazobact 3.375 gm In Sodium Chloride 0.9% 50 ml @ 100 mls/hr IV Q6HR [facility] Rx#:[id number] Propofol 1,000 mg In 100 88.037 136.654 9.306 ml @ 30 MCG/KG/MIN 18.207 mls/hr IV TITR [facility] Rx#: [id number] Tube Feeding 600 600 Other 250 200 Output: Urine 1100 300 Stool 0 Other: # Bowel Movements 0 1 Stool Characteristics Liquid Liquid Liquid Brown Brown Active Medications: Current Medications Acetaminophen (Tylenol 650mg/20.3ml Suspension) 650 mg PO Q6H PRN PRN Reason: Fever > 101 Stop: 07/19/17 08:37 Last Admin: 05/20/17 14:29 Dose: 650 mg Albuterol/Ipratropium (Duoneb Neb) 3 ml HHN Q3H [facility] Stop: 07/10/17 01:14 Last Admin: 05/20/17 13:54 Dose: 3 ml Amiodarone HCl (Cordarone) 200 mg PO BID [facility] Stop: 07/15/17 16:59 Last Admin: 05/20/17 08:52 Dose: 200 mg Aspirin (Aspirin Chewable) 81 mg NG DAILY [facility] Stop: 07/10/17 08:59 Last Admin: 05/20/17 08:51 Dose: 81 mg Budesonide (Pulmicort) 0.5 mg HHN Q12HRT [facility] Stop: 07/10/17 06:59 Last Admin: 05/20/17 07:11 Dose: 0.5 mg Chlorhexidine Gluconate (Peridex) 15 ml MM 0800,2000 [facility] Stop: 07/13/17 07:59 Last Admin: 05/20/17 08:51 Dose: 15 ml Diltiazem HCl (Cardizem) 20 mg IVP Q4HR PRN PRN Reason: Tachycardia Stop: 07/14/17 18:16 Last Admin: 05/19/17 19:54 Dose: 20 mg Enoxaparin Sodium (Lovenox) 70 mg SUBQ BID [facility] Stop: 07/10/17 08:59 Last Admin: 05/20/17 08:52 Dose: 70 mg Piperacillin Sod/Tazobactam (Sod 3.375 gm/ Sodium Chloride) 50 mls @ 100 mls/ hr IV Q6HR [facility] Stop: 07/10/17 05:59 Last Admin: 05/20/17 12:39 Dose: 100 mls/hr Norepinephrine Bitartrate 8 mg (/ Dextrose) 254 mls @ 0 mls/hr IV TITR PRN; Protocol; Per Protocol PRN Reason: BP MAINTENANCE (PER PROTOCOL) Stop: 07/10/17 00:29 Last Admin: 05/20/17 12:32 Dose: 29.39 mcg/min, 56 mls/hr Propofol (Diprivan) 1,000 mg in 100 mls @ 18.207 mls/hr IV TITR [facility]; 30 MCG/KG/ MIN PRN Reason: Protocol Stop: 07/12/17 11:13 Last Admin: 05/20/17 11:05 Dose: 10 mcg/kg/min, 6.069 mls/hr Linezolid (Zyvox) 600 mg in 300 mls @ 300 mls/hr IV Q12H [facility] Stop: 07/17/17 14:59 Last Infusion: 05/20/17 03:45 Dose: Infused Diltiazem HCl 125 mg/ Dextrose 125 mls @ 5 mls/hr IV TITR [facility]; 5 MG/HR PRN Reason: Protocol Stop: 07/18/17 22:44 Last Admin: 05/20/17 15:08 Dose: 10 mg/hr, 10 mls/hr Phenylephrine HCl 10 mg/ (Sodium Chloride) 250 mls @ 0 mls/hr IV TITR [facility]; Titrate PRN Reason: Protocol Stop: 07/19/17 11:44 Last Admin: 05/20/17 13:18 Dose: 100 mcg/min, 150 mls/hr Insulin Aspart (Novolog Insulin Sliding Scale) 0 units SUBQ Q6HR [facility] PRN Reason: Protocol Stop: 07/10/17 05:59 Last Admin: 05/20/17 12:40 Dose: Not Given Lactobacillus Rhamnosus (Culturelle 15b) 1 each NG DAILY [facility] Stop: 07/13/17 08:59 Last Admin: 05/20/17 08:51 Dose: 1 each Lactulose (Cephulac) 30 gm PO BID [facility] Stop: 07/11/17 16:59 Last Admin: 05/20/17 08:53 Dose: Not Given Miscellaneous (Vte Chemical Prophylaxis Screen/ Admission) 1 ea PRN PRN PRN Reason: PROTOCOL Stop: 07/10/17 16:49 Miscellaneous (Probiotic Screen) 1 ea PRN PRN PRN Reason: PROTOCOL Stop: 07/13/17 08:44 Nitroglycerin (Nitro-Bid) 1 inch TP Q6HR [facility] Stop: 07/10/17 07:59 Last Admin: 05/20/17 11:04 Dose: Not Given Pantoprazole Sodium (Protonix) 40 mg IVP QDAC [facility] Stop: 07/10/17 08:59 Last Admin: 05/20/17 08:52 Dose: 40 mg General: Other (sedated and intubated) HEENT: PERRLA, Other (Oral ET tube+) Neck: Supple, JVD Cardiovascular: Regular rate, Normal S1, Normal S2 Lungs: Other (Rhonchi+) Abdomen: Bowel sounds, Soft, Obese Extremities: Other (L AKA) Neurological: Other (Sedated and intubated.) - Procedures Procedures: Procedures Procedure Code Date INSERT EMERGENCY AIRWAY 39232 05/10/17 INSERTION OF ENDOTRACHEAL AIRWAY INTO TRACHEA, VIA OPENING [id number] 05/10/17 RESPIRATORY VENTILATION, GREATER THAN 96 CONSECUTIVE HOURS [id number] 05/10/17 VENT MGMT INPAT INIT DAY 05/10/17 VENT MGMT INPAT SUBQ DAY 05/10/17 Assessment/Plan - Assessment Assessment: Acute Resp failure on vent on max support. Bilateral extensive infiltrate most likely ARDS. Hypotension on levophed drip and neosynephrine. High grade Fever new onset. TIMA due to ATN. Cardiac arrythmia. Septick shock. Diabetes. Hx of HTN. SVT. CHF. S/P L AKA Psych disorder. ICU care. - Plan Plan: Vent support HHN. Pulmo toilet IV antibiotics as per ID. Pressor agents and wean off. Rate control add digoxin. GI and DVT prophylaxisis. Anticoagulation. Cardiac monitoring. General nursing care. Follow lab. Propofol drip. Follow consultants recommendations. Lactulose. Continue current care. Guarded prognosis. Diabetes management. Symptoms control. Poor prognosis. Discussed with staff. Nutritional Asmnt/Malnutr-PDOC - Dietary Evaluation Malnutrition Findings (Please click <Entered> for more info): Nutritional Asmnt/Malnutrition Start: 05/15/17 16: 35 Text: Status: Complete Freq: Document 05/15/17 16:35 LCHENG (Rec: 05/15/17 16:49 LCHENG [email or web address]) Nutritional Asmnt/Malnutrition Patient General Information Nutritional Screening High Risk Diagnosis acute respiratory failure HTN Pertinent Medical Hx/Surgical Hx Dm, HTN, obesity, COPD, DJD, psychosis, left AKA Subjective Information Consult received for wounds. Pt seen resting in bed. Current Diet Order/ Nutrition Support diabetisource AC 200ml/hr bolus q 4hr Pertinent Medications novolog, culturelle, protonix, piperacillin Pertinent Labs 2/ BUN 34, Cr 2.4, Glucose 137 POC 125-146 Nutritional Hx/Data Height 1.52 m Height (Calculated Centimeters) 152.4 Current Weight (lbs) 60.101 kg Weight (Calculated Kilograms) 60.1 Weight (Calculated Grams) 44048.0 [place] Body Weight 100 % [place] Body Weight 133 Body Mass Index (BMI) 25.9 Weight Status Overweight GI Symptoms GI Symptoms None Last BM 2/6 Difficult in: None Skin Integrity/Comment: open wound to buttocks Estimated Nutritional Goals BEE in Kcals: Adj wt of IBW Calories/Kcals/Kg 25-30 Kcals Calculated 4560-1892 Protein: Adj wt of IBW Protein g/k.2-1.4 Protein Calculated 68-80 Fluid: ml 1425-1710ml (1ml/kcal) Nutritional Problem 1. Problem Problem increased nutrition needs ( calorie and protein) Etiology increased metabolic demands for wound healing Signs/Symptoms: open wound to buttocks Malnutrition Alert Protein-Calorie Malnutrition N/A Is there a minimum of two criteria No selected? Query Text:Check all the applicable criteria. A minimum of two criteria are recommended for diagnosis of either severe or non-severe malnutrition. Intervention/Recommendation Comments 1. Continue with current TF regimen. It provides 1440kcal, 72g protein, meeting 100% of nutritional needs. Recommend vitamin C to help with wound healing. 2. Monitor TF rate, tolerance, wt weekly, skin integrity and labs 3. F/U as moderate risk in 3-5 days, 05/18-05/20 Expected Outcomes/Goals Expected Outcomes/Goals 1. Pt to meet at least 75% of nutritional needs via nutrition support with tolerance 2. Wt stability, skin to remain intact, labs to approach WNL.
--- NOTE | 2017-05-20 15:30 | Progress Notes ---
DATE: 05/20/2017 SUBJECTIVE: The patient is unresponsive, intubated on vent. OBJECTIVE: VITAL SIGNS: Blood pressure 105/60, temperature is 101.1, pulse is 152, and respirations 35. HEENT: Normocephalic, atraumatic. CARDIOVASCULAR: S1, S2 heard, tachycardic. LUNGS: Bilateral rhonchi. ABDOMEN: Soft. No hepatosplenomegaly. EXTREMITIES: No cyanosis, clubbing, or edema. NEUROLOGIC: Cranial nerves II through XII intact. LABORATORY DATA: Sodium 137, potassium 4.0, chloride 98, bicarbonate 32, BUN 51, creatinine 2.7, glucose 127, calcium 9.0, phosphorus 2.7, magnesium 2.7, bilirubin 0.6, AST 414, and ALT 243. Ammonia is 86. ASSESSMENT AND PLAN: 1. Acute renal failure on top of chronic renal failure, this is worsening. Unfortunately, the patient was too unstable to start dialysis. 2. Septic shock was worsening. The patient is on IV antibiotics and Levophed and also diltiazem for tachycardia, very poor prognosis. 3. Respiratory failure, intubated on vent. 4. Hypertension. Currently, hypotensive on pressors. 5. Diabetes mellitus. Cover with sliding scale insulin. JOB# [id number]
[2017-05-20] MEDS ORDERED: Meropenem 500 MG in Sodium Chloride 0.9% 100 ML IV SCH (17:06)
--- NOTE | 2017-05-20 21:17 | Progress Notes ---
DATE: 05/20/2017 PROBLEM LIST: 1. Acute respiratory failure. 2. Congestive heart failure, now possibly sepsis with hypotension. 3. Underlying left leg above knee amputation. SYMPTOMS: The patient is obtunded. Currently on extension of the vasopressors, but otherwise unremarkable. PHYSICAL EXAMINATION: VITAL SIGNS: The patient's T-max went to 105.8, blood pressure is 130/78, saturation currently 100% ____ high 80s to 90s. NECK: Veins not visualized. CHEST: Shows diminished air entry with some secretory noise. HEART: Regular, tachycardic. ABDOMEN: Soft, nontender. LABORATORY DATA: The patient's chest x-ray shows haziness in the left base, but otherwise unremarkable and the patient's other laboratory studies: White count is 11,000, hemoglobin 8.8. Blood gases this morning on 50% of oxygen, pO2 is 58. Electrolytes are okay with a lactic acid 3.52 with significant elevation of liver profile. ASSESSMENT: The patient is currently septic associated with congestive heart failure, cardiac arrhythmia, possibly chronic obstructive pulmonary disease with underlying psychosis. PLANS AND SUGGESTIONS: We will go ahead and continue current treatment. We will repeat some of the studies again back tomorrow. Overall, prognosis appears to be very poor. [facility]# [id number]
--- NOTE | 2017-05-20 22:28 | General Progress Note ---
Subjective - Review of Systems Service Date: 05/20/17 Events since last encounter: CALLED TO SEE THE PATIENT FOR A CARDIOPUMONARY ARREST IN ICU. THIS IS A PATIENT THAT IS ON SEVERAL MEDICATIONS FOR HYPOTENSION. SHE IS ON THE VENTILATOR AND OBTUNDED, PUPIL ARE FIXED AND DIALATED. THE PATIENT GLUCOSE WAS 63 AND SHE WAS GIVEN 50CC OF D50 DEXTROSE IV PUSH WITHOUT ANY RESPONSE. THE ICU STAFF WAS PERFORMING ACLS WHEN I ARRIVED. THE PATIENT WAS GIVEN SEVERAL ROUNDS OF EPI WITHOUT ANY RESPONSE. THE HEART REMAINED UNRESPONSIVE AND A STRAIT LINE ON THE MONITOR. THE CODE WAS CALLED ENDED AT 2210 AND THE PATIENT WAS PRONOUNCED . Objective - Results Result Diagrams: 05/20/17 13:35 05/20/17 13:35 Recent Labs: Laboratory Last Values WBC 11.0 Th/cmm (4.8-10.8) H 05/20/17 13:35 RBC 3.13 Mil/cmm (3.80-5.10) L 05/20/17 13:35 Hgb 8.8 gm/dL (12-16) L 05/20/17 13:35 Hct 26.7 % (41.0-60) L 05/20/17 13:35 MCV 85.3 fl (81-100) 05/20/17 13:35 MCH 28.1 pg (27.0-31.0) 05/20/17 13:35 MCHC Differential 32.9 pg (28.0-36.0) 05/20/17 13:35 RDW 18.2 % (11.5-20.0) 05/20/17 13:35 Plt Count 196 Th/cmm (150-400) 05/20/17 13:35 MPV 10.9 fl 05/20/17 13:35 Neutrophils % 79.1 % (40.0-80.0) 05/20/17 13:35 Band Neutrophils % 12 % (0-10) H 05/18/17 04:30 Lymphocytes % 10.4 % (20.0-50.0) L 05/20/17 13:35 Monocytes % 6.8 % (2.0-10.0) 05/20/17 13:35 Eosinophils % 0.1 % (0.0-5.0) 05/20/17 13:35 Basophils % 3.6 % (0.0-2.0) H 05/20/17 13:35 Neutrophils (Manual) 77 % (40-80) 05/18/17 04:30 Lymphocytes 6 % (20-50) L 05/18/17 04:30 Monocytes 5 % (2-10) 05/18/17 04:30 Eosinophils 1 % (0-5) 05/14/17 04:10 Platelet Estimate ADEQUATE (NORMAL) 05/18/17 04:30 Eos Smear Source URINE 05/16/17 10:00 Eos Smear Total Cells NONE SEEN (NONE SEEN) 05/16/17 10:00 PT 10.6 SECONDS (9.5-11.5) 05/13/17 11:24 INR 1.02 (0.5-1.4) 05/13/17 11:24 PTT (Actin FS) 25.9 SECONDS (26.0-38.0) L 05/13/17 11:24 D-Dimer 1930 ng/mL (100-400) H 05/11/17 01:00 Specimen Source Arterial 05/20/17 09:00 Sample Site Right Radial 05/20/17 09:00 pH 7.58 (7.35-7.45) H* 05/20/17 09:00 pCO2 37.0 mmHg (35.0-45.0) 05/20/17 09:00 pO2 58.0 mmHg (80.0-100.0) L 05/20/17 09:00 HCO3 34.2 mEq/L (20.0-26.0) H 05/20/17 09:00 Base Excess 12.0 mEq/L (-3.0-3.0) H 05/20/17 09:00 O2 Saturation 94.0 % (92.0-100.0) 05/20/17 09:00 Jermaine Test Positive 05/20/17 09:00 Vent Rate 18 05/20/17 09:00 Inspired O2 50 05/20/17 09:00 Tidal Volume 400 05/20/17 09:00 PEEP 10 05/20/17 09:00 Pressure (ins/psv/peep) NA 05/20/17 09:00 Critical Value SH 05/20/17 09:00 Sodium 134 mEq/L (136-145) L 05/20/17 13:35 Potassium 4.3 mEq/L (3.5-5.1) 05/20/17 13:35 Chloride 96 mEq/L (98-107) L 05/20/17 13:35 Carbon Dioxide 27.3 mEq/L (21.0-31.0) 05/20/17 13:35 Anion Gap 15.0 (7.0-16.0) 05/20/17 13:35 BUN 56 mg/dL (7-25) H 05/20/17 13:35 Creatinine 2.9 mg/dL (0.6-1.2) H 05/20/17 13:35 Est GFR ( Amer) 21.0 ml/min (>90) 05/20/17 13:35 Est GFR (Non-Af Amer) 17.4 ml/min 05/20/17 13:35 BUN/Creatinine Ratio 19.3 05/20/17 13:35 Glucose 147 mg/dL (70-105) H 05/20/17 13:35 POC Glucose 137 MG/DL (70 - 105) H 05/20/17 17:50 Whole Bld Lactic Acid 3.52 mmol/L (0.60-1.99) H* 05/20/17 15:40 Uric Acid 7.4 mg/dL (2.3-6.6) H 05/17/17 08:15 Calcium 8.9 mg/dL (8.6-10.3) 05/20/17 13:35 Phosphorus 3.2 mg/dL (2.5-5.0) 05/17/17 08:15 Magnesium 2.7 mg/dL (1.9-2.7) 05/20/17 06:25 Total Bilirubin 0.6 mg/dL (0.3-1.0) 05/20/17 13:35 Direct Bilirubin 0.08 mg/dL (0.0-0.2) 05/13/17 05:11 AST 1040 U/L (13-39) H 05/20/17 13:35 ALT 459 U/L (7-52) H 05/20/17 13:35 Alkaline Phosphatase 33 U/L (34-104) L 05/20/17 13:35 Ammonia 86 umol/L (16-53) H 05/20/17 06:25 Creatine Kinase 43 U/L (30-223) 05/11/17 17:46 Troponin I 0.09 ng/mL (0.01-0.05) H* D 05/13/17 05:11 B-Natriuretic Peptide 131.0 pg/mL (5.0-100.0) H 05/15/17 06:30 Total Protein 7.1 gm/dL (6.0-8.3) 05/20/17 13:35 Albumin 2.9 gm/dL (3.7-5.3) L 05/20/17 13:35 Globulin 4.2 gm/dL 05/20/17 13:35 Albumin/Globulin Ratio 0.7 (1.0-1.8) L 05/20/17 13:35 TSH 0.65 uIU/ml (0.34-5.60) 05/12/17 10:27 Urine Source [place]RELLA [place] 05/16/17 10:00 Urine Color YELLOW 05/16/17 10:00 Urine Clarity HAZY (CLEAR) 05/16/17 10:00 Urine pH 6.0 (4.6 - 8.0) 05/16/17 10:00 Ur Specific Grant 1.020 (1.005-1.030) 05/16/17 10:00 Urine Protein 100 mg/dL (NEGATIVE) H 05/16/17 10:00 Urine Glucose (UA) NEGATIVE mg/dL (NEGATIVE) 05/16/17 10:00 Urine Ketones NEGATIVE mg/dL (NEGATIVE) 05/16/17 10:00 Urine Blood LARGE (NEGATIVE) H 05/16/17 10:00 Urine Nitrate NEGATIVE (NEGATIVE) 05/16/17 10:00 Urine Bilirubin NEGATIVE (NEGATIVE) 05/16/17 10:00 Urine Urobilinogen 0.2 E.U./dL (0.2 - 1.0) 05/16/17 10:00 Ur Leukocyte Esterase NEGATIVE (NEGATIVE) 05/16/17 10:00 Urine RBC 10-25 /hpf (0-5) H 05/16/17 10:00 Urine WBC 2-5 /hpf (0-5) 05/16/17 10:00 Ur Epithelial Cells FEW /lpf (FEW) 05/16/17 10:00 Urine Bacteria MODERATE /hpf (NONE SEEN) H 05/16/17 10:00 Coarse Granular Casts 0-2 /lpf (NONE SEEN) H 05/16/17 10:00 Urine Creatinine 80.4 mg/dl (28.0-217.0) 05/16/17 10:00 Vancomycin Trough 39.4 ug/mL (10-20) H 05/14/17 10:10 Random Vancomycin 13.9 ug/mL (5.0-40.0) 05/16/17 07:40 - Physical Exam Vitals and I&O: Vital Signs Temp 106.3 F 05/20/17 19:00 Pulse 111 05/20/17 21:08 Resp 31 05/20/17 19:00 BP 131/54 05/20/17 19:15 Pulse Ox 99 05/20/17 21:08 Intake & Output 05/20/17 05/20/17 05/21/17 06:59 18:59 06:59 Intake Total 7838.925 1247.249 Output Total 300 Balance 3925.012 2430.249 Weight (lbs) 110.478 kg Intake: Intake, IV Amount 8611.673 1765.249 Diltiazem 125 mg In 92.750 82.666 Dextrose 5% 100 ml @ 5 MG /HR 5 mls/hr IV TITR [facility] Rx#:[id number] Linezolid 600mg/300mL 600 300 300 mg In 300 ml @ 300 mls/ hr IV Q12H [facility] Rx#: [id number] Meropenem 500 mg In 100 Sodium Chloride 0.9% 100 ml @ 100 mls/hr IV Q12H [facility] Rx#:[id number] Norepinephrine 8 mg In 434.445 493.507 Dextrose 5% 250 ml @ Per Protocol IV TITR PRN Rx#: [id number] Phenylephrine HCl 10 mg 500 In Sodium Chloride 0.9% 250 ml @ Titrate IV TITR [facility] Rx#:[id number] Piperacillin Sodium/ 100 50 Tazobact 3.375 gm In Sodium Chloride 0.9% 50 ml @ 100 mls/hr IV Q6HR [facility] Rx#:[id number] Propofol 1,000 mg In 100 136.654 33.076 ml @ 30 MCG/KG/MIN 18.207 mls/hr IV TITR [facility] Rx#: [id number] Tube Feeding 600 Other 200 Output: Urine 300 Other: # Bowel Movements 1 Stool Characteristics Liquid Liquid Brown Active Medications: Current Medications Acetaminophen (Tylenol 650mg/20.3ml Suspension) 650 mg PO Q6H PRN PRN Reason: Fever > 101 Stop: 07/19/17 08:37 Last Admin: 05/20/17 14:29 Dose: 650 mg Albuterol/Ipratropium (Duoneb Neb) 3 ml HHN Q3H [facility] Stop: 07/10/17 01:14 Last Admin: 05/20/17 19:36 Dose: 3 ml Amiodarone HCl (Cordarone) 200 mg PO BID [facility] Stop: 07/15/17 16:59 Last Admin: 05/20/17 17:30 Dose: 200 mg Aspirin (Aspirin Chewable) 81 mg NG DAILY [facility] Stop: 07/10/17 08:59 Last Admin: 05/20/17 08:51 Dose: 81 mg Budesonide (Pulmicort) 0.5 mg HHN Q12HRT [facility] Stop: 07/10/17 06:59 Last Admin: 05/20/17 19:35 Dose: 0.5 mg Chlorhexidine Gluconate (Peridex) 15 ml MM 0800,2000 [facility] Stop: 07/13/17 07:59 Last Admin: 05/20/17 21:25 Dose: 15 ml Diltiazem HCl (Cardizem) 20 mg IVP Q4HR PRN PRN Reason: Tachycardia Stop: 07/14/17 18:16 Last Admin: 05/19/17 19:54 Dose: 20 mg Enoxaparin Sodium (Lovenox) 70 mg SUBQ BID [facility] Stop: 07/10/17 08:59 Last Admin: 05/20/17 17:30 Dose: 70 mg Norepinephrine Bitartrate 8 mg (/ Dextrose) 254 mls @ 0 mls/hr IV TITR PRN; Protocol; Per Protocol PRN Reason: BP MAINTENANCE (PER PROTOCOL) Stop: 07/10/17 00:29 Last Admin: 05/20/17 17:19 Dose: 29.39 mcg/min, 56 mls/hr Propofol (Diprivan) 1,000 mg in 100 mls @ 18.207 mls/hr IV TITR [facility]; 30 MCG/KG/ MIN PRN Reason: Protocol Stop: 07/12/17 11:13 Last Titration: 05/20/17 15:00 Dose: 15 mcg/kg/min, 9.104 mls/hr Linezolid (Zyvox) 600 mg in 300 mls @ 300 mls/hr IV Q12H [facility] Stop: 07/17/17 14:59 Last Infusion: 05/20/17 17:05 Dose: Infused Diltiazem HCl 125 mg/ Dextrose 125 mls @ 5 mls/hr IV TITR [facility]; 5 MG/HR PRN Reason: Protocol Stop: 07/18/17 22:44 Last Admin: 05/20/17 15:08 Dose: 10 mg/hr, 10 mls/hr Phenylephrine HCl 10 mg/ (Sodium Chloride) 250 mls @ 0 mls/hr IV TITR [facility]; Titrate PRN Reason: Protocol Stop: 07/19/17 11:44 Last Admin: 05/20/17 19:12 Dose: 40 mcg/min, 60 mls/hr Meropenem 500 mg/ Sodium (Chloride) 100 mls @ 100 mls/hr IV Q12H [facility] Stop: 07/19/17 17:05 Last Infusion: 05/20/17 18:20 Dose: Infused Insulin Aspart (Novolog Insulin Sliding Scale) 0 units SUBQ Q6HR [facility] PRN Reason: Protocol Stop: 07/10/17 05:59 Last Admin: 05/20/17 18:25 Dose: Not Given Lactobacillus Rhamnosus (Culturelle 15b) 1 each NG DAILY [facility] Stop: 07/13/17 08:59 Last Admin: 05/20/17 08:51 Dose: 1 each Lactulose (Cephulac) 30 gm PO BID [facility] Stop: 07/11/17 16:59 Last Admin: 05/20/17 17:30 Dose: 30 gm Miscellaneous (Vte Chemical Prophylaxis Screen/ Admission) 1 ea PRN PRN PRN Reason: PROTOCOL Stop: 07/10/17 16:49 Miscellaneous (Probiotic Screen) 1 ea PRN PRN PRN Reason: PROTOCOL Stop: 07/13/17 08:44 Nitroglycerin (Nitro-Bid) 1 inch TP Q6HR [facility] Stop: 07/10/17 07:59 Last Admin: 05/20/17 17:32 Dose: Not Given Pantoprazole Sodium (Protonix) 40 mg IVP QDAC [facility] Stop: 07/10/17 08:59 Last Admin: 05/20/17 08:52 Dose: 40 mg General: Other (sedated and intubated) HEENT: PERRLA, Other (Oral ET tube+) Neck: Supple, JVD Cardiovascular: Regular rate, Normal S1, Normal S2 Lungs: Other (Rhonchi+) Abdomen: Bowel sounds, Soft, Obese Extremities: Other (L AKA) Neurological: Other (Sedated and intubated.) - Procedures Procedures: Procedures Procedure Code Date INSERT EMERGENCY AIRWAY 93217 05/10/17 INSERTION OF ENDOTRACHEAL AIRWAY INTO TRACHEA, VIA OPENING [id number] 05/10/17 RESPIRATORY VENTILATION, GREATER THAN 96 CONSECUTIVE HOURS [id number] 05/10/17 VENT MGMT INPAT INIT DAY 05/10/17 VENT MGMT INPAT SUBQ DAY 05/10/17 Nutritional Asmnt/Malnutr-PDOC - Dietary Evaluation Malnutrition Findings (Please click <Entered> for more info): Nutritional Asmnt/Malnutrition Start: 05/15/17 16: 35 Text: Status: Complete Freq: Document 05/15/17 16:35 LCKATHERINE (Rec: 05/15/17 16:49 [place] [id number]) Nutritional Asmnt/Malnutrition Patient General Information Nutritional Screening High Risk Diagnosis acute respiratory failure HTN Pertinent Medical Hx/Surgical Hx Dm, HTN, obesity, COPD, DJD, psychosis, left AKA Subjective Information Consult received for wounds. Pt seen resting in bed. Current Diet Order/ Nutrition Support diabetisource AC 200ml/hr bolus q 4hr Pertinent Medications novolog, culturelle, protonix, piperacillin Pertinent Labs 2/6 BUN 34, Cr 2.4, Glucose 137 POC 125-146 Nutritional Hx/Data Height 1.52 m Height (Calculated Centimeters) 152.4 Current Weight (lbs) 60.101 kg Weight (Calculated Kilograms) 60.1 Weight (Calculated Grams) 39122.0 [place] Body Weight 100 % [place] Body Weight 133 Body Mass Index (BMI) 25.9 Weight Status Overweight GI Symptoms GI Symptoms None Last BM 2/6 Difficult in: None Skin Integrity/Comment: open wound to buttocks Estimated Nutritional Goals BEE in Kcals: Adj wt of IBW Calories/Kcals/Kg 25-30 Kcals Calculated 4030-9592 Protein: Adj wt of IBW Protein g/k.2-1.4 Protein Calculated 68-80 Fluid: ml 1425-1710ml (1ml/kcal) Nutritional Problem 1. Problem Problem increased nutrition needs ( calorie and protein) Etiology increased metabolic demands for wound healing Signs/Symptoms: open wound to buttocks Malnutrition Alert Protein-Calorie Malnutrition N/A Is there a minimum of two criteria No selected? Query Text:Check all the applicable criteria. A minimum of two criteria are recommended for diagnosis of either severe or non-severe malnutrition. Intervention/Recommendation Comments 1. Continue with current TF regimen. It provides 1440kcal, 72g protein, meeting 100% of nutritional needs. Recommend vitamin C to help with wound healing. 2. Monitor TF rate, tolerance, wt weekly, skin integrity and labs 3. F/U as moderate risk in 3-5 days, 05/18-05/20 Expected Outcomes/Goals Expected Outcomes/Goals 1. Pt to meet at least 75% of nutritional needs via nutrition support with tolerance 2. Wt stability, skin to remain intact, labs to approach WNL.
--- NOTE | 2017-05-21 07:39 | Diagnostic Imaging Report ---
Exam: Chest x-ray frontal view HISTORY: Sepsis. Findings: Frontal examination of chest reviewed in comparison to prior examination of the early demonstrates unchanged appearance of cardiomegaly with superimposed left lower lobe pneumonia and effusion. Endotracheal tube in place. Left-sided PICC line unchanged appearance Bony thorax is intact. The visualized right lung parenchyma is well aerated. IMPRESSION: Unchanged upper prior examination day earlier.
--- NOTE | 2017-06-02 02:10 | Discharge Summary ---
DATE OF DISCHARGE: 05/20/2017 PATIENT IDENTIFICATION: A 66-year-old female. DATE OF EXPIRATION: 05/20/2017 at 2149 hours PRINCIPAL DIAGNOSES: 1. Cardiac arrest. 2. Adult respiratory distress syndrome. 3. Hypotension secondary to septic shock. 4. Obstructive sleep apnea. 5. Diabetes mellitus. 6. Atrial fibrillation, atrial flutter. 7. Aspiration pneumonia. 8. Hypertension by history. 9. Obesity. 10. Left ventricular hypertrophy by 2D echocardiogram. 11. Chronic obstructive pulmonary disease. 12. Left above-knee amputation. 13. Degenerative joint disease. 14. Acute kidney injury secondary to acute tubular necrosis. 15. Psychiatric disorder. BRIEF STATEMENT FOR THE REASON FOR ADMISSION: A 66-year-old female admitted initially at [facility] for her psychotic treatment where it was noted by nursing staff that the patient was hypotensive with altered mental status. KILN TRANSFER OPERATOR was called in and the patient was transferred to ICU. The patient was seen by Emergency Room MD, and the patient was admitted. Please refer to my dictated H and P for further information. HOSPITAL COURSE: The patient was admitted to ICU. The patient was placed on ventilator. Sputum Gram stain, C and S, urinalysis, urine culture were obtained. Empirically, IV antibiotic was started. IV fluid, pressor agent was also obtained. Cardiology and Pulmonary consultation was requested. Cardiac enzymes were also requested. The patient was also placed on aspirin and gtq-[id number] heparin as well. The patient was also treated with statin as well. Plan was to wean off from the ventilator. The patient was seen by Dr. Sohan Simental. The patient was placed on weaning protocol. The patient was not tolerating weaning as expected. The patient was extremely agitated which required propofol drip as well. According to corporate safety coordinator evaluation, the patient may have a component of congestive heart failure. The patient was able to self-extubate by herself, though the patient maintained her O2 sat for at least few hours and subsequently started to decompensate which required reintubation as well. The patient was seen by board saw runner for acute kidney injury considering the patient's BUN and creatinine were going up. Infectious Disease consultation was also requested as well. The patient's overall prognosis was very poor. The patient's family was updated over the patient's condition, diagnosis and treatment plan. In spite of aggressive measures, the patient continued to remain hypotensive. Pressor agents were added with Fish-Synephrine drip along with Levophed drip. The patient was also noted to have cardiac arrhythmia. For that, the patient required medications to control the rate. In spite of aggressive measures, the patient was unable to survive. The patient did have a cardiac arrest. Code blue were called in. Multiple attempts were made, but the patient unable to survive. The patient . The patient's family were notified. JOB# [id number]
== END 2017-05-20 22:05 | disposition expired | DRG 870 ==
LOC: ICU 23:33
PROVIDERS: ADMIT Internal Medicine; ATTEND Internal Medicine
PROC: 0BH17EZ Insertion of Endotracheal Airway into Trachea, Via Natural or Artificial Opening (ICD-10-PCS; principal; 2017-05-11)
PROC: 5A1945Z Respiratory Ventilation, 24-96 Consecutive Hours (ICD-10-PCS; 2017-05-11)
PROC: 5A09357 Assistance with Respiratory Ventilation, Less than 24 Consecutive Hours, Continuous Positive Airway Pressure (ICD-10-PCS; 2017-05-12)
PROC: 5A1955Z Respiratory Ventilation, Greater than 96 Consecutive Hours (ICD-10-PCS; 2017-05-13)
PROC: 0BH17EZ Insertion of Endotracheal Airway into Trachea, Via Natural or Artificial Opening (ICD-10-PCS; 2017-05-13)
PROC: 02HV33Z Insertion of Infusion Device into Superior Vena Cava, Percutaneous Approach (ICD-10-PCS; 2017-05-14)
DX: A41.9 Sepsis, unspecified organism (principal); I21.4 Non-ST elevation (NSTEMI) myocardial infarction; J96.00 Acute respiratory failure, unspecified whether with hypoxia or hypercapnia; N17.0 Acute kidney failure with tubular necrosis; J69.0 Pneumonitis due to inhalation of food and vomit; R65.21 Severe sepsis with septic shock; R57.0 Cardiogenic shock; I47.1 Supraventricular tachycardia; E11.22 Type 2 diabetes mellitus with diabetic chronic kidney disease; K72.90 Hepatic failure, unspecified without coma; I13.0 Hypertensive heart and chronic kidney disease with heart failure and stage 1 through stage 4 chronic kidney disease, or unspecified chronic kidney disease; I48.92 Unspecified atrial flutter; Z68.42 Body mass index [BMI] 45.0-49.9, adult; Z99.11 Dependence on respirator [ventilator] status; D64.9 Anemia, unspecified; M19.90 Unspecified osteoarthritis, unspecified site; F29 Unspecified psychosis not due to a substance or known physiological condition; E66.9 Obesity, unspecified; G47.33 Obstructive sleep apnea (adult) (pediatric); F25.9 Schizoaffective disorder, unspecified; I50.9 Heart failure, unspecified; F25.0 Schizoaffective disorder, bipolar type; I11.0 Hypertensive heart disease with heart failure; R31.9 Hematuria, unspecified; N18.9 Chronic kidney disease, unspecified; Z89.612 Acquired absence of left leg above knee
CPT/HCPCS: 36415-UA; 36600-90; 70450-TC; 71045-TC; 71250-TC; 76705-TC; 76770-TC; 80053-TC; 80076-TC; 80202-TC; 81001-TC; 81015-TC; 82140-TC; 82248-TC; 82550-TC; 82570-TC; 82803-TC; 82948-90; 83605; 83735-TC; 83880-TC; 84100-TC; 84443-TC; 84484-TC; 84550-TC; 85007-TC; 85025-TC; 85027-TC; 85379-TC; 85610-TC; 85730-TC; 87070; 87086-90; 90779; 92950; 93005; 93970-TC-50; 94002; 94003; 96379; A4217; C9113; J0282; J1160; J1265; J1650; J1815; J1940; J2001; J2020; J2060; J2185; J2270; J2543; J2704; J3370; J7030; J7040; J7042; P9045; P9046; X6452; X7704; Z7610